=== PATIENT | female | born 1940 | race Caucasian/White ===

== ENCOUNTER → 2023-04-23 07:41 | Outpatient (REF) | payer OTHER, SELFPAY ==
[2023-04-23 08:26] LABS: % Basophils 0.8 % (0-2); % Immature Granulocytes 0.1 % (0-0.5); % Lymphocytes 16.9 % (20.5-51.1); % Monocytes 11.9 % (1.7-9.3); % Neutrophils 68.3 % (42.2-75.2); Absolute Basophils 0.1 10^3/uL (0-0.2); Absolute Eosinophils 0.2 10^3/uL (0-0.7); Absolute Lymphocytes 1.5 10^3/uL (1.2-3.4); Absolute Neutrophils 5.9 10^3/uL (1.4-6.5); Hematocrit 43.6 % (37.0-47.0); Hemoglobin 14.7 g/dL (12.0-16.0); Mean Corp Hgb Conc. 33.7 g/dL (33.0-37.0); Mean Corpuscular Hgb 33.2 pg (27.0-31.0); Mean Corpuscular Volume 98.4 fL (81.0-99.0); Mean Platelet Volume 10.9 fL (7.4-10.4); Nucleated Red Blood Cells % 0 %; Platelet Count 176 10^3/uL (130-400); Red Blood Cell Count 4.43 10^6/uL (4.20-5.40); Red Cell Dist. Width 14.8 % (11.5-14.5); White Blood Cell Count 8.6 10^3/uL (4.8-10.8)
[2023-04-23 08:43] LABS: NT-proBNP 4910 pg/ml; Troponin I 0.032 ng/ml
[2023-04-23 09:36] LABS: Blood Urea Nitrogen 23 mg/dl (7-17); Calcium 9.6 mg/dl (8.4-10.2); Carbon Dioxide 26 mmol/L (22-30); Chloride 99 mmol/L (98-107); Glucose 112 mg/dl (70-99); Potassium 4.4 mmol/L (3.5-5.1); Sodium 135 mmol/L (135-145); eGFR > 60.00
[2023-04-27 06:33] LABS: Albumin 4.15 g/dL (3.75-5.01); Alpha 1 Globulin 0.29 g/dL (0.19-0.46); Free Kappa Light Chains,Quant 17.17 mg/L (3.30-19.40); Free Lambda Light Chains,Quant 48.46 mg/L (5.71-26.30); IgA 89 mg/dL (68-408); IgG 800 mg/dL (768-1632); IgM 30 mg/dL (35-263); Immunofixation Electrophoresis IFE Done; Kappa/Lambda Fr Light Ratio 0.35 (0.26-1.65); Total Protein-Electrophoresis 6.7 g/dL (6.3-8.2)
== END ==
LOC: REG 07:41
PROVIDERS: ATTENDING PHYSICIAN Internal Medicine Hematology & Oncology
DX: E85.4 Organ-limited amyloidosis (principal)
CPT/HCPCS: 36415; 80048; 82784; 83521; 83880; 84155; 84165; 84484; 85025; 86334

== ENCOUNTER → 2023-05-14 16:28 | Outpatient (REF) | payer OTHER, SELFPAY ==
[2023-05-14 11:56] LABS: % Basophils 0.9 % (0-2); % Eosinophils 1.4 % (0-6); % Immature Granulocytes 0.1 % (0-0.5); % Lymphocytes 15.9 % (20.5-51.1); % Monocytes 10.3 % (1.7-9.3); % Neutrophils 71.4 % (42.2-75.2); Absolute Basophils 0.1 10^3/uL (0-0.2); Absolute Eosinophils 0.1 10^3/uL (0-0.7); Absolute Lymphocytes 1.1 10^3/uL (1.2-3.4); Absolute Monocytes 0.7 10^3/uL (0.1-0.6); Hematocrit 43.2 % (37.0-47.0); Hemoglobin 14.5 g/dL (12.0-16.0); Mean Corp Hgb Conc. 33.6 g/dL (33.0-37.0); Mean Corpuscular Hgb 32.6 pg (27.0-31.0); Mean Corpuscular Volume 97.1 fL (81.0-99.0); Mean Platelet Volume 11.1 fL (7.4-10.4); Platelet Count 165 10^3/uL (130-400); Red Blood Cell Count 4.45 10^6/uL (4.20-5.40); Red Cell Dist. Width 14.1 % (11.5-14.5)
== END ==
LOC: OIDL 16:28
PROVIDERS: ATTENDING PHYSICIAN Internal Medicine Hematology & Oncology
DX: E85.4 Organ-limited amyloidosis (principal)
CPT/HCPCS: 85025; 86850; 86900; 86901

== ENCOUNTER → 2023-05-21 11:27 | Outpatient (REF) | payer OTHER, SELFPAY ==
[2023-05-21 11:45] LABS: % Basophils 0.1 % (0-2); % Eosinophils 1.2 % (0-6); % Immature Granulocytes 0.1 % (0-0.5); % Monocytes 10.6 % (1.7-9.3); Absolute Eosinophils 0.1 10^3/uL (0-0.7); Absolute Monocytes 0.8 10^3/uL (0.1-0.6); Absolute Neutrophils 5.4 10^3/uL (1.4-6.5); Hematocrit 44.2 % (37.0-47.0); Mean Corp Hgb Conc. 33.9 g/dL (33.0-37.0); Mean Corpuscular Hgb 32.4 pg (27.0-31.0); Mean Corpuscular Volume 95.5 fL (81.0-99.0); Mean Platelet Volume 10.6 fL (7.4-10.4); Platelet Count 173 10^3/uL (130-400); Red Blood Cell Count 4.63 10^6/uL (4.20-5.40); White Blood Cell Count 7.3 10^3/uL (4.8-10.8)
== END ==
LOC: OIDL 11:27
PROVIDERS: ATTENDING PHYSICIAN Internal Medicine Hematology & Oncology
DX: E85.4 Organ-limited amyloidosis (principal)
CPT/HCPCS: 85025

== ENCOUNTER → 2023-05-26 08:00 | Outpatient (REF) | payer OTHER, SELFPAY | LOC: RCS 08:00 | PROVIDERS: ATTENDING PHYSICIAN Internal Medicine Hematology & Oncology; FAMILY PHYSICIAN Family Medicine; OTHER PHYSICIAN Internal Medicine Cardiovascular Disease; REFERRING PHYSICIAN Internal Medicine Cardiovascular Disease | DX: E85.4 Organ-limited amyloidosis (principal) | CPT/HCPCS: 71046; 93306; 93356 ==

== ENCOUNTER → 2023-05-28 13:11 | Outpatient (REF) | payer OTHER, SELFPAY ==
[2023-05-28 09:02] LABS: % Basophils 0.1 % (0-2); % Eosinophils 0.3 % (0-6); % Immature Granulocytes 0.2 % (0-0.5); % Lymphocytes 10.3 % (20.5-51.1); % Monocytes 7.9 % (1.7-9.3); % Neutrophils 81.2 % (42.2-75.2); Absolute Lymphocytes 0.9 10^3/uL (1.2-3.4); Absolute Monocytes 0.7 10^3/uL (0.1-0.6); Absolute Neutrophils 7.4 10^3/uL (1.4-6.5); Hematocrit 46.1 % (37.0-47.0); Hemoglobin 15.7 g/dL (12.0-16.0); Mean Corp Hgb Conc. 34.1 g/dL (33.0-37.0); Mean Corpuscular Hgb 32.3 pg (27.0-31.0); Mean Corpuscular Volume 94.9 fL (81.0-99.0); Mean Platelet Volume 10.5 fL (7.4-10.4); Platelet Count 145 10^3/uL (130-400); Red Blood Cell Count 4.86 10^6/uL (4.20-5.40); Red Cell Dist. Width 13.8 % (11.5-14.5); White Blood Cell Count 9.1 10^3/uL (4.8-10.8)
== END ==
LOC: OIDL 13:11
PROVIDERS: ATTENDING PHYSICIAN Internal Medicine Hematology & Oncology
DX: E85.4 Organ-limited amyloidosis (principal)
CPT/HCPCS: 85025

== ENCOUNTER → 2023-06-02 08:22 | Outpatient (REF) | payer OTHER, SELFPAY ==
[2023-06-02 09:29] LABS: % Basophils 0.1 % (0-2); % Eosinophils 0.3 % (0-6); % Immature Granulocytes 0.5 % (0-0.5); % Lymphocytes 15.1 % (20.5-51.1); % Monocytes 8.6 % (1.7-9.3); % Neutrophils 75.4 % (42.2-75.2); Absolute Immature Granulocytes 0.1 10^3/uL (0-0.05); Absolute Lymphocytes 1.4 10^3/uL (1.2-3.4); Absolute Monocytes 0.8 10^3/uL (0.1-0.6); Absolute Neutrophils 7.1 10^3/uL (1.4-6.5); Hematocrit 44.2 % (37.0-47.0); Hemoglobin 15.3 g/dL (12.0-16.0); Mean Corp Hgb Conc. 34.6 g/dL (33.0-37.0); Mean Corpuscular Hgb 32.3 pg (27.0-31.0); Mean Corpuscular Volume 93.2 fL (81.0-99.0); Mean Platelet Volume 11.1 fL (7.4-10.4); Nucleated Red Blood Cells % 0 %; Platelet Count 149 10^3/uL (130-400); Red Blood Cell Count 4.74 10^6/uL (4.20-5.40); Red Cell Dist. Width 14.2 % (11.5-14.5); White Blood Cell Count 9.4 10^3/uL (4.8-10.8)
[2023-06-02 10:00] LABS: ALT (SGPT) 71 U/L (0-35); AST (SGOT) 54 U/L (14-36); Albumin 4.4 g/dl (3.5-5.0); Alkaline Phosphatase 152 U/L (38-126); Blood Urea Nitrogen 29 mg/dl (7-17); Calcium 9.2 mg/dl (8.4-10.2); Carbon Dioxide 30 mmol/L (22-30); Chloride 96 mmol/L (98-107); Glucose 162 mg/dl (70-99); Potassium 4.3 mmol/L (3.5-5.1); Sodium 133 mmol/L (135-145); Total Bilirubin 1.6 mg/dl (0.2-1.3); Total Protein 6.8 g/dl (6.3-8.2); eGFR > 60.00
== END ==
LOC: REG 08:22
PROVIDERS: ATTENDING PHYSICIAN Internal Medicine Hematology & Oncology; FAMILY PHYSICIAN Family Medicine
DX: E85.4 Organ-limited amyloidosis (principal); R53.83 Other fatigue
CPT/HCPCS: 36415; 80053; 85025

== ENCOUNTER → 2023-06-04 13:37 | Outpatient (REF) | payer OTHER, SELFPAY ==
[2023-06-06 09:45] LABS: Beta-2-Microglobulin 2.9 mg/L (<=3.0)
[2023-06-07 13:37] LABS: Albumin 3.96 g/dL (3.75-5.01); Alpha 1 Globulin 0.26 g/dL (0.19-0.46); Alpha 2 Globulin 0.81 g/dL (0.48-1.05); Free Kappa Light Chains,Quant 4.97 mg/L (3.30-19.40); Free Lambda Light Chains,Quant 15.65 mg/L (5.71-26.30); IgA 33 mg/dL (68-408); IgG 628 mg/dL (768-1632); IgM 17 mg/dL (35-263); Immunofixation Electrophoresis IFE Done; Kappa/Lambda Fr Light Ratio 0.32 (0.26-1.65); Total Protein-Electrophoresis 6.2 g/dL (6.3-8.2)
== END ==
LOC: OIDL 13:37
PROVIDERS: ATTENDING PHYSICIAN Internal Medicine Hematology & Oncology
DX: E85.4 Organ-limited amyloidosis (principal)
CPT/HCPCS: 82232; 82784; 83521; 84155; 84165; 86334

== ENCOUNTER → 2023-06-09 08:18 | Outpatient (REF) | payer OTHER, SELFPAY ==
[2023-06-09 08:59] LABS: % Basophils 0.2 % (0-2); % Eosinophils 0.8 % (0-6); % Immature Granulocytes 0.8 % (0-0.5); % Lymphocytes 15.6 % (20.5-51.1); % Monocytes 8.7 % (1.7-9.3); % Neutrophils 73.9 % (42.2-75.2); Absolute Eosinophils 0.1 10^3/uL (0-0.7); Absolute Immature Granulocytes 0.1 10^3/uL (0-0.05); Absolute Lymphocytes 1.6 10^3/uL (1.2-3.4); Absolute Monocytes 0.9 10^3/uL (0.1-0.6); Absolute Neutrophils 7.4 10^3/uL (1.4-6.5); Hematocrit 46.3 % (37.0-47.0); Hemoglobin 15.8 g/dL (12.0-16.0); Mean Corp Hgb Conc. 34.1 g/dL (33.0-37.0); Mean Corpuscular Hgb 32.2 pg (27.0-31.0); Mean Corpuscular Volume 94.5 fL (81.0-99.0); Mean Platelet Volume 11.2 fL (7.4-10.4); Nucleated Red Blood Cells % 0 %; Platelet Count 156 10^3/uL (130-400); Red Cell Dist. Width 14.4 % (11.5-14.5)
[2023-06-09 09:32] LABS: ALT (SGPT) 62 U/L (0-35); AST (SGOT) 48 U/L (14-36); Albumin 4.5 g/dl (3.5-5.0); Alkaline Phosphatase 124 U/L (38-126); Blood Urea Nitrogen 32 mg/dl (7-17); Calcium 9.7 mg/dl (8.4-10.2); Carbon Dioxide 32 mmol/L (22-30); Chloride 89 mmol/L (98-107); Glucose 213 mg/dl (70-99); Potassium 4.5 mmol/L (3.5-5.1); Sodium 132 mmol/L (135-145); Total Bilirubin 1.8 mg/dl (0.2-1.3); Total Protein 6.7 g/dl (6.3-8.2); eGFR 55.55
[2023-06-13 08:53] LABS: Albumin 4.45 g/dL (3.75-5.01); Alpha 1 Globulin 0.29 g/dL (0.19-0.46); Alpha 2 Globulin 0.95 g/dL (0.48-1.05); Free Kappa Light Chains,Quant 4.46 mg/L (3.30-19.40); Free Lambda Light Chains,Quant 14.27 mg/L (5.71-26.30); IgA 31 mg/dL (68-408); IgG 705 mg/dL (768-1632); IgM 17 mg/dL (35-263); Immunofixation Electrophoresis IFE Done; Kappa/Lambda Fr Light Ratio 0.31 (0.26-1.65); Monoclonal Protein 0.25 g/dL (<=0.00)
== END ==
LOC: REG 08:18
PROVIDERS: ATTENDING PHYSICIAN Internal Medicine Hematology & Oncology; FAMILY PHYSICIAN Family Medicine
DX: E85.4 Organ-limited amyloidosis (principal); R53.83 Other fatigue
CPT/HCPCS: 36415; 80053; 82784; 83521; 84155; 84165; 85025; 86334

== ENCOUNTER → 2023-06-16 07:36 | Outpatient (REF) | payer OTHER, SELFPAY ==
[2023-06-16 08:57] LABS: % Basophils 0.2 % (0-2); % Eosinophils 0.1 % (0-6); % Immature Granulocytes 0.4 % (0-0.5); % Lymphocytes 10.4 % (20.5-51.1); % Monocytes 6.3 % (1.7-9.3); % Neutrophils 82.6 % (42.2-75.2); Absolute Monocytes 0.6 10^3/uL (0.1-0.6); Absolute Neutrophils 7.7 10^3/uL (1.4-6.5); Hematocrit 42.4 % (37.0-47.0); Hemoglobin 15.1 g/dL (12.0-16.0); Mean Corp Hgb Conc. 35.6 g/dL (33.0-37.0); Mean Corpuscular Hgb 32.5 pg (27.0-31.0); Mean Corpuscular Volume 91.4 fL (81.0-99.0); Nucleated Red Blood Cells % 0 %; Platelet Count 145 10^3/uL (130-400); Red Blood Cell Count 4.64 10^6/uL (4.20-5.40); Red Cell Dist. Width 14.6 % (11.5-14.5); White Blood Cell Count 9.4 10^3/uL (4.8-10.8)
[2023-06-16 09:23] LABS: ALT (SGPT) 58 U/L (0-35); AST (SGOT) 42 U/L (14-36); Albumin 4.1 g/dl (3.5-5.0); Alkaline Phosphatase 138 U/L (38-126); Blood Urea Nitrogen 25 mg/dl (7-17); Calcium 9.2 mg/dl (8.4-10.2); Carbon Dioxide 29 mmol/L (22-30); Chloride 94 mmol/L (98-107); Glucose 223 mg/dl (70-99); Potassium 4.5 mmol/L (3.5-5.1); Sodium 131 mmol/L (135-145); Total Bilirubin 1.9 mg/dl (0.2-1.3); Total Protein 6.4 g/dl (6.3-8.2); eGFR > 60.00
== END ==
LOC: HWRAD 07:36
PROVIDERS: ATTENDING PHYSICIAN Internal Medicine Hematology & Oncology; FAMILY PHYSICIAN Family Medicine; REFERRING PHYSICIAN Nurse Practitioner Family
DX: E85.4 Organ-limited amyloidosis (principal); R53.83 Other fatigue; R06.00 Dyspnea, unspecified; R22.41 Localized swelling, mass and lump, right lower limb
CPT/HCPCS: 36415; 80053; 85025; 93971

== ENCOUNTER → 2023-06-23 10:52 | Outpatient (REF) | payer OTHER, SELFPAY ==
[2023-06-23 12:14] LABS: % Basophils 0.1 % (0-2); % Eosinophils 0.1 % (0-6); % Immature Granulocytes 0.4 % (0-0.5); % Lymphocytes 10.9 % (20.5-51.1); % Monocytes 6.6 % (1.7-9.3); % Neutrophils 81.9 % (42.2-75.2); Absolute Monocytes 0.6 10^3/uL (0.1-0.6); Absolute Neutrophils 7.5 10^3/uL (1.4-6.5); Hemoglobin 14.7 g/dL (12.0-16.0); Mean Corpuscular Hgb 32.5 pg (27.0-31.0); Mean Corpuscular Volume 92.7 fL (81.0-99.0); Mean Platelet Volume 10.8 fL (7.4-10.4); Nucleated Red Blood Cells % 0 %; Platelet Count 150 10^3/uL (130-400); Red Blood Cell Count 4.53 10^6/uL (4.20-5.40); Red Cell Dist. Width 14.6 % (11.5-14.5); White Blood Cell Count 9.2 10^3/uL (4.8-10.8)
[2023-06-23 12:32] LABS: ALT (SGPT) 62 U/L (0-35); AST (SGOT) 37 U/L (14-36); Albumin 4.2 g/dl (3.5-5.0); Alkaline Phosphatase 135 U/L (38-126); Blood Urea Nitrogen 21 mg/dl (7-17); Calcium 9.1 mg/dl (8.4-10.2); Carbon Dioxide 31 mmol/L (22-30); Chloride 92 mmol/L (98-107); Glucose 97 mg/dl (70-99); Potassium 3.8 mmol/L (3.5-5.1); Sodium 130 mmol/L (135-145); Total Bilirubin 1.5 mg/dl (0.2-1.3); Total Protein 6.5 g/dl (6.3-8.2); eGFR > 60.00
[2023-06-25 09:25] LABS: Albumin 3.79 g/dL (3.75-5.01); Alpha 1 Globulin 0.33 g/dL (0.19-0.46); Alpha 2 Globulin 0.98 g/dL (0.48-1.05); Free Kappa Light Chains,Quant 4.37 mg/L (3.30-19.40); Free Lambda Light Chains,Quant 15.18 mg/L (5.71-26.30); IgA 15 mg/dL (68-408); IgG 566 mg/dL (768-1632); IgM 15 mg/dL (35-263); Immunofixation Electrophoresis IFE Done; Kappa/Lambda Fr Light Ratio 0.29 (0.26-1.65); Total Protein-Electrophoresis 6.3 g/dL (6.3-8.2)
== END ==
LOC: REG 10:52
PROVIDERS: ATTENDING PHYSICIAN Internal Medicine Hematology & Oncology; FAMILY PHYSICIAN Family Medicine
DX: E85.4 Organ-limited amyloidosis (principal); R53.83 Other fatigue
CPT/HCPCS: 36415; 80053; 82784; 83521; 84155; 84165; 85025; 86334

== ENCOUNTER → 2023-07-01 11:28 | Outpatient (REF) | payer OTHER, SELFPAY ==
[2023-07-01 12:01] LABS: % Basophils 0.2 % (0-2); % Immature Granulocytes 0.4 % (0-0.5); % Lymphocytes 12.1 % (20.5-51.1); % Neutrophils 77.3 % (42.2-75.2); Absolute Monocytes 0.8 10^3/uL (0.1-0.6); Absolute Neutrophils 6.4 10^3/uL (1.4-6.5); Hematocrit 42.4 % (37.0-47.0); Mean Corp Hgb Conc. 35.4 g/dL (33.0-37.0); Mean Corpuscular Hgb 32.2 pg (27.0-31.0); Mean Platelet Volume 9.5 fL (7.4-10.4); Nucleated Red Blood Cells % 0 %; Platelet Count 192 10^3/uL (130-400); Red Blood Cell Count 4.66 10^6/uL (4.20-5.40); Red Cell Dist. Width 14.6 % (11.5-14.5); White Blood Cell Count 8.2 10^3/uL (4.8-10.8)
[2023-07-01 12:32] LABS: ALT (SGPT) 48 U/L (0-35); AST (SGOT) 41 U/L (14-36); Albumin 3.9 g/dl (3.5-5.0); Alkaline Phosphatase 141 U/L (38-126); Blood Urea Nitrogen 17 mg/dl (7-17); Calcium 9.1 mg/dl (8.4-10.2); Carbon Dioxide 32 mmol/L (22-30); Chloride 92 mmol/L (98-107); Glucose 118 mg/dl (70-99); Potassium 3.9 mmol/L (3.5-5.1); Sodium 131 mmol/L (135-145); Total Bilirubin 1.2 mg/dl (0.2-1.3); Total Protein 6.3 g/dl (6.3-8.2); eGFR > 60.00
[2023-07-01 12:35] LABS: NT-proBNP 12200 pg/ml; Troponin I 0.066 ng/ml
[2023-07-04 05:30] LABS: Albumin 3.56 g/dL (3.75-5.01); Alpha 1 Globulin 0.42 g/dL (0.19-0.46); Alpha 2 Globulin 1.25 g/dL (0.48-1.05); Free Kappa Light Chains,Quant 4.38 mg/L (3.30-19.40); IgA 13 mg/dL (68-408); IgG 570 mg/dL (768-1632); IgM 17 mg/dL (35-263); Immunofixation Electrophoresis IFE Done; Kappa/Lambda Fr Light Ratio 0.32 (0.26-1.65); Monoclonal Protein 0.23 g/dL (<=0.00); Total Protein-Electrophoresis 6.4 g/dL (6.3-8.2)
== END ==
LOC: REG 11:28
PROVIDERS: ATTENDING PHYSICIAN Internal Medicine Hematology & Oncology; FAMILY PHYSICIAN Family Medicine
DX: E85.4 Organ-limited amyloidosis (principal); R53.83 Other fatigue
CPT/HCPCS: 36415; 80053; 82784; 83521; 83880; 84155; 84165; 84484; 85025; 86334

== ENCOUNTER → 2023-07-02 13:35 | Outpatient (REF) | payer OTHER, SELFPAY | LOC: REG 13:35 | PROVIDERS: ATTENDING PHYSICIAN Nurse Practitioner Family; FAMILY PHYSICIAN Family Medicine | DX: E85.4 Organ-limited amyloidosis (principal); R53.83 Other fatigue; R60.0 Localized edema; R06.00 Dyspnea, unspecified | CPT/HCPCS: 71046 ==

== ENCOUNTER 2023-07-05 23:56 | Inpatient (IN) | payer OTHER, SELFPAY ==
[2023-07-05 20:33] VITALS: BP 116/72
[2023-07-05 20:34] VITALS: BMI 20.5
[2023-07-05 20:44] LABS: % Basophils 0.1 % (0-2); % Immature Granulocytes 0.4 % (0-0.5); % Lymphocytes 7.3 % (20.5-51.1); % Monocytes 5.5 % (1.7-9.3); % Neutrophils 86.7 % (42.2-75.2); Absolute Immature Granulocytes 0.1 10^3/uL (0-0.05); Absolute Monocytes 0.8 10^3/uL (0.1-0.6); Absolute Neutrophils 11.9 10^3/uL (1.4-6.5); Hematocrit 41.3 % (37.0-47.0); Hemoglobin 14.9 g/dL (12.0-16.0); Mean Corp Hgb Conc. 36.1 g/dL (33.0-37.0); Mean Corpuscular Hgb 31.8 pg (27.0-31.0); Mean Corpuscular Volume 88.1 fL (81.0-99.0); Mean Platelet Volume 10.2 fL (7.4-10.4); Nucleated Red Blood Cells % 0 %; Platelet Count 229 10^3/uL (130-400); Red Blood Cell Count 4.69 10^6/uL (4.20-5.40); Red Cell Dist. Width 14.4 % (11.5-14.5); White Blood Cell Count 13.7 10^3/uL (4.8-10.8)
[2023-07-05 20:59] LABS: COVID-19 Antigen Negative (Negative)
[2023-07-05 21:00] VITALS: BP 101/54
[2023-07-05 21:18] LABS: ALT (SGPT) 53 U/L (0-35); AST (SGOT) 41 U/L (14-36); Albumin 3.6 g/dl (3.5-5.0); Alkaline Phosphatase 152 U/L (38-126); Blood Urea Nitrogen 24 mg/dl (7-17); Calcium 9.2 mg/dl (8.4-10.2); Carbon Dioxide 29 mmol/L (22-30); Chloride 93 mmol/L (98-107); Estimated Creatinine Clearance 48 ml/min; Glucose 205 mg/dl (70-99); Potassium 4.1 mmol/L (3.5-5.1); Sodium 130 mmol/L (135-145); Total Bilirubin 1.1 mg/dl (0.2-1.3); eGFR > 60.00
[2023-07-05 22:00] VITALS: BP 105/61
[2023-07-05 22:03] LABS: Troponin I 0.086 ng/ml
--- NOTE | 2023-07-05 22:03 | ED.GENMED ---
History of Present Illness
General
Chief Complaint: Breathing Problem
Source: patient
Exam Limitations: none
Time Seen by Provider: 07/05/23 20:55
Travel History
Have you had any contact with someone who has COVID-19?: No
Do you have any symptoms of coronavirus? Fever > 100 degrees, chills, cough, shortness of breath, sore throat, loss of taste or smell, muscle aches, or headache?: No
History of Present Illness
History of Present Illness:
This is a 83 year old female that comes in with c/o SOB. state that she has been getting worse over the week. States that at first they thought this was allergies. States that she is SOB and has a cough. Denies any fever, chills, chest pain, abd
pain, nausea, vomiting, diarrhea, headache, dizziness, urinary burning.
Past History
Past History
ED Past Medical History: HTN and Other (Amyloidosis with pleural effusions)
ED Past Surgical History: Orthopedic (Hip and knee replacement Bilaterally)
Social History
Tobacco: Non-smoker
Alcohol: Occasional
Drug: None
Personal:
Living: with family
Family History
Family History: Other (Noncontributory)
Review of Systems
Review of Systems
All Other Systems: ROS reviewed and negative except as documented in HPI and ROS
Constitutional: Reports no symptoms; Denies fever or chills
EENT: Reports no symptoms
Respiratory: Reports cough and trouble breathing
Cardiac: Denies chest pain
ABD/GI: Reports no symptoms; Denies abdominal pain, nausea, vomiting or diarrhea
: Reports no symptoms; Denies dysuria, frequency or urgency
Musculoskeletal: Reports no symptoms
Skin: Reports no symptoms
Neurological: Reports no symptoms; Denies dizzy or headache
Psychiatric: Reports no symptoms
Phy Exam
General Physical Exam
General Presentation: mild distress
General age: appears stated age
General Skin: warm and dry
General Habitus: elderly
General Mental: alert
General Hydration: appears well hydrated
ENT Exam
ENT Exam: TM's normal, pharynx normal and neck supple
Eye Exam
Eye Exam: EOMI
Cardiovascular Exam
Cardiovascular Exam: no edema, normal peripheral pulses and irregularly irregular
Pulmonary Exam
Pulmonary Exam: chest non tender, no rhonchi, no wheezing and other (rales bases and 1/2 up on left)
Gastrointestinal Exam
Gastrointestinal Exam: normal bowel sounds, non tender, soft, no organomegaly and no pulsatile mass
Musculoskeletal Exam
Musculoskeletal Exam: full ROM and no edema
Skin Exam
Skin Exam: normal color, warm/dry, no rash and no petechia
Psychiatric Exam
Psychiatric Exam: normal mood/affect
Scores
Heart Failure Risk
Heart Failure Risk Score: Yes
History of Stroke or TIA: No
History of intubation for respiratory distress: No
Heart rate on ED arrival >/= 110: Yes
SaO2 <90% on arrival on room air: No
HR >/=110 during 3min walk test (or too ill to perform test): Yes
ECG has acute ischemic changes: Yes
Urea >/=12mmol/L (BUN 33.6mg/dL): No
Serum CO2>/=35mmol/L: No
Troponin I or T elevated to CO Level (0.4mg/dL): Yes
NT-proBNP >/=5,000ng/L (5,000pg/ml): Yes
HF Risk Score: 7
Admission Status: VERY HIGH RISK 69.8% Consider admission to hospital
Course
Orders/Labs/Results
Orders:
Orders
07/05/23 20:36
COVID-19 Antigen Urgent
Source: Nasal Swab
Complete Blood Count/With Diff Urgent
Comprehensive Metabolic Panel Urgent
Influenza A+B Rapid Molecular Urgent
JOEY Source: Nasal Swab
Specimen Description:
07/05/23 21:17
Add On- LAB Urgent
Tests Added?: Pro-Bnp
07/05/23 21:18
Electrocardiogram (*1) Urgent
Reason for Study: Shortness of Breath
EKG- Treatment ONCE
CR Chest - 2 Views Urgent
Comment:
Reason For Exam: SOB
07/05/23 21:23
NT-proBNP Urgent
Comment: ADDON
Troponin I Urgent
07/05/23 22:16
Furosemide [Lasix] 40 mg IV NOW STA
07/05/23 22:18
EKG- Treatment ONCE
07/06/23 00:20
Electrocardiogram (*1) Urgent
Reason for Study: Shortness of Breath
Other Reason for Exam: Repeat with troponin
Troponin I Urgent
Abnormal Lab Results
07/05/23 07/05/23
20:36 21:23
WBC 13.7 H 10^3/uL
(4.8-10.8)
MCH 31.8 H pg
(27.0-31.0)
Abs Immat Gran (auto) 0.1 H 10^3/uL
(0-0.05)
Absolute Neuts (auto) 11.9 H 10^3/uL
(1.4-6.5)
Absolute Lymphs (auto) 1.0 L 10^3/uL
(1.2-3.4)
Absolute Monos (auto) 0.8 H 10^3/uL
(0.1-0.6)
Neutrophils % 86.7 H %
(42.2-75.2)
Lymphocytes % 7.3 L %
(20.5-51.1)
Sodium 130 L mmol/L
(135-145)
Chloride 93 L mmol/L
(98-107)
BUN 24 H mg/dl
(7-17)
Glucose 205 H mg/dl
(70-99)
AST 41 H U/L
(14-36)
ALT 53 H U/L
(0-35)
Alkaline Phosphatase 152 H U/L
(38-126)
Troponin I 0.086 H* ng/ml
Total Protein 6.0 L g/dl
(6.3-8.2)
07/05/23 20:36
07/05/23 20:36
Leukocytosis, Sodium slightly low. chloride low Dehydration. Glucose nonfasting. AST/ALT slightly elevated. Alk phos elevation. Total protein slightly low. COVID Negative, Influenza A positive. Troponin elevated 0.086, Pro-BNP elevated to 11,800
Vital Signs
Initial and Last Documented VS:
Initial Vital Signs
Pulse Ox
93
07/05/23 20:32
Last Documented Vital Signs
Temp Pulse Resp BP Pulse Ox
98.7 F 113 22 116/72 94
07/05/23 20:33 07/05/23 20:33 07/05/23 20:33 07/05/23 20:33 07/05/23 20:33
MDM/Problems Addressed
Differential Diagnosis Includes:
. CHF,
MDM/Problems Addressed:
This is a 83 year old female that comes in with c/o SOB. States that over the week she has been getting worse. State that she has a cough.
will check lab, chest x-ray, COVID and Influenza.
Back into see patient and family. Explained that she has a few things going on. She has Influenza A. Her chest X-ray shows CHF with left pleural effusion. Will admit patient and give IV Lasix. Troponin is also elevated. Hospitalist notified.
Chronic conditions affecting care:
NA
Acute Exacerbation and/or Progression of Chronic Illness:
NA
*Radiology
Radiology exam reviewed: preliminary read by ED provider (Chest- Increased vascular congestion with pleural effusion. )
*Pulse Oximetry
Patient hypoxic: no
*EKG
Interpreted by ED Provider?: Yes
Heart Rate: 111
Rate: tachycardiac
Rhythm: PAC's and sinus tachycardia
[place]: right axis deviation
QRS Pattern: normal QRS
Ischemia: ST depression (with T wave inversion II, III, aVF, V4, V5, V6)
*It Technical Support Specialist Interpretation
Rate: tachycardiac
Heart Rate: 118
Rhythm: a-fib
*Critical Care Note
Total Time (30-74mins, 75-104mins- exclusive of procedures): Not Applicable
ED Attending Note
-
Portions of this chart may have been created with voice recognition software.� Occasional wrong word or��sound alike� substitutions may have occurred due to the inherent limitations of voice recognition software.
Discharge Plan
Departure
Patient Disposition: Admit
Date of Disposition: 07/05/23
Time of Disposition: 22:25
Admit to: Telemetry
Presentation/result/management discussed w/ accepting MD/DO: Hospitalist
Patient with high blood pressure during this ER visit?: No
Condition: Good
Covid-19: Negative COVID-19
Discharge Problem:
Elevated troponin, Influenza A, CHF (congestive heart failure), Pleural effusion on left
Prescriptions:
No Action
furosemide 40 MG tablet
40 mg PO 0900,1200
metoprolol succinate 50 MG tablet extended release 24 hr
25 mg PO DAILY
spironolactone 25 MG tablet
12.5 mg PO DAILY
Referrals:
Jaz Weinstein MD [Family Provider] -
Interventions
Interventions:
*Risk Screen - Suicide Last Done: 07/05/23 20:31
*General Assessment Last Done: 07/05/23 20:31
*Neglect/Abuse Screening Last Done: 07/05/23 20:31
*ED COVID-19 Vaccine History Last Done: 07/05/23 20:31
ED- Cardiac Assessment Last Done: 07/05/23 20:32
ED- Pulmonary Assessment Last Done: 07/05/23 20:32
Discharge Date and Time
Print Language: JAMAICAN
[2023-07-05 22:23] LABS: NT-proBNP 11800 pg/ml
[2023-07-05] MEDS: LASIX 40 MG IV (22:26)
[2023-07-05 22:27] VITALS: BP 106/59
--- NOTE | 2023-07-05 23:06 | HPS.HSE ---
Family Physician
-
Family Physician: Jaz Weinstein
Chief Complaint
-
Cough
History of Present Illness
83 year old woman comes in with c/o SOB. This has been getting worse over the week. At first she thought this was allergies. She is now SOB and still has a cough. She Denies any fever, chills, chest pain, abd pain, nausea, vomiting, diarrhea,
headache, dizziness, urinary burning. She did have a flu vaccine this year. Her had similar symptoms, but is now better.
Medical History
Past Medical History
Past Medical History: Reports Other
Additional Past Medical History:
Essential HTN
Amyloidosis with pleural effusions
Hip and knee replacement Bilaterally
Left heart failure
Proteinuria, unspecified type
Organ-limited amyloidosis
Abnormal ECG
Chronic diastolic heart failure
Metabolic alkalosis
Palpable abdominal aorta
Bence Lomax proteinuria
Restrictive cardiomyopathy
Past Surgical History: Reports Other
Additional Past Surgical History:
See above
Social History
Tobacco: Non-smoker
Alcohol: None
Drug: None
Family History
Family History: Not pertinent
Allergies / Home Medications
Allergies reflects when Allergies were last updated in [employer].
Home Medications with original date entered in [employer]
Allergy/Medication List:
Allergies
Allergy/AdvReac Type Severity Reaction Status Date / Time
lisinopril Allergy Swelling Verified 07/13/21 09:40
Home Medications
furosemide 40 mg tablet 40 mg PO 0900,1200 07/13/21
metoprolol succinate 50 mg tablet,extended release 24 hr 25 mg PO DAILY 07/13/21
spironolactone 25 mg tablet 12.5 mg PO DAILY 07/13/21
Review of Systems
-
History Source: Patient
A 12 point ROS was completed and negative except as noted: Yes
Physical Exam
Vital Signs
Vital Signs
Temp Pulse Resp BP Pulse Ox
98.7 F 114 23 106/59 95
07/05/23 20:33 07/05/23 22:45 07/05/23 22:45 07/05/23 22:27 07/05/23 22:45
Physical Exam
General: Well Developed, Well Nourished and Appears in Distress
HEENT: Moist mucous membranes, Nose Appears Normal, Ears Appear Normal and Hearing Impaired
Respiratory: Rales, Rhonchi and Crackles
Cardiac: S1/S2 and Regular Rhythm
GI: Soft, Non Tender and Non Distended
Musculoskeletal: No Clubbing, No Cyanosis and No Edema
Skin: Warm and Dry; No Rash or Jaundice
Neuro: Awake, Alert and Oriented
Psych: Calm
Laboratory Results
-
07/05/23 20:36
07/05/23 20:36
Laboratory Results
Total Bilirubin 1.1 mg/dl (0.2-1.3) 07/05/23 20:36
AST 41 U/L (14-36) H 07/05/23 20:36
ALT 53 U/L (0-35) H 07/05/23 20:36
Alkaline Phosphatase 152 U/L (38-126) H 07/05/23 20:36
Troponin I 0.086 ng/ml H* 07/05/23 21:23
Data Reviewed
-
Lab Data: Labs Reviewed by me
Impression/Plan
-
IMPRESSION:
83 woman, flu A (+), comes in with cough and SOB. Also appears to have pleural effusion. Significant findings:
WBC 13.7
Na 130
BUN/Creat 24/0.6
Troponin 0.086
BNP 11,800
PLAN:
1. Positive Flu, fluid in lung, high WBC. Concern for flu PNA that has high risk to become bacterial PNA
PNA abx
No longer in window for tamiflu
2. Pleural effusion and >2x baseline BNP
IV lasix
Follow BP and renal function closely
3. Troponin elevated. Likely mix of CHF and increased strain from illness
Telemetry
ASA
CHELSY
4. Now Na, likely from lung irritation and fluid overload
Lasix
Recheck in am
5. BUN/Creat > 20.
Given start of diuresis, follow renal function closely
Code: DNR (double checked with )
VCD for DVTp
[2023-07-05 23:56] VITALS: BMI 20.5
[2023-07-05] MEDS: VANCOCIN 200 IV (23:59)
[2023-07-06] MEDS: ZITHROMAX INFUSION 250 IV
[2023-07-06] MEDS: ROCEPHIN 1000 MG IV (00:01)
[2023-07-06 00:50] LABS: Troponin I 0.095 ng/ml
--- NOTE | 2023-07-06 02:00 | PTCARENOTE ---
Received patient from ED. Patient AAOx3, drowsy, [employer] [place] [place]. Lungs decreased, RUSS, crackles in the bases, POX [address] on the monitor. VSS, Patient requested 4 rails up. Patient verbalized an understanding to ring for transfers and demonstrated how to
use the call mccullough. Call mccullough in reach.
[2023-07-06 02:07] VITALS: BP 99/66; BMI 19.4
[2023-07-06 05:07] VITALS: BMI 19.4
[2023-07-06 05:11] VITALS: BMI 19.4
[2023-07-06 06:16] LABS: Hematocrit 42.9 % (37.0-47.0); Hemoglobin 15.1 g/dL (12.0-16.0); Mean Corp Hgb Conc. 35.2 g/dL (33.0-37.0); Mean Corpuscular Volume 90.9 fL (81.0-99.0); Mean Platelet Volume 10.6 fL (7.4-10.4); Platelet Count 226 10^3/uL (130-400); Red Blood Cell Count 4.72 10^6/uL (4.20-5.40); Red Cell Dist. Width 14.1 % (11.5-14.5); White Blood Cell Count 12.7 10^3/uL (4.8-10.8)
[2023-07-06 06:44] LABS: Blood Urea Nitrogen 21 mg/dl (7-17); Calcium 8.7 mg/dl (8.4-10.2); Carbon Dioxide 34 mmol/L (22-30); Chloride 94 mmol/L (98-107); Estimated Creatinine Clearance 48 ml/min; Glucose 144 mg/dl (70-99); Sodium 131 mmol/L (135-145); Troponin I 0.094 ng/ml; eGFR > 60.00
[2023-07-06 07:20] VITALS: BP 102/62
--- NOTE | 2023-07-06 07:43 | PHA.VAN.IN ---
Assessment
- Assessment
Renal Function: Appears similar to baseline
Renal Function may be Overestimated due to: AGE
Concomitant Antimicrobials: AZITHROMYCIN,CEFTRIAXONE
AUC Dosing Plan
- Dosing Variables
Dosing Weight (kg): 43.545
Dosing CrCl (ml/min): 48
Vd coefficient (L/kg): 0.7
- Empiric Dosing
Initial / Loading Dose: 1000MG
Maintenance Regimen: 750MG Q24H
Estimated AUC (mcg*h/mL): 568
Estimated Peak (mcg*h/mL): 37.6
Estimated Trough (mcg/ml): 13.6
Estimated Half Life (H): 15.7
- Monitoring
No levels ordered at this time: CONSIDER AT STEADY STATE
Pharmacokinetics Vancomycin I
- -
Patient Age: 83
Patient Sex: Female
Vancomycin Day #: 1
Indication: Pulmonary/Respiratory
Requesting Provider: ELVIE
Height / Weight:
Height 4 ft 11 in
Actual Weight 43.545 kg
IBW in k.2
- Vital Signs / Lab Results
Temp Pulse Resp BP Pulse Ox
98.1 F 112 17 99/66 97
07/06/23 02:07 07/06/23 02:07 07/06/23 02:07 07/06/23 02:07 07/06/23 02:07
Lab Results - Hematology
07/05/23 07/06/23
20:36 06:05
WBC 13.7 H 12.7 H
Lab Results - Chemistry
07/05/23 07/06/23
20:36 06:05
BUN 24 H 21 H
Creatinine 0.6 0.6
Estimated Creat Clear 48 48
Albumin 3.6
Microbiology Results
07/05/23 20:36 Influenza Types A & B (DARRELL) - Final
Nasal Swab Influenza A Positive, NAAT
[2023-07-06] MEDS: TAMIFLU 75 MG PO (09:05)
--- NOTE | 2023-07-06 09:38 | W.PN.HOSP.TC ---
Addendum entered and electronically signed by Norma Valadez MD 07/06/23 12:15:
IV Vanco ordered per Dr. Pack
-F/U MRSA swab and cultures, stop if negative
Original Note:
Today's Communication/Plan
-
*awaiting home med rec
diuresis
Tamiflu
Cef/Azithro
Assessment / Plan
Assessment / Plan
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
CXR:
IMPRESSION:
1. Mild pulmonary vascular congestion.
2. Small left pleural effusion.
PLAN:
Influenza A positive
concern for superimposed bacterial infection with progression in sx
-given hospitalization, meets criteria for Tamiflu - will start
-continue abx to cover CAP: Ceftriaxone/Azithro
Heart Failure preserved EF acute exacerbation
Hx restrictive cardiomyopathy
-awaiting home med rec
-IV diuresis - increase to 40
Small left pleural effusion
-repeat CXR in 1-2 days
-diuresis as above
Non-Mi Trop elevation
-troponin peaked at 0.095 in setting of stress from influenza, heart failure
-no chest pain
Hyponatremia in setting of volume overload
-diuresis as above
Code: DNR (double checked with )
VCD for DVTp
Anticipated Discharge: 24 - 48 hours
Subjective/Interval History
-
Date of Service: July 06, 2023
Objective Data
-
Labs:
Laboratory Results
07/06/23
06:05
WBC 12.7 H
Hgb 15.1
Hct 42.9
Plt Count 226
Sodium 131 L
Potassium 4.0
Chloride 94 L
Carbon Dioxide 34 H
BUN 21 H
Creatinine 0.6
Glucose 144 H
Calcium 8.7
Vital Signs:
Vital Signs
Temp Pulse Resp BP Pulse Ox
97.5 F 83 18 102/62 96
07/06/23 07:20 07/06/23 07:20 07/06/23 07:20 07/06/23 07:20 07/06/23 07:20
I&O
07/05/23 07/06/23 07/07/23
06:59 06:59 06:59
Intake Total 200 / 200
Balance 200 / 200
Data Reviewed
-
Diagnostic Radiology: Report Reviewed by me
Labs: Labs Reviewed by me
[2023-07-06] MEDS: LASIX 20 MG IV ×2 (09:58→12:13)
--- NOTE | 2023-07-06 10:04 | CM ---
Reviewed the chart notes and spoke with the patient's spouse via telephone. Attempted to reach the patient via telephone due to Flu +, no answer. The patient resides with her spouse in [place] independent apartments. The patient normally uses no
DME, except when going from parking lot into apartment building her spouse pushes her up the ramp with a wheelchair provided by the apartment complex. The patient has not had VN nor been to a SNF. The patient's pharmacy of choice is the [facility]. The patient is currently on supplemental O2. CM continues to be available to patient/family and is monitoring medical plan for needs at discharge.
Plan: Discharge plans will depend on the patient's progress. Patient currently on supplement O2.
[2023-07-06 11:30] VITALS: BP 107/62
[2023-07-06] MEDS: TOPROL XL 25 MG PO (12:13)
[2023-07-06 15:15] VITALS: BP 108/67
[2023-07-06] MEDS: LASIX 40 MG IV (18:04)
[2023-07-06] MEDS: ROBITUSSIN 100 MG PO (18:59)
[2023-07-06 19:33] VITALS: BP 102/63
[2023-07-06] MEDS: TAMIFLU 30 MG PO (20:57)
[2023-07-06 23:08] VITALS: BP 112/75
[2023-07-07] VITALS (7 sets, daily range): BP systolic 92–113; BP diastolic 48–68; PULSE 94; O2SAT 98; BMI 19.1
[2023-07-07] MEDS: STERILE WATER FOR INJECTION 10 ML IV (00:16)
[2023-07-07] MEDS: ROCEPHIN 1000 MG IV (00:16)
[2023-07-07] MEDS: ZITHROMAX INFUSION 250 IV (00:16)
[2023-07-07] MEDS: VANCOCIN 150 IV (06:18)
[2023-07-07 07:30] LABS: Glucose - Point of Care 108 mg/dl (70-99)
--- NOTE | 2023-07-07 07:49 | W.PN.HOSP.TC ---
Addendum entered and electronically signed by Geovani Garber MD 07/07/23 21:16:
Attending Addendum-
I saw and evaluated the patient. I reviewed the resident�s note and agree with findings and plan as documented in the resident�s note. Feels less SOB. nursing reports 22beats NSVT assymptomatic Full 12 point ROS reviewed and negative except as
documented Exam: GEN NAD heart RRR lungs scattered exp wheeze abd soft LE no edema Plan:
# Acute Hypoxemic Respiratory Failure- multifactorial- viral and CHF wean o2 for sats > 92%
# AE HFpEF- decrease IV lasix, 06/07 echo 50-55% strict I and O's daily weights fluid restrict
# Influenza A- cont Tamiflu due to severity of disease procal neg DC abx monitor closely start IS start albuterol nebs
# NSVT- 22 beats, asymptomatic, replete electrolytes likely due to infectious process monitor on tele repeat BMP and mg in am
# Pleural Effusion- mild cont IV diuresis
# Elevated Trop- non ischemic myocardial injury- cont to monitor trend trops
# Hypervolemia Hypernatremia- cont lasix repeat BMP in am cont fluid restrict
# HTN- stable monitor cont meds
Code-DNR
Time spent coordinating care, review of plan of care with resident, review of records, med rec, consults, notes, labs, rads, d/w nursing � 55 mins
Original Note:
Today's Communication/Plan
-
- Gentle IV diuresis (40mg once daily)
- Discontinue Abx
- Nebulizer treatments
- Monitor I and Os and daily weights
Assessment / Plan
Assessment / Plan
IMPRESSION:
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
CXR 07/05/2023: Mild pulmonary vascular congestion, Small left pleural effusion
PLAN:
Acute heart failure exacerbation
ProBNP at presentation [id number]
Heart failure with preserved EF, last echo revealed Stage III diastolic dysfunction, EF 50-55%.
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
Wheezing and crackles on exam
- Continue IV diuresis, but reduce to 40mg IV daily
- Monitor kidney function
- Continue Metoprolol succinate 25mg daily
- Dry weight uncertain. Continue daily weights: 46.1 --> 42.8 today
- Albuterol nebulizer treatments
Influenza A positive
Concern for superimposed bacterial infection, unlikely: Procalc 0.1, measured on day 2 of abx. WBC trending down 13.7 --> 11.7 today
- Discontinue antibiotic regimen
- Continue Tamiflu, day 2
- Monitor for change in symptoms
Arrhythmia:
22 beat non-sustained supraventricular tachycardia, asymptomatic, on web development manager while patient navigated to bed
- Mg, calcium, potassium levels normal
- Continue to monitor
Non-Mi Trop elevation
Peak troponin 0.095, likely secondary to stress from current illness and HF exacerbation
EKG Sinus tachycardia + PACs, no angina
Hyponatremia
- In setting of hypervolemia 2/2 to acute HF exacerbation
- Continue to diurese
- Continue to monitor
Code: DNR
VCD for DVT prophylaxis
Anticipated Discharge: > 48 hours
Subjective/Interval History
-
Date of Service: July 07, 2023
No acute events overnight. Subjective improvement in patient's symptoms with 2L O2 nasal canula.
Objective Data
-
Labs:
Laboratory Results
07/07/23
07:13
WBC Pending
Hgb Pending
Hct Pending
Plt Count Pending
Sodium Pending
Potassium Pending
Chloride Pending
Carbon Dioxide Pending
BUN Pending
Creatinine Pending
Glucose Pending
Calcium Pending
Vital Signs:
Vital Signs
Temp Pulse Resp BP Pulse Ox
97.6 F 82 19 101/62 98
07/07/23 03:35 07/07/23 03:35 07/07/23 03:35 07/07/23 03:35 07/07/23 03:35
I&O
07/06/23 07/07/23 07/08/23
06:59 06:59 06:59
Intake Total 200 / 200 800 / 800
Output Total 1250 / 1250
Balance 200 / 200 -450 / -450
Review of Systems
-
History Source: Patient
EENT: Reports Hearing Loss
Respiratory: Reports Cough and Trouble Breathing
Cardiac: Reports No Symptoms
Genitourinary: Reports No Symptoms; Denies Dysuria or Difficulty Voiding
Hematologic / Lymphatic: Denies Lymphedema
Physical Exam
-
General: Comfortable and Conversant
HEENT: Normocephalic, Moist Mucous Membranes, Anicteric, Hearing Impaired and Oxygen (2L nasal cannula)
Respiratory: Wheezes and Crackles (bilateral)
Cardiac: Regular Rhythm, S1/S2 and Tachycardic; Negative Murmur
Musculoskeletal: No Clubbing, No Cyanosis and No Edema
Skin: Warm and Dry
Neuro: Awake, Alert and Oriented
Psych: Calm
[2023-07-07 08:16] LABS: % Basophils 0.1 % (0-2); % Eosinophils 0.1 % (0-6); % Immature Granulocytes 0.6 % (0-0.5); % Lymphocytes 8.6 % (20.5-51.1); % Monocytes 5.5 % (1.7-9.3); % Neutrophils 85.1 % (42.2-75.2); Absolute Immature Granulocytes 0.1 10^3/uL (0-0.05); Absolute Monocytes 0.6 10^3/uL (0.1-0.6); Absolute Neutrophils 9.9 10^3/uL (1.4-6.5); Hematocrit 45.7 % (37.0-47.0); Hemoglobin 15.6 g/dL (12.0-16.0); Mean Corp Hgb Conc. 34.1 g/dL (33.0-37.0); Mean Corpuscular Hgb 31.5 pg (27.0-31.0); Mean Corpuscular Volume 92.1 fL (81.0-99.0); Mean Platelet Volume 10.7 fL (7.4-10.4); Nucleated Red Blood Cells % 0 %; Platelet Count 269 10^3/uL (130-400); Red Blood Cell Count 4.96 10^6/uL (4.20-5.40); Red Cell Dist. Width 14.2 % (11.5-14.5); White Blood Cell Count 11.7 10^3/uL (4.8-10.8)
[2023-07-07] MEDS: LASIX 40 MG IV (08:24)
[2023-07-07] MEDS: TOPROL XL 25 MG PO (08:25)
[2023-07-07] MEDS: TAMIFLU 30 MG PO ×2 (08:25→20:42)
[2023-07-07 08:56] LABS: Blood Urea Nitrogen 19 mg/dl (7-17); Calcium 8.9 mg/dl (8.4-10.2); Carbon Dioxide 34 mmol/L (22-30); Chloride 92 mmol/L (98-107); Estimated Creatinine Clearance 47 ml/min; Glucose 100 mg/dl (70-99); Magnesium 1.9 mg/dl (1.6-2.3); Potassium 3.8 mmol/L (3.5-5.1); Sodium 130 mmol/L (135-145); eGFR > 60.00
--- NOTE | 2023-07-07 09:45 | PHA.VAN.FU ---
Vancomycin Assessment / Plan
- Assessment
Renal Function: Stable
WBC's are: Trending Down
In the past 24 hrs, patient has been: Afebrile
Concomitant Antimicrobials: Azithromycin, Ceftriaxone
- Dosing Plan
Continue: 750mg Q24H
- Monitoring Plan
No level(s) ordered at this time: Consider levels at steady state
- Follow Up
Pharmacy will continue to follow.
Vancomycin Follow UP
- -
Patient Age: 83
Patient Sex: Female
Vancomycin Day #: 2
Indication: Pulmonary/Respiratory
Requesting Provider: ELVIE
Height / Weight:
Height 4 ft 11 in
Actual Weight 42.819 kg
IBW in k.2
- Vital Signs / Lab Results
Temp Pulse Resp BP Pulse Ox
97.7 F 102 16 113/68 97
07/07/23 07:59 07/07/23 08:24 07/07/23 07:59 07/07/23 08:24 07/07/23 07:59
Lab Results - Hematology
07/05/23 07/06/23 07/07/23
20:36 06:05 07:13
WBC 13.7 H 12.7 H 11.7 H
Lab Results - Chemistry
07/05/23 07/06/23 07/07/23
20:36 06:05 07:13
BUN 24 H 21 H 19 H
Creatinine 0.6 0.6 0.5 L
Estimated Creat Clear 48 48 47
Albumin 3.6
Microbiology Results
07/05/23 20:36 Influenza Types A & B (DARRELL) - Final
Nasal Swab Influenza A Positive, NAAT
[2023-07-07] MEDS: LASIX IV (16:29)
--- NOTE | 2023-07-07 16:44 | CM ---
Discharge Plan of Care: Therapy recommending HH PT. Will need preference agency. Currently on 2L O2 with PO2 of 94%. Will need walk test on day of discharge.
[2023-07-07] MEDS: VENTOLIN NEBULES 1.25 MG INH (19:58)
[2023-07-08] VITALS (8 sets, daily range): BP systolic 89–110; BP diastolic 57–70; BMI 19.3
[2023-07-08] MEDS: ZITHROMAX INFUSION 250 IV (00:36)
[2023-07-08] MEDS: ROCEPHIN 1000 MG IV (00:37)
[2023-07-08] MEDS: STERILE WATER FOR INJECTION 10 ML IV (00:37)
[2023-07-08] MEDS: VANCOCIN 150 IV (05:48)
[2023-07-08] MEDS: LASIX 40 MG IV (05:49)
[2023-07-08 06:17] LABS: Hematocrit 43.5 % (37.0-47.0); Hemoglobin 15.3 g/dL (12.0-16.0); Mean Corp Hgb Conc. 35.2 g/dL (33.0-37.0); Mean Corpuscular Hgb 31.9 pg (27.0-31.0); Mean Corpuscular Volume 90.8 fL (81.0-99.0); Mean Platelet Volume 10.2 fL (7.4-10.4); Platelet Count 269 10^3/uL (130-400); Red Blood Cell Count 4.79 10^6/uL (4.20-5.40); Red Cell Dist. Width 13.5 % (11.5-14.5); White Blood Cell Count 11.2 10^3/uL (4.8-10.8)
[2023-07-08 06:50] LABS: Blood Urea Nitrogen 20 mg/dl (7-17); Calcium 8.8 mg/dl (8.4-10.2); Carbon Dioxide 35 mmol/L (22-30); Chloride 89 mmol/L (98-107); Estimated Creatinine Clearance 48 ml/min; Glucose 105 mg/dl (70-99); Potassium 3.6 mmol/L (3.5-5.1); Sodium 129 mmol/L (135-145); eGFR > 60.00
[2023-07-08] MEDS: TOPROL XL 25 MG PO (07:47)
[2023-07-08] MEDS: TAMIFLU 30 MG PO ×2 (07:48→20:20)
--- NOTE | 2023-07-08 07:49 | W.PN.HOSP.TC ---
Addendum entered and electronically signed by Geovani Garber MD 07/08/23 22:38:
Attending Addendum-
I saw and evaluated the patient. I reviewed the resident�s note and agree with findings and plan as documented in the resident�s note. called by nursing arrhythmia. Patient continues to feel fatigued and sob. Full 12 point ROS reviewed and negative
except as documented Exam: GEN NAD heart irreg lungs b/l LL rhonchi/fine crackles abd soft LE no edema Plan:
# Acute Hypoxemic Respiratory Failure- multifactorial- viral and CHF wean o2 for sats > 92%
# AE HFpEF- covert to PO lasix on dc, cont IV lasix for now, 06/07 echo 50-55% strict I and O's daily weights-decreasing cont fluid restrict c/s cards likely @ dry weight
# Influenza A- cont Tamiflu due to severity of disease procal neg cont to hold abx monitor closely cont IS change to xopenex
# Atrial Flutter- new- per patient has had before, increase metoprolol c/s cards CHADsVASC2- 5 d/w patient re NOAC, will d/w cards re initiation
# Pleural Effusion- mild cont IV diuresis
# Elevated Trop- non ischemic myocardial injury- cont to monitor trend trops
# Hypervolemia Hypernatremia- cont lasix repeat BMP in am cont fluid restrict
# HTN- stable monitor cont meds
Dispo- DC planning may need SNF PT OT
Code-DNR
Time spent coordinating care, review of plan of care with resident, review of records, med rec, consults, notes, labs, rads, d/w nursing � 57 mins
Original Note:
Today's Communication/Plan
-
Continue diuresis
Stopped abx, continue Tamiflu
Monitor symptoms
Trend leukocytes
Cardiology consult for arrythmia
Assessment / Plan
Assessment / Plan
IMPRESSION:
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
CXR 07/05/2023: Mild pulmonary vascular congestion, Small left pleural effusion
PLAN:
Acute heart failure exacerbation
ProBNP at presentation [address]885
Heart failure with preserved EF, last echo revealed Stage III diastolic dysfunction, EF 50-55%.
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
Wheezing and crackles on exam
- Continue IV diuresis, at 40mg IV daily
- Monitor kidney function
- Metoprolol succinate increased to 50mg daily
- Dry weight uncertain. Continue daily weights. Some weight gain today: 46.1 --> 42.8 --> 43.3kg today
- Nebulizer treatments for wheezing
Arrhythmia
Two runs of asymptomatic NSVT noted on monitor, at rest. EKG showed A-flutter.
- Metoprolol succinate increased to 50mg (home dose)
- Cardiology consulted
- Albuterol nebulizer treatment changed to Levalbuterol
Influenza A positive
Concern for superimposed bacterial infection, unlikely: Procalc 0.1, measured on day 2 of abx. WBC trending down 13.7 --> 11.2
- Discontinue antibiotic regimen
- Continue Tamiflu, day 3
- Monitor for change in symptoms, trend leukocytes
Non-Mi Trop elevation
Peak troponin 0.095, likely secondary to stress from current illness and HF exacerbation
EKG Sinus tachycardia + PACs, no angina
Hyponatremia
- In setting of hypervolemia 2/2 to acute HF exacerbation
- Continue to diurese
- Continue to monitor
Code: DNR
VCD for DVT prophylaxis
Anticipated Discharge: 24 - 48 hours
Subjective/Interval History
-
Date of Service: July 08, 2023
- 2 episodes of NSVT noted in the morning. EKG showed aflutter. Pt states that she has a known arrhythmia and her heart rate has always been fast. Sees a field sampling technician, not on any anticoagulant, reason unknown to patient.
Objective Data
-
Labs:
Laboratory Results
07/08/23
05:27
WBC 11.2 H
Hgb 15.3
Hct 43.5
Plt Count 269
Sodium 129 L
Potassium 3.6
Chloride 89 L
Carbon Dioxide 35 H
BUN 20 H
Creatinine 0.5 L
Glucose 105 H
Calcium 8.8
Vital Signs:
Vital Signs
Temp Pulse Resp BP Pulse Ox
97.5 F 103 18 104/70 97
07/08/23 03:14 07/08/23 03:14 07/08/23 03:14 07/08/23 03:14 07/08/23 03:14
I&O
07/07/23 07/08/23 07/09/23
06:59 06:59 06:59
Intake Total 800 / 800 1090 / 1090
Output Total 1250 / 1250 2200 / 2200
Balance -450 / -450 -1110 / -1110
Review of Systems
-
History Source: Patient
Constitutional: Reports No Symptoms
Respiratory: Reports Trouble Breathing; Denies Cough or Wheezing
Cardiac: Denies Chest Pain, Diaphoresis, Palpitations, Syncope or Orthopnea
Abdomen/GI: Denies Abdominal Pain or Nausea
Genitourinary: Reports No Symptoms; Denies Dysuria
Musculoskeletal: Denies Edema
Neuro: Denies Dizzy, Headache or Lightheadedness
Physical Exam
-
General: Comfortable
HEENT: Normocephalic, Moist Mucous Membranes, Anicteric and Hearing Impaired
Respiratory: Crackles (mild, bilateral lower lobes); Negative Wheezes
Cardiac: Regular Rhythm and S1/S2; Negative Murmur or JVD
Musculoskeletal: No Clubbing, No Cyanosis and No Edema
Skin: Warm and Dry; Negative Rash or Lesions
Neuro: Awake, Alert and Oriented
Psych: Calm
[2023-07-08] MEDS: VENTOLIN NEBULES 1.25 MG INH ×2 (08:21→12:17)
--- NOTE | 2023-07-08 08:39 | PN.CDI ---
CDI
- -
CDI:
Physician Documentation Request
Admit Date: 07/05/23 23:56
Dear Doctor Jcarlos,
Clinical Indicators:
Patient admitted with Influenza A and acute HFpEF.
WBC on admission:
07/05/23
20:36
WBC 13.7 H
HR/RR trend on admission:
07/05/23
20:33 07/05/23
21:00 07/05/23
21:30
Pulse 113 98 116
Resp Rate 22 24 26
07/05/23
22:00 07/05/23
22:30 07/05/23
23:00
Pulse 95 92 120
Resp Rate 23 23 21
Please clarify which of the following most accurately describes the status of the patient's infection:
Sepsis, POA
- Systemic manifestations of infection, with 2 or more SIRS criteria which include:
- Fever >100.4 degrees F or hypothermia < 96.8 degrees F
- Leukocytosis - WBC > 12,000 or leukopenia - WBC < 4,000 or > 10% bands
- Tachycardia > 90 beats per minute
- Tachypnea - RR > 20 breaths per minute or PaCO2 , 32mmHg
Source: Merck Manual 2013
Influenza A Only, Without Systemic Illness
Other, please specify
Use of terms such as suspected, likely, concern for, or probable (associated with a specific diagnosis that is being evaluated, monitored, or treated as if it exists) are acceptable and can be coded in the inpatient setting, when documented at the
time of discharge.
Thank you,
ED Turner RN
CDI Specialist
available via tiger text
Please use your independent medical judgment in providing your response.
--- NOTE | 2023-07-08 08:47 | PN.CDI ---
CDI
- -
CDI:
Physician Documentation Request
Admit Date: 07/05/23 23:56
Dear Doctor Jcarlos,
Clinical Indicators:
Patient admitted with Influenza A and acute HFpEF.
Height: 4 ft 11 in
Weight: 95 lbs 8 oz
BMI: 19.3
07/06 note/assessment: '...BMI 19.1 underweight > 65 yo...'
If possible, please provide an associated diagnosis related to the abnormal BMI (< or = 19.9), such as:
Underweight
BMI is not significant
Other, please specify
Use of terms such as suspected, likely, concern for, or probable (associated with a specific diagnosis that is being evaluated, monitored, or treated as if it exists) are acceptable and can be coded in the inpatient setting, when documented at the
time of discharge.
Thank you,
ED Turner RN
CDI Specialist
available via tiger text
Please use your independent medical judgment in providing your response.
--- NOTE | 2023-07-08 09:08 | PTCARENOTE ---
Pt in NSR on desk monitor at start of shift. Pt with two episodes of tachycardia with HRs up to 150s while sitting on side of bed for breakfast. Asymptomatic. Pt now appears to be in A. flutter with HRs in 80s. A. Flutter confirmed with EKG.
Resident aware. Pt still asymptomatic at this time.
[2023-07-08 09:29] LABS: Magnesium 1.8 mg/dl (1.6-2.3)
--- NOTE | 2023-07-08 17:09 | CON.CAR ---
Addendum entered and electronically signed by Julio Watkins MD 07/08/23 18:06:
I saw and examined the patient.
The OVERHEAD FOREMAN's note was reviewed and I agree with the note.
Comment: She had about 5 hours of typical atrial flutter. No conversion pause seen. Reviewed risks/benefits of half-way oral anticoagulation. She agreed to begin. Suggest a 14 day monitor in perhaps 4-6 weeks from now to allow recovery from
acute medical illness.
Original Note:
Consultation
Consultation Request
Date/Time Consultation Requested: 07/08/2023 16:30
Date/Time Consultation Performed: 07/08/2023 17:00
Requesting Provider: Dr. Raymond
Performing Provider: TIM Vidal for Dr. Watkins
Reason for Consultation: Atrial flutter
Medical History
-
Chief Complaint: Cough
History of Present Illness:
Olive Gamino is an 83-year-old female (known to Dr. Chavira, her primary sales and marketing intern), with chronic HFpEF, AL amyloid (follows with Dr. Meneses and Dr. Lopez), mitral regurgitation, and tricuspid regurgitation, who presented to the emergency
department with a chief complaint of cough. She endorses associated shortness of breath. She reported it was quickly getting worse. Initially she thought it was seasonal allergies. She was found to be positive for influenza A. She was also
diagnosed with acute on chronic heart failure. She was being diuresed and treated by the hospitalist service when she had new onset typical atrial flutter today. She reports being asymptomatic with this arrhythmia. She reports her shortness of
breath is unchanged despite Tamiflu and diuresis. She is currently at her lowest weight. She denies chest pain and dizziness.
Past Medical History
Past Medical History: CHF and Other (AL amyloid)
Past Surgical History: Orthopedic
Social History
Tobacco: Non-Smoker
Alcohol: None
Drug: None
Living: With Family
Employment: Retired
Family History
Family History: Reviewed & Not Pertinent
Allergies / Home Medications
Allergy/AdvReac Type Severity Reaction Status Date / Time
lisinopril Allergy Swelling Verified 07/13/21 09:40
�Medication �Instructions �Recorded �Confirmed �Type
furosemide 40 mg tablet 40 mg PO 0900,1200 Fluid 07/13/21 07/06/23 History
Retention/Swelling
metoprolol succinate 50 mg 25 mg PO DAILY Heart 07/13/21 07/06/23 History
tablet,extended release 24 hr Disease/Condition
spironolactone 25 mg tablet 12.5 mg PO DAILY Heart 07/13/21 07/13/21 History
Disease/Condition
acyclovir 400 mg tablet 400 mg PO BID Infection 07/05/23 History
dexamethasone 4 mg tablet 4 mg Anti-Inflammatory 07/05/23 History
montelukast 10 mg tablet 10 mg Allergies 07/05/23 History
Physical Exam
Vital Signs
Temp Pulse Resp BP Pulse Ox
97.8 F 99 20 89/57 96
07/08/23 11:15 07/08/23 15:17 07/08/23 15:17 07/08/23 16:02 07/08/23 15:17
Lab Results
07/08/23 05:27
07/08/23 05:27
Troponin I Cancelled 07/06/23 19:29
Xbu-M-Oftgelsznov Pept 59591 pg/ml 07/05/23 21:23
Physical Exam
General: Well Developed, Well Nourished, No Apparent Distress and Comfortable
HEENT: Normocephalic and Moist Mucous Membranes
Respiratory: Wheezes and Crackles
Cardiac: S1/S2 and Irregular Rhythm; Negative Peripheral Edema
Breast: Deferred by me
GI: Soft, Non Tender, Non Distended and Normal Bowel Sounds
Rectal: Deferred by Provider
Genito-urinary: No Costovertebral Tender
Musculoskeletal: No Clubbing, No Cyanosis and No Edema
Skin: Warm and Dry
Neuro: AO x 3
Hematologic/Lymphatic: No Lymphadenopathy
Psych: Calm
Impression / Plan
-
Influenza A, in a vaccinated host, per primary
Atrial flutter, typical
-Back in sinus rhythm with PACs
-Metoprolol succinate increased from 25 mg daily to 50 mg daily
-Oral Anticoagulation: None BULL RIVETER, start Apixaban 2.5mg BID (weight < 60kg, age > 80)
-[id number]: score at least 4 (Heart failure, age 75 or more, female gender)
HFpEF (Stage C), acute on chronic
-Pulmonary congestion and small pleural effusion on CXR in addition to elevated proBNP
-Hold diuresis for now and reassess in a.m., she is her lowest documented weight in addition to soft BP
-Resume spironolactone 12.5 mg daily
-Trend daily weight, I/O, and BMP with diuresis
Abnormal troponin, nonischemic myocardial injury in the setting of acute on chronic heart failure
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 Lopez
Mild to moderate mitral regurgitation.
Moderate to severe tricuspid regurgitation.
Data Reviewed
-
EKG: Report Reviewed by me (Atrial flutter, rate 85)
Radiology: Report Reviewed by me (CXR: Mild pulmonary vascular congestion. Small left pleural effusion.)
Labs: Labs Reviewed by me
Old Records: Reviewed
[2023-07-08] MEDS: XOPENEX 0.63 MG INHALANT SOLUTION 0.630000000000000004 MG INH (19:51)
[2023-07-08] MEDS: ELIQUIS 2.5 MG PO (20:20)
[2023-07-09] VITALS (7 sets, daily range): BP systolic 92–113; BP diastolic 55–67; PULSE 85; O2SAT 97; BMI 19.5
[2023-07-09 07:05] LABS: Mean Corp Hgb Conc. 34.9 g/dL (33.0-37.0); Mean Corpuscular Hgb 31.6 pg (27.0-31.0); Mean Corpuscular Volume 90.7 fL (81.0-99.0); Mean Platelet Volume 10.3 fL (7.4-10.4); Platelet Count 274 10^3/uL (130-400); Red Blood Cell Count 4.74 10^6/uL (4.20-5.40); Red Cell Dist. Width 13.5 % (11.5-14.5)
[2023-07-09] MEDS: XOPENEX 0.63 MG INHALANT SOLUTION 0.630000000000000004 MG INH ×3 (07:32→20:21)
[2023-07-09 07:36] LABS: Blood Urea Nitrogen 16 mg/dl (7-17); Calcium 9.1 mg/dl (8.4-10.2); Carbon Dioxide 33 mmol/L (22-30); Chloride 89 mmol/L (98-107); Estimated Creatinine Clearance 48 ml/min; Glucose 106 mg/dl (70-99); Potassium 3.9 mmol/L (3.5-5.1); Sodium 128 mmol/L (135-145); eGFR > 60.00
[2023-07-09] MEDS: ELIQUIS 2.5 MG PO ×2 (08:32→19:49)
[2023-07-09] MEDS: TAMIFLU 30 MG PO ×2 (08:32→19:49)
[2023-07-09] MEDS: TOPROL XL 50 MG PO (08:32)
[2023-07-09] MEDS: ALDACTONE 12.5 MG PO (08:32)
--- NOTE | 2023-07-09 08:53 | W.PN.CD ---
Today's Communication / Plan
-
- going in and out of AF/AFL
- Continue Apixaban
- Outpatient work up for rhythm control once recovered from Flu
Impression / Plan
-
Influenza A, in a vaccinated host, per primary
Atrial fibrillation / Atrial flutter, typical
-Typical AFL noted earlier - now going in and out of AF.
-Back in sinus rhythm with PACs
-Metoprolol succinate increased from 25 mg daily to 50 mg daily - rate controlled on the higher dose.
-Oral Anticoagulation: None R D INTERN, start Apixaban 2.5mg BID (weight < 60kg, age > 80)
-[id number]: score at least 4 (Heart failure, age 75 or more, female gender)
HFpEF (Stage C), acute on chronic
-Pulmonary congestion and small pleural effusion on CXR in addition to elevated proBNP
-Hold diuresis for now and reassess in a.m., she is her lowest documented weight in addition to soft BP
-Resume spironolactone 12.5 mg daily
-Trend daily weight, I/O, and BMP with diuresis
Abnormal troponin, nonischemic myocardial injury in the setting of acute on chronic heart failure
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 Lopez
Mild to moderate mitral regurgitation.
Moderate to severe tricuspid regurgitation.
Physical Exam
Vital Signs/Labs
Vital Signs
Temp Pulse Resp BP Pulse Ox
97.3 F 83 16 102/63 97
07/09/23 07:25 07/09/23 08:32 07/09/23 07:34 07/09/23 08:32 07/09/23 07:34
07/08/23 07/09/23 07/10/23
06:59 06:59 06:59
Actual Weight 43.318 kg 43.772 kg
07/09/23 06:28
07/09/23 06:28
Magnesium 1.8 mg/dl (1.6-2.3) 07/08/23 05:27
07/05/23 07/05/23
20:36 21:23
Kpm-L-[id number] Pept Cancelled 32550
LAB Results
07/06/23 07/06/23
12:11 18:11
Troponin I Cancelled Cancelled
Physical Exam
Constitutional: No acute distress and Comfortable
EENT: Anicteric and Moist mucous membranes
Cardiovascular: Rhythm & rate is regular, Pedal edema is absent and Systolic murmur present
Respiratory: Respiratory effort normal, Lungs clear to auscul. and Wheeze Absent
GI: Soft, Non tender and Normal bowel sounds
Neuro/Psych: Alert, Oriented and AO x 3
Data Reviewed
-
Date of Service: July 09, 2023
Medical Decision Making: Reviewed Test Results, Independent Historian Assessment and Test Interpretation
EKG: Tracing Personally Visualized and interpreted
Echo: Report Reviewed by me
Medical Tests (PFT, Pathology etc): Report Reviewed by me
Labs: Labs Reviewed by me
Old Records: Reviewed
[2023-07-09 14:50] LABS: Urine Uric Acid 42.4 mg/dl
--- NOTE | 2023-07-09 16:46 | CM ---
Discharge Plan of Care: Home with [facility] and PT/OT. Will have O2 walk test in am to determine O2 needs.
[2023-07-09 16:50] LABS: Osmolality Urine 297 mOsm/kg (300-900)
[2023-07-09 17:07] LABS: Urine Sodium < 5 mmol/L (30-90)
--- NOTE | 2023-07-09 20:02 | W.PN.HOSP.TC ---
Addendum entered and electronically signed by Geovani Garber MD 07/09/23 23:52:
Attending Addendum-
I saw and evaluated the patient. I reviewed the resident�s note and agree with findings and plan as documented in the resident�s note. feels fatigued but improved, EYAK Full 12 point ROS reviewed and negative except as documented Exam: GEN NAD heart
irreg lungs b/l LL rhonchi/fine crackles abd soft LE no edema Plan:
# Acute Hypoxemic Respiratory Failure- resolving, multifactorial- viral and CHF wean o2 for sats > 92% may need home 02
# AE HFpEF- resolved, hold lasix, appreciate cards input, 06/07 echo 50-55% strict I and O's daily weights-decreasing cont fluid restrict likely @ dry weight restart spironolactone
# Sepsis secondary to Influenza A- cont Tamiflu x 5 days as hospitalized, procal neg , abx dcd. monitor closely change xopenex to prn, droplet precautions x 7 days 07/04-07/11
# Atrial Flutter- new- cont metoprolol, cards input appreciated CHADsVASC2- 5 Eliquis started
# Pleural Effusion- resolving
# Elevated Trop- non ischemic myocardial injury- cont to monitor trend trops
# Hyponatremia- now euvolemic, mildly decreased, check labs and urine studies, lasix held, repeat BMP, cont fluid restrict likely SIADH
# HTN- now hypotensive cont current meds add hold parameters
Dispo- DC to home with VN/HC in am
Code-DNR
Time spent coordinating care, review of plan of care with resident, review of records, med rec, consults, notes, labs, rads, d/w nursing cm dc planning � 56 mins
Original Note:
Today's Communication/Plan
-
- Gentle diuresis with spironolactone
- Continue Tamiflu
- DC planning in AM
Assessment / Plan
Assessment / Plan
IMPRESSION:
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
CXR 07/05/2023: Mild pulmonary vascular congestion, Small left pleural effusion
PLAN:
Acute heart failure exacerbation
ProBNP at presentation 58615
Heart failure with preserved EF, last echo revealed Stage III diastolic dysfunction, EF 50-55%.
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
- Lasix held, Spironolactone at home dose started
- Monitor kidney function
- Continue metoprolol
- Dry weight uncertain. Continue daily weights. Some weight gain today: 46.1 --> 42.8 --> 43.3kg --> 43.7 today
- Levalbuterol Nebulizer treatments for wheezing
Aflutter/Afib
- Continue Metoprolol 50mg, good rate control
- Cardiology on board
Influenza A positive
- Continue Tamiflu, day 4
- Monitor for change in symptoms, trend leukocytes
Non-Mi Trop elevation
Peak troponin 0.095, likely secondary to stress from current illness and HF exacerbation
Hyponatremia
- Likely hypervolemia 2/2 to acute HF vs SIADH
- Urine Na, urine osmolality, serum osmolality
Code: DNR
VCD for DVT prophylaxis
Anticipated Discharge: Within 24 hours
Subjective/Interval History
-
Date of Service: July 09, 2023
Objective Data
-
Vital Signs:
Vital Signs
Temp Pulse Resp BP Pulse Ox
98.4 F 82 20 101/67 97
07/09/23 19:38 07/09/23 19:38 07/09/23 19:38 07/09/23 19:38 07/09/23 19:38
I&O
07/08/23 07/09/23 07/10/23
06:59 06:59 06:59
Intake Total 1090 / 1090 1380 / 1380 1140 / 1140
Output Total 2200 / 2200 1625 / 1625 725 / 725
Balance -1110 / -1110 -245 / -245 415 / 415
Review of Systems
-
History Source: Patient
Constitutional: Reports Fatigue
Respiratory: Reports Cough (nonproductive)
Cardiac: Denies Chest Pain, Palpitations or Syncope
Abdomen/GI: Denies Diarrhea or Constipated
Genitourinary: Reports No Symptoms; Denies Dysuria or Difficulty Voiding
Neuro: Denies Dizzy or Headache
Physical Exam
-
General: No Apparent Distress and Comfortable
HEENT: Normocephalic, Moist Mucous Membranes and Oxygen (2L nasal cannula)
Respiratory: Crackles (bilateral lower lobes) and Non Labored Respirations (with O2 nasal cannula)
Cardiac: S1/S2 and Irregular Rhythm; Negative Murmur, Rub or Calf Tenderness
Musculoskeletal: No Clubbing, No Cyanosis and No Edema
Skin: Warm and Dry; Negative Rash or Lesions
Neuro: Awake, Alert and Oriented
Psych: Calm
[2023-07-10 03:14] VITALS: BP 91/59
[2023-07-10 05:39] VITALS: BMI 19.7
[2023-07-10 07:00] VITALS: BP 96/69
[2023-07-10 07:46] LABS: Hematocrit 45.7 % (37.0-47.0); Hemoglobin 15.8 g/dL (12.0-16.0); Mean Corp Hgb Conc. 34.6 g/dL (33.0-37.0); Mean Corpuscular Volume 89.8 fL (81.0-99.0); Platelet Count 313 10^3/uL (130-400); Red Blood Cell Count 5.09 10^6/uL (4.20-5.40); Red Cell Dist. Width 13.5 % (11.5-14.5); White Blood Cell Count 10.2 10^3/uL (4.8-10.8)
[2023-07-10 07:54] LABS: Blood Urea Nitrogen 12 mg/dl (7-17); Calcium 9.4 mg/dl (8.4-10.2); Carbon Dioxide 39 mmol/L (22-30); Chloride 85 mmol/L (98-107); Estimated Creatinine Clearance 48 ml/min; Glucose 123 mg/dl (70-99); Potassium 4.4 mmol/L (3.5-5.1); Sodium 127 mmol/L (135-145); eGFR > 60.00
--- NOTE | 2023-07-10 07:57 | W.PN.CD ---
Today's Communication / Plan
-
- Stable for discharge from cardiac stand point
Impression / Plan
-
Influenza A, in a vaccinated host, per primary
Atrial fibrillation / Atrial flutter, typical
-Typical AFL noted earlier - now going in and out of AF.
-Back in sinus rhythm with PACs
-Metoprolol succinate increased from 25 mg daily to 50 mg daily - rate controlled on the higher dose.
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
-[id number]: score at least 4 (Heart failure, age 75 or more, female gender)
HFpEF (Stage C), acute on chronic
-Pulmonary congestion and small pleural effusion on CXR in addition to elevated proBNP - resolved
-Home dose of lasix. 40 mg BID
-Resume spironolactone 12.5 mg daily
-Trend daily weight, I/O, and BMP with diuresis
Abnormal troponin, nonischemic myocardial injury in the setting of acute on chronic heart failure
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 Lopez
Mild to moderate mitral regurgitation.
Moderate to severe tricuspid regurgitation.
Physical Exam
Vital Signs/Labs
Vital Signs
Temp Pulse Resp BP Pulse Ox
96.2 F L 76 18 96/69 93
07/10/23 07:00 07/10/23 07:00 07/10/23 07:00 07/10/23 07:00 07/10/23 07:00
07/09/23 07/10/23 07/11/23
06:59 06:59 06:59
Actual Weight 43.772 kg 44.135 kg
07/10/23 06:36
Magnesium 1.8 mg/dl (1.6-2.3) 07/08/23 05:27
07/05/23 07/05/23
20:36 21:23
Xsw-Y-Kuddcrhunzn Pept Cancelled [id number]
Physical Exam
Constitutional: No acute distress and Comfortable
EENT: Anicteric and Moist mucous membranes
Cardiovascular: Rhythm & rate is regular, Pedal edema is absent and Systolic murmur present
Respiratory: Respiratory effort normal, Wheeze Absent and Crackles Absent
GI: Soft, Flat, Non tender and Normal bowel sounds
Neuro/Psych: Alert, Oriented and AO x 3
Data Reviewed
-
Date of Service: July 10, 2023
Medical Decision Making: Reviewed Test Results, Independent Historian Assessment and Test Interpretation
EKG: Tracing Personally Visualized and interpreted
Echo: Report Reviewed by me
Labs: Labs Reviewed by me
Old Records: Reviewed
--- NOTE | 2023-07-10 08:11 | W.DCSUMMARY ---
Addendum entered and electronically signed by Geovani Garber MD 07/11/23 22:06:
Attending Addendum:
Read reviewed and agree. See same day progress note for additional details. Patient and requesting to go home today. Advised close follow up and repeat BMP as OP with PCP.. All parties expressed understanding
Jerome Garber MD
Original Note:
Documented by User: Lily Raymond MD, Resident 07/11/23 14:17
Discharge Summary
Discharge Data
Date of Admission: 07/05/23
Date of Discharge: 07/11/23
-
Pending Results: No
Hospital Course
Pt is an 83 year old F who was brought in c/o worsening cough and SOB over 1 week. She was found to be Flu A positive, droplet precautions were initiated and she was treated with Tamiflu. Acute hypoxemic respiratory failure at admission requiring O2
nasal cannula only, acute on chronic HFpEF requiring Diuresis. Arrythmia was noted on cardiac monitor technician on day 3 of stay, and she was diagnosed with new onset a-fib. A-fib was rate controlled with Metoprolol Succinate 50mg, and Eliquis was initiated
by [employer] after discussing risks and benefits. Symptoms steadily improved and she was weaned off supplemental O2 on 07/09. Asymptomatic hyponatremia noted on labs. Follow up BMP advised in 1 week with PCP follow-up.
Masking precaution to continue until 07/12/2023
Follow up with cardiology outpatient
Discharge Plan
-
Patient Disposition: Home with Home Care
Discharge Diagnosis/Procedures: Acute hypoxic respiratory failure due to influenza A, acute on chronic HFpEF
Diet: No restrictions
Activity: As tolerated
Driving Restrictions: No driving
Bathing Restrictions: None
Other Services: VN
Specialty Instructions: Weigh Daily- Call MD for wt gain/loss 3 lbs overnight/5 lbs in 1 week
Instructions: *CBC Heart Failure Instructions
Referrals:
Jaz Weinstein MD [Family Provider] -
Additional Discharge Medication Instructions: Follow up with [employer]. Follow up with PCP Dr. Weinstein, [facility] labs in one week
Prescriptions:
New
Eliquis 2.5 mg Tablet
2.5 mg PO BID 30 Days Qty: 60 0RF
metoprolol succinate 50 mg Tablet Extended Release 24 Hr
50 mg PO DAILY 30 Days Qty: 30 0RF
guaifenesin [Expectorant] 200 mg tablet
200 mg PO QID PRN (Reason: Cough) Qty: 30 0RF
Continued
furosemide 40 MG tablet
40 mg PO 0900,1200
spironolactone 25 MG tablet
12.5 mg PO DAILY
acyclovir 400 mg tablet
400 mg PO BID
dexamethasone 4 mg tablet
4 mg
montelukast 10 mg tablet
10 mg
Discontinued
metoprolol succinate 50 MG tablet extended release 24 hr
25 mg PO DAILY
Discharge Orders:
Discharge Patient (As Directed); Ordered 07/11/23
Ordered By: Lily Raymond
Discharge Date and Time
Discharge Date/Time: 07/11/23 14:56
Print Language: NICARAGUAN

Documented by User: Geovani Garber MD 07/11/23 21:54
Discharge Summary
Discharge Data
Date of Admission: 07/05/23
Date of Discharge: 07/11/23
Discharge Plan
-
Patient Disposition: Home with Home Care
Discharge Diagnosis/Procedures: Acute hypoxic respiratory failure due to influenza A, acute on chronic HFpEF
Diet: No restrictions
Activity: As tolerated
Driving Restrictions: No driving
Bathing Restrictions: None
Other Services: VN
Specialty Instructions: Weigh Daily- Call MD for wt gain/loss 3 lbs overnight/5 lbs in 1 week
Instructions: *CBC Heart Failure Instructions
Referrals:
Jaz Weinstein MD [Family Provider] -
Additional Discharge Medication Instructions: Follow up with [employer]. Follow up with PCP Dr. Weinstein, BMP labs in one week
Prescriptions:
New
Eliquis 2.5 mg Tablet
2.5 mg PO BID 30 Days Qty: 60 0RF
metoprolol succinate 50 mg Tablet Extended Release 24 Hr
50 mg PO DAILY 30 Days Qty: 30 0RF
guaifenesin [Expectorant] 200 mg tablet
200 mg PO QID PRN (Reason: Cough) Qty: 30 0RF
Continued
furosemide 40 MG tablet
40 mg PO 0900,1200
spironolactone 25 MG tablet
12.5 mg PO DAILY
acyclovir 400 mg tablet
400 mg PO BID
dexamethasone 4 mg tablet
4 mg
montelukast 10 mg tablet
10 mg
Discontinued
metoprolol succinate 50 MG tablet extended release 24 hr
25 mg PO DAILY
Discharge Orders:
Discharge Patient (As Directed); Ordered 07/11/23
Ordered By: Lily Raymond
Discharge Date and Time
Discharge Date/Time: 07/11/23 14:56
Print Language: NICARAGUAN
[2023-07-10] MEDS: GLYCERIN SUPPOSITORY ADULT 1 SUPP RECTAL (08:16)
[2023-07-10] MEDS: MIRALAX 17 GRAMS PO (08:16)
[2023-07-10] MEDS: TAMIFLU 30 MG PO ×2 (08:16→20:00)
[2023-07-10] MEDS: ELIQUIS 2.5 MG PO ×2 (08:17→20:00)
[2023-07-10 08:38] LABS: Osmolality Serum 273 mOsm/kg (275-300)
[2023-07-10] MEDS: MIRALAX PO (09:06)
[2023-07-10] MEDS: ALDACTONE 12.5 MG PO (09:06)
[2023-07-10] MEDS: TOPROL XL 50 MG PO (09:07)
[2023-07-10 11:00] VITALS: BP 93/60
[2023-07-10 15:00] VITALS: BP 100/61
--- NOTE | 2023-07-10 17:00 | PTCARENOTE ---
Verbal order by Lily Raymond for 1800ml Fluid restriction noted. order verified and in place.
--- NOTE | 2023-07-10 17:29 | CM ---
Discharge Plan of Care: Home to [facility] with [facility] VN and PT/OT services. Needs walk test on day of discharge to determine need for O2 at home.
--- NOTE | 2023-07-10 18:48 | W.PN.HOSP.TC ---
Addendum entered and electronically signed by Geovani Garber MD 07/10/23 22:56:
Attending Addendum-
I saw and evaluated the patient. I reviewed the resident�s note and agree with findings and plan as documented in the resident�s note. 'i like wearing oxygen, makes me feel better' KENAITZE Full 12 point ROS reviewed and negative except as documented
Exam: GEN NAD heart irreg lungs b/l LL rhonchi/fine crackles abd soft LE no edema Plan:
# Acute Hypoxemic Respiratory Failure- resolving, multifactorial- viral and CHF wean o2 for sats > 92% may need home 02
# AE HFpEF- resolved, hold lasix, appreciate cards input, 06/07 echo 50-55% strict I and O's daily weights-decreasing cont fluid restrict likely @ dry weight restarted spironolactone
# Sepsis secondary to Influenza A- complete tamiflu course on 07/09, procal neg, monitor closely, droplet precautions x 7 days 07/04-07/11
# Atrial Flutter- new- cont metoprolol, cards input appreciated CHADsVASC2- 5 cont Eliquis
# Pleural Effusion- resolving
# Elevated Trop- non ischemic myocardial injury- cont to monitor trend trops
# Hyponatremia- hypovolemic, mildly decreased, lasix held, repeat BMP in am
# HTN- stable monitor cont current meds cont hold parameters
Dispo- DC to [facility] [place]/HC in am
Code-DNR
Time spent coordinating care, review of plan of care with resident, review of records, med rec, consults, notes, labs, rads, d/w nursing cm dc planning � 52 mins
Original Note:
Today's Communication/Plan
-
Follow Na
Discharge planning
Assessment / Plan
Assessment / Plan
IMPRESSION:
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
CXR 07/05/2023: Mild pulmonary vascular congestion, Small left pleural effusion
PLAN:
Acute heart failure exacerbation
ProBNP at presentation 31272
Heart failure with preserved EF, last echo revealed Stage III diastolic dysfunction, EF 50-55%.
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
- Lasix discontinued. Lower than known dry weight. Continue daily weights. Some weight gain today: 46.1 --> 44.135
- Monitor kidney function
- Continue metoprolol 50mg
- Levalbuterol Nebulizer treatments for wheezing
- Wean O2
Aflutter/Afib
- Continue Metoprolol 50mg, good rate control
- Cardiology on board
- Eliquis 2.5 PO BID
Influenza A positive
- Last dose of Tamiflu, day 5.
- Good symptom improvement
Non-Mi Trop elevation
- Peak troponin 0.095, likely secondary to stress from current illness and HF exacerbation
Hyponatremia
- Hypotonic hyponatremia, likely hypovolemic, from diuretic therapy
- Follow Na
Code: DNR
VCD for DVT prophylaxis
Anticipated Discharge: Within 24 hours
Subjective/Interval History
-
Date of Service: July 10, 2023
Rectal pain and constipation. Resolved after bowel regimen.
Objective Data
-
Labs:
Laboratory Results
07/10/23
06:36
WBC 10.2
Hgb 15.8
Hct 45.7
Plt Count 313
Sodium 127 L
Potassium 4.4
Chloride 85 L
Carbon Dioxide 39 H
BUN 12
Creatinine 0.5 L
Glucose 123 H
Calcium 9.4
Vital Signs:
Vital Signs
Temp Pulse Resp BP Pulse Ox
97.7 F 80 12 100/61 99
07/10/23 15:00 07/10/23 15:00 07/10/23 15:00 07/10/23 15:00 07/10/23 15:00
I&O
07/09/23 07/10/23 07/11/23
06:59 06:59 06:59
Intake Total 1380 / 1380 1620 / 1620 480 / 480
Output Total 1625 / 1625 1225 / 1225
Balance -245 / -245 395 / 395 480 / 480
Review of Systems
-
History Source: Patient
Constitutional: Reports No Symptoms
Respiratory: Reports Cough and Trouble Breathing
Cardiac: Denies Chest Pain, Diaphoresis, Palpitations or Syncope
Abdomen/GI: Reports No Symptoms; Denies Abdominal Pain or Constipated
Genitourinary: Reports No Symptoms and Dysuria
Musculoskeletal: Reports No Symptoms; Denies Edema
Neuro: Reports No Symptoms; Denies Dizzy or Headache
Physical Exam
-
General: No Apparent Distress and Comfortable; Negative Respiratory Distress
HEENT: Normocephalic, Moist Mucous Membranes and Oxygen (O2 nasal cannula 2L)
Respiratory: Crackles (bilateral lower lobes)
Cardiac: Regular Rhythm and S1/S2; Negative Murmur or Rub
GI: Soft, Nontender and Nondistended
Musculoskeletal: No Clubbing, No Cyanosis and No Edema
Skin: Warm and Dry; Negative Rash or Lesions
Neuro: Awake, Alert and Oriented
Psych: Calm
[2023-07-10 19:39] VITALS: BP 110/59
[2023-07-10 23:14] VITALS: BP 101/59
[2023-07-11 03:12] VITALS: BP 94/56
[2023-07-11 05:53] VITALS: BMI 19.6
[2023-07-11 06:00] VITALS: BMI 19.6
[2023-07-11 06:45] LABS: Hematocrit 40.9 % (37.0-47.0); Hemoglobin 14.6 g/dL (12.0-16.0); Mean Corp Hgb Conc. 35.7 g/dL (33.0-37.0); Mean Corpuscular Hgb 32.2 pg (27.0-31.0); Mean Corpuscular Volume 90.1 fL (81.0-99.0); Mean Platelet Volume 10.3 fL (7.4-10.4); Platelet Count 272 10^3/uL (130-400); Red Blood Cell Count 4.54 10^6/uL (4.20-5.40); Red Cell Dist. Width 13.5 % (11.5-14.5); White Blood Cell Count 9.8 10^3/uL (4.8-10.8)
[2023-07-11 07:00] VITALS: BP 101/58
[2023-07-11 07:16] LABS: Blood Urea Nitrogen 13 mg/dl (7-17); Carbon Dioxide 34 mmol/L (22-30); Chloride 90 mmol/L (98-107); Estimated Creatinine Clearance 48 ml/min; Glucose 100 mg/dl (70-99); Potassium 4.3 mmol/L (3.5-5.1); Sodium 127 mmol/L (135-145); eGFR > 60.00
[2023-07-11] MEDS: MIRALAX PO (09:11)
[2023-07-11] MEDS: TAMIFLU 30 MG PO (09:13)
[2023-07-11] MEDS: TOPROL XL 50 MG PO (09:13)
[2023-07-11] MEDS: ALDACTONE 12.5 MG PO (09:13)
[2023-07-11] MEDS: ELIQUIS 2.5 MG PO (09:13)
[2023-07-11 11:00] VITALS: BP 98/64
--- NOTE | 2023-07-11 14:17 | W.DS.TRANS ---
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
-
Discharge Instructions:
Discharge Diagnosis/Procedures Acute hypoxic respiratory failure due to
influenza A, acute on chronic HFpEF
Diet No restrictions
Activity As tolerated
Driving Restrictions No driving
Bathing Restrictions None
Other Services VN
Specialty Instructions Weigh Daily
Instructions: *[facility] Heart Failure Instructions
Stand-Alone Forms:
Changes to Home Medications: Yes
Discharge Medications:
DC Medications w/original date entered in [facility]
furosemide 40 mg tablet 40 mg PO 0900,1200 Fluid Retention/Swelling 07/13/21
spironolactone 25 mg tablet 12.5 mg PO DAILY Heart Disease/Condition 07/13/21
acyclovir 400 mg tablet 400 mg PO BID Infection 07/05/23
dexamethasone 4 mg tablet 4 mg Anti-Inflammatory 07/05/23
montelukast 10 mg tablet 10 mg Allergies 07/05/23
apixaban 2.5 mg tablet (Eliquis) 2.5 mg PO BID 30 days #60 tabs 07/11/23
guaifenesin 200 mg tablet (Expectorant) 200 mg PO QID PRN Cough #30 tabs 07/11/23
metoprolol succinate 50 mg tablet,extended release 24 hr 50 mg PO DAILY 30 days #30 tabs 07/11/23
Home Medication Changes
metoprolol succinate 50 mg tablet,extended release 24 hr 50 mg PO DAILY 30 days
apixaban 2.5 mg tablet (Eliquis) 2.5 mg PO BID 30 days
Pending Results: No
--- NOTE | 2023-07-11 14:35 | PTCARENOTE ---
pt leaving with to go back to [facility]. IV site in LAC removed and discharge instructions were discussed with pt and her . getting back to [facility] via their transport system.
--- NOTE | 2023-07-11 14:48 | W.HF.CON ---
Heart Failure
- LV Function
Left ventricular function study result: LV Ejection fraction >40%
Ejection Fraction Percentage: 50-55
- ARNI
Patient already on ARNI: No
Heart Failure ARNI Not Indicated: LV Ejection Fraction >/= 40%
- ACEI/ARB
Patient already on ACEI/ARB: No
Heart Failure ACEI/ARB Not Indicated: LV Ejection Fraction > 40%
- Beta Rodger
Patient already on Evidence Based Beta Rodger: Yes
- Mineralocorticord Receptor Antagonist
Patient already on MRA: Yes
- SGLT-2 Inhibitor
Patient already on SGLT-2 Inhibitor: No
Heart Failure SGLT-2 Inhibitor Not Indicated: LV Ejection Fraction >40%
- Afib Anticoagulation
Patient already on Anticoagulation for Afib: Yes
- NYHA CHF Classification
NYHA CHF Classification Level: Class III - Symptoms w/ min exertion, interferes w/ nml daily activity
- ACC/AHA Stage
ACC/AHA Stage: Stage C: Symptomatic Heart Failure
--- NOTE | 2023-07-11 15:04 | CM ---
Patient has been medically cleared for discharge to home in [place] at [facility] with [facility] VN and PT/OT services. Patient has arranged for [facility] transportation to transport home.
--- NOTE | 2023-07-11 18:05 | W.PN.HOSP.TC ---
Addendum entered and electronically signed by Geovani Garber MD 07/11/23 22:03:
Attending Addendum-
I saw and evaluated the patient. I reviewed the resident�s note and agree with findings and plan as documented in the resident�s note. feels much improved. wants to go home. seen with present. Full 12 point ROS reviewed and negative except
as documented Exam: GEN NAD heart irreg lungs b/l LL rhonchi/fine crackles abd soft LE no edema Plan:
# Acute Hypoxemic Respiratory Failure- resolved, multifactorial- viral and CHF wean o2 for sats > 92% f/u as OP
# AE HFpEF- resolved, restart lasix as OP, appreciate cards input, 06/07 echo 50-55% strict I and O's daily weights-cards input appreciated restart lasix BID on DC
# Sepsis secondary to Influenza A- completed tamiflu course on 07/09, procal neg, monitor closely, droplet precautions x 7 days 07/04-07/11
# Atrial Flutter- new- cont metoprolol, cards input appreciated CHADsVASC2- 5 cont Eliquis
# Pleural Effusion- resolving
# Elevated Trop- non ischemic myocardial injury- cont to monitor trend trops
# Acute on Chronic Hyponatremia- stable from 07/09, asymptomatic, lasix held in hospital, restart on DC d/w cards repeat BMP as OP
# HTN- stable monitor cont current meds cont hold parameters
Dispo- DC to [facility] [place]/HC today f/u BMP with PCP
Code-DNR
Time spent coordinating care, review of plan of care with resident patient and at great length, review of records, med rec, consults, notes, labs, rads, dc planning and transition of care d/w nursing cards cm � 39 mins
Original Note:
Today's Communication/Plan
-
Discharge
Assessment / Plan
Assessment / Plan
IMPRESSION:
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
CXR 07/05/2023: Mild pulmonary vascular congestion, Small left pleural effusion
PLAN:
Acute heart failure exacerbation
ProBNP at presentation 04354
Heart failure with preserved EF, last echo revealed Stage III diastolic dysfunction, EF 50-55%.
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
- Lasix discontinued. Lower than known dry weight. Continue daily weights. Some weight gain today: 46.1 --> 44.0kg
- Continue metoprolol 50mg
Aflutter/Afib
- Continue Metoprolol 50mg, good rate control
- Cardiology on board
- Eliquis 2.5 PO BID
Influenza A positive
- Last dose of Tamiflu, day 5.
- Good symptom improvement, leukocytosis resolved
Non-Mi Trop elevation
- Peak troponin 0.095, likely secondary to stress from current illness and HF exacerbation
Hyponatremia
- Hypotonic hyponatremia, likely hypovolemic, from diuretic therapy
- Follow Na
Code: DNR
VCD for DVT prophylaxis
Anticipated Discharge: Today
Subjective/Interval History
-
Date of Service: July 11, 2023
Objective Data
-
Labs:
Laboratory Results
07/11/23
05:19
WBC 9.8
Hgb 14.6
Hct 40.9
Plt Count 272
Sodium 127 L
Potassium 4.3
Chloride 90 L
Carbon Dioxide 34 H
BUN 13
Creatinine 0.5 L
Glucose 100 H
Calcium 9.0
Vital Signs:
Vital Signs
Temp Pulse Resp BP Pulse Ox
97.7 F 94 16 98/64 97
07/11/23 11:00 07/11/23 11:00 07/11/23 11:00 07/11/23 11:00 07/11/23 11:00
I&O
07/10/23 07/11/23 07/12/23
06:59 06:59 06:59
Intake Total 1620 / 1620 1020 / 1020 620 / 620
Output Total 1225 / 1225 600 / 600 800 / 800
Balance 395 / 395 420 / 420 -180 / -180
Review of Systems
-
History Source: Patient
Constitutional: Reports No Symptoms
Respiratory: Reports Cough; Denies Trouble Breathing
Cardiac: Reports No Symptoms; Denies Chest Pain or Diaphoresis
Abdomen/GI: Reports No Symptoms; Denies Diarrhea or Constipated
Genitourinary: Reports No Symptoms; Denies Dysuria, Difficulty Voiding or Bleeding
Physical Exam
-
General: No Apparent Distress and Comfortable; Negative Respiratory Distress
HEENT: Normocephalic, Atraumatic and Moist Mucous Membranes
Respiratory: Clear to Auscultation and Crackles (bilateral lower lobes); Negative Wheezes
Cardiac: S1/S2 and Irregular Rhythm; Negative Murmur, Rub, Calf Tenderness or JVD
Musculoskeletal: No Clubbing, No Cyanosis and No Edema
Skin: Warm, Dry and Rash; Negative Lesions
Neuro: Awake, Alert and Oriented
Psych: Calm
== END 2023-07-11 14:56 | disposition home health service (06) | DRG 871 ==
LOC: 2 NORTH 23:56
PROVIDERS: Clinical Nurse Specialist Family Health; Student in an Organized Health Care Education/Training Program; ADMITTING PHYSICIAN Internal Medicine; ATTENDING PHYSICIAN Family Medicine; CONSULT PHYSICIAN Internal Medicine Cardiovascular Disease; EMERGENCY PHYSICIAN Student in an Organized Health Care Education/Training Program; FAMILY PHYSICIAN Family Medicine
DX: A41.9 Sepsis, unspecified organism (principal); I50.33 Acute on chronic diastolic (congestive) heart failure; J96.01 Acute respiratory failure with hypoxia; E87.1 Hypo-osmolality and hyponatremia; I42.5 Other restrictive cardiomyopathy; I48.3 Typical atrial flutter; I5A Non-ischemic myocardial injury (non-traumatic); E87.0 Hyperosmolality and hypernatremia; J10.1 Influenza due to other identified influenza virus with other respiratory manifestations; Z66 Do not resuscitate; I48.91 Unspecified atrial fibrillation; Z11.52 Encounter for screening for COVID-19
CPT/HCPCS: 71046; 80048; 80053; 82570; 82962; 83735; 83880; 83930; 83935; 84145; 84300; 84484; 84550; 85025; 85027; 87070; 87502; 87811; 93005; 94640; 96365; 96367; 96375; 97116; 97162; 97530; 99285

== ENCOUNTER → 2023-07-22 07:43 | Outpatient (REF) | payer OTHER, SELFPAY ==
[2023-07-22 08:31] LABS: % Basophils 0.8 % (0-2); % Eosinophils 1.6 % (0-6); % Immature Granulocytes 0.5 % (0-0.5); % Lymphocytes 21.1 % (20.5-51.1); % Monocytes 11.7 % (1.7-9.3); % Neutrophils 64.3 % (42.2-75.2); Absolute Basophils 0.1 10^3/uL (0-0.2); Absolute Eosinophils 0.2 10^3/uL (0-0.7); Absolute Immature Granulocytes 0.1 10^3/uL (0-0.05); Absolute Lymphocytes 2.2 10^3/uL (1.2-3.4); Absolute Monocytes 1.2 10^3/uL (0.1-0.6); Absolute Neutrophils 6.7 10^3/uL (1.4-6.5); Hematocrit 42.5 % (37.0-47.0); Hemoglobin 14.6 g/dL (12.0-16.0); Mean Corp Hgb Conc. 34.4 g/dL (33.0-37.0); Mean Corpuscular Hgb 32.1 pg (27.0-31.0); Mean Corpuscular Volume 93.4 fL (81.0-99.0); Mean Platelet Volume 10.4 fL (7.4-10.4); Nucleated Red Blood Cells % 0 %; Platelet Count 278 10^3/uL (130-400); Red Blood Cell Count 4.55 10^6/uL (4.20-5.40); Red Cell Dist. Width 14.9 % (11.5-14.5); White Blood Cell Count 10.4 10^3/uL (4.8-10.8)
[2023-07-22 09:01] LABS: ALT (SGPT) 26 U/L (0-35); AST (SGOT) 35 U/L (14-36); Albumin 3.8 g/dl (3.5-5.0); Alkaline Phosphatase 151 U/L (38-126); Blood Urea Nitrogen 14 mg/dl (7-17); Calcium 9.6 mg/dl (8.4-10.2); Carbon Dioxide 33 mmol/L (22-30); Chloride 91 mmol/L (98-107); Glucose 178 mg/dl (70-99); Potassium 4.5 mmol/L (3.5-5.1); Sodium 129 mmol/L (135-145); Total Bilirubin 0.9 mg/dl (0.2-1.3); Total Protein 6.2 g/dl (6.3-8.2); eGFR > 60.00
== END ==
LOC: REG 07:43
PROVIDERS: ATTENDING PHYSICIAN Internal Medicine Hematology & Oncology; FAMILY PHYSICIAN Family Medicine
DX: E85.4 Organ-limited amyloidosis (principal); R53.83 Other fatigue
CPT/HCPCS: 36415; 80053; 85025

== ENCOUNTER → 2023-08-04 08:26 | Outpatient (REF) | payer OTHER, SELFPAY ==
[2023-08-04 15:19] LABS: ALT (SGPT) 23 U/L (0-35); AST (SGOT) 31 U/L (14-36); Albumin 3.9 g/dl (3.5-5.0); Alkaline Phosphatase 108 U/L (38-126); Blood Urea Nitrogen 15 mg/dl (7-17); Calcium 9.5 mg/dl (8.4-10.2); Carbon Dioxide 30 mmol/L (22-30); Chloride 95 mmol/L (98-107); Glucose 178 mg/dl (70-99); Potassium 3.9 mmol/L (3.5-5.1); Sodium 132 mmol/L (135-145); Total Bilirubin 1.1 mg/dl (0.2-1.3); Total Protein 6.2 g/dl (6.3-8.2); eGFR > 60.00
[2023-08-06 10:38] LABS: Albumin 3.73 g/dL (3.75-5.01); Alpha 1 Globulin 0.32 g/dL (0.19-0.46); Free Kappa Light Chains,Quant 7.09 mg/L (3.30-19.40); Free Lambda Light Chains,Quant 10.54 mg/L (5.71-26.30); IgA 12 mg/dL (68-408); IgG 566 mg/dL (768-1632); IgM 27 mg/dL (35-263); Immunofixation Electrophoresis IFE Done; Kappa/Lambda Fr Light Ratio 0.67 (0.26-1.65); Monoclonal Protein 0.22 g/dL (<=0.00); Total Protein-Electrophoresis 6.2 g/dL (6.3-8.2)
== END ==
LOC: REG 08:26
PROVIDERS: ATTENDING PHYSICIAN Internal Medicine Hematology & Oncology; FAMILY PHYSICIAN Family Medicine; REFERRING PHYSICIAN Internal Medicine Cardiovascular Disease
DX: E85.4 Organ-limited amyloidosis (principal); R53.83 Other fatigue
CPT/HCPCS: 36415; 80053; 82784; 83521; 84155; 84165; 86334

== ENCOUNTER → 2023-08-06 15:02 | Outpatient (REF) | payer OTHER, SELFPAY ==
[2023-08-06 09:50] LABS: % Basophils 0.2 % (0-2); % Eosinophils 1.1 % (0-6); % Immature Granulocytes 0.2 % (0-0.5); % Lymphocytes 19.1 % (20.5-51.1); % Monocytes 9.5 % (1.7-9.3); % Neutrophils 69.9 % (42.2-75.2); Absolute Eosinophils 0.1 10^3/uL (0-0.7); Absolute Lymphocytes 2.3 10^3/uL (1.2-3.4); Absolute Monocytes 1.2 10^3/uL (0.1-0.6); Absolute Neutrophils 8.5 10^3/uL (1.4-6.5); Hematocrit 37.1 % (37.0-47.0); Hemoglobin 12.8 g/dL (12.0-16.0); Mean Corp Hgb Conc. 34.5 g/dL (33.0-37.0); Mean Corpuscular Hgb 32.4 pg (27.0-31.0); Mean Corpuscular Volume 93.9 fL (81.0-99.0); Mean Platelet Volume 10.3 fL (7.4-10.4); Platelet Count 189 10^3/uL (130-400); Red Blood Cell Count 3.95 10^6/uL (4.20-5.40); Red Cell Dist. Width 16.1 % (11.5-14.5); White Blood Cell Count 12.1 10^3/uL (4.8-10.8)
== END ==
LOC: OIDL 15:02
PROVIDERS: ATTENDING PHYSICIAN Internal Medicine Hematology & Oncology
DX: E85.4 Organ-limited amyloidosis (principal)
CPT/HCPCS: 85025

== ENCOUNTER → 2023-08-15 08:14 | Outpatient (REF) | payer OTHER, SELFPAY ==
[2023-08-15 08:45] LABS: % Basophils 0.6 % (0-2); % Eosinophils 2.7 % (0-6); % Immature Granulocytes 0.3 % (0-0.5); % Lymphocytes 22.2 % (20.5-51.1); % Monocytes 10.9 % (1.7-9.3); % Neutrophils 63.3 % (42.2-75.2); Absolute Basophils 0.1 10^3/uL (0-0.2); Absolute Eosinophils 0.2 10^3/uL (0-0.7); Absolute Neutrophils 5.6 10^3/uL (1.4-6.5); Hematocrit 37.4 % (37.0-47.0); Hemoglobin 12.6 g/dL (12.0-16.0); Mean Corp Hgb Conc. 33.7 g/dL (33.0-37.0); Mean Corpuscular Hgb 32.9 pg (27.0-31.0); Mean Corpuscular Volume 97.7 fL (81.0-99.0); Mean Platelet Volume 10.3 fL (7.4-10.4); Nucleated Red Blood Cells % 0 %; Platelet Count 201 10^3/uL (130-400); Red Blood Cell Count 3.83 10^6/uL (4.20-5.40); Red Cell Dist. Width 17.9 % (11.5-14.5); White Blood Cell Count 8.9 10^3/uL (4.8-10.8)
[2023-08-15 09:25] LABS: ALT (SGPT) 21 U/L (0-35); AST (SGOT) 29 U/L (14-36); Albumin 4.1 g/dl (3.5-5.0); Alkaline Phosphatase 96 U/L (38-126); Blood Urea Nitrogen 12 mg/dl (7-17); Calcium 9.8 mg/dl (8.4-10.2); Carbon Dioxide 29 mmol/L (22-30); Chloride 93 mmol/L (98-107); Glucose 223 mg/dl (70-99); Potassium 4.7 mmol/L (3.5-5.1); Sodium 132 mmol/L (135-145); Total Bilirubin 1.5 mg/dl (0.2-1.3); Total Protein 6.3 g/dl (6.3-8.2); eGFR > 60.00
== END ==
LOC: REG 08:14
PROVIDERS: ATTENDING PHYSICIAN Internal Medicine Hematology & Oncology; FAMILY PHYSICIAN Family Medicine
DX: E85.4 Organ-limited amyloidosis (principal); R53.83 Other fatigue; R60.0 Localized edema; R06.00 Dyspnea, unspecified
CPT/HCPCS: 36415; 80053; 82784; 83521; 84155; 84165; 85025; 86334

== ENCOUNTER → 2023-08-27 07:29 | Outpatient (REF) | payer OTHER, SELFPAY ==
[2023-08-27 10:20] LABS: Blood Urea Nitrogen 12 mg/dl (7-17); Calcium 9.7 mg/dl (8.4-10.2); Carbon Dioxide 27 mmol/L (22-30); Chloride 95 mmol/L (98-107); Glucose 116 mg/dl (70-99); Magnesium 1.9 mg/dl (1.6-2.3); Potassium 3.4 mmol/L (3.5-5.1); Sodium 133 mmol/L (135-145); eGFR > 60.00
== END ==
LOC: REG 07:29
PROVIDERS: ATTENDING PHYSICIAN Internal Medicine Cardiovascular Disease; FAMILY PHYSICIAN Family Medicine
DX: I50.32 Chronic diastolic (congestive) heart failure (principal)
CPT/HCPCS: 36415; 80048; 83735

== ENCOUNTER → 2023-09-01 07:45 | Outpatient (REF) | payer OTHER, SELFPAY ==
[2023-09-01 09:02] LABS: % Basophils 0.3 % (0-2); % Eosinophils 1.5 % (0-6); % Immature Granulocytes 0.3 % (0-0.5); % Lymphocytes 18.4 % (20.5-51.1); % Monocytes 10.7 % (1.7-9.3); % Neutrophils 68.8 % (42.2-75.2); Absolute Eosinophils 0.2 10^3/uL (0-0.7); Absolute Lymphocytes 1.8 10^3/uL (1.2-3.4); Absolute Monocytes 1.1 10^3/uL (0.1-0.6); Absolute Neutrophils 6.9 10^3/uL (1.4-6.5); Hematocrit 37.7 % (37.0-47.0); Hemoglobin 12.7 g/dL (12.0-16.0); Mean Corp Hgb Conc. 33.7 g/dL (33.0-37.0); Mean Corpuscular Hgb 33.3 pg (27.0-31.0); Mean Platelet Volume 10.6 fL (7.4-10.4); Nucleated Red Blood Cells % 0 %; Platelet Count 197 10^3/uL (130-400); Red Blood Cell Count 3.81 10^6/uL (4.20-5.40); Red Cell Dist. Width 17.2 % (11.5-14.5)
[2023-09-01 09:55] LABS: ALT (SGPT) 18 U/L (0-35); AST (SGOT) 29 U/L (14-36); Albumin 4.1 g/dl (3.5-5.0); Alkaline Phosphatase 98 U/L (38-126); Blood Urea Nitrogen 14 mg/dl (7-17); Calcium 9.7 mg/dl (8.4-10.2); Carbon Dioxide 30 mmol/L (22-30); Chloride 92 mmol/L (98-107); Glucose 170 mg/dl (70-99); Sodium 133 mmol/L (135-145); Total Bilirubin 1.4 mg/dl (0.2-1.3); Total Protein 6.4 g/dl (6.3-8.2); eGFR > 60.00
== END ==
LOC: REG 07:45
PROVIDERS: ATTENDING PHYSICIAN Internal Medicine Hematology & Oncology; FAMILY PHYSICIAN Family Medicine
DX: E85.4 Organ-limited amyloidosis (principal); R53.83 Other fatigue; R60.0 Localized edema; R06.00 Dyspnea, unspecified
CPT/HCPCS: 36415; 80053; 85025

== ENCOUNTER → 2023-09-15 08:34 | Outpatient (REF) | payer OTHER, SELFPAY ==
[2023-09-15 09:52] LABS: % Basophils 0.4 % (0-2); % Eosinophils 0.9 % (0-6); % Immature Granulocytes 0.4 % (0-0.5); % Lymphocytes 14.1 % (20.5-51.1); % Monocytes 9.9 % (1.7-9.3); % Neutrophils 74.3 % (42.2-75.2); Absolute Eosinophils 0.1 10^3/uL (0-0.7); Absolute Lymphocytes 1.4 10^3/uL (1.2-3.4); Absolute Neutrophils 7.2 10^3/uL (1.4-6.5); Hematocrit 35.7 % (37.0-47.0); Hemoglobin 12.4 g/dL (12.0-16.0); Mean Corp Hgb Conc. 34.7 g/dL (33.0-37.0); Mean Corpuscular Hgb 34.4 pg (27.0-31.0); Mean Corpuscular Volume 99.2 fL (81.0-99.0); Mean Platelet Volume 11.1 fL (7.4-10.4); Nucleated Red Blood Cells % 0 %; Platelet Count 180 10^3/uL (130-400); White Blood Cell Count 9.7 10^3/uL (4.8-10.8)
[2023-09-15 09:56] LABS: ALT (SGPT) 23 U/L (0-35); AST (SGOT) 32 U/L (14-36); Albumin 4.4 g/dl (3.5-5.0); Alkaline Phosphatase 104 U/L (38-126); Blood Urea Nitrogen 15 mg/dl (7-17); Calcium 9.5 mg/dl (8.4-10.2); Carbon Dioxide 29 mmol/L (22-30); Chloride 95 mmol/L (98-107); Glucose 165 mg/dl (70-99); Sodium 132 mmol/L (135-145); Total Bilirubin 1.5 mg/dl (0.2-1.3); Total Protein 6.3 g/dl (6.3-8.2); eGFR > 60.00
[2023-09-17 09:04] LABS: Albumin 4.03 g/dL (3.75-5.01); Alpha 2 Globulin 0.85 g/dL (0.48-1.05); Free Kappa Light Chains,Quant 4.69 mg/L (3.30-19.40); Free Lambda Light Chains,Quant 9.08 mg/L (5.71-26.30); IgA 9 mg/dL (68-408); IgG 416 mg/dL (768-1632); IgM 14 mg/dL (35-263); Immunofixation Electrophoresis IFE Done; Kappa/Lambda Fr Light Ratio 0.52 (0.26-1.65); Monoclonal Protein 0.18 g/dL (<=0.00); Total Protein-Electrophoresis 6.2 g/dL (6.3-8.2)
== END ==
LOC: REG 08:34
PROVIDERS: ATTENDING PHYSICIAN Internal Medicine Hematology & Oncology; FAMILY PHYSICIAN Internal Medicine Cardiovascular Disease
DX: E85.4 Organ-limited amyloidosis (principal); R53.83 Other fatigue; R60.0 Localized edema; R06.00 Dyspnea, unspecified
CPT/HCPCS: 36415; 80053; 82784; 83521; 84155; 84165; 85025; 86334

== ENCOUNTER → 2023-09-16 08:25 | Outpatient (REF) | payer OTHER, SELFPAY | LOC: REG 08:25 | PROVIDERS: ATTENDING PHYSICIAN Internal Medicine Cardiovascular Disease; FAMILY PHYSICIAN Family Medicine | DX: E85.4 Organ-limited amyloidosis (principal); I43 Cardiomyopathy in diseases classified elsewhere; I50.32 Chronic diastolic (congestive) heart failure; I47.10 Supraventricular tachycardia, unspecified | CPT/HCPCS: 36415; 83735 ==

== ENCOUNTER → 2023-09-29 07:52 | Outpatient (REF) | payer OTHER, SELFPAY ==
[2023-09-29 13:19] LABS: % Basophils 0.7 % (0-2); % Eosinophils 1.1 % (0-6); % Immature Granulocytes 0.4 % (0-0.5); % Lymphocytes 13.8 % (20.5-51.1); % Monocytes 10.2 % (1.7-9.3); % Neutrophils 73.8 % (42.2-75.2); Absolute Basophils 0.1 10^3/uL (0-0.2); Absolute Eosinophils 0.1 10^3/uL (0-0.7); Absolute Lymphocytes 1.4 10^3/uL (1.2-3.4); Absolute Neutrophils 7.5 10^3/uL (1.4-6.5); Hematocrit 38.6 % (37.0-47.0); Hemoglobin 13.3 g/dL (12.0-16.0); Mean Corp Hgb Conc. 34.5 g/dL (33.0-37.0); Mean Corpuscular Hgb 34.4 pg (27.0-31.0); Mean Corpuscular Volume 99.7 fL (81.0-99.0); Mean Platelet Volume 11.2 fL (7.4-10.4); Nucleated Red Blood Cells % 0 %; Platelet Count 192 10^3/uL (130-400); Red Blood Cell Count 3.87 10^6/uL (4.20-5.40); White Blood Cell Count 10.2 10^3/uL (4.8-10.8)
== END ==
LOC: REG 07:52
PROVIDERS: ATTENDING PHYSICIAN Internal Medicine Hematology & Oncology; FAMILY PHYSICIAN Internal Medicine Cardiovascular Disease; REFERRING PHYSICIAN Internal Medicine Cardiovascular Disease
DX: E85.4 Organ-limited amyloidosis (principal); R53.83 Other fatigue; R60.0 Localized edema; R06.00 Dyspnea, unspecified
CPT/HCPCS: 36415; 85025

== ENCOUNTER → 2023-10-01 10:28 | Outpatient (REF) | payer OTHER, SELFPAY ==
[2023-10-01 10:48] LABS: % Basophils 0.3 % (0-2); % Eosinophils 0.8 % (0-6); % Immature Granulocytes 0.2 % (0-0.5); % Lymphocytes 11.1 % (20.5-51.1); % Monocytes 7.9 % (1.7-9.3); % Neutrophils 79.7 % (42.2-75.2); Absolute Eosinophils 0.1 10^3/uL (0-0.7); Absolute Lymphocytes 1.1 10^3/uL (1.2-3.4); Absolute Monocytes 0.8 10^3/uL (0.1-0.6); Absolute Neutrophils 7.7 10^3/uL (1.4-6.5); Hematocrit 37.4 % (37.0-47.0); Hemoglobin 12.8 g/dL (12.0-16.0); Mean Corp Hgb Conc. 34.2 g/dL (33.0-37.0); Mean Corpuscular Hgb 34.5 pg (27.0-31.0); Mean Corpuscular Volume 100.8 fL (81.0-99.0); Mean Platelet Volume 10.5 fL (7.4-10.4); Platelet Count 186 10^3/uL (130-400); Red Blood Cell Count 3.71 10^6/uL (4.20-5.40); Red Cell Dist. Width 14.4 % (11.5-14.5); White Blood Cell Count 9.6 10^3/uL (4.8-10.8)
[2023-10-01 11:34] LABS: Blood Urea Nitrogen 17 mg/dl (7-17); Calcium 9.5 mg/dl (8.4-10.2); Carbon Dioxide 27 mmol/L (22-30); Chloride 91 mmol/L (98-107); Glucose 146 mg/dl (70-99); Potassium 3.9 mmol/L (3.5-5.1); Sodium 129 mmol/L (135-145); eGFR > 60.00
== END ==
LOC: OIDL 10:28
PROVIDERS: ATTENDING PHYSICIAN Internal Medicine Hematology & Oncology
DX: E85.4 Organ-limited amyloidosis (principal); R53.83 Other fatigue; R60.0 Localized edema; R06.00 Dyspnea, unspecified
CPT/HCPCS: 80048; 85025

== ENCOUNTER → 2023-10-13 08:09 | Outpatient (REF) | payer OTHER, SELFPAY ==
[2023-10-13 09:16] LABS: % Basophils 0.7 % (0-2); % Eosinophils 1.2 % (0-6); % Immature Granulocytes 0.2 % (0-0.5); % Lymphocytes 16.5 % (20.5-51.1); % Monocytes 10.9 % (1.7-9.3); % Neutrophils 70.5 % (42.2-75.2); Absolute Basophils 0.1 10^3/uL (0-0.2); Absolute Eosinophils 0.1 10^3/uL (0-0.7); Absolute Lymphocytes 1.6 10^3/uL (1.2-3.4); Absolute Neutrophils 6.6 10^3/uL (1.4-6.5); Hemoglobin 13.6 g/dL (12.0-16.0); Mean Corp Hgb Conc. 34.9 g/dL (33.0-37.0); Mean Corpuscular Hgb 34.7 pg (27.0-31.0); Mean Corpuscular Volume 99.5 fL (81.0-99.0); Nucleated Red Blood Cells % 0 %; Platelet Count 177 10^3/uL (130-400); Red Blood Cell Count 3.92 10^6/uL (4.20-5.40); Red Cell Dist. Width 13.9 % (11.5-14.5); White Blood Cell Count 9.4 10^3/uL (4.8-10.8)
[2023-10-13 09:41] LABS: ALT (SGPT) 23 U/L (0-35); AST (SGOT) 35 U/L (14-36); Albumin 4.1 g/dl (3.5-5.0); Alkaline Phosphatase 99 U/L (38-126); Blood Urea Nitrogen 16 mg/dl (7-17); Calcium 9.9 mg/dl (8.4-10.2); Carbon Dioxide 30 mmol/L (22-30); Chloride 95 mmol/L (98-107); Glucose 183 mg/dl (70-99); Potassium 4.1 mmol/L (3.5-5.1); Sodium 131 mmol/L (135-145); Total Bilirubin 1.6 mg/dl (0.2-1.3); eGFR > 60.00
== END ==
LOC: REG 08:09
PROVIDERS: ATTENDING PHYSICIAN Internal Medicine Hematology & Oncology; FAMILY PHYSICIAN Family Medicine; REFERRING PHYSICIAN Internal Medicine Cardiovascular Disease
DX: E85.4 Organ-limited amyloidosis (principal); R53.83 Other fatigue; R60.0 Localized edema; R06.00 Dyspnea, unspecified; M62.81 Muscle weakness (generalized)
CPT/HCPCS: 36415; 80053; 85025

== ENCOUNTER → 2023-10-20 08:10 | Outpatient (REF) | payer OTHER, SELFPAY ==
[2023-10-20 09:48] LABS: Troponin I 0.042 ng/ml
[2023-10-20 10:02] LABS: NT-proBNP 8590 pg/ml
[2023-10-22 22:28] LABS: Albumin 3.82 g/dL (3.75-5.01); Alpha 1 Globulin 0.25 g/dL (0.19-0.46); Alpha 2 Globulin 0.88 g/dL (0.48-1.05); Free Kappa Light Chains,Quant 6.72 mg/L (3.30-19.40); Free Lambda Light Chains,Quant 6.22 mg/L (5.71-26.30); IgA 8 mg/dL (68-408); IgG 359 mg/dL (768-1632); IgM 14 mg/dL (35-263); Immunofixation Electrophoresis IFE Done; Kappa/Lambda Fr Light Ratio 1.08 (0.26-1.65); Monoclonal Protein 0.21 g/dL (<=0.00); Total Protein-Electrophoresis 5.9 g/dL (6.3-8.2)
== END ==
LOC: REG 08:10
PROVIDERS: ATTENDING PHYSICIAN Internal Medicine Hematology & Oncology; FAMILY PHYSICIAN Family Medicine; REFERRING PHYSICIAN Internal Medicine Cardiovascular Disease
DX: E85.4 Organ-limited amyloidosis (principal); R53.83 Other fatigue; R60.0 Localized edema; R06.00 Dyspnea, unspecified; M62.81 Muscle weakness (generalized)
CPT/HCPCS: 36415; 82784; 83521; 83880; 84155; 84165; 84484; 86334

== ENCOUNTER → 2023-10-27 07:47 | Outpatient (REF) | payer OTHER, SELFPAY ==
[2023-10-27 10:32] LABS: % Basophils 0.7 % (0-2); % Eosinophils 1.3 % (0-6); % Immature Granulocytes 0.4 % (0-0.5); % Lymphocytes 15.9 % (20.5-51.1); % Monocytes 11.6 % (1.7-9.3); % Neutrophils 70.1 % (42.2-75.2); Absolute Basophils 0.1 10^3/uL (0-0.2); Absolute Eosinophils 0.1 10^3/uL (0-0.7); Absolute Lymphocytes 1.6 10^3/uL (1.2-3.4); Absolute Monocytes 1.2 10^3/uL (0.1-0.6); Hematocrit 39.4 % (37.0-47.0); Hemoglobin 13.6 g/dL (12.0-16.0); Mean Corp Hgb Conc. 34.5 g/dL (33.0-37.0); Mean Corpuscular Hgb 33.7 pg (27.0-31.0); Mean Corpuscular Volume 97.8 fL (81.0-99.0); Mean Platelet Volume 11.1 fL (7.4-10.4); Nucleated Red Blood Cells % 0 %; Platelet Count 177 10^3/uL (130-400); Red Blood Cell Count 4.03 10^6/uL (4.20-5.40); Red Cell Dist. Width 13.2 % (11.5-14.5); White Blood Cell Count 9.9 10^3/uL (4.8-10.8)
[2023-10-27 11:12] LABS: ALT (SGPT) 21 U/L (0-35); AST (SGOT) 34 U/L (14-36); Albumin 4.3 g/dl (3.5-5.0); Alkaline Phosphatase 105 U/L (38-126); Blood Urea Nitrogen 17 mg/dl (7-17); Calcium 9.7 mg/dl (8.4-10.2); Carbon Dioxide 27 mmol/L (22-30); Chloride 94 mmol/L (98-107); Glucose 144 mg/dl (70-99); Potassium 3.9 mmol/L (3.5-5.1); Sodium 132 mmol/L (135-145); Total Protein 6.1 g/dl (6.3-8.2); eGFR > 60.00
[2023-10-27 12:11] LABS: Total Bilirubin 1.1 mg/dl (0.2-1.3)
== END ==
LOC: REG 07:47
PROVIDERS: ATTENDING PHYSICIAN Internal Medicine Hematology & Oncology; FAMILY PHYSICIAN Family Medicine
DX: E85.4 Organ-limited amyloidosis (principal); R53.83 Other fatigue; R60.0 Localized edema; R06.00 Dyspnea, unspecified; M62.81 Muscle weakness (generalized)
CPT/HCPCS: 36415; 80053; 85025

== ENCOUNTER → 2023-11-03 08:38 | Outpatient (REF) | payer OTHER, SELFPAY ==
[2023-11-03 09:45] LABS: % Basophils 0.9 % (0-2); % Eosinophils 1.1 % (0-6); % Immature Granulocytes 0.3 % (0-0.5); % Lymphocytes 18.3 % (20.5-51.1); % Monocytes 13.1 % (1.7-9.3); % Neutrophils 66.3 % (42.2-75.2); Absolute Basophils 0.1 10^3/uL (0-0.2); Absolute Eosinophils 0.1 10^3/uL (0-0.7); Absolute Lymphocytes 1.5 10^3/uL (1.2-3.4); Absolute Neutrophils 5.3 10^3/uL (1.4-6.5); Hematocrit 38.6 % (37.0-47.0); Hemoglobin 13.3 g/dL (12.0-16.0); Mean Corp Hgb Conc. 34.5 g/dL (33.0-37.0); Mean Corpuscular Hgb 33.7 pg (27.0-31.0); Mean Corpuscular Volume 97.7 fL (81.0-99.0); Mean Platelet Volume 10.9 fL (7.4-10.4); Nucleated Red Blood Cells % 0 %; Platelet Count 165 10^3/uL (130-400); Red Blood Cell Count 3.95 10^6/uL (4.20-5.40); White Blood Cell Count 7.9 10^3/uL (4.8-10.8)
[2023-11-03 10:26] LABS: ALT (SGPT) 18 U/L (0-35); AST (SGOT) 34 U/L (14-36); Albumin 4.2 g/dl (3.5-5.0); Alkaline Phosphatase 102 U/L (38-126); Blood Urea Nitrogen 13 mg/dl (7-17); Calcium 9.6 mg/dl (8.4-10.2); Carbon Dioxide 28 mmol/L (22-30); Chloride 94 mmol/L (98-107); Glucose 169 mg/dl (70-99); Potassium 3.6 mmol/L (3.5-5.1); Sodium 131 mmol/L (135-145); Total Bilirubin 1.4 mg/dl (0.2-1.3); Total Protein 5.9 g/dl (6.3-8.2); eGFR > 60.00
== END ==
LOC: REG 08:38
PROVIDERS: ATTENDING PHYSICIAN Internal Medicine Hematology & Oncology; FAMILY PHYSICIAN Family Medicine; OTHER PHYSICIAN Internal Medicine Cardiovascular Disease; REFERRING PHYSICIAN Internal Medicine Cardiovascular Disease
DX: E85.4 Organ-limited amyloidosis (principal); R53.83 Other fatigue; R60.0 Localized edema; R06.00 Dyspnea, unspecified; M62.81 Muscle weakness (generalized)
CPT/HCPCS: 36415; 80053; 85025

== ENCOUNTER → 2023-11-14 08:27 | Outpatient (REF) | payer OTHER, SELFPAY ==
[2023-11-14 09:01] LABS: % Basophils 0.6 % (0-2); % Immature Granulocytes 0.3 % (0-0.5); % Lymphocytes 15.7 % (20.5-51.1); % Monocytes 11.4 % (1.7-9.3); Absolute Basophils 0.1 10^3/uL (0-0.2); Absolute Eosinophils 0.1 10^3/uL (0-0.7); Absolute Lymphocytes 1.7 10^3/uL (1.2-3.4); Absolute Monocytes 1.2 10^3/uL (0.1-0.6); Absolute Neutrophils 7.7 10^3/uL (1.4-6.5); Hematocrit 39.4 % (37.0-47.0); Hemoglobin 13.6 g/dL (12.0-16.0); Mean Corp Hgb Conc. 34.5 g/dL (33.0-37.0); Mean Corpuscular Hgb 32.9 pg (27.0-31.0); Mean Corpuscular Volume 95.2 fL (81.0-99.0); Mean Platelet Volume 10.5 fL (7.4-10.4); Nucleated Red Blood Cells % 0 %; Platelet Count 190 10^3/uL (130-400); Red Blood Cell Count 4.14 10^6/uL (4.20-5.40); Red Cell Dist. Width 13.5 % (11.5-14.5); White Blood Cell Count 10.8 10^3/uL (4.8-10.8)
[2023-11-14 09:34] LABS: ALT (SGPT) 23 U/L (0-35); AST (SGOT) 39 U/L (14-36); Albumin 4.5 g/dl (3.5-5.0); Alkaline Phosphatase 114 U/L (38-126); Blood Urea Nitrogen 18 mg/dl (7-17); Calcium 9.9 mg/dl (8.4-10.2); Carbon Dioxide 30 mmol/L (22-30); Chloride 92 mmol/L (98-107); Glucose 236 mg/dl (70-99); Potassium 3.7 mmol/L (3.5-5.1); Sodium 134 mmol/L (135-145); Total Bilirubin 2.4 mg/dl (0.2-1.3); Total Protein 6.2 g/dl (6.3-8.2); eGFR > 60.00
[2023-11-17 00:13] LABS: Albumin 4.08 g/dL (3.75-5.01); Alpha 1 Globulin 0.33 g/dL (0.19-0.46); Free Kappa Light Chains,Quant 4.67 mg/L (3.30-19.40); Free Lambda Light Chains,Quant 8.28 mg/L (5.71-26.30); IgA 8 mg/dL (68-408); IgG 608 mg/dL (768-1632); IgM 13 mg/dL (35-263); Immunofixation Electrophoresis IFE Done; Kappa/Lambda Fr Light Ratio 0.56 (0.26-1.65); Monoclonal Protein 0.16 g/dL (<=0.00); Total Protein-Electrophoresis 6.2 g/dL (6.3-8.2)
== END ==
LOC: REG 08:27
PROVIDERS: ATTENDING PHYSICIAN Internal Medicine Hematology & Oncology; FAMILY PHYSICIAN Family Medicine; OTHER PHYSICIAN Internal Medicine Cardiovascular Disease; REFERRING PHYSICIAN Internal Medicine Cardiovascular Disease
DX: E85.4 Organ-limited amyloidosis (principal); R53.83 Other fatigue; R60.0 Localized edema; R06.00 Dyspnea, unspecified; M62.81 Muscle weakness (generalized)
CPT/HCPCS: 36415; 80053; 82784; 83521; 84155; 84165; 85025; 86334

== ENCOUNTER → 2023-11-24 07:35 | Outpatient (REF) | payer OTHER, SELFPAY ==
[2023-11-24 08:57] LABS: Magnesium 2.1 mg/dl (1.6-2.3)
== END ==
LOC: REG 07:35
PROVIDERS: ATTENDING PHYSICIAN Internal Medicine Hematology & Oncology; FAMILY PHYSICIAN Family Medicine; OTHER PHYSICIAN Internal Medicine Cardiovascular Disease; REFERRING PHYSICIAN Internal Medicine Cardiovascular Disease
DX: E85.4 Organ-limited amyloidosis (principal); R53.83 Other fatigue; R60.0 Localized edema; R06.00 Dyspnea, unspecified; M62.81 Muscle weakness (generalized)
CPT/HCPCS: 36415; 83735

== ENCOUNTER → 2023-12-01 08:18 | Outpatient (REF) | payer OTHER, SELFPAY ==
[2023-12-01 09:42] LABS: % Basophils 0.7 % (0-2); % Eosinophils 2.6 % (0-6); % Immature Granulocytes 0.5 % (0-0.5); % Lymphocytes 8.9 % (20.5-51.1); % Monocytes 10.1 % (1.7-9.3); % Neutrophils 77.2 % (42.2-75.2); Absolute Basophils 0.1 10^3/uL (0-0.2); Absolute Eosinophils 0.3 10^3/uL (0-0.7); Absolute Immature Granulocytes 0.1 10^3/uL (0-0.05); Absolute Lymphocytes 0.9 10^3/uL (1.2-3.4); Absolute Neutrophils 7.9 10^3/uL (1.4-6.5); Hematocrit 39.7 % (37.0-47.0); Hemoglobin 13.3 g/dL (12.0-16.0); Mean Corp Hgb Conc. 33.5 g/dL (33.0-37.0); Mean Corpuscular Hgb 31.4 pg (27.0-31.0); Mean Corpuscular Volume 93.6 fL (81.0-99.0); Mean Platelet Volume 10.2 fL (7.4-10.4); Nucleated Red Blood Cells % 0 %; Platelet Count 186 10^3/uL (130-400); Red Blood Cell Count 4.24 10^6/uL (4.20-5.40); Red Cell Dist. Width 13.7 % (11.5-14.5); White Blood Cell Count 10.2 10^3/uL (4.8-10.8)
[2023-12-01 10:11] LABS: ALT (SGPT) 26 U/L (0-35); AST (SGOT) 35 U/L (14-36); Albumin 4.2 g/dl (3.5-5.0); Alkaline Phosphatase 109 U/L (38-126); Blood Urea Nitrogen 14 mg/dl (7-17); Calcium 9.6 mg/dl (8.4-10.2); Carbon Dioxide 28 mmol/L (22-30); Chloride 88 mmol/L (98-107); Glucose 214 mg/dl (70-99); Potassium 3.9 mmol/L (3.5-5.1); Sodium 133 mmol/L (135-145); Total Bilirubin 2.1 mg/dl (0.2-1.3); Total Protein 6.2 g/dl (6.3-8.2); eGFR > 60.00
== END ==
LOC: REG 08:18
PROVIDERS: ATTENDING PHYSICIAN Internal Medicine Hematology & Oncology; FAMILY PHYSICIAN Family Medicine; REFERRING PHYSICIAN Internal Medicine Cardiovascular Disease
DX: E85.4 Organ-limited amyloidosis (principal); R53.83 Other fatigue; R60.0 Localized edema; R06.00 Dyspnea, unspecified; M62.81 Muscle weakness (generalized)
CPT/HCPCS: 36415; 80053; 85025

== ENCOUNTER → 2023-12-15 13:46 | Outpatient (REF) | payer OTHER, SELFPAY ==
[2023-12-15 15:14] LABS: % Basophils 1.3 % (0-2); % Immature Granulocytes 0.4 % (0-0.5); % Lymphocytes 15.4 % (20.5-51.1); % Monocytes 11.5 % (1.7-9.3); % Neutrophils 67.4 % (42.2-75.2); Absolute Basophils 0.1 10^3/uL (0-0.2); Absolute Eosinophils 0.4 10^3/uL (0-0.7); Absolute Lymphocytes 1.5 10^3/uL (1.2-3.4); Absolute Monocytes 1.1 10^3/uL (0.1-0.6); Absolute Neutrophils 6.5 10^3/uL (1.4-6.5); Hematocrit 41.1 % (37.0-47.0); Hemoglobin 13.8 g/dL (12.0-16.0); Mean Corp Hgb Conc. 33.6 g/dL (33.0-37.0); Mean Corpuscular Hgb 31.2 pg (27.0-31.0); Mean Corpuscular Volume 92.8 fL (81.0-99.0); Mean Platelet Volume 10.2 fL (7.4-10.4); Nucleated Red Blood Cells % 0 %; Platelet Count 336 10^3/uL (130-400); Red Blood Cell Count 4.43 10^6/uL (4.20-5.40); Red Cell Dist. Width 14.3 % (11.5-14.5); White Blood Cell Count 9.7 10^3/uL (4.8-10.8)
[2023-12-15 15:40] LABS: NT-proBNP 3770 pg/ml; Troponin I 0.027 ng/ml
[2023-12-15 16:00] LABS: ALT (SGPT) 25 U/L (0-35); AST (SGOT) 35 U/L (14-36); Albumin 4.7 g/dl (3.5-5.0); Alkaline Phosphatase 156 U/L (38-126); Blood Urea Nitrogen 13 mg/dl (7-17); Calcium 10.3 mg/dl (8.4-10.2); Carbon Dioxide 28 mmol/L (22-30); Chloride 93 mmol/L (98-107); Glucose 107 mg/dl (70-99); Potassium 4.5 mmol/L (3.5-5.1); Sodium 138 mmol/L (135-145); Total Bilirubin 1.6 mg/dl (0.2-1.3); eGFR > 60.00
== END ==
LOC: REG 13:46
PROVIDERS: ATTENDING PHYSICIAN Internal Medicine Hematology & Oncology; FAMILY PHYSICIAN Family Medicine; OTHER PHYSICIAN Internal Medicine Cardiovascular Disease; REFERRING PHYSICIAN Internal Medicine Cardiovascular Disease
DX: E85.4 Organ-limited amyloidosis (principal); R53.83 Other fatigue; R60.0 Localized edema; R06.00 Dyspnea, unspecified; M62.81 Muscle weakness (generalized)
CPT/HCPCS: 36415; 80053; 82784; 83521; 83880; 84155; 84165; 84484; 85025; 86334

== ENCOUNTER → 2023-12-29 07:58 | Outpatient (REF) | payer OTHER, SELFPAY ==
[2023-12-29 08:41] LABS: % Basophils 0.9 % (0-2); % Eosinophils 2.5 % (0-6); % Immature Granulocytes 0.3 % (0-0.5); % Lymphocytes 14.7 % (20.5-51.1); % Monocytes 7.9 % (1.7-9.3); % Neutrophils 73.7 % (42.2-75.2); Absolute Basophils 0.1 10^3/uL (0-0.2); Absolute Eosinophils 0.3 10^3/uL (0-0.7); Absolute Lymphocytes 1.5 10^3/uL (1.2-3.4); Absolute Monocytes 0.8 10^3/uL (0.1-0.6); Absolute Neutrophils 7.5 10^3/uL (1.4-6.5); Hematocrit 40.8 % (37.0-47.0); Hemoglobin 14.1 g/dL (12.0-16.0); Mean Corp Hgb Conc. 34.6 g/dL (33.0-37.0); Mean Corpuscular Hgb 31.9 pg (27.0-31.0); Mean Corpuscular Volume 92.3 fL (81.0-99.0); Mean Platelet Volume 11.2 fL (7.4-10.4); Nucleated Red Blood Cells % 0 %; Platelet Count 164 10^3/uL (130-400); Red Blood Cell Count 4.42 10^6/uL (4.20-5.40); Red Cell Dist. Width 14.7 % (11.5-14.5); White Blood Cell Count 10.2 10^3/uL (4.8-10.8)
[2023-12-29 08:53] LABS: NT-proBNP 4690 pg/ml
[2023-12-29 09:08] LABS: ALT (SGPT) 26 U/L (0-35); AST (SGOT) 36 U/L (14-36); Albumin 4.6 g/dl (3.5-5.0); Alkaline Phosphatase 121 U/L (38-126); Blood Urea Nitrogen 22 mg/dl (7-17); Calcium 9.9 mg/dl (8.4-10.2); Carbon Dioxide 27 mmol/L (22-30); Chloride 95 mmol/L (98-107); Glucose 212 mg/dl (70-99); Magnesium 1.8 mg/dl (1.6-2.3); Phosphorus 3.9 mg/dl (2.5-4.5); Potassium 4.3 mmol/L (3.5-5.1); Sodium 136 mmol/L (135-145); Total Bilirubin 1.7 mg/dl (0.2-1.3); Total Protein 6.6 g/dl (6.3-8.2); eGFR > 60.00
[2023-12-29 09:49] LABS: Troponin I 0.046 ng/ml
[2023-12-31 00:46] LABS: Beta-2-Microglobulin 2.9 mg/L (<=3.0)
[2024-01-01 04:11] LABS: Albumin 4.21 g/dL (3.75-5.01); Alpha 1 Globulin 0.28 g/dL (0.19-0.46); Alpha 2 Globulin 0.89 g/dL (0.48-1.05); IgA 9 mg/dL (68-408); IgG 410 mg/dL (768-1632); IgM 13 mg/dL (35-263); Immunofixation Electrophoresis IFE Done; Kappa/Lambda Fr Light Ratio 0.68 (0.26-1.65); Monoclonal Protein 0.21 g/dL (<=0.00); Total Protein-Electrophoresis 6.4 g/dL (6.3-8.2)
== END ==
LOC: REG 07:58
PROVIDERS: ATTENDING PHYSICIAN Internal Medicine Hematology & Oncology; FAMILY PHYSICIAN Family Medicine; OTHER PHYSICIAN Internal Medicine Cardiovascular Disease; REFERRING PHYSICIAN Internal Medicine Cardiovascular Disease
DX: I10 Essential (primary) hypertension (principal); I50.32 Chronic diastolic (congestive) heart failure; R06.02 Shortness of breath; E85.4 Organ-limited amyloidosis; R53.83 Other fatigue; R60.0 Localized edema; R06.00 Dyspnea, unspecified
CPT/HCPCS: 36415; 80053; 80069; 82232; 82784; 83521; 83735; 83880; 84155; 84165; 84484; 85025; 86334

== ENCOUNTER → 2024-01-12 07:45 | Outpatient (REF) | payer OTHER, SELFPAY ==
[2024-01-12 08:13] LABS: % Basophils 0.8 % (0-2); % Eosinophils 2.2 % (0-6); % Immature Granulocytes 0.4 % (0-0.5); % Lymphocytes 13.9 % (20.5-51.1); % Monocytes 12.2 % (1.7-9.3); % Neutrophils 70.5 % (42.2-75.2); Absolute Basophils 0.1 10^3/uL (0-0.2); Absolute Eosinophils 0.2 10^3/uL (0-0.7); Absolute Lymphocytes 1.3 10^3/uL (1.2-3.4); Absolute Monocytes 1.1 10^3/uL (0.1-0.6); Absolute Neutrophils 6.4 10^3/uL (1.4-6.5); Hematocrit 39.2 % (37.0-47.0); Hemoglobin 13.1 g/dL (12.0-16.0); Mean Corp Hgb Conc. 33.4 g/dL (33.0-37.0); Mean Corpuscular Volume 92.7 fL (81.0-99.0); Mean Platelet Volume 10.5 fL (7.4-10.4); Nucleated Red Blood Cells % 0 %; Platelet Count 205 10^3/uL (130-400); Red Blood Cell Count 4.23 10^6/uL (4.20-5.40); Red Cell Dist. Width 16.1 % (11.5-14.5); White Blood Cell Count 9.1 10^3/uL (4.8-10.8)
[2024-01-12 08:53] LABS: ALT (SGPT) 20 U/L (0-35); AST (SGOT) 30 U/L (14-36); Albumin 4.5 g/dl (3.5-5.0); Alkaline Phosphatase 115 U/L (38-126); Blood Urea Nitrogen 15 mg/dl (7-17); Calcium 9.7 mg/dl (8.4-10.2); Carbon Dioxide 29 mmol/L (22-30); Chloride 95 mmol/L (98-107); Glucose 221 mg/dl (70-99); Potassium 4.1 mmol/L (3.5-5.1); Sodium 136 mmol/L (135-145); Total Bilirubin 1.9 mg/dl (0.2-1.3); Total Protein 6.3 g/dl (6.3-8.2); eGFR > 60.00
== END ==
LOC: REG 07:45
PROVIDERS: ATTENDING PHYSICIAN Internal Medicine Hematology & Oncology; FAMILY PHYSICIAN Family Medicine; OTHER PHYSICIAN Internal Medicine Cardiovascular Disease
DX: E85.4 Organ-limited amyloidosis (principal); R53.83 Other fatigue; R60.0 Localized edema; R06.00 Dyspnea, unspecified; M62.81 Muscle weakness (generalized)
CPT/HCPCS: 36415; 80053; 85025

== ENCOUNTER → 2024-01-26 08:33 | Outpatient (REF) | payer OTHER, SELFPAY ==
[2024-01-26 10:03] LABS: % Basophils 0.7 % (0-2); % Eosinophils 1.3 % (0-6); % Immature Granulocytes 0.5 % (0-0.5); % Lymphocytes 13.7 % (20.5-51.1); % Monocytes 11.2 % (1.7-9.3); % Neutrophils 72.6 % (42.2-75.2); Absolute Basophils 0.1 10^3/uL (0-0.2); Absolute Eosinophils 0.2 10^3/uL (0-0.7); Absolute Immature Granulocytes 0.1 10^3/uL (0-0.05); Absolute Lymphocytes 1.7 10^3/uL (1.2-3.4); Absolute Monocytes 1.4 10^3/uL (0.1-0.6); Absolute Neutrophils 8.9 10^3/uL (1.4-6.5); Hematocrit 39.5 % (37.0-47.0); Hemoglobin 13.3 g/dL (12.0-16.0); Mean Corp Hgb Conc. 33.7 g/dL (33.0-37.0); Mean Corpuscular Hgb 31.4 pg (27.0-31.0); Mean Corpuscular Volume 93.4 fL (81.0-99.0); Mean Platelet Volume 11.7 fL (7.4-10.4); Nucleated Red Blood Cells % 0 %; Platelet Count 163 10^3/uL (130-400); Red Blood Cell Count 4.23 10^6/uL (4.20-5.40); Red Cell Dist. Width 15.9 % (11.5-14.5); White Blood Cell Count 12.2 10^3/uL (4.8-10.8)
[2024-01-26 10:36] LABS: ALT (SGPT) 27 U/L (0-35); AST (SGOT) 37 U/L (14-36); Albumin 4.2 g/dl (3.5-5.0); Alkaline Phosphatase 110 U/L (38-126); Blood Urea Nitrogen 21 mg/dl (7-17); Calcium 9.6 mg/dl (8.4-10.2); Carbon Dioxide 27 mmol/L (22-30); Chloride 90 mmol/L (98-107); Glucose 176 mg/dl (70-99); Sodium 133 mmol/L (135-145); Total Bilirubin 1.7 mg/dl (0.2-1.3); Total Protein 6.3 g/dl (6.3-8.2); eGFR > 60.00
[2024-01-26 10:47] LABS: Potassium 4.9 mmol/L (3.5-5.1)
== END ==
LOC: REG 08:33
PROVIDERS: ATTENDING PHYSICIAN Internal Medicine Hematology & Oncology; FAMILY PHYSICIAN Family Medicine; OTHER PHYSICIAN Internal Medicine Cardiovascular Disease; REFERRING PHYSICIAN Internal Medicine Cardiovascular Disease
DX: E85.4 Organ-limited amyloidosis (principal); R53.83 Other fatigue; R60.0 Localized edema; M62.81 Muscle weakness (generalized)
CPT/HCPCS: 36415; 80053; 85025

== ENCOUNTER → 2024-02-09 08:07 | Outpatient (REF) | payer OTHER, SELFPAY ==
[2024-02-09 08:47] LABS: % Eosinophils 2.5 % (0-6); % Immature Granulocytes 0.2 % (0-0.5); % Lymphocytes 17.9 % (20.5-51.1); % Monocytes 11.9 % (1.7-9.3); % Neutrophils 66.5 % (42.2-75.2); Absolute Basophils 0.1 10^3/uL (0-0.2); Absolute Eosinophils 0.2 10^3/uL (0-0.7); Absolute Lymphocytes 1.5 10^3/uL (1.2-3.4); Absolute Neutrophils 5.5 10^3/uL (1.4-6.5); Hematocrit 39.4 % (37.0-47.0); Hemoglobin 12.8 g/dL (12.0-16.0); Mean Corp Hgb Conc. 32.5 g/dL (33.0-37.0); Mean Corpuscular Hgb 30.5 pg (27.0-31.0); Mean Platelet Volume 10.2 fL (7.4-10.4); Nucleated Red Blood Cells % 0 %; Platelet Count 221 10^3/uL (130-400); Red Blood Cell Count 4.19 10^6/uL (4.20-5.40); Red Cell Dist. Width 15.9 % (11.5-14.5); White Blood Cell Count 8.3 10^3/uL (4.8-10.8)
[2024-02-09 09:05] LABS: ALT (SGPT) 23 U/L (0-35); AST (SGOT) 35 U/L (14-36); Albumin 4.5 g/dl (3.5-5.0); Alkaline Phosphatase 118 U/L (38-126); Blood Urea Nitrogen 19 mg/dl (7-17); Calcium 9.9 mg/dl (8.4-10.2); Carbon Dioxide 29 mmol/L (22-30); Chloride 92 mmol/L (98-107); Glucose 203 mg/dl (70-99); Potassium 4.5 mmol/L (3.5-5.1); Sodium 136 mmol/L (135-145); Total Bilirubin 1.5 mg/dl (0.2-1.3); Total Protein 6.5 g/dl (6.3-8.2); eGFR > 60.00
[2024-02-12 00:17] LABS: Albumin 3.96 g/dL (3.75-5.01); Alpha 1 Globulin 0.29 g/dL (0.19-0.46); Alpha 2 Globulin 0.84 g/dL (0.48-1.05); Free Kappa Light Chains,Quant 5.37 mg/L (3.30-19.40); Free Lambda Light Chains,Quant 8.55 mg/L (5.71-26.30); IgA 16 mg/dL (68-408); IgG 384 mg/dL (768-1632); IgM 14 mg/dL (35-263); Immunofixation Electrophoresis IFE Done; Kappa/Lambda Fr Light Ratio 0.63 (0.26-1.65); Total Protein-Electrophoresis 6.1 g/dL (6.3-8.2)
== END ==
LOC: REG 08:07
PROVIDERS: ATTENDING PHYSICIAN Internal Medicine Hematology & Oncology
DX: E85.4 Organ-limited amyloidosis (principal); R53.83 Other fatigue; R60.0 Localized edema; R06.00 Dyspnea, unspecified; M62.81 Muscle weakness (generalized)
CPT/HCPCS: 36415; 80053; 82784; 83521; 84155; 84165; 85025; 86334

== ENCOUNTER → 2024-02-24 08:36 | Outpatient (REF) | payer OTHER, SELFPAY ==
[2024-02-24 09:13] LABS: % Basophils 0.3 % (0-2); % Immature Granulocytes 0.4 % (0-0.5); % Lymphocytes 8.1 % (20.5-51.1); % Monocytes 6.2 % (1.7-9.3); Absolute Eosinophils 0.1 10^3/uL (0-0.7); Absolute Immature Granulocytes 0.1 10^3/uL (0-0.05); Absolute Lymphocytes 1.1 10^3/uL (1.2-3.4); Absolute Monocytes 0.9 10^3/uL (0.1-0.6); Absolute Neutrophils 11.5 10^3/uL (1.4-6.5); Hematocrit 41.3 % (37.0-47.0); Hemoglobin 13.9 g/dL (12.0-16.0); Mean Corp Hgb Conc. 33.7 g/dL (33.0-37.0); Mean Corpuscular Hgb 31.2 pg (27.0-31.0); Mean Corpuscular Volume 92.8 fL (81.0-99.0); Mean Platelet Volume 10.5 fL (7.4-10.4); Nucleated Red Blood Cells % 0 %; Platelet Count 141 10^3/uL (130-400); Red Blood Cell Count 4.45 10^6/uL (4.20-5.40); Red Cell Dist. Width 16.2 % (11.5-14.5); White Blood Cell Count 13.7 10^3/uL (4.8-10.8)
[2024-02-24 10:01] LABS: ALT (SGPT) 22 U/L (0-35); AST (SGOT) 33 U/L (14-36); Albumin 4.4 g/dl (3.5-5.0); Alkaline Phosphatase 124 U/L (38-126); Blood Urea Nitrogen 20 mg/dl (7-17); Calcium 9.4 mg/dl (8.4-10.2); Carbon Dioxide 30 mmol/L (22-30); Chloride 95 mmol/L (98-107); Glucose 225 mg/dl (70-99); Sodium 135 mmol/L (135-145); Total Bilirubin 1.4 mg/dl (0.2-1.3); Total Protein 6.3 g/dl (6.3-8.2); eGFR > 60.00
== END ==
LOC: REG 08:36
PROVIDERS: ATTENDING PHYSICIAN Internal Medicine Hematology & Oncology
DX: E85.4 Organ-limited amyloidosis (principal); R53.83 Other fatigue; R60.0 Localized edema; R06.00 Dyspnea, unspecified; M62.81 Muscle weakness (generalized)
CPT/HCPCS: 36415; 80053; 85025

== ENCOUNTER 2024-03-05 12:48 | Observation (INO) | payer OTHER, SELFPAY ==
[2024-03-05] VITALS (9 sets, daily range): BP systolic 100–115; BP diastolic 62–78; BMI 20.8; BMI 20.5
[2024-03-05 09:16] LABS: % Basophils 0.3 % (0-2); % Eosinophils 0.4 % (0-6); % Immature Granulocytes 0.4 % (0-0.5); % Lymphocytes 4.2 % (20.5-51.1); % Monocytes 3.4 % (1.7-9.3); % Neutrophils 91.3 % (42.2-75.2); Absolute Lymphocytes 0.5 10^3/uL (1.2-3.4); Absolute Monocytes 0.4 10^3/uL (0.1-0.6); Absolute Neutrophils 10.3 10^3/uL (1.4-6.5); Hematocrit 39.2 % (37.0-47.0); Hemoglobin 13.4 g/dL (12.0-16.0); Mean Corp Hgb Conc. 34.2 g/dL (33.0-37.0); Mean Corpuscular Hgb 31.5 pg (27.0-31.0); Mean Corpuscular Volume 92.2 fL (81.0-99.0); Mean Platelet Volume 10.9 fL (7.4-10.4); Nucleated Red Blood Cells % 0 %; Platelet Count 167 10^3/uL (130-400); Red Blood Cell Count 4.25 10^6/uL (4.20-5.40); Red Cell Dist. Width 16.3 % (11.5-14.5); White Blood Cell Count 11.3 10^3/uL (4.8-10.8)
[2024-03-05 09:28] LABS: ALT (SGPT) 21 U/L (0-35); AST (SGOT) 34 U/L (14-36); Albumin 4.4 g/dl (3.5-5.0); Alkaline Phosphatase 112 U/L (38-126); Blood Urea Nitrogen 20 mg/dl (7-17); Calcium 9.7 mg/dl (8.4-10.2); Carbon Dioxide 29 mmol/L (22-30); Chloride 94 mmol/L (98-107); Estimated Creatinine Clearance 40 ml/min; Glucose 145 mg/dl (70-99); Potassium 4.5 mmol/L (3.5-5.1); Sodium 133 mmol/L (135-145); Total Bilirubin 2.4 mg/dl (0.2-1.3); Total Protein 6.2 g/dl (6.3-8.2); eGFR > 60.00
--- NOTE | 2024-03-05 09:29 | ED.GENMED ---
History of Present Illness
General
Chief Complaint: Abdominal Symptoms
Time Seen by Provider: 03/05/24 09:23
History of Present Illness
History of Present Illness:
84-year-old female with history of atrial flutter and hypertension presents the emergency department for evaluation of acute onset of nausea vomiting and diarrhea beginning this morning. Resides at [facility] and there has been a spread
of norovirus there recently. Denies any fevers or chills.
Past History
Past History
ED Past Medical History: HTN and Other (Amyloidosis with pleural effusions)
ED Past Surgical History: Orthopedic (Hip and knee replacement Bilaterally)
Social History
Tobacco: Non-smoker
Alcohol: Occasional
Drug: None
Personal:
Living: with family
Family History
Family History: Other (Noncontributory)
Review of Systems
Review of Systems
Allergies reviewed?: Yes
All Other Systems: ROS reviewed and negative except as documented in HPI and ROS
Phy Exam
Physical Exam
Physical Exam:
GEN: Well appearing, NAD, WDWN
HEENT: Oral mucosa moist, no scleral icterus
Cardiac: Regular rate
Lung: No respiratory distress, no tachypnea
Abdomen: Soft, nontender
MSK: No gross deformity or injuries
Skin: Good color, no pallor or jaundice, no rashes
Neuro: AO x3, moves all extremities freely
Psych: Calm, cooperative
Course
Orders/Labs/Results
Orders:
Orders
03/05/24 08:57
CMP [Comprehensive Metabolic Panel] Urgent
Complete Blood Count/With Diff Urgent
03/05/24 09:28
0.9% Sodium Chloride 1000 ml [Nss] 1,000 ml IV BOLUS
Ondansetron Injectable [Zofran] 4 mg IV NOW STA
03/05/24 Lunch
Clear Liquid
At Your Request: Full Participation
03/05/24 11:28
Norovirus by PCR Urgent
JOEY Source: Feces/Stool
Specimen Description:
03/05/24 12:12
CDIFF [C difficile Antigen & Toxins] Routine
JOEY Source: Feces/Stool
Specimen Description:
Stool Culture Routine
JOEY Source: Feces/Stool
Specimen Description:
03/05/24 12:25
Admit/Transfer Patient As Directed
Co-Sign Provider:
Level of Care: Observation services
Assign to:: Telemetry
Physician / Group: hospitalist
Diagnosis: gastroenteritis
Reason for Telemetry: Medication for Arrhythmia
Date to Stop Telemetry: 03/07/24
Time to Stop Telemetry: 11:00
Reason for Hospitalization: gastroenteritis
03/05/24 20:00
Apixaban [Eliquis] 2.5 mg PO BID
Furosemide [Lasix] 40 mg PO BID
03/06/24 08:00
Metoprolol Xl [Toprol Xl] 12.5 mg PO DAILY
Spironolactone [Aldactone] 25 mg PO DAILY
acyclovir 400 mg PO DAILY
03/07/24 11:00
DC Protocol for Telemetry ONCE
03/10/24 08:00
Acetaminophen [Tylenol] 1,000 mg PO WE
Dexamethasone [Decadron] 40 mg PO WE
Diphenhydramine [Benadryl] 50 mg PO WE
Famotidine [Pepcid] 20 mg PO WE
Abnormal Lab Results
03/05/24
08:57
WBC 11.3 H 10^3/uL
(4.8-10.8)
MCH 31.5 H pg
(27.0-31.0)
RDW 16.3 H %
(11.5-14.5)
MPV 10.9 H fL
(7.4-10.4)
Absolute Neuts (auto) 10.3 H 10^3/uL
(1.4-6.5)
Absolute Lymphs (auto) 0.5 L 10^3/uL
(1.2-3.4)
Neutrophils % 91.3 H %
(42.2-75.2)
Lymphocytes % 4.2 L %
(20.5-51.1)
Sodium 133 L mmol/L
(135-145)
Chloride 94 L mmol/L
(98-107)
BUN 20 H mg/dl
(7-17)
Glucose 145 H mg/dl
(70-99)
Total Bilirubin 2.4 H mg/dl
(0.2-1.3)
Total Protein 6.2 L g/dl
(6.3-8.2)
03/05/24 08:57
03/05/24 08:57
Vital Signs
Initial and Last Documented VS:
Initial Vital Signs
Temp Pulse Resp Pulse Ox
98.3 F 120 18 96
03/05/24 08:43 03/05/24 08:43 03/05/24 08:43 03/05/24 08:43
Last Documented Vital Signs
Temp Pulse Resp BP Pulse Ox
98.3 F 123 20 111/74 96
03/05/24 13:45 03/05/24 13:45 03/05/24 13:45 03/05/24 13:45 03/05/24 14:21
MDM/Problems Addressed
MDM/Problems Addressed:
Patient with profound weakness secondary to likely norovirus, will admit due to advanced age
*Critical Care Note
Total Time (30-74mins, 75-104mins- exclusive of procedures): Not Applicable
ED Attending Note
-
Portions of this chart may have been created with voice recognition software.� Occasional wrong word or��sound alike� substitutions may have occurred due to the inherent limitations of voice recognition software.
Discharge Plan
Departure
Patient Disposition: Admit
Date of Disposition: 03/05/24
Time of Disposition: 11:28
Presentation/result/management discussed w/ accepting MD/DO: Hospitalist
Discharge Problem:
Gastroenteritis
Interventions
Interventions:
*Risk Screen - Suicide Last Done: 03/05/24 13:55
*General Assessment Last Done: 03/05/24 08:43
*Neglect/Abuse Screening Last Done: 03/05/24 08:43
ED- Fall Risk Assessment Last Done: 03/05/24 08:43
*ED COVID-19 Vaccine History Last Done: 03/05/24 13:55
*Nursing Disposition Last Done: 03/05/24 13:34
BV-Imjqqm-Dduurcrctb Assessment Last Done: 03/05/24 08:43
Discharge Date and Time
Discharge Date/Time: 03/05/24 13:34
[2024-03-05] MEDS: NSS 1000 IV ×2 (09:35→16:02)
[2024-03-05] MEDS: ZOFRAN 4 MG IV (09:36)
--- NOTE | 2024-03-05 12:10 | HPS.HSE ---
Addendum entered and electronically signed by Geovani Garber MD 03/05/24 23:42:
Attending Addendum-I performed a history and physical exam of the patient and discussed his management with the resident. I reviewed the resident's note and agree with the documented findings and plan of care CC/HPI- Patient presents from [facility]
to ED with diarrhea and vomiting. Apparently norovirus outbreak in facility Chronically SOB. Full 12 point ROS reviewed and negative except as documented Exam: GEN NAD heart tachy lungs b/l LL fine crackles abd soft NT ND pos BS no rebound guarding
LE no edema
Plan:
# Acute Gastroenteritis
- norovirus outbreak at [facility]
- stool studies ordered including norovirus and c diff
- start IVF
- CLD
# HFpEF/Cardiac amyloid-
- not in AE
- hold lasix and spironolactone
- 06/07 echo 50-55%
- strict I and O's daily weights
- cont chronic prednisone
- cont acyclovir for proph
- monthly chemo
# Leukocytosis- trend repeat CBC in am
# Paroxysmal Atrial Fib/Flutter- cont metoprolol and Eliquis
# Hyponatremia- hypovolemic, lasix held, cont IVF, repeat BMP in am
# GERD- cont famotidine
Dispo- DC to [facility] with VN/HC when able
Code-DNR
Patient consented to discuss, was alone, time spent explanation of advance directives, changes in health status, patient�s health care wishes if the patient becomes unable to make health decisions, goals of care, code status, and prognosis 'I dont
want any of that stuff!' - 16 minutes
Time spent coordinating care, review of plan of care with resident, personally reviewed previous records in EMR, med rec, labs, radiology, d/w nursing, family total time documented is exclusive of any additional time listed that was spent in advance
care planning discussion -�79 minutes
Original Note:
Family Physician
-
Family Physician: Jaz Weinstein
Chief Complaint
-
Vomiting and diarrhea
History of Present Illness
Mrs. Mendez is an 83-year-old female with HFpEF, hypertension, cardiac amyloidosis, paroxysmal atrial fibrillation on Eliquis, presented to the ED with diarrhea and vomiting. Patient states that she has had 4 episodes of vomiting and more than 10
episodes of diarrhea overnight. The symptoms started after 10 PM. She had brown beans and rice for dinner last night. She denies any fever, chills, hematuria, hematochezia. She denies any fever, chills, hematuria, hematochezia, abdominal pain.
Her last hospitalization was in June 2023 for heart failure exacerbation. She denies recent antibiotic use
Medical History
Past Medical History
Past Medical History: Reports Arrhythmia, CHF, HTN and Other (Cardiac amyloidosis)
Past Surgical History: Reports Orthopedic ((Hip and knee replacement Bilaterally)) and Other
Social History
Tobacco: Non-smoker
Alcohol: None
Drug: None
Personal:
Living: With Family
Employment: Retired
Family History
Family History: Not pertinent
Allergies / Home Medications
Allergies reflects when Allergies were last updated in [facility].
Home Medications with original date entered in [facility]
Allergy/Medication List:
Allergies
Allergy/AdvReac Type Severity Reaction Status Date / Time
lisinopril Allergy Swelling Verified 07/13/21 09:40
Home Medications
furosemide 40 mg tablet 40 mg PO BID Fluid Retention/Swelling 07/13/21
spironolactone 25 mg tablet 25 mg PO DAILY Heart Disease/Condition 07/13/21
acyclovir 400 mg tablet 400 mg PO DAILY Infection 07/05/23
dexamethasone 4 mg tablet 40 mg PO WE chemo days 07/05/23
apixaban 2.5 mg tablet (Eliquis) 2.5 mg PO BID 30 days #60 tabs 07/11/23
acetaminophen 500 mg tablet (Tylenol Extra Strength) 1,000 mg PO WE chemo days 03/05/24
diphenhydramine HCl 50 mg capsule 50 mg PO WE chemo days only 03/05/24
famotidine 20 mg tablet (Pepcid) 20 mg PO WE chemo days 03/05/24
metoprolol succinate 50 mg tablet,extended release 24 hr 12.5 mg PO DAILY 03/05/24
Review of Systems
-
History Source: Patient
Constitutional: Reports Fatigue and Chills
Respiratory: Reports Other (SOB chronic)
Abdomen/GI: Reports Nausea, Vomiting and Diarrhea
Physical Exam
Vital Signs
Vital Signs
Temp Pulse Resp BP Pulse Ox
98.3 F 119 21 110/78 97
03/05/24 08:43 03/05/24 09:36 03/05/24 09:36 03/05/24 11:00 03/05/24 11:30
Physical Exam
General: No Apparent Distress and Conversant
HEENT: NormoCephalic, Anicteric and Other (Dry mucous membrane)
Respiratory: Clear and Other
Cardiac: S1/S2, Regular Rhythm, Tachycardia (HR 112) and Other
GI: Soft, Non Tender, Non Distended and Normal Bowel Sounds
Skin: Other (Decreased skin turgor, no pallor no icterus)
Neuro: AO x 3
Psych: Calm
Laboratory Results
-
03/05/24 08:57
03/05/24 08:57
Laboratory Results
Total Bilirubin 2.4 mg/dl (0.2-1.3) H 03/05/24 08:57
AST 34 U/L (14-36) 03/05/24 08:57
ALT 21 U/L (0-35) 03/05/24 08:57
Alkaline Phosphatase 112 U/L (38-126) 03/05/24 08:57
Data Reviewed
-
Lab Data: Labs Reviewed by me and Discussed with Physician
Impression/Plan
-
IMPRESSION:
Acute gastroenteritis
Hyponatremia
Paroxysmal atrial fibrillation
Essential hypertension
HFpEF
cardiac amyloidosis
PLAN:
Acute gastroenteritis
Suspect viral cause - norovirus/rotavirus
Patient is >65, immunocompromised - Admit for observation overnight
Check C. difficile, stool culture, MRSA
Clear liquid diet
IV fluids
Repeat BMP in a.m.
Loperamide 2 mg
Zofran IV every 6 as needed
Dietery consult
Hyponatremia
Continue IV fluids
Repeat BMP in am
Paroxysmal atrial fibrillation
Continue metoprolol succinate 12.5 mg
Continue Eliquis
She has an appointment with the court monitor at [place] for possible ablation
Essential hypertension
Stable. Continue metoprolol
HFpEF
Hold furosemide and spironolactone
Cardiac amyloidosis
Ongoing chemotherapy monthly
Continue dexamethasone
DVT prophylaxis - Eliquis
--- NOTE | 2024-03-05 13:30 | PTCARENOTE ---
pt admitted to orth from ed, Vs documented, Hr: 123-130 noted on tele, denies pain at this times. notified. Ordered dose of Toprol xl 12.5mg and given as ordered. plan of care ongoing.
[2024-03-05] MEDS: LASIX 40 MG PO (15:49)
[2024-03-05] MEDS: TOPROL XL 12.5 MG PO (15:49)
[2024-03-05] MEDS: ELIQUIS 2.5 MG PO (21:58)
[2024-03-06] MEDS: NSS 1000 IV ×3 (02:39→23:06)
[2024-03-06 03:12] VITALS: BP 108/73
[2024-03-06 06:00] VITALS: BMI 21.1
[2024-03-06 06:08] LABS: % Basophils 0.3 % (0-2); % Eosinophils 0.4 % (0-6); % Immature Granulocytes 0.4 % (0-0.5); % Lymphocytes 8.4 % (20.5-51.1); % Monocytes 8.1 % (1.7-9.3); % Neutrophils 82.4 % (42.2-75.2); Absolute Lymphocytes 0.6 10^3/uL (1.2-3.4); Absolute Monocytes 0.6 10^3/uL (0.1-0.6); Absolute Neutrophils 5.6 10^3/uL (1.4-6.5); Hemoglobin 12.6 g/dL (12.0-16.0); Mean Corp Hgb Conc. 34.1 g/dL (33.0-37.0); Mean Corpuscular Hgb 31.6 pg (27.0-31.0); Mean Corpuscular Volume 92.7 fL (81.0-99.0); Mean Platelet Volume 10.5 fL (7.4-10.4); Nucleated Red Blood Cells % 0 %; Platelet Count 155 10^3/uL (130-400); Red Blood Cell Count 3.99 10^6/uL (4.20-5.40); Red Cell Dist. Width 16.7 % (11.5-14.5); White Blood Cell Count 6.8 10^3/uL (4.8-10.8)
[2024-03-06 06:24] LABS: Blood Urea Nitrogen 15 mg/dl (7-17); Calcium 8.5 mg/dl (8.4-10.2); Carbon Dioxide 24 mmol/L (22-30); Chloride 96 mmol/L (98-107); Estimated Creatinine Clearance 35 ml/min; Glucose 118 mg/dl (70-99); Sodium 129 mmol/L (135-145); eGFR > 60.00
[2024-03-06 08:00] VITALS: BP 89/56
[2024-03-06] MEDS: ELIQUIS 2.5 MG PO ×2 (08:36→21:03)
[2024-03-06] MEDS: TOPROL XL 12.5 MG PO (08:36)
[2024-03-06] MEDS: ZOVIRAX 400 MG PO (08:36)
[2024-03-06 11:00] VITALS: BP 98/68
--- NOTE | 2024-03-06 13:23 | W.PN.HOSP.TC ---
Today's Communication/Plan
-
supportive care
IVF, monitor Na
Assessment / Plan
Assessment / Plan
Physical Exam
General: No Apparent Distress and Conversant
HEENT: NormoCephalic, Anicteric and Other (Dry mucous membrane)
Respiratory: Clear and Other
Cardiac: S1/S2, Regular Rhythm,
GI: Soft, Non Tender, Non Distended and Normal Bowel Sounds
Skin: Other (Decreased skin turgor, no pallor no icterus)
Neuro: AO x 3
Psych: Calm
Acute gastroenteritis
Norovirus
-supportive care
-IVF
-monitor bmp
-imodium prn
-Cont CLD for now
Hyponatremia
Most likely secondary to diarrhea, hypovolemia, not volume overloaded
Continue IV fluids
Repeat BMP in am
Paroxysmal atrial fibrillation
Continue metoprolol succinate 12.5 mg
Continue Eliquis
She has an appointment with the stained glass painter at [place] for possible ablation
Essential hypertension
Stable. Continue metoprolol
HFpEF
Hold furosemide and spironolactone
Cardiac amyloidosis
Ongoing chemotherapy monthly
Continue dexamethasone
DVT prophylaxis - Eliquis
Anticipated Discharge: 24 - 48 hours
Subjective/Interval History
-
Date of Service: March 06, 2024
Diarrhea seems to have been coming down
Objective Data
-
Labs:
Laboratory Results
03/06/24
05:54
WBC 6.8
Hgb 12.6
Hct 37.0
Plt Count 155
Sodium 129 L
Potassium 4.0
Chloride 96 L
Carbon Dioxide 24
BUN 15
Creatinine 0.8
Glucose 118 H
Calcium 8.5
Vital Signs:
Vital Signs
Temp Pulse Resp BP Pulse Ox
97.5 F 99 16 98/68 100
03/06/24 11:00 03/06/24 11:00 03/06/24 11:00 03/06/24 11:00 03/06/24 11:00
I&O
03/05/24 03/06/24 03/07/24
06:59 06:59 06:59
Intake Total 700 / 700
Balance 700 / 700
Review of Systems
-
History Source: Patient
Constitutional: Reports No Symptoms
Respiratory: Reports Cough; Denies Trouble Breathing
Cardiac: Reports No Symptoms; Denies Chest Pain or Diaphoresis
Abdomen/GI: Reports No Symptoms; Denies Diarrhea or Constipated
Genitourinary: Reports No Symptoms; Denies Dysuria, Difficulty Voiding or Bleeding
Physical Exam
-
General: No Apparent Distress and Comfortable; Negative Respiratory Distress
HEENT: Normocephalic, Atraumatic and Moist Mucous Membranes
Respiratory: Clear to Auscultation; Negative Wheezes
Cardiac: S1/S2 and Irregular Rhythm; Negative Murmur, Rub, Calf Tenderness or JVD
Musculoskeletal: No Clubbing, No Cyanosis and No Edema
Skin: Warm, Dry and Rash; Negative Lesions
Neuro: Awake, Alert and Oriented
Psych: Calm
Data Reviewed
-
Diagnostic Radiology: Report Reviewed by me
Labs: Labs Reviewed by me
--- NOTE | 2024-03-06 13:50 | CM ---
Patient seen at bedside. Patient states that they live in a [place] apartment (independent) and patient lives there as well Patient given OBS form to review, patient stated she was very sleepy and unable to stay awake long enough to complete
form. Patient PCP is Dr. Mcgraw and they use the [facility] on pharmacy in [place]. Patient plan is for home with no needs. CM will continue to follow for discharge planning needs.
Plan; home with no needs anticipated.
[2024-03-06 16:39] VITALS: BP 106/75
[2024-03-06 19:14] VITALS: BP 102/69
[2024-03-06] MEDS: IMODIUM 2 MG PO (21:04)
[2024-03-06 23:29] VITALS: BP 110/77
[2024-03-07] VITALS (8 sets, daily range): BP systolic 100–124; BP diastolic 65–84; PULSE 100; BMI 22.4
--- NOTE | 2024-03-07 00:29 | PTCARENOTE ---
Pt c/o loose stool x5. Imodium PRN given. Pt continued on IV fluids.
[2024-03-07 05:46] LABS: Hematocrit 39.2 % (37.0-47.0); Hemoglobin 12.8 g/dL (12.0-16.0); Mean Corp Hgb Conc. 32.7 g/dL (33.0-37.0); Mean Corpuscular Hgb 30.9 pg (27.0-31.0); Mean Corpuscular Volume 94.7 fL (81.0-99.0); Mean Platelet Volume 10.5 fL (7.4-10.4); Platelet Count 162 10^3/uL (130-400); Red Blood Cell Count 4.14 10^6/uL (4.20-5.40); Red Cell Dist. Width 16.9 % (11.5-14.5); White Blood Cell Count 9.7 10^3/uL (4.8-10.8)
[2024-03-07 06:15] LABS: ALT (SGPT) 18 U/L (0-35); AST (SGOT) 30 U/L (14-36); Albumin 3.7 g/dl (3.5-5.0); Alkaline Phosphatase 78 U/L (38-126); Blood Urea Nitrogen 15 mg/dl (7-17); Calcium 8.7 mg/dl (8.4-10.2); Carbon Dioxide 20 mmol/L (22-30); Chloride 101 mmol/L (98-107); Estimated Creatinine Clearance 35 ml/min; Glucose 73 mg/dl (70-99); Magnesium 1.8 mg/dl (1.6-2.3); Potassium 4.2 mmol/L (3.5-5.1); Sodium 131 mmol/L (135-145); Total Bilirubin 1.3 mg/dl (0.2-1.3); Total Protein 5.6 g/dl (6.3-8.2); eGFR > 60.00
[2024-03-07] MEDS: NSS 1000 IV (08:52)
[2024-03-07] MEDS: ELIQUIS 2.5 MG PO ×2 (08:53→20:20)
[2024-03-07] MEDS: TOPROL XL 12.5 MG PO (08:53)
[2024-03-07] MEDS: ZOVIRAX 400 MG PO (08:53)
--- NOTE | 2024-03-07 10:49 | CM ---
Patient seen at bedside with also present. OBS/HERNANDEZ form completed and signed form placed in chart. Patient plan is for discharge back to independent apartment. CM will continue to follow for discharge planning needs.
Plan; home with to independent apartment
--- NOTE | 2024-03-07 12:09 | PTOTSP ---
Pt is able to get OOB and ambulate in room without an assistive device unassisted. She stated she feels weak but denies dizziness or lightheadedness and stated she has been walking to the bathroom. PT will sign off.
--- NOTE | 2024-03-07 12:17 | W.PN.HOSP.TC ---
Today's Communication/Plan
-
advance diet to LRD
monitor Na levels
Supportive care
Assessment / Plan
Assessment / Plan
Physical Exam
General: No Apparent Distress and Conversant
HEENT: NormoCephalic, Anicteric and Other (Dry mucous membrane)
Respiratory: Clear and Other
Cardiac: S1/S2, Regular Rhythm,
GI: Soft, Non Tender, Non Distended and Normal Bowel Sounds
Skin: Other (Decreased skin turgor, no pallor no icterus)
Neuro: AO x 3
Psych: Calm
#Acute gastroenteritis
#Norovirus
-supportive care
-s/p IVF
-monitor bmp
-imodium prn
Adv to LRD
#Hyponatremia
Most likely secondary to diarrhea, hypovolemia, not volume overloaded
s/p ivf
advance diet
Repeat BMP in am
#Paroxysmal atrial fibrillation
Continue metoprolol succinate 12.5 mg
Continue Eliquis
She has an appointment with the bailer tenders supervisor at [place] for possible ablation
#Essential hypertension
Stable. Continue metoprolol
#HFpEF
Hold furosemide and spironolactone
#Cardiac amyloidosis
Ongoing chemotherapy monthly
Continue dexamethasone
DVT prophylaxis - Eliquis
Anticipated Discharge: 24 - 48 hours
Subjective/Interval History
-
Date of Service: March 07, 2024
Diarrhea has slowed down
Objective Data
-
Labs:
Laboratory Results
03/07/24
04:39
WBC 9.7
Hgb 12.8
Hct 39.2
Plt Count 162
Sodium 131 L
Potassium 4.2
Chloride 101
Carbon Dioxide 20 L
BUN 15
Creatinine 0.8
Glucose 73
Calcium 8.7
Total Bilirubin 1.3 D
AST 30
ALT 18
Alkaline Phosphatase 78
Vital Signs:
Vital Signs
Temp Pulse Resp BP Pulse Ox
97.5 F 105 18 124/78 97
03/07/24 11:30 03/07/24 11:30 03/07/24 11:30 03/07/24 11:30 03/07/24 11:30
I&O
03/06/24 03/07/24 03/08/24
06:59 06:59 06:59
Intake Total 700 / 700 2990 / 2990
Output Total
Balance 700 / 700 2989 / 2989
Review of Systems
-
History Source: Patient
All other systems: Not reviewed unless documented
Data Reviewed
-
Diagnostic Radiology: Report Reviewed by me
Labs: Labs Reviewed by me
[2024-03-08 03:28] VITALS: BP 128/86
[2024-03-08 05:45] VITALS: BMI 23.4
[2024-03-08 07:02] VITALS: BP 103/71
[2024-03-08 08:41] LABS: Hematocrit 39.2 % (37.0-47.0); Hemoglobin 13.1 g/dL (12.0-16.0); Mean Corp Hgb Conc. 33.4 g/dL (33.0-37.0); Mean Corpuscular Hgb 31.6 pg (27.0-31.0); Mean Corpuscular Volume 94.5 fL (81.0-99.0); Mean Platelet Volume 10.3 fL (7.4-10.4); Platelet Count 174 10^3/uL (130-400); Red Blood Cell Count 4.15 10^6/uL (4.20-5.40); Red Cell Dist. Width 16.7 % (11.5-14.5); White Blood Cell Count 8.1 10^3/uL (4.8-10.8)
[2024-03-08] MEDS: ZOVIRAX 400 MG PO (09:03)
[2024-03-08] MEDS: LASIX 40 MG PO ×2 (09:03→15:37)
[2024-03-08] MEDS: TOPROL XL 12.5 MG PO (09:03)
[2024-03-08] MEDS: ELIQUIS 2.5 MG PO ×2 (09:03→20:10)
--- NOTE | 2024-03-08 09:40 | W.PN.HOSP.TC ---
Today's Communication/Plan
-
Resume Lasix today
encourage oral intake
Likely dc in am
Assessment / Plan
Assessment / Plan
Physical Exam
General: No Apparent Distress and Conversant
HEENT: NormoCephalic, Anicteric and Other (Dry mucous membrane)
Respiratory: Clear and Other
Cardiac: S1/S2, Regular Rhythm,
GI: Soft, Non Tender, Non Distended and Normal Bowel Sounds
Skin: Other (Decreased skin turgor, no pallor no icterus)
MSK: + leg edema
Neuro: AO x 3
Psych: Calm
#Acute gastroenteritis
#Norovirus
C diff negative
WBC normalized
No fevers
Still feels nausea at times
-supportive care
Doing better
-s/p IVF
-monitor bmp
-Imodium prn
Adv to LRD
#Hyponatremia
Most likely secondary to diarrhea, hypovolemia, not volume overloaded
s/p ivf
advance diet
Repeat BMP in am
#Paroxysmal atrial fibrillation
Continue metoprolol succinate 12.5 mg
Continue Eliquis
She has an appointment with the certified real estate appraiser at [place] for possible ablation
#Essential hypertension
Resume diuretic and monitor BP
Continue metoprolol
#HFpEF
Resume furosemide and spironolactone
#Cardiac amyloidosis
Ongoing chemotherapy monthly
Continue dexamethasone
DVT prophylaxis - Eliquis
Total time spent to see the patient, examine the patient, review data and lab results, discuss the treatment plan with patient, nursing staff around 57 minutes
Anticipated Discharge: Within 24 hours
Subjective/Interval History
-
Date of Service: March 08, 2024
Feels better
wants back on diuretics, feels bloated
Objective Data
-
Labs:
Laboratory Results
03/08/24
07:16
WBC 8.1
Hgb 13.1
Hct 39.2
Plt Count 174
Sodium Pending
Potassium Pending
Chloride Pending
Carbon Dioxide Pending
BUN Pending
Creatinine Pending
Glucose Pending
Calcium Pending
Total Bilirubin Pending
AST Pending
ALT Pending
Alkaline Phosphatase Pending
Vital Signs:
Vital Signs
Temp Pulse Resp BP Pulse Ox
97.8 F 98 16 103/71 97
03/08/24 07:02 03/08/24 09:03 03/08/24 07:02 03/08/24 09:03 03/08/24 08:35
I&O
03/07/24 03/08/24 03/09/24
06:59 06:59 06:59
Intake Total 2990 / 2990 1020 / 1020
Output Total
Balance 2989 / 2989 1020 / 1020
[2024-03-08 09:56] LABS: ALT (SGPT) 18 U/L (0-35); AST (SGOT) 32 U/L (14-36); Albumin 3.6 g/dl (3.5-5.0); Alkaline Phosphatase 78 U/L (38-126); Blood Urea Nitrogen 15 mg/dl (7-17); Calcium 8.8 mg/dl (8.4-10.2); Carbon Dioxide 20 mmol/L (22-30); Chloride 99 mmol/L (98-107); Estimated Creatinine Clearance 40 ml/min; Glucose 85 mg/dl (70-99); Potassium 4.4 mmol/L (3.5-5.1); Sodium 129 mmol/L (135-145); Total Bilirubin 1.3 mg/dl (0.2-1.3); Total Protein 5.5 g/dl (6.3-8.2); eGFR > 60.00
[2024-03-08 11:21] VITALS: BP 131/62
[2024-03-08 15:00] VITALS: BP 105/73
--- NOTE | 2024-03-08 15:53 | CM ---
Patient seen at bedside.
Obs status-HERNANDEZ was signed
Patient resident of [facility]
PT eval - no needs.
PLAN: Discharge when stable to [facility]
to transport
[2024-03-08 19:16] VITALS: BP 126/87
[2024-03-08 23:07] VITALS: BP 109/79
[2024-03-09 03:33] VITALS: BP 107/70
[2024-03-09 05:44] VITALS: BMI 22.4
[2024-03-09 07:00] VITALS: BP 111/72
[2024-03-09] MEDS: TOPROL XL 12.5 MG PO (08:39)
[2024-03-09] MEDS: LASIX 40 MG PO (08:40)
[2024-03-09] MEDS: ZOVIRAX 400 MG PO (08:40)
[2024-03-09] MEDS: ELIQUIS 2.5 MG PO (08:40)
[2024-03-09 09:03] LABS: % Basophils 0.6 % (0-2); % Eosinophils 2.3 % (0-6); % Immature Granulocytes 0.3 % (0-0.5); % Lymphocytes 19.7 % (20.5-51.1); % Monocytes 14.2 % (1.7-9.3); % Neutrophils 62.9 % (42.2-75.2); Absolute Eosinophils 0.2 10^3/uL (0-0.7); Absolute Lymphocytes 1.4 10^3/uL (1.2-3.4); Absolute Neutrophils 4.4 10^3/uL (1.4-6.5); Hematocrit 39.8 % (37.0-47.0); Hemoglobin 13.4 g/dL (12.0-16.0); Mean Corp Hgb Conc. 33.7 g/dL (33.0-37.0); Mean Corpuscular Volume 92.1 fL (81.0-99.0); Mean Platelet Volume 10.8 fL (7.4-10.4); Nucleated Red Blood Cells % 0 %; Platelet Count 181 10^3/uL (130-400); Red Blood Cell Count 4.32 10^6/uL (4.20-5.40); Red Cell Dist. Width 16.2 % (11.5-14.5)
[2024-03-09 09:09] LABS: Blood Urea Nitrogen 10 mg/dl (7-17); Calcium 8.4 mg/dl (8.4-10.2); Carbon Dioxide 26 mmol/L (22-30); Chloride 94 mmol/L (98-107); Estimated Creatinine Clearance 47 ml/min; Glucose 90 mg/dl (70-99); Magnesium 1.6 mg/dl (1.6-2.3); Potassium 3.5 mmol/L (3.5-5.1); Sodium 130 mmol/L (135-145); eGFR > 60.00
--- NOTE | 2024-03-09 11:31 | CM ---
Patient seen at bedside.
here to transport home to [facility]
HERNANDEZ form in chart
PLAN: [facility] [place]
to transport
[2024-03-09 11:35] VITALS: BP 118/76
--- NOTE | 2024-03-09 12:11 | W.PN.HOSP.TC ---
Today's Communication/Plan
-
dc
Assessment / Plan
Assessment / Plan
Physical Exam
General: No Apparent Distress and Conversant
HEENT: NormoCephalic, Anicteric and Other (Dry mucous membrane)
Respiratory: Clear and Other
Cardiac: S1/S2, Regular Rhythm,
GI: Soft, Non Tender, Non Distended and Normal Bowel Sounds
Skin: Other (Decreased skin turgor, no pallor no icterus)
MSK: + leg edema
Neuro: AO x 3
Psych: Calm
#Acute gastroenteritis
#Norovirus
C diff negative
WBC normalized
No fevers
no more nausea
-s/p supportive care
-s/p IVF
- afebrile
-Imodium prn
Tolerated diet
#chronic Hyponatremia
mild , improved.
#Paroxysmal atrial fibrillation
Continue metoprolol succinate 12.5 mg
Continue Eliquis
She has an appointment with the animal laboratory technician at [place] for possible ablation
#Essential hypertension
Resume diuretic and monitor BP
Continue metoprolol
#Chronic HFpEF, not in acute phase
Resumed furosemide and spironolactone
#Cardiac amyloidosis
Ongoing chemotherapy monthly
Continue dexamethasone
DVT prophylaxis - Eliquis
Total discharge time spent to see the patient, examine the patient, review data and lab results, discuss the discharge plan with patient, nursing staff around 67 minutes
Anticipated Discharge: Today
Subjective/Interval History
-
Date of Service: March 09, 2024
No chest pain
No sob
No abdominal pain
Objective Data
-
Labs:
Laboratory Results
03/09/24
07:38
WBC 7.0
Hgb 13.4
Hct 39.8
Plt Count 181
Sodium 130 L
Potassium 3.5
Chloride 94 L
Carbon Dioxide 26
BUN 10
Creatinine 0.6
Glucose 90
Calcium 8.4
Vital Signs:
Vital Signs
Temp Pulse Resp BP Pulse Ox
97.8 F 102 18 118/76 99
03/09/24 07:00 03/09/24 11:35 03/09/24 11:35 03/09/24 11:35 03/09/24 11:35
I&O
03/08/24 03/09/24 03/10/24
06:59 06:59 06:59
Intake Total 1020 / 1020 1380 / 1380
Balance 1020 / 1020 1380 / 1380
--- NOTE | 2024-03-09 12:33 | PTCARENOTE ---
Patient discharged home, transported by spouse. This RN removed patient's tele pack and IV, vitals taken by this RN and tech. Unable to obtain oral or axillary temp on patient; patient warm to touch, dressed in home clothes, states no concerns.
made aware, stated okay for discharge. Patient taken down to spouse's car at [facility] via staff escort and wheelchair.
--- NOTE | 2024-03-09 13:01 | W.DCSUMMARY ---
Discharge Summary
Discharge Data
Date of Admission: 03/05/24
Date of Discharge: 03/09/24
-
Pending Results: No
Hospital Course
83 years old female presented to the ED with diarrhea and vomiting. Patient stated her symptoms started overnight. She denied any fever, chills, hematuria, hematochezia. She denied recent antibiotic use. Stool test was positive for Norovirus.
Patient received supportive care. Diet was advanced slowly as her nausea subsided. Lasix was held and later was started. Patinet started to feel better. Leukocytosis resolved. She did not have further nausea. She remained hemodynamically stable and
was discharged in a stable condition.
Discharge Plan
-
Patient Disposition: Home (Routine Discharge)
Discharge Diagnosis/Procedures: Norovirus gastroenteritis
Diet: As tolerated
Referrals:
Jaz Weinstein MD [Family Provider] - in one to two weeks
Prescriptions:
Continued
furosemide 40 MG tablet
40 mg PO BID
spironolactone 25 MG tablet
25 mg PO DAILY
acyclovir 400 mg tablet
400 mg PO DAILY
dexamethasone 4 mg tablet
40 mg PO WE
Rx Instructions:
take 10 tablet on chemo days
Eliquis 2.5 mg Tablet
2.5 mg PO BID 30 Days Qty: 60 0RF
diphenhydramine HCl 50 mg Capsule
50 mg PO WE
acetaminophen [Tylenol Extra Strength] 500 mg Tablet
1,000 mg PO WE
famotidine [Pepcid] 20 mg Tablet
20 mg PO WE
metoprolol succinate 50 mg tablet extended release 24 hr
12.5 mg PO DAILY
Discharge Orders:
Discharge Patient (As Directed); Ordered 03/09/24
Ordered By: Cheryle Yeh
Discharge Date and Time
Print Language: ESTONIAN
== END 2024-03-09 13:40 | disposition home or self-care (01) ==
LOC: 2 NORTH 12:48
PROVIDERS: Internal Medicine; Nurse Practitioner Family; Physician Assistant Medical; Student in an Organized Health Care Education/Training Program; ADMITTING PHYSICIAN Family Medicine; ATTENDING PHYSICIAN Internal Medicine; EMERGENCY PHYSICIAN Emergency Medicine; FAMILY PHYSICIAN Family Medicine
DX: A08.11 Acute gastroenteropathy due to Norwalk agent (principal); R10.9 Unspecified abdominal pain; I11.0 Hypertensive heart disease with heart failure; I50.32 Chronic diastolic (congestive) heart failure; K52.9 Noninfective gastroenteritis and colitis, unspecified; D84.821 Immunodeficiency due to drugs; E87.1 Hypo-osmolality and hyponatremia; I48.0 Paroxysmal atrial fibrillation; I48.92 Unspecified atrial flutter; K21.9 Gastro-esophageal reflux disease without esophagitis; E85.4 Organ-limited amyloidosis; Z66 Do not resuscitate; Z79.52 Long term (current) use of systemic steroids; Z96.653 Presence of artificial knee joint, bilateral; Z79.01 Long term (current) use of anticoagulants; Z88.8 Allergy status to other drugs, medicaments and biological substances; Z79.624 Long term (current) use of inhibitors of nucleotide synthesis; Z92.21 Personal history of antineoplastic chemotherapy
CPT/HCPCS: 80048; 80053; 83735; 85025; 85027; 87045; 87046; 87070; 87077; 87324; 87427; 87449; 87798; 96361; 96374; 97162; 97166; 99284; G0378

== ENCOUNTER → 2024-03-15 07:55 | Outpatient (REF) | payer OTHER, SELFPAY ==
[2024-03-15 09:22] LABS: % Basophils 0.9 % (0-2); % Eosinophils 1.2 % (0-6); % Immature Granulocytes 0.3 % (0-0.5); % Lymphocytes 24.2 % (20.5-51.1); % Monocytes 16.5 % (1.7-9.3); % Neutrophils 56.9 % (42.2-75.2); Absolute Basophils 0.1 10^3/uL (0-0.2); Absolute Eosinophils 0.1 10^3/uL (0-0.7); Absolute Lymphocytes 2.4 10^3/uL (1.2-3.4); Absolute Monocytes 1.6 10^3/uL (0.1-0.6); Absolute Neutrophils 5.6 10^3/uL (1.4-6.5); Hematocrit 38.2 % (37.0-47.0); Hemoglobin 13.1 g/dL (12.0-16.0); Mean Corp Hgb Conc. 34.3 g/dL (33.0-37.0); Mean Corpuscular Hgb 31.4 pg (27.0-31.0); Mean Corpuscular Volume 91.6 fL (81.0-99.0); Mean Platelet Volume 10.6 fL (7.4-10.4); Nucleated Red Blood Cells % 0 %; Platelet Count 211 10^3/uL (130-400); Red Blood Cell Count 4.17 10^6/uL (4.20-5.40); Red Cell Dist. Width 15.7 % (11.5-14.5); White Blood Cell Count 9.9 10^3/uL (4.8-10.8)
[2024-03-15 09:47] LABS: ALT (SGPT) 25 U/L (0-35); AST (SGOT) 39 U/L (14-36); Alkaline Phosphatase 135 U/L (38-126); Blood Urea Nitrogen 13 mg/dl (7-17); Calcium 9.5 mg/dl (8.4-10.2); Carbon Dioxide 33 mmol/L (22-30); Chloride 89 mmol/L (98-107); Glucose 154 mg/dl (70-99); Potassium 3.9 mmol/L (3.5-5.1); Sodium 132 mmol/L (135-145); Total Bilirubin 1.8 mg/dl (0.2-1.3); Total Protein 5.9 g/dl (6.3-8.2); eGFR > 60.00
== END ==
LOC: REG 07:55
PROVIDERS: ATTENDING PHYSICIAN Internal Medicine Hematology & Oncology
DX: E85.4 Organ-limited amyloidosis (principal); R53.83 Other fatigue; R60.0 Localized edema; R06.00 Dyspnea, unspecified; M62.81 Muscle weakness (generalized)
CPT/HCPCS: 36415; 80053; 85025

== ENCOUNTER → 2024-03-29 07:46 | Outpatient (REF) | payer OTHER, SELFPAY ==
[2024-03-29 08:31] LABS: % Basophils 0.5 % (0-2); % Eosinophils 1.1 % (0-6); % Immature Granulocytes 0.3 % (0-0.5); % Lymphocytes 16.4 % (20.5-51.1); % Monocytes 11.3 % (1.7-9.3); % Neutrophils 70.4 % (42.2-75.2); Absolute Basophils 0.1 10^3/uL (0-0.2); Absolute Eosinophils 0.1 10^3/uL (0-0.7); Absolute Lymphocytes 1.6 10^3/uL (1.2-3.4); Absolute Monocytes 1.1 10^3/uL (0.1-0.6); Hematocrit 43.1 % (37.0-47.0); Hemoglobin 14.4 g/dL (12.0-16.0); Mean Corp Hgb Conc. 33.4 g/dL (33.0-37.0); Mean Corpuscular Hgb 30.7 pg (27.0-31.0); Mean Corpuscular Volume 91.9 fL (81.0-99.0); Mean Platelet Volume 10.4 fL (7.4-10.4); Nucleated Red Blood Cells % 0 %; Platelet Count 186 10^3/uL (130-400); Red Blood Cell Count 4.69 10^6/uL (4.20-5.40); Red Cell Dist. Width 15.8 % (11.5-14.5); White Blood Cell Count 9.9 10^3/uL (4.8-10.8)
[2024-03-29 08:45] LABS: ALT (SGPT) 27 U/L (0-35); AST (SGOT) 35 U/L (14-36); Albumin 4.5 g/dl (3.5-5.0); Alkaline Phosphatase 165 U/L (38-126); Blood Urea Nitrogen 20 mg/dl (7-17); Calcium 9.3 mg/dl (8.4-10.2); Carbon Dioxide 31 mmol/L (22-30); Glucose 211 mg/dl (70-99); Potassium 4.9 mmol/L (3.5-5.1); Sodium 134 mmol/L (135-145); Total Bilirubin 2.1 mg/dl (0.2-1.3); Total Protein 6.5 g/dl (6.3-8.2); eGFR > 60.00
[2024-03-29 09:05] LABS: Chloride 92 mmol/L (98-107)
[2024-03-29 09:06] LABS: NT-proBNP 3700 pg/ml; Troponin I 0.053 ng/ml
[2024-03-31 14:46] LABS: Albumin 4.08 g/dL (3.75-5.01); Alpha 1 Globulin 0.32 g/dL (0.19-0.46); Alpha 2 Globulin 0.93 g/dL (0.48-1.05); Free Kappa Light Chains,Quant 5.27 mg/L (3.30-19.40); Free Lambda Light Chains,Quant 9.58 mg/L (5.71-26.30); IgA 21 mg/dL (68-408); IgG 392 mg/dL (768-1632); IgM 21 mg/dL (35-263); Immunofixation Electrophoresis IFE Done; Kappa/Lambda Fr Light Ratio 0.55 (0.26-1.65); Total Protein-Electrophoresis 6.4 g/dL (6.3-8.2)
== END ==
LOC: REG 07:46
PROVIDERS: ATTENDING PHYSICIAN Internal Medicine Hematology & Oncology; FAMILY PHYSICIAN Family Medicine
DX: E85.4 Organ-limited amyloidosis (principal); R53.83 Other fatigue; R60.0 Localized edema; R06.00 Dyspnea, unspecified; M62.81 Muscle weakness (generalized)
CPT/HCPCS: 36415; 80053; 82784; 83521; 83880; 84155; 84165; 84484; 85025; 86334

== ENCOUNTER 2024-04-12 10:40 | Day surgery (SDC) | payer OTHER, SELFPAY ==
[2024-04-12] VITALS (20 sets, daily range): BP systolic 85–116; BP diastolic 52–72; BMI 20.7
[2024-04-12 14:03] LABS: ACT-LR - POC 347 Seconds (116-155)
[2024-04-12 14:25] LABS: ACT-LR - POC 305 Seconds (116-155)
--- NOTE | 2024-04-12 17:49 | W.PN.UPDATE ---
Update Note
Progress Note Update
Pt seen post PFA. Right groin site without ht/bleeding, non tender. Post EKG NSR w/1st deg AVB, no acute changes. Resume eliquis tonight at usual time. Elevated RH pressures during procedure with low BP during case. Lasix 40mg IV x1 ordered but BP
remains soft 80-90s post procedure. She is stable and asymptomatic. Will hold IV lasix for SBP<100 and she will increase home dose to 60mg po BID, starting tomorrow morning. BMP in 1 week with results to Dr. Chavira- lab slip given to pt.
Followup at [facility] as scheduled. Home later today if groin site/tele remain stable.
--- NOTE | 2024-04-12 18:58 | ITS.CL.ABL ---
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
Ablation
Procedure Report:
AFIB / A flutter ablation:
Ms. Mendez is a very pleasant 84 yr old woman with medical history significant for symptomatic paroxysmal atrial fibrillation and atrial flutter is here in the EP lab for atrial fibrillation / flutter ablation
Date of Procedure:
04/12/2024
Indications:
Symptomatic persistent atrial fibrillation / atrial flutter
Pre-Operative Diagnosis:
Persistent atrial fibrillation / atrial flutter
Post-Operative Diagnosis:
Persistent atrial fibrillation / atrial flutter
Procedure Performed:
Atrial fibrillation ablation with wide area circumferential ablation (WACA) approach for pulmonary vein isolation
Atrial flutter ablation with cavo-tricuspid isthmus line block formation
Performing Physician:
Eugene Thornton MD
Assistants:
EP staff
Anesthesia:
See anesthesia records
Detailed Description of the Procedure:
Written informed consent was obtained from the patient after a full explanation of the risks and benefits of the procedure including the risks of sedation and anesthesia.
The patient was brought to the electrophysiology laboratory in stable condition in fasting state. Continuous electrocardiographic and hemodynamic monitoring was initiated.
The initial rhythm was atrial flutter.
The procedure site was meticulously prepared with surgical scrub and allowed to dry with no pooling. Sterile draping was applied to cover the procedure site. The image intensifier was draped with sterile bag and positioned over the patient. After
infusion of local anesthetic, vascular access was obtained under ultrasound guidance and sheaths were placed over guide wire as detailed below.
The images of the ultrasound of the femoral vessels were stored in patient chart.
Sheath and Catheter Placement:
In the right femoral vein, an 8-Belizean sheath was placed under ultrasound guidance for use during the ablation procedure. And mapping catheter was intermittently placed in the high right atrium, right ventricle, left atrium and left ventricle. In
the left femoral vein, a 9-Fr long sheath was placed for use during intracardiac echo procedure.
The sheaths were upgraded as needed during the case. Intracardiac catheters were positioned using direct fluoroscopic guidance.� ICE catheter was placed in RA. The following catheters / sheaths were placed
Sheaths:
��������� Agilis sheath in right femoral vein upgraded from 8Fr in right femoral vein
��������� 9Fr in left femoral vein
��������� 7Fr in right femoral vein
Catheters:
��������� The Affera Sphere 9 catheter -bidirectional D/F� - at locations of HRA, RV, LA and LV.
��������� ICE catheter -AccuNav -� at locations of RA, SVC, and RV.
��������� Bard decapolar catheter � RA and CS
Heparin was initiated after the access was obtained.
Intracardiac ECHO:
An 8-Belizean AcuNav intracardiac ECHO (ICE) probe was advanced through the 9-Belizean sheath in the left femoral vein into the right atrium under fluoroscopic and ICE ultrasound image guidance and a baseline ECHO study was performed. The left atrial
size was dilated. There was trace tricuspid regurgitation. The aortic valve was grossly normal. There was normal left ventricular size and function. There is a trace pericardial effusion. The MARÍA has baseline normal velocities. The pulmonary had
good flow identified.
During the procedure, ICE was used for monitoring of complications, guidance of trans-septal puncture, monitor the catheter position and tracking ablation lesions. No change in the pericardial space noted throughout the procedure.
Electroanatomic mapping of the right atrium:
A J-tipped guidewire was advanced through the 8-Belizean sheath in the right femoral vein into the superior vena cava under fluoroscopic and ICE guidance. The 8-Belizean sheath was exchanged for an Agilis sheath which was advanced into the superior vena
cava.
Using the Sphere 9 Affera catheter advanced through Agilis sheath into the right atrium, an electroanatomic map (EAM) of the right atrium was created using the [employer]� mapping system with [employer] software mapping system.
There was borderline long HV conduction noted at baseline at 45 ms.
Ablation # 1: Typical Atrial Flutter Ablation:
The flutter was mapped and was noted concentric in the CS. The RA was mapped in atrial flutter that showed typical counter clock mueller CTI dependent atrial flutter.
The CTI ablation was done using radiofrequency with Affera sphere -9 ablation, open irrigation, force-sensing bidirectional ablation catheter in the cavotricuspid isthmus from the tricuspid annulus to the IVC ridge. �
The flutter terminated into sinus rhythm with ablation.
Once the ablation catheter reach near the IVC, the ablation energy was changed to pulsefield.
��������������� -Bidirectional block was confirmed across the CTI line with differential pacing.
��������������� -Double potentials were spaced greater than 98 msec apart.
��������������� -The conduction time across the CTI line from proximal CS pacing was 158 msec.
��������������� -EAM of the right atrium was obtained with coronary sinus pacing and showed a line of block at the CTI.
��������������� -The time interval just lateral to the ablation lesions was 158 msec and the lateral wall was 112 msec
��������������� - All these maneuvers confirmed the block at the CTI line.
- Post ablation HV interval was unchanged at 45msec
Then attention was given to atrial fibrillation ablation.
Trans-septal Puncture:
Heparin was initiated and infused to maintain appropriate ACT. A J-tipped guidewire was advanced through into the superior vena cava under fluoroscopic and ICE guidance. The Agilis sheath was advanced into the superior vena cava. An [employer]
transseptal access system was utilized to perform the trans-septal puncture. The apparatus was withdrawn until it was in contact with the fossa ovalis. The position was adjusted based on fluoroscopy and ultrasound images from ICE. Under
fluoroscopic, hemodynamic and ICE ultrasound guidance, left atrium was cannulated by advancing the needle. Once atrial septum was cannulated, the needle was pulled back and the guide wire was advanced through the needle into the left atrium. The
guide wire was advanced into the left superior pulmonary vein. Both the sheath and the dilator was advanced into the left atrium. The dilator with the needle was withdrawn. Blood was aspirated from the Agilis sheath and arterial blood confirmed. The
sheath was flushed. Saline injection noted into the left atrium on ICE. The waveform of the LA pressure was recorded. The mapping catheter was advanced in the Agilis sheath into the left pulmonary vein.
3D Electroanatomic Mapping:
Using the Sphere 9 Affera catheter advanced through Agilis sheath into the left atrium, an electroanatomic map (EAM) of the left atrium was created using [employer]� mapping system with Prism-1 software. The map was used for localization of catheter
position and tacking of ablation lesions. The EAM of the left atrium showed a total of 4 PVs with two left and the two right sided pulmonary veins with all electrically connected to the body the LA. It showed no significant scar on the posterior
wall of the LA. The LA was dilated in size.
Following the EAM, preparation were made for ablation.
Ablation:
Ablation # 2: Pulmonary vein Isolation:
Pulsed field ablation was performed using an open irrigation, bidirectional, contact sensing, dual energy ablation catheter (Safaricrossa sphere -9) by completing the circumferential lesions around the left and right pulmonary veins achieving pulmonary
vein isolation.
Confirmation of the PVI and bidirectional block:
Following achievement of entrance block at the pulmonary veins, pacing from the Sphere 9 affera catheter in each of the four veins at 20 milliamps for 4 milliseconds showed entrance and exit block.
The LA was mapped with The [employer]� mapping system with Prism-1 software in sinus rhythm confirming the line of block at the ablation lesions lines.
�
EP study:
Sinus Node Function: The sinus node functions are within acceptable normal range.
Atrioventricular Radha Function: �Post ablation HV interval was unchanged at 45 msec
Procedure End
ICE study was done again that showed no epicardial accumulation. No complications noted.
Following the completion of the EP study, catheters were removed. Protamine 30 mg was given at the end of the procedure and ACT was checked repeatedly. The sheaths were removed and hemostasis achieved with Figure of 8 suture and manual compression
after acceptable ACT is achieved.
Left atrial Pressure:
Pre-Procedure: Mean LA pressure was 23mmHg
Post-Procedure: Mean RA pressure was 27mmHg with severe tricuspid regurgitation and V waves.
Estimated Blood loss:
<10 cc
Specimens Removed:
None.
Implants / Devices:
None
Urine output:
None
Packs / Drains/ Tubes:
None
Instrument / Sponge Count Correct:
Yes
Complications of the Procedure:
None
Condition of Patient at Time of Transfer:
Hemodynamically stable with no neurological or vascular compromise.
Summary:
��������� Successful atrial fibrillation ablation with circumferential bidirectional line of block at pulmonary venin antra (Pulmonary vein isolation), atrial flutter ablation with cavo-tricuspid isthmus line block formation.
Figures from the Procedure:
Figure 1: The electroanatomic mapping (EAM) of the left atrium with bipolar voltage (purple indicates normal electrical activity with red as no myocardial muscle electric activity indicating a line of block or scar.
== END 2024-04-12 19:29 | disposition home or self-care (01) ==
LOC: CATH 10:40
PROVIDERS: ATTENDING PHYSICIAN Internal Medicine Cardiovascular Disease; FAMILY PHYSICIAN Family Medicine; OTHER PHYSICIAN Internal Medicine Cardiovascular Disease
DX: I48.0 Paroxysmal atrial fibrillation (principal); I48.92 Unspecified atrial flutter; Z79.01 Long term (current) use of anticoagulants; Z79.899 Other long term (current) drug therapy
CPT/HCPCS: C1894; C1730; C1766; C1892; C1759; C1733; 76937; 85347; 86850; 86900; 86901; 93005; 93655; 93656; 93657; C1760

== ENCOUNTER → 2024-04-19 07:48 | Outpatient (REF) | payer OTHER, SELFPAY ==
[2024-04-19 09:10] LABS: % Basophils 0.9 % (0-2); % Eosinophils 1.4 % (0-6); % Immature Granulocytes 0.2 % (0-0.5); % Lymphocytes 21.8 % (20.5-51.1); % Monocytes 12.9 % (1.7-9.3); % Neutrophils 62.8 % (42.2-75.2); Absolute Basophils 0.1 10^3/uL (0-0.2); Absolute Eosinophils 0.1 10^3/uL (0-0.7); Absolute Monocytes 1.2 10^3/uL (0.1-0.6); Absolute Neutrophils 5.8 10^3/uL (1.4-6.5); Hemoglobin 14.8 g/dL (12.0-16.0); Mean Corp Hgb Conc. 32.9 g/dL (33.0-37.0); Mean Corpuscular Hgb 30.1 pg (27.0-31.0); Mean Corpuscular Volume 91.5 fL (81.0-99.0); Mean Platelet Volume 10.8 fL (7.4-10.4); Nucleated Red Blood Cells % 0 %; Platelet Count 256 10^3/uL (130-400); Red Blood Cell Count 4.92 10^6/uL (4.20-5.40); Red Cell Dist. Width 15.9 % (11.5-14.5); White Blood Cell Count 9.2 10^3/uL (4.8-10.8)
[2024-04-19 10:04] LABS: ALT (SGPT) 25 U/L (0-35); AST (SGOT) 38 U/L (14-36); Albumin 4.9 g/dl (3.5-5.0); Alkaline Phosphatase 137 U/L (38-126); Blood Urea Nitrogen 24 mg/dl (7-17); Calcium 9.4 mg/dl (8.4-10.2); Carbon Dioxide 32 mmol/L (22-30); Chloride 89 mmol/L (98-107); Glucose 161 mg/dl (70-99); Sodium 132 mmol/L (135-145); Total Bilirubin 1.8 mg/dl (0.2-1.3); Total Protein 7.1 g/dl (6.3-8.2); eGFR > 60.00
[2024-04-22 00:57] LABS: Albumin 4.08 g/dL (3.75-5.01); Alpha 1 Globulin 0.29 g/dL (0.19-0.46); Alpha 2 Globulin 0.78 g/dL (0.48-1.05); Free Lambda Light Chains,Quant 10.69 mg/L (5.71-26.30); IgA 17 mg/dL (68-408); IgG 372 mg/dL (768-1632); IgM 16 mg/dL (35-263); Immunofixation Electrophoresis IFE Done; Kappa/Lambda Fr Light Ratio 0.65 (0.26-1.65); Total Protein-Electrophoresis 6.1 g/dL (6.3-8.2)
== END ==
LOC: REG 07:48
PROVIDERS: ATTENDING PHYSICIAN Internal Medicine Hematology & Oncology; FAMILY PHYSICIAN Nurse Practitioner
DX: E85.4 Organ-limited amyloidosis (principal); R53.83 Other fatigue; R60.0 Localized edema; R06.00 Dyspnea, unspecified; M62.81 Muscle weakness (generalized)
CPT/HCPCS: 36415; 80053; 82784; 83521; 84155; 84165; 85025; 86334

== ENCOUNTER → 2024-05-03 07:57 | Outpatient (REF) | payer OTHER, SELFPAY ==
[2024-05-03 08:37] LABS: % Basophils 0.3 % (0-2); % Eosinophils 1.2 % (0-6); % Immature Granulocytes 0.4 % (0-0.5); % Lymphocytes 16.5 % (20.5-51.1); % Monocytes 9.7 % (1.7-9.3); % Neutrophils 71.9 % (42.2-75.2); Absolute Eosinophils 0.1 10^3/uL (0-0.7); Absolute Lymphocytes 1.7 10^3/uL (1.2-3.4); Absolute Neutrophils 7.3 10^3/uL (1.4-6.5); Hematocrit 40.3 % (37.0-47.0); Hemoglobin 13.3 g/dL (12.0-16.0); Mean Corpuscular Hgb 30.1 pg (27.0-31.0); Mean Corpuscular Volume 91.2 fL (81.0-99.0); Mean Platelet Volume 11.6 fL (7.4-10.4); Nucleated Red Blood Cells % 0 %; Platelet Count 148 10^3/uL (130-400); Red Blood Cell Count 4.42 10^6/uL (4.20-5.40); Red Cell Dist. Width 15.9 % (11.5-14.5); White Blood Cell Count 10.2 10^3/uL (4.8-10.8)
[2024-05-03 09:20] LABS: ALT (SGPT) 27 U/L (0-35); AST (SGOT) 33 U/L (14-36); Albumin 4.6 g/dl (3.5-5.0); Alkaline Phosphatase 129 U/L (38-126); Blood Urea Nitrogen 25 mg/dl (7-17); Calcium 9.5 mg/dl (8.4-10.2); Carbon Dioxide 28 mmol/L (22-30); Chloride 90 mmol/L (98-107); Glucose 220 mg/dl (70-99); Sodium 127 mmol/L (135-145); Total Bilirubin 1.7 mg/dl (0.2-1.3); Total Protein 6.3 g/dl (6.3-8.2); eGFR > 60.00
== END ==
LOC: REG 07:57
PROVIDERS: ATTENDING PHYSICIAN Internal Medicine Hematology & Oncology; FAMILY PHYSICIAN Family Medicine; REFERRING PHYSICIAN Internal Medicine Cardiovascular Disease
DX: R53.83 Other fatigue (principal); R60.0 Localized edema; R06.00 Dyspnea, unspecified; M62.81 Muscle weakness (generalized); E85.4 Organ-limited amyloidosis
CPT/HCPCS: 36415; 80053; 85025

== ENCOUNTER → 2024-05-06 08:10 | Outpatient (REF) | payer OTHER, SELFPAY ==
[2024-05-06 09:55] LABS: Blood Urea Nitrogen 27 mg/dl (7-17); Calcium 9.4 mg/dl (8.4-10.2); Carbon Dioxide 30 mmol/L (22-30); Chloride 93 mmol/L (98-107); Glucose 216 mg/dl (70-99); Sodium 130 mmol/L (135-145); eGFR > 60.00
== END ==
LOC: REG 08:10
PROVIDERS: ATTENDING PHYSICIAN Internal Medicine Cardiovascular Disease; FAMILY PHYSICIAN Internal Medicine Hematology & Oncology
DX: I50.32 Chronic diastolic (congestive) heart failure (principal); E87.1 Hypo-osmolality and hyponatremia
CPT/HCPCS: 36415; 80048

== ENCOUNTER → 2024-05-17 08:19 | Outpatient (REF) | payer OTHER, SELFPAY ==
[2024-05-17 09:18] LABS: % Basophils 0.6 % (0-2); % Eosinophils 1.5 % (0-6); % Immature Granulocytes 0.3 % (0-0.5); % Lymphocytes 13.9 % (20.5-51.1); % Monocytes 10.4 % (1.7-9.3); % Neutrophils 73.3 % (42.2-75.2); Absolute Basophils 0.1 10^3/uL (0-0.2); Absolute Eosinophils 0.1 10^3/uL (0-0.7); Absolute Lymphocytes 1.1 10^3/uL (1.2-3.4); Absolute Monocytes 0.8 10^3/uL (0.1-0.6); Absolute Neutrophils 5.8 10^3/uL (1.4-6.5); Hematocrit 41.5 % (37.0-47.0); Hemoglobin 13.6 g/dL (12.0-16.0); Mean Corp Hgb Conc. 32.8 g/dL (33.0-37.0); Mean Corpuscular Hgb 31.1 pg (27.0-31.0); Mean Corpuscular Volume 94.7 fL (81.0-99.0); Nucleated Red Blood Cells % 0 %; Platelet Count 184 10^3/uL (130-400); Red Blood Cell Count 4.38 10^6/uL (4.20-5.40); Red Cell Dist. Width 17.3 % (11.5-14.5); White Blood Cell Count 7.9 10^3/uL (4.8-10.8)
[2024-05-17 09:59] LABS: ALT (SGPT) 20 U/L (0-35); AST (SGOT) 33 U/L (14-36); Albumin 4.7 g/dl (3.5-5.0); Alkaline Phosphatase 115 U/L (38-126); Blood Urea Nitrogen 25 mg/dl (7-17); Carbon Dioxide 29 mmol/L (22-30); Chloride 93 mmol/L (98-107); Glucose 206 mg/dl (70-99); Potassium 4.8 mmol/L (3.5-5.1); Sodium 134 mmol/L (135-145); Total Bilirubin 1.8 mg/dl (0.2-1.3); Total Protein 6.3 g/dl (6.3-8.2); eGFR > 60.00
[2024-05-17 10:00] LABS: Glycohemoglobin (HgbA1c) 6.9 % (4.0-5.6)
[2024-05-20 00:41] LABS: Albumin 4.04 g/dL (3.75-5.01); Alpha 1 Globulin 0.32 g/dL (0.19-0.46); Alpha 2 Globulin 0.86 g/dL (0.48-1.05); Free Kappa Light Chains,Quant 4.36 mg/L (3.30-19.40); Free Lambda Light Chains,Quant 5.69 mg/L (5.71-26.30); IgA 8 mg/dL (68-408); IgG 212 mg/dL (768-1632); IgM 12 mg/dL (35-263); Immunofixation Electrophoresis IFE Done; Kappa/Lambda Fr Light Ratio 0.77 (0.26-1.65); Total Protein-Electrophoresis 6.2 g/dL (6.3-8.2)
== END ==
LOC: REG 08:19
PROVIDERS: ATTENDING PHYSICIAN Internal Medicine Hematology & Oncology; FAMILY PHYSICIAN Family Medicine
DX: E85.4 Organ-limited amyloidosis (principal); R53.83 Other fatigue; R60.0 Localized edema; R06.00 Dyspnea, unspecified; M62.81 Muscle weakness (generalized)
CPT/HCPCS: 36415; 80053; 82784; 83036; 83521; 84155; 84165; 85025; 86334

== ENCOUNTER → 2024-05-31 07:32 | Outpatient (REF) | payer OTHER, SELFPAY ==
[2024-05-31 08:03] LABS: % Basophils 0.5 % (0-2); % Eosinophils 0.6 % (0-6); % Immature Granulocytes 0.4 % (0-0.5); % Lymphocytes 15.7 % (20.5-51.1); % Monocytes 10.4 % (1.7-9.3); % Neutrophils 72.4 % (42.2-75.2); Absolute Basophils 0.1 10^3/uL (0-0.2); Absolute Eosinophils 0.1 10^3/uL (0-0.7); Absolute Lymphocytes 1.8 10^3/uL (1.2-3.4); Absolute Monocytes 1.2 10^3/uL (0.1-0.6); Absolute Neutrophils 8.1 10^3/uL (1.4-6.5); Hematocrit 39.7 % (37.0-47.0); Hemoglobin 13.5 g/dL (12.0-16.0); Mean Corpuscular Hgb 31.4 pg (27.0-31.0); Mean Corpuscular Volume 92.3 fL (81.0-99.0); Nucleated Red Blood Cells % 0 %; Platelet Count 170 10^3/uL (130-400); Red Cell Dist. Width 17.2 % (11.5-14.5); White Blood Cell Count 11.2 10^3/uL (4.8-10.8)
[2024-05-31 08:50] LABS: ALT (SGPT) 22 U/L (0-35); AST (SGOT) 31 U/L (14-36); Albumin 4.2 g/dl (3.5-5.0); Alkaline Phosphatase 113 U/L (38-126); Blood Urea Nitrogen 22 mg/dl (7-17); Calcium 9.7 mg/dl (8.4-10.2); Carbon Dioxide 28 mmol/L (22-30); Chloride 94 mmol/L (98-107); Glucose 161 mg/dl (70-99); Potassium 4.3 mmol/L (3.5-5.1); Sodium 131 mmol/L (135-145); Total Bilirubin 2.5 mg/dl (0.2-1.3); Total Protein 6.1 g/dl (6.3-8.2); eGFR > 60.00
== END ==
LOC: REG 07:32
PROVIDERS: ATTENDING PHYSICIAN Internal Medicine Cardiovascular Disease; FAMILY PHYSICIAN Internal Medicine Hematology & Oncology
DX: R06.02 Shortness of breath (principal); I50.1 Left ventricular failure, unspecified; E85.4 Organ-limited amyloidosis; R53.83 Other fatigue; R60.0 Localized edema; R06.00 Dyspnea, unspecified; M62.81 Muscle weakness (generalized)
CPT/HCPCS: 36415; 80053; 85025

== ENCOUNTER → 2024-06-15 08:28 | Outpatient (REF) | payer OTHER, SELFPAY ==
[2024-06-15 09:31] LABS: % Basophils 1.1 % (0-2); % Eosinophils 1.5 % (0-6); % Immature Granulocytes 0.2 % (0-0.5); % Lymphocytes 17.2 % (20.5-51.1); Absolute Basophils 0.1 10^3/uL (0-0.2); Absolute Eosinophils 0.1 10^3/uL (0-0.7); Absolute Lymphocytes 1.4 10^3/uL (1.2-3.4); Absolute Monocytes 1.1 10^3/uL (0.1-0.6); Absolute Neutrophils 5.4 10^3/uL (1.4-6.5); Hematocrit 40.5 % (37.0-47.0); Hemoglobin 13.5 g/dL (12.0-16.0); Mean Corp Hgb Conc. 33.3 g/dL (33.0-37.0); Mean Corpuscular Hgb 30.8 pg (27.0-31.0); Mean Corpuscular Volume 92.5 fL (81.0-99.0); Mean Platelet Volume 11.3 fL (7.4-10.4); Nucleated Red Blood Cells % 0 %; Platelet Count 212 10^3/uL (130-400); Red Blood Cell Count 4.38 10^6/uL (4.20-5.40); Red Cell Dist. Width 17.4 % (11.5-14.5); White Blood Cell Count 8.1 10^3/uL (4.8-10.8)
[2024-06-15 09:52] LABS: ALT (SGPT) 17 U/L (0-35); AST (SGOT) 32 U/L (14-36); Albumin 4.3 g/dl (3.5-5.0); Alkaline Phosphatase 109 U/L (38-126); Blood Urea Nitrogen 23 mg/dl (7-17); Calcium 9.8 mg/dl (8.4-10.2); Carbon Dioxide 28 mmol/L (22-30); Chloride 93 mmol/L (98-107); Glucose 202 mg/dl (70-99); Potassium 4.3 mmol/L (3.5-5.1); Sodium 134 mmol/L (135-145); Total Protein 6.2 g/dl (6.3-8.2); eGFR > 60.00
== END ==
LOC: REG 08:28
PROVIDERS: ATTENDING PHYSICIAN Internal Medicine Hematology & Oncology; FAMILY PHYSICIAN Family Medicine; OTHER PHYSICIAN Internal Medicine Cardiovascular Disease
DX: E85.4 Organ-limited amyloidosis (principal); R53.83 Other fatigue; R60.0 Localized edema; R06.00 Dyspnea, unspecified; M62.81 Muscle weakness (generalized)
CPT/HCPCS: 36415; 80053; 85025

== ENCOUNTER → 2024-06-21 16:39 | Outpatient (REF) | payer OTHER, SELFPAY | LOC: RAD 16:39 | PROVIDERS: ATTENDING PHYSICIAN Internal Medicine Cardiovascular Disease; FAMILY PHYSICIAN Family Medicine; REFERRING PHYSICIAN Internal Medicine Hematology & Oncology | DX: I50.32 Chronic diastolic (congestive) heart failure (principal); E85.4 Organ-limited amyloidosis; I43 Cardiomyopathy in diseases classified elsewhere; R94.31 Abnormal electrocardiogram [ECG] [EKG]; Z79.899 Other long term (current) drug therapy; R14.0 Abdominal distension (gaseous); R60.9 Edema, unspecified; I07.1 Rheumatic tricuspid insufficiency; R18.8 Other ascites | CPT/HCPCS: 76700 ==

== ENCOUNTER → 2024-06-23 08:21 | Outpatient (REF) | payer OTHER, SELFPAY ==
[2024-06-23 09:36] LABS: Blood Urea Nitrogen 21 mg/dl (7-17); Calcium 9.9 mg/dl (8.4-10.2); Carbon Dioxide 29 mmol/L (22-30); Chloride 95 mmol/L (98-107); Glucose 202 mg/dl (70-99); Potassium 4.8 mmol/L (3.5-5.1); Sodium 135 mmol/L (135-145); eGFR > 60.00
[2024-06-23 09:47] LABS: NT-proBNP 8740 pg/ml
== END ==
LOC: REG 08:21
PROVIDERS: ATTENDING PHYSICIAN Internal Medicine Cardiovascular Disease; FAMILY PHYSICIAN Family Medicine; OTHER PHYSICIAN Internal Medicine Cardiovascular Disease; REFERRING PHYSICIAN Internal Medicine Hematology & Oncology
DX: E85.4 Organ-limited amyloidosis (principal); I50.32 Chronic diastolic (congestive) heart failure; R94.31 Abnormal electrocardiogram [ECG] [EKG]; Z79.899 Other long term (current) drug therapy
CPT/HCPCS: 36415; 80048; 83735; 83880

== ENCOUNTER → 2024-06-28 08:40 | Outpatient (REF) | payer OTHER, SELFPAY ==
[2024-06-28 09:32] LABS: % Basophils 0.6 % (0-2); % Immature Granulocytes 0.4 % (0-0.5); % Lymphocytes 12.5 % (20.5-51.1); % Monocytes 10.4 % (1.7-9.3); % Neutrophils 75.1 % (42.2-75.2); Absolute Basophils 0.1 10^3/uL (0-0.2); Absolute Eosinophils 0.1 10^3/uL (0-0.7); Absolute Lymphocytes 1.3 10^3/uL (1.2-3.4); Absolute Monocytes 1.1 10^3/uL (0.1-0.6); Absolute Neutrophils 7.9 10^3/uL (1.4-6.5); Hematocrit 39.5 % (37.0-47.0); Hemoglobin 13.3 g/dL (12.0-16.0); Mean Corp Hgb Conc. 33.7 g/dL (33.0-37.0); Mean Corpuscular Hgb 31.2 pg (27.0-31.0); Mean Corpuscular Volume 92.7 fL (81.0-99.0); Mean Platelet Volume 11.2 fL (7.4-10.4); Nucleated Red Blood Cells % 0 %; Platelet Count 168 10^3/uL (130-400); Red Blood Cell Count 4.26 10^6/uL (4.20-5.40); Red Cell Dist. Width 16.9 % (11.5-14.5); White Blood Cell Count 10.4 10^3/uL (4.8-10.8)
[2024-06-28 11:00] LABS: ALT (SGPT) 21 U/L (0-35); AST (SGOT) 32 U/L (14-36); Albumin 4.7 g/dl (3.5-5.0); Alkaline Phosphatase 105 U/L (38-126); Blood Urea Nitrogen 22 mg/dl (7-17); Calcium 9.6 mg/dl (8.4-10.2); Carbon Dioxide 24 mmol/L (22-30); Chloride 91 mmol/L (98-107); Glucose 202 mg/dl (70-99); Potassium 4.4 mmol/L (3.5-5.1); Sodium 132 mmol/L (135-145); Total Bilirubin 2.1 mg/dl (0.2-1.3); Total Protein 6.5 g/dl (6.3-8.2); eGFR > 60.00
== END ==
LOC: REG 08:40
PROVIDERS: ATTENDING PHYSICIAN Internal Medicine Hematology & Oncology; FAMILY PHYSICIAN Family Medicine; REFERRING PHYSICIAN Internal Medicine Cardiovascular Disease
DX: E85.4 Organ-limited amyloidosis (principal); R53.83 Other fatigue; R60.0 Localized edema; R06.00 Dyspnea, unspecified; M62.81 Muscle weakness (generalized)
CPT/HCPCS: 36415; 80053; 85025

== ENCOUNTER → 2024-07-12 08:12 | Outpatient (REF) | payer OTHER, SELFPAY ==
[2024-07-12 09:06] LABS: % Basophils 0.7 % (0-2); % Eosinophils 1.4 % (0-6); % Immature Granulocytes 0.2 % (0-0.5); % Lymphocytes 13.7 % (20.5-51.1); % Monocytes 11.2 % (1.7-9.3); % Neutrophils 72.8 % (42.2-75.2); Absolute Basophils 0.1 10^3/uL (0-0.2); Absolute Eosinophils 0.1 10^3/uL (0-0.7); Absolute Lymphocytes 1.1 10^3/uL (1.2-3.4); Absolute Monocytes 0.9 10^3/uL (0.1-0.6); Absolute Neutrophils 5.8 10^3/uL (1.4-6.5); Hematocrit 34.3 % (37.0-47.0); Hemoglobin 11.6 g/dL (12.0-16.0); Mean Corp Hgb Conc. 33.8 g/dL (33.0-37.0); Mean Corpuscular Hgb 30.6 pg (27.0-31.0); Mean Corpuscular Volume 90.5 fL (81.0-99.0); Nucleated Red Blood Cells % 0 %; Platelet Count 224 10^3/uL (130-400); Red Blood Cell Count 3.79 10^6/uL (4.20-5.40); Red Cell Dist. Width 16.9 % (11.5-14.5)
[2024-07-12 09:37] LABS: NT-proBNP 7970 pg/ml; Troponin I 0.037 ng/ml
[2024-07-12 09:46] LABS: ALT (SGPT) 20 U/L (0-35); AST (SGOT) 31 U/L (14-36); Albumin 3.9 g/dl (3.5-5.0); Alkaline Phosphatase 88 U/L (38-126); Blood Urea Nitrogen 18 mg/dl (7-17); Calcium 9.6 mg/dl (8.4-10.2); Carbon Dioxide 29 mmol/L (22-30); Chloride 93 mmol/L (98-107); Glucose 169 mg/dl (70-99); Potassium 4.6 mmol/L (3.5-5.1); Sodium 131 mmol/L (135-145); Total Bilirubin 2.9 mg/dl (0.2-1.3); Total Protein 5.8 g/dl (6.3-8.2); eGFR > 60.00
[2024-07-15 01:54] LABS: Albumin 3.96 g/dL (3.75-5.01); Alpha 1 Globulin 0.38 g/dL (0.19-0.46); Alpha 2 Globulin 0.76 g/dL (0.48-1.05); Free Kappa Light Chains,Quant 5.21 mg/L (3.30-19.40); IgA 7 mg/dL (68-408); IgG 292 mg/dL (768-1632); IgM 12 mg/dL (35-263); Immunofixation Electrophoresis IFE Done; Kappa/Lambda Fr Light Ratio 0.71 (0.26-1.65)
== END ==
LOC: REG 08:12
PROVIDERS: ATTENDING PHYSICIAN Internal Medicine Hematology & Oncology; FAMILY PHYSICIAN Family Medicine
DX: E85.4 Organ-limited amyloidosis (principal); R53.83 Other fatigue; R60.0 Localized edema; R06.00 Dyspnea, unspecified; M62.81 Muscle weakness (generalized)
CPT/HCPCS: 36415; 80053; 82784; 83521; 83880; 84155; 84165; 84484; 85025; 86334

== ENCOUNTER → 2024-07-14 12:15 | Outpatient (REF) | payer OTHER, SELFPAY ==
[2024-07-14 12:47] LABS: % Basophils 0.7 % (0-2); % Eosinophils 0.9 % (0-6); % Immature Granulocytes 0.3 % (0-0.5); % Lymphocytes 15.3 % (20.5-51.1); % Monocytes 12.5 % (1.7-9.3); % Neutrophils 70.3 % (42.2-75.2); Absolute Basophils 0.1 10^3/uL (0-0.2); Absolute Eosinophils 0.1 10^3/uL (0-0.7); Absolute Lymphocytes 1.2 10^3/uL (1.2-3.4); Absolute Monocytes 0.9 10^3/uL (0.1-0.6); Absolute Neutrophils 5.3 10^3/uL (1.4-6.5); Hematocrit 33.8 % (37.0-47.0); Hemoglobin 11.3 g/dL (12.0-16.0); Mean Corp Hgb Conc. 33.4 g/dL (33.0-37.0); Mean Corpuscular Hgb 30.9 pg (27.0-31.0); Mean Corpuscular Volume 92.3 fL (81.0-99.0); Mean Platelet Volume 9.9 fL (7.4-10.4); Platelet Count 220 10^3/uL (130-400); Red Blood Cell Count 3.66 10^6/uL (4.20-5.40); Red Cell Dist. Width 17.2 % (11.5-14.5); White Blood Cell Count 7.5 10^3/uL (4.8-10.8)
[2024-07-14 14:12] LABS: Direct Bilirubin 1.2 mg/dl (0.0-0.4)
[2024-07-14 14:12] LABS: Nucleated Red Blood Cells % 0 %; Reticulocyte Count 3.3 % (0.4-2.8)
[2024-07-14 14:21] LABS: Total Iron Binding Capacity 529 ug/dl (265-497)
[2024-07-14 14:34] LABS: Erythrocyte Sed Rate 4 mm/hour (0-20)
[2024-07-14 15:13] LABS: Folate 11.1 ng/ml (2.76-20); Vitamin B12 695 pg/ml (239-931)
[2024-07-14 15:53] LABS: LDH 151 U/L (120-246)
[2024-07-16 21:23] LABS: Haptoglobin 111 mg/dL (30-200)
== END ==
LOC: OIDL 12:15
PROVIDERS: ATTENDING PHYSICIAN Internal Medicine Hematology & Oncology
DX: E85.4 Organ-limited amyloidosis (principal); R53.83 Other fatigue; R60.0 Localized edema; R06.00 Dyspnea, unspecified; M62.81 Muscle weakness (generalized)
CPT/HCPCS: 82248; 82607; 82728; 82746; 83010; 83550; 83615; 85025; 85045; 85652

== ENCOUNTER → 2024-08-10 09:14 | Outpatient (REF) | payer OTHER, SELFPAY ==
[2024-08-10 09:54] LABS: % Basophils 1.1 % (0-2); % Eosinophils 1.6 % (0-6); % Immature Granulocytes 0.3 % (0-0.5); % Monocytes 13.6 % (1.7-9.3); % Neutrophils 69.4 % (42.2-75.2); Absolute Basophils 0.1 10^3/uL (0-0.2); Absolute Eosinophils 0.1 10^3/uL (0-0.7); Absolute Lymphocytes 1.1 10^3/uL (1.2-3.4); Absolute Neutrophils 5.3 10^3/uL (1.4-6.5); Hemoglobin 12.8 g/dL (12.0-16.0); Mean Corp Hgb Conc. 32.8 g/dL (33.0-37.0); Mean Corpuscular Hgb 30.3 pg (27.0-31.0); Mean Corpuscular Volume 92.4 fL (81.0-99.0); Mean Platelet Volume 10.5 fL (7.4-10.4); Nucleated Red Blood Cells % 0 %; Platelet Count 226 10^3/uL (130-400); Red Blood Cell Count 4.22 10^6/uL (4.20-5.40); Red Cell Dist. Width 16.7 % (11.5-14.5); White Blood Cell Count 7.6 10^3/uL (4.8-10.8)
[2024-08-10 11:19] LABS: ALT (SGPT) 17 U/L (0-35); AST (SGOT) 28 U/L (14-36); Albumin 4.4 g/dl (3.5-5.0); Alkaline Phosphatase 135 U/L (38-126); Blood Urea Nitrogen 19 mg/dl (7-17); Calcium 9.8 mg/dl (8.4-10.2); Carbon Dioxide 27 mmol/L (22-30); Chloride 99 mmol/L (98-107); Glucose 162 mg/dl (70-99); Potassium 4.9 mmol/L (3.5-5.1); Sodium 136 mmol/L (135-145); Total Bilirubin 1.6 mg/dl (0.2-1.3); Total Protein 6.3 g/dl (6.3-8.2); eGFR > 60.00
== END ==
LOC: REG 09:14
PROVIDERS: ATTENDING PHYSICIAN Internal Medicine Hematology & Oncology; FAMILY PHYSICIAN Family Medicine
DX: E85.4 Organ-limited amyloidosis (principal); R53.83 Other fatigue; R60.0 Localized edema; R06.00 Dyspnea, unspecified; M62.81 Muscle weakness (generalized)
CPT/HCPCS: 36415; 80053; 82784; 83521; 84155; 84165; 85025; 86334

== ENCOUNTER → 2024-09-06 11:48 | Outpatient (REF) | payer OTHER, SELFPAY ==
[2024-09-06 12:37] LABS: % Basophils 0.7 % (0-2); % Immature Granulocytes 0.3 % (0-0.5); % Lymphocytes 13.7 % (20.5-51.1); % Monocytes 14.1 % (1.7-9.3); % Neutrophils 70.2 % (42.2-75.2); Absolute Basophils 0.1 10^3/uL (0-0.2); Absolute Eosinophils 0.1 10^3/uL (0-0.7); Absolute Lymphocytes 1.3 10^3/uL (1.2-3.4); Absolute Monocytes 1.3 10^3/uL (0.1-0.6); Absolute Neutrophils 6.4 10^3/uL (1.4-6.5); Hematocrit 38.1 % (37.0-47.0); Hemoglobin 12.6 g/dL (12.0-16.0); Mean Corp Hgb Conc. 33.1 g/dL (33.0-37.0); Mean Corpuscular Hgb 29.6 pg (27.0-31.0); Mean Corpuscular Volume 89.4 fL (81.0-99.0); Mean Platelet Volume 11.3 fL (7.4-10.4); Nucleated Red Blood Cells % 0 %; Platelet Count 192 10^3/uL (130-400); Red Blood Cell Count 4.26 10^6/uL (4.20-5.40); Red Cell Dist. Width 16.2 % (11.5-14.5); White Blood Cell Count 9.1 10^3/uL (4.8-10.8)
[2024-09-06 12:57] LABS: NT-proBNP 7260 pg/ml; Troponin I 0.027 ng/ml
[2024-09-06 15:36] LABS: ALT (SGPT) 17 U/L (0-35); AST (SGOT) 33 U/L (14-36); Albumin 4.4 g/dl (3.5-5.0); Alkaline Phosphatase 114 U/L (38-126); Blood Urea Nitrogen 22 mg/dl (7-17); Calcium 9.3 mg/dl (8.4-10.2); Carbon Dioxide 27 mmol/L (22-30); Chloride 97 mmol/L (98-107); Glucose 87 mg/dl (70-99); Potassium 4.6 mmol/L (3.5-5.1); Sodium 135 mmol/L (135-145); Total Bilirubin 1.8 mg/dl (0.2-1.3); Total Protein 6.3 g/dl (6.3-8.2); eGFR > 60.00
== END ==
LOC: REG 11:48
PROVIDERS: ATTENDING PHYSICIAN Internal Medicine Hematology & Oncology; FAMILY PHYSICIAN Family Medicine
DX: E85.4 Organ-limited amyloidosis (principal); R53.83 Other fatigue; R60.0 Localized edema; R06.00 Dyspnea, unspecified; M62.81 Muscle weakness (generalized)
CPT/HCPCS: 36415; 80053; 82784; 83521; 83880; 84155; 84165; 84484; 85025; 86334

== ENCOUNTER 2024-09-29 13:05 | Inpatient (IN) | payer OTHER, SELFPAY ==
[2024-09-29] VITALS (7 sets, daily range): BP systolic 101–120; BP diastolic 53–72; BMI 23.3; BMI 23.4
--- NOTE | 2024-09-29 10:53 | ED.GENMED ---
History of Present Illness
General
Chief Complaint: Breathing Problem
Source: patient
Exam Limitations: none
Time Seen by Provider: 09/29/24 10:35
History of Present Illness
History of Present Illness:
84yoF with a history of CHF, atrial flutter on Eliquis, hypertension, and amyloidosis presenting for evaluation of shortness of breath. Patient reports a weight gain of 8 to 10 pounds over the past week. She also is experiencing shortness of
breath, leg swelling, orthopnea, and abdominal distention. Patient reports compliance with her Lasix and takes 40 mg twice daily. She was seen by her oncologist today and was sent to the ED for concern for an acute CHF exacerbation. Her last
echocardiogram in May 2023 showed severe left ventricular hypertrophy with an EF of 50-55% and stage III diastolic dysfunction.
Past History
Past History
ED Past Medical History: HTN and Other (Amyloidosis with pleural effusions)
ED Past Surgical History: Orthopedic (Hip and knee replacement Bilaterally)
Social History
Tobacco: Non-smoker
Alcohol: Occasional
Drug: None
Personal:
Living: with family
Family History
Family History: Other (Noncontributory)
Phy Exam
General Physical Exam
General Presentation: mild distress
General Skin: warm and dry
General Habitus: normal and elderly
General Mental: alert
ENT Exam
ENT Exam: normocephalic
Cardiovascular Exam
Cardiovascular Exam: systolic murmur and other (3+ pitting edema in bilateral lower extremities)
Pulmonary Exam
Pulmonary Exam: other (Bibasilar rales with mild tachypnea)
Neurological Exam
Neurological Exam: alert
[place] Coma Scale
Eye Opening: Spontaneous
Verbal Response: Oriented
Motor Response: Obeys Commands
GCS Total Score: 15
Skin Exam
Skin Exam: normal color and warm/dry
Psychiatric Exam
Psychiatric Exam: normal mood/affect
Scores
Heart Failure Risk
Heart Failure Risk Score: Not Applicable
Course
Orders/Labs/Results
Orders:
Orders
09/29/24 Breakfast
Cholesterol Lowering
At Your Request: Full Participation
Fluid Restriction: 1200 mL/day (40 oz)
Cholesterol Lowering: Sodium, 2 Gram
09/29/24 10:30
Electrocardiogram (*1) Urgent
Reason for Study: Shortness of Breath
EKG- Treatment ONCE
09/29/24 10:52
Cardiac Monitoring- Treatment ONCE
09/29/24 10:53
CR Chest - 2 Views Urgent
Comment:
Reason For Exam: SOB
09/29/24 11:01
Comprehensive Metabolic Panel Urgent
09/29/24 11:02
Complete Blood Count/With Diff Urgent
NT-proBNP Urgent
Troponin I Urgent
09/29/24 11:57
Furosemide [Lasix] 60 mg IV NOW STA
09/29/24 12:38
Admit/Transfer Patient As Directed
Co-Sign Provider:
Level of Care: Inpatient admission
Assign to:: Telemetry
Physician / Group: sarah oneill
Diagnosis: CHf exacerbation
Reason for Telemetry: Acute Heart Failure
Date to Stop Telemetry: 10/02/24
Time to Stop Telemetry: 11:00
Reason for Hospitalization: CHF exacerbation
Expected length of stay greater than two midnights?: Yes
ELOS- Estimated Length of Stay in days: 3
I certify the patient meets the requirements for IP care: Yes
09/29/24 12:39
PRN Pain Medication Management As Directed
May give lesser potent ordered pain med per pt: Yes
preference::
Protocol:: Medication orders for pain may be administered in a
manner that supports deferring to patient preference
when the pt is:
- Requesting an ordered lesser potent pain medication.
Least to most potent pain medications are defined
as: acetaminophen < NSAID < tramadol < opioids
(morphine, oxycodone, hydromorphone).
- Requesting a lesser dose of the same medication IF
ORDERED.
- Requesting a less intrusive route of administration
if both routes are prescribed by the provider (PO <
IV).
09/29/24 12:40
Code Status As Directed
Resuscitation Status: Full Code
09/29/24 14:28
Echo 2D MMode Color/Doppler Routine
Reason for Study: heart failure
CARDIOLOGY CONSULT Routine
Consulting Provider: Kwan Childs
Was physician already notified: Yes
HF DIETARY CONSULT Routine
HF EDUCATOR CONSULT Routine
Comment:
Activity As Directed
Activity Level: As Tolerated
Intake/ Output As Directed
Frequency: Per unit guidelines
Patient Education As Directed
Type: CHF folder
Comment: give on admission. Document in Interdisciplinary Education record
Sleep Apnea Assessment by RN As Directed
Comment:
Physician Instructions:
Vital Signs As Directed
Frequency: Other
Additional Instructions:: Q12 or per unit guidelines if more frequent.
Weight As Directed
Frequency: Daily
Type of Scale: Standing Scale
Comment: Daily morning weight. If unable to stand, use balanced bed scale.
Weight As Directed
Frequency: Once
Type of Scale: Standing Scale
Comment: Upon Admission. If unable to stand, use balanced bed scale.
Pulse Ox/cont/shift [RESP] Routine
Quantity: 1
Special Instructions: Daily pulse oximetry at rest. If greater than 92% at rest also obtain pulse oximetry
while ambulating as tolerated.
09/29/24 16:00
Furosemide [Lasix] 40 mg IV BID AT 0800,1600
09/29/24 20:00
Apixaban [Eliquis] 2.5 mg PO BID
09/30/24 06:00
Basic Metabolic Panel IN AM
Cardiovascular Evaluation IN AM
Complete Blood Count/No Diff IN AM
Magnesium IN AM
TSH Reflex To Free T4 IN AM
09/30/24 08:00
Magnesium l-Lactate [Mag-Tab Sr] 84 mg PO DAILY
Metoprolol Xl [Toprol Xl] 25 mg PO DAILY
09/30/24 12:43
US Abdomen Complete/Upper Stat
Comment: PT TO BE NPO FROM MIDNIGHT
Reason For Exam: distention
10/01/24 06:00
Basic Metabolic Panel IN AM
Complete Blood Count/No Diff IN AM
10/02/24 06:00
Basic Metabolic Panel IN AM
Complete Blood Count/No Diff IN AM
10/02/24 11:00
DC Protocol for Telemetry ONCE
Abnormal Lab Results
09/29/24 09/29/24
11:01 11:02
RBC 3.95 L 10^6/uL
(4.20-5.40)
Hgb 11.7 L g/dL
(12.0-16.0)
Hct 34.7 L %
(37.0-47.0)
RDW 17.3 H %
(11.5-14.5)
MPV 11.0 H fL
(7.4-10.4)
Absolute Lymphs (auto) 1.0 L 10^3/uL
(1.2-3.4)
Absolute Monos (auto) 1.2 H 10^3/uL
(0.1-0.6)
Lymphocytes % 11.0 L %
(20.5-51.1)
Monocytes % 13.3 H %
(1.7-9.3)
Sodium 131 L mmol/L
(135-145)
Chloride 96 L mmol/L
(98-107)
Carbon Dioxide 33 H mmol/L
(22-30)
BUN 19 H mg/dl
(7-17)
Glucose 140 H mg/dl
(70-99)
Total Bilirubin 1.7 H mg/dl
(0.2-1.3)
Total Protein 6.0 L g/dl
(6.3-8.2)
09/29/24 11:02
09/29/24 11:01
Vital Signs
Initial and Last Documented VS:
Initial Vital Signs
Temp Pulse Resp BP Pulse Ox
98.4 F 81 16 112/59 98
09/29/24 10:26 09/29/24 10:26 09/29/24 10:26 09/29/24 10:26 09/29/24 10:26
Last Documented Vital Signs
Temp Pulse Resp BP Pulse Ox
97.6 F 82 18 109/69 96
09/29/24 14:38 09/29/24 16:26 09/29/24 14:38 09/29/24 16:26 09/29/24 14:38
MDM/Problems Addressed
Differential Diagnosis Includes:
84yoF here with SOB, weight gain, leg swelling x 1 week. Hx of CHF. VSS and oxygen saturation 98% on room air. She is volume overloaded on exam. Differential diagnosis includes but is not limited to: CHF exacerbation, cardiorenal syndrome
Initial ED plan: Check cardiac labs, EKG, and CXR.
*Pulse Oximetry
SaO2: 97
Oxygen Mode of Delivery: Room air
Patient hypoxic: no (98%)
*EKG
Interpreted by ED Provider?: Yes
EKG Intrepretation Date: 09/29/24
Heart Rate: 77
Rate: normal
Rhythm: sinus
[place]: normal axis
QRS Pattern: normal QRS
Ischemia: T-wave inversion (inferolateral leads, appears improved from prior EKG in March 2024)
*Critical Care Note
Total Time (30-74mins, 75-104mins- exclusive of procedures): Not Applicable
Update Note
Update Note:
BNP 7990. Creatinine WNL. CXR without significant pulmonary edema. 60mg IV Lasix ordered and patient admitted for further management.
ED Attending Note
-
Portions of this chart may have been created with voice recognition software.� Occasional wrong word or��sound alike� substitutions may have occurred due to the inherent limitations of voice recognition software.
Discharge Plan
Departure
Patient Disposition: Admit
Date of Disposition: 09/29/24
Time of Disposition: 12:17
Presentation/result/management discussed w/ accepting MD/DO: Hospitalist
Discharge Problem:
Acute exacerbation of CHF (congestive heart failure)
Interventions
Interventions:
*Risk Screen - Suicide Last Done: 09/29/24 10:26
*Neglect/Abuse Screening Last Done: 09/29/24 10:26
*ED- Fall Risk Assessment Last Done: 09/29/24 14:25
*ED COVID-19 Vaccine History Last Done: 09/29/24 13:32
*Nursing Disposition Last Done: 09/29/24 14:25
ED- Cardiac Assessment Last Done: 09/29/24 10:49
ED- Pulmonary Assessment Last Done: 09/29/24 10:49
Discharge Date and Time
Discharge Date/Time: 09/29/24 14:25
[2024-09-29 11:11] LABS: Hematocrit 34.7 % (37.0-47.0); Hemoglobin 11.7 g/dL (12.0-16.0); Mean Corp Hgb Conc. 33.7 g/dL (33.0-37.0); Mean Corpuscular Volume 87.8 fL (81.0-99.0); Nucleated Red Blood Cells % 0 %; Platelet Count 192 10^3/uL (130-400); Red Cell Dist. Width 17.3 % (11.5-14.5)
[2024-09-29 11:45] LABS: ALT (SGPT) 17 U/L (0-35); AST (SGOT) 27 U/L (14-36); Albumin 4.1 g/dl (3.5-5.0); Alkaline Phosphatase 121 U/L (38-126); Blood Urea Nitrogen 19 mg/dl (7-17); Calcium 9.5 mg/dl (8.4-10.2); Carbon Dioxide 33 mmol/L (22-30); Chloride 96 mmol/L (98-107); Estimated Creatinine Clearance 40 ml/min; Glucose 140 mg/dl (70-99); Potassium 3.8 mmol/L (3.5-5.1); Sodium 131 mmol/L (135-145); Total Protein 6.0 g/dl (6.3-8.2); eGFR > 60.00
[2024-09-29 11:53] LABS: Troponin I 0.033 ng/ml
--- NOTE | 2024-09-29 12:20 | HPS.HSE ---
Family Physician
-
Family Physician: Jaz Weinstein
Chief Complaint
-
Short of breath, weight gain, abdomen distention, lower extremities edema
History of Present Illness
84yoF with a history of CHF, atrial flutter on Eliquis, hypertension, and amyloidosis presenting for evaluation of shortness of breath. Patient reports a weight gain of 8 to 10 pounds over the past week. She also is experiencing shortness of
breath, leg swelling abdominal distention. Patient denies any chest pain. Patient denies any headache, dizzy or syncope. Patient denied any fever, chills, cough, congestion. Patient denied dysuria hematuria.
Upon arrival she was noted in CHF exacerbation. Patient received a dose of Lasix in ER. Admitting for further management
Medical History
Past Medical History
Past Medical History: Reports Other
Additional Past Medical History:
Left heart failure
amyloidosis
Paroxysmal A-fib
Hypertension
Cardiomyopathy
Past Surgical History: Reports Other
Additional Past Surgical History:
Left knee replacement
Right hip replacement
Tube ligation
Cardiac ablation
Social History
Tobacco: Non-smoker
Alcohol: None
Drug: None
Personal:
Living: With Family
Family History
Family History: Not pertinent
Allergies / Home Medications
Allergies reflects when Allergies were last updated in [employer].
Home Medications with original date entered in [employer]
Allergy/Medication List:
Allergies
Allergy/AdvReac Type Severity Reaction Status Date / Time
lisinopril Allergy Swelling Verified 09/29/24 10:28
Home Medications
dexamethasone 4 mg tablet 40 mg PO DIRECTED chemo days 07/05/23
apixaban 2.5 mg tablet (Eliquis) 2.5 mg PO BID 30 days #60 tabs 07/11/23
diphenhydramine HCl 50 mg capsule 50 mg PO DIRECTED chemo days only 03/05/24
furosemide 40 mg tablet 80 mg PO DAILY Fluid Retention/Swelling 09/29/24
magnesium oxide 400 mg PO DAILY 09/29/24
metoprolol succinate 25 mg tablet,extended release 24 hr (Toprol XL) 25 mg PO DAILY 09/29/24
Review of Systems
-
Constitutional: Reports Weight Gain
EENT: Reports No Symptoms
Respiratory: Reports Trouble Breathing
Cardiac: Reports No Symptoms
Abdomen/GI: Reports No Symptoms
: Reports No Symptoms
Musculoskeletal: Reports No Symptoms
Skin: Reports No Symptoms
Neurological: Reports No Symptoms
Endocrine: Reports No Symptoms
Hematologic/Lymphatic: Reports No Symptoms
Psych: Reports No Symptoms
Physical Exam
Vital Signs
Vital Signs
Temp Pulse Resp BP Pulse Ox
98.4 F 77 15 112/59 96
09/29/24 10:26 09/29/24 11:00 09/29/24 11:00 09/29/24 10:26 09/29/24 11:00
Physical Exam
General: Well Developed, Well Nourished and No Apparent Distress
HEENT: NormoCephalic, Moist mucous membranes and Atraumatic
Respiratory: Crackles
Cardiac: S1/S2 and Regular Rhythm; No Murmur or Rub
GI: Soft, Non Tender, Non Distended and Normal Bowel Sounds; No Organomegaly
Rectal: Deferred by Provider
Musculoskeletal: No Clubbing, No Cyanosis and Other (Bilateral lower extremities)
Skin: No Rash
Neuro: AO x 3 and Nonfocal/grossly intact
Psych: Calm
Laboratory Results
-
09/29/24 11:02
09/29/24 11:01
Laboratory Results
Total Bilirubin 1.7 mg/dl (0.2-1.3) H 09/29/24 11:01
AST 27 U/L (14-36) 09/29/24 11:01
ALT 17 U/L (0-35) 09/29/24 11:01
Alkaline Phosphatase 121 U/L (38-126) 09/29/24 11:01
Troponin I 0.033 ng/ml 09/29/24 11:02
Data Reviewed
-
Diagnostic Radiology: Report Reviewed by me
Lab Data: Labs Reviewed by me
Impression/Plan
-
#Short of breath/orthopnea/edema/Short of breath/orthopnea/edema secondry to CHF exacerbation
-IV lasix continued
-Obtain echocardiogram
-strict I &O, daily weight
-fluid restriction
-cardiology consulted
-Chest x-ray with impression of no acute radiographic abnormalities, cardiomegaly
-Echo 06/07 with a EF of 50 to 55%
#Anemia likely dilutional
- Hemoglobin stable at 11.7
- Continue to monitor
#Hyponatremia likely from fluid overload
- Sodium 131
- Continue to monitor
#Paroxysmal atrial fibrillation
-Continue metoprolol succinate
-Continue Eliquis
#Essential hypertension
- continue to monitor blood pressure while she is on diuretic
Continue metoprolol
#Cardiac amyloidosis
-Ongoing chemotherapy monthly
-Continue dexamethasone
#DVT prophylaxis - Eliquis
#CODE STATUS
- Full
[2024-09-29] MEDS: LASIX 60 MG IV (12:27)
--- NOTE | 2024-09-29 13:01 | W.PN.UPDATE ---
Addendum entered and electronically signed by Bob Turcios MD 09/29/24 14:08:
Selected Entries
09/29/24
12:27
Blood pressure 101/53
09/29/24
11:02
Wha-Q-Mpjrsxkblil Pept 7990
05/26/23 TTE
- Left ventricle is small in size. Severe concentric left ventricular hypertrophy.
- No regional wall motion abnormalities are seen.
- Low normal systolic function. LV ejection fraction is 50-55% by visual assessment.
- Stage III diastolic dysfunction suggestive of restrictive filling pattern and increased filling pressures.
- Genny EPIQ left ventricular global longitudinal strain is -5.1% (previous -6.9%).
- Normal right ventricular size and function.
- Mild to moderate mitral regurgitation.
- Moderate to severe tricuspid regurgitation.
- Estimated pulmonary artery pressure of 28 mmHg assuming a right atrial pressure of 15 mmHg.
Compared to prior from August 03, 2021, overall LV function appears low normal 50 to 55% from 60 to 65% with now severe concentric LVH.
Global longitudinal strain is reduced and estimated PASP is lower 28 mmHg from 45-50 mmHg.
Elevated proBNP appropriate to acute on chr HFpEF
See the plan below for acute HF
Original Note:
Update Note
Progress Note Update
This note serves as an addendum to the H&P by it trainer DENG Therese CASTILLO
HPI
84F HX chr HFpEF, A flutter on Eliquis, hypertension, and cardiac amyloidosis seen at ER:
- She was seen by her oncologist for cardiac amyloidosis today and was sent to the ED for concern for an acute CHF - for evaluation of shortness of breath.
- reports a weight gain of 8 to 10 pounds over the past week.
- experiencing worsening shortness of breath, leg swelling, orthopnea, and abdominal distention.
- reports compliance with her Lasix and takes 40 mg twice daily. Her last echocardiogram in May 2023 showed severe left ventricular hypertrophy with an EF of 50-55% and stage III diastolic dysfunction.
Relevant VS:
Vital Signs
Temp Pulse Resp BP Pulse Ox
98.4 F 79 15 101/53 96
09/29/24 10:26 09/29/24 12:27 09/29/24 11:00 09/29/24 12:27 09/29/24 12:15
PE
Gen: sog with speech
HEENT:
Neck: distened EJD
Lungs: diffuse crackles all over
Cor: RRR S1 S2
Abdomen: distended, soft but no guarding NT abdone
COMPOSITE TECHNICIAN: NFND
MS: both Janis pitting 1-2 plus edema
Psych: appropriate mood and affect
Abnormal Lab
09/29/24 09/29/24
11:01 11:02
RBC 3.95 L
Hgb 11.7 L
Hct 34.7 L
RDW 17.3 H
MPV 11.0 H
Absolute Lymphs (auto) 1.0 L
Absolute Monos (auto) 1.2 H
Lymphocytes % 11.0 L
Monocytes % 13.3 H
Sodium 131 L
Chloride 96 L
Carbon Dioxide 33 H
BUN 19 H
Glucose 140 H
Total Bilirubin 1.7 H
Total Protein 6.0 L
CXR:
- No acute radiographic abnormalities.
- Cardiomegaly.
EKG
NORMAL SINUS RHYTHM
POSSIBLE RIGHT VENTRICULAR HYPERTROPHY
SEPTAL INFARCT (CITED ON OR BEFORE 27-JUN-2018)
LATERAL INFARCT (CITED ON OR BEFORE 27-JUN-2018)
T WAVE ABNORMALITY, CONSIDER INFERIOR ISCHEMIA
ABNORMAL ECG
WHEN COMPARED WITH ECG OF 12-APR-2024 15:06,
MN INTERVAL HAS DECREASED
NONSPECIFIC T WAVE ABNORMALITY NOW EVIDENT IN ANTERIOR LEADS
T WAVE INVERSION LESS EVIDENT IN LATERAL LEADS
Confirmed by GENESIS MATA MD ([id number]) on 09/29/2024 11:19:16 AM
Last hospitalist admission:03/05/24 -03/09/24
ASSESSMENT & PLAN
Acute on Chronic HFpEF: s/p IOV lasix 60 x 1,
Associated volume overload with wt gained 10 lbs
- on Dexamethasone for Amyloidosis
- at home PO lasix 40 BID
- IV Lasix 40 BID
- Daily wt, IOs
- daily BMP
- Tele
- CBC card consult
Distended abdomen
- US r/o free fluid - if significant amount , IR consult for abdominal paracentesis
Cardiac amyloidosis HX
- f/u by Ongoing chemotherapy monthly
- Continue dexamethasone
In NSR
S/p AF ablation in Mar [address] Thornton ( CBC EP )
Paroxysmal AF
- Continue metoprolol succinate 12.5 mg with hold index SBP at 100
- Continue chronic Eliquis
HX chronic hypotension with SBP 80s to low 100s
Essential hypertension
- Continue metoprolol with hold parameters
Chronic Hyponatremia at 131 - at baseline
- f/u Na with IV diuresis
DVT Px: on chr Eliquis
Full code
IP TLM
--- NOTE | 2024-09-29 13:57 | CON.CAR ---
Addendum entered and electronically signed by Kwan Childs MD 09/29/24 17:40:
I saw and examined the patient.
Dr Garcias's note was reviewed and I agree with the note.
Comment: IV diuresis for 10-15 lb weight gain
Original Note:
Consultation
Consultation Request
Date/Time Consultation Requested: 09/29/2024 12:40
Date/Time Consultation Performed: 09/29/2024 13:10
Requesting Provider: Varghese Saleh
Performing Provider: Dr. Kwan Childs
Reason for Consultation: CHF exacerbation
Medical History
-
Chief Complaint: CHF excerbation
History of Present Illness:
84-year-old female with past medical history of cardiac amyloidosis HFpEF (11/2023 EF 49%), paroxysmal A-fib status post ablation 03/2024, hypertension, osteoarthritis and pulmonary hypertension presents to the ER with increasing shortness of breath
and abdominal swelling. Today, she went to go see Dr. Lpoez for routine oncology visit for cardiac amyloidosis. Dr. Lopez noted significant shortness of breath and abdominal swelling. Patients weight has increased 8 to 10 pounds over the past few
days. Dry weight around 100 pounds. When she noticed she was increasing in weight she did take 3 lasix pills (120mg lasix), but didn't want to take [address] Lopez recommended her to come to the ER for further evaluation. She denies
any heart palpitations, chest pain, recent upper respiratory tract infection, dysuria, nausea vomiting diarrhea.
In the ED, blood pressure 112/59, heart rate 81, RR 16, afebrile satting 98% on room air. 52.3 kg baseline 45kg. Hemoglobin 11.7, sodium 131, creatinine 0.7, blood glucose 140, troponin 0.033, BNP 7990. Chest x-ray revealed no acute
cardiopulmonary process. EKG is in sinus rhythm. Last echo at [facility] 12/15/2023 revealed global hypokinesis, severe LVH, EF 49%, grade 3 systolic dysfunction, severe TR, pulmonary artery pressure 39 mmHg. She was given 60 mg of
IV Lasix and admitted for further evaluation.
Past Medical History
Past Medical History: Other (HFpEF, cardiac amyloidosis, hypertension, paroxysmal A-fib/flutter status post ablation 03/2024, osteoarthritis, pulmonary hypertension)
Past Surgical History: Other (Left total knee replacement 2015, right hip replacement 2012, bone marrow biopsy 2019, tubal medication, ablation 04/10)
Social History
Tobacco: Non-Smoker
Alcohol: None
Drug: None
Personal:
Living: With Family
Family History
Family History: Other (Son: Aortic dissection Dad: Throat cancer)
Allergies / Home Medications
Allergy/AdvReac Type Severity Reaction Status Date / Time
lisinopril Allergy Swelling Verified 09/29/24 10:28
�Medication �Instructions �Recorded �Confirmed �Type
dexamethasone 4 mg tablet 40 mg PO DIRECTED chemo days 07/05/23 09/29/24 History
apixaban 2.5 mg tablet (Eliquis) 2.5 mg PO BID 30 days #60 tabs 07/11/23 09/29/24 Rx
diphenhydramine HCl 50 mg capsule 50 mg PO DIRECTED chemo days 03/05/24 09/29/24 History
only
furosemide 40 mg tablet 80 mg PO DAILY Fluid 09/29/24 09/29/24 History
Retention/Swelling
magnesium oxide 400 mg PO DAILY 09/29/24 09/29/24 History
metoprolol succinate 25 mg 25 mg PO DAILY 09/29/24 09/29/24 History
tablet,extended release 24 hr
(Toprol XL)
Review of Systems
-
History Source: Patient
Constitutional: Weight Gain
EENT: No Symptoms
Respiratory: Trouble Breathing
Cardiac: No Symptoms
Abdomen/GI: No Symptoms
Musculoskeletal: No Symptoms
Neurological: No Symptoms
Physical Exam
Vital Signs
Temp Pulse Resp BP Pulse Ox
98.4 F 87 22 116/72 97
09/29/24 10:26 09/29/24 13:30 09/29/24 13:30 09/29/24 13:00 09/29/24 13:30
Lab Results
09/29/24 11:02
09/29/24 11:01
Troponin I 0.033 ng/ml 09/29/24 11:02
Gwi-W-Bflqkoxkiir Pept 7990 pg/ml 09/29/24 11:02
Physical Exam
General: No Apparent Distress and Comfortable
Respiratory: Crackles (Bilateral lower lung swenson)
Cardiac: S1/S2, Regular Rhythm (Many PVCs), JVD and Other (No significant peripheral edema)
GI: Soft, Non Tender, Normal Bowel Sounds and Distended
Musculoskeletal: No Cyanosis and No Edema
Skin: Warm and Dry
Neuro: AO x 3
Psych: Calm
Impression / Plan
-
84-year-old female with past medical history of cardiac amyloidosis with HFpEF, hypertension, paroxysmal atrial fibrillation status post ablation in 04/10, pulmonary hypertension presents with acute on chronic HFpEF exacerbation. Also appears to be
back in atrial fibrillation.
Primary moveman:Dr. Chavira
Acute on chronic HFmrEF exacerbation
-- Dry weight 45kg, today 52.3, BNP 7990, significant abdominal swelling, JVD
-- EF 12/15/2023 49%, global hypokinesis, severe LVH, grade 3 diastolic dysfunction, severe TR, pulmonary artery pressure 39 mmhg
-- Repeat echo pending
-- lasix 40mg IV BID
-- Continue home spironolactone 25mg daily, metoprolol 25 daily
-- Follow I&Os, daily weights, low Na diet
Cardiac AL amyloidosis
-- Receives chemotherapy once monthly with Dr. Lopez her oncologist
-- Previously saw Dr. Brown at [facility], but commute too far so has not seen her in a long time
-- Dexamethasone prior to chemo treatments only
Hx paroxysmal atrial fibrillation status post ablation 04/12/2024
-- Currently in sinus rhythm
-- [id number] 4 - continue Eliquis 2.5 twice daily
Hypertension
-- Continue metoprolol 25 once daily
Abdominal swelling
-- Reports distention, however no nausea, vomiting, diarrhea, constipation, recent illness
-- Considering very little little peripheral edema, fluid likely accumulated in abdomen
-- Ab US pending
-- IV Lasix - consider IR consult for paracentesis
Hyponatremia - likely dilutional in setting of volume overload
Osteoarthritis
Pulmonary hypertension
Full code
DVT Eliquis
[2024-09-29] MEDS: LASIX 40 MG IV (16:26)
--- NOTE | 2024-09-29 16:34 | PTCARENOTE ---
Received pt as admit from ED. AAOx3. MESA GRANDE. Able to ambulate with assist x1. Pt does become slightly dyspneic with exertion. NSR with PACs on tele, HRs 80s. VSS. Crackles noted bilaterally. IV Lasix 40mg given per order. Abdomen distended & firm. Abd
US ordered for tomorrow. Sacrum with blanchable redness. Pt resting in bed at this time, call mccullough in reach. Bed alarm in place. Assessment documented.
[2024-09-29] MEDS: ELIQUIS 2.5 MG PO (19:52)
[2024-09-30] VITALS (7 sets, daily range): BP systolic 75–110; BP diastolic 48–76; BMI 22.8
[2024-09-30 05:54] LABS: Hematocrit 32.5 % (37.0-47.0); Hemoglobin 10.9 g/dL (12.0-16.0); Mean Corp Hgb Conc. 33.5 g/dL (33.0-37.0); Mean Corpuscular Volume 87.4 fL (81.0-99.0); Platelet Count 188 10^3/uL (130-400); Red Cell Dist. Width 17.2 % (11.5-14.5)
[2024-09-30 06:21] LABS: Blood Urea Nitrogen 17 mg/dl (7-17); Calcium 9.0 mg/dl (8.4-10.2); Carbon Dioxide 34 mmol/L (22-30); Chloride 97 mmol/L (98-107); Estimated Creatinine Clearance 44 ml/min; Glucose 107 mg/dl (70-99); HDL Cholesterol 26 mg/dl; LDL Cholesterol, Calculated 80 mg/dl; Magnesium 1.9 mg/dl (1.6-2.3); Potassium 3.9 mmol/L (3.5-5.1); Sodium 132 mmol/L (135-145); Very Low Density Lipoprotein 10 mg/dl (0-30); eGFR > 60.00
[2024-09-30] MEDS: LASIX 40 MG IV ×2 (07:41→16:25)
[2024-09-30] MEDS: ALDACTONE 25 MG PO (07:42)
[2024-09-30] MEDS: MAG-TAB SR 84 MG PO (07:42)
[2024-09-30] MEDS: TOPROL XL 25 MG PO (07:42)
[2024-09-30] MEDS: ELIQUIS 2.5 MG PO (07:42)
--- NOTE | 2024-09-30 11:57 | W.PN.CD ---
Today's Communication / Plan
-
Continue diuresis. Monitor weights, I's and O's and renal function.
Ultrasound of the abdomen shows large amount of ascites. Paracentesis being coordinated by primary team. Okay to hold Eliquis for paracentesis
Impression / Plan
-
84-year-old female with past medical history of cardiac amyloidosis with HFpEF, hypertension, paroxysmal atrial fibrillation status post ablation in 04/10, pulmonary hypertension presents with acute on chronic HFpEF exacerbation. Also appears to be
back in atrial fibrillation.
Primary bottom cementer:Dr. Chavira
Acute on chronic HFmrEF exacerbation
-- Dry weight 45kg, today 52.3, BNP 7990, significant abdominal swelling, JVD
-- EF 12/15/2023 49%, global hypokinesis, severe LVH, grade 3 diastolic dysfunction, severe TR, pulmonary artery pressure 39 mmhg
-- lasix 40mg IV BID
-- Continue home spironolactone 25mg daily, metoprolol 25 daily
-- Weights trending down. Continue to monitor weights. Reviewed with nurse. Accurate I's and O's requested.
- Patient with large amount of ascites on recent ultrasound. Significant increase compared to prior ultrasound 06/2024. Await paracentesis
.
Ascites. Large amount of ascites documented on ultrasound sound from 09/30/2024. Paracentesis being coordinated by primary team. Can hold Eliquis prior to paracentesis
Cardiac AL amyloidosis
-- Receives chemotherapy once monthly with Dr. Lopez her oncologist
-- Previously saw Dr. Brown at [facility], but commute too far so has not seen her in a long time
-- Dexamethasone prior to chemo treatments only
Hx paroxysmal atrial fibrillation status post ablation 04/12/2024
-- Currently in sinus rhythm
-- [id number] 4 - continue Eliquis 2.5 twice daily
Hypertension
-- Continue metoprolol 25 once daily
Hyponatremia -monitor with diuresis
Osteoarthritis
Pulmonary hypertension
Full code
DVT Eliquis
Physical Exam
Vital Signs/Labs
Vital Signs
Temp Pulse Resp BP Pulse Ox
96.2 F L 90 16 110/71 97
09/30/24 07:25 09/30/24 07:41 09/30/24 07:25 09/30/24 07:41 09/30/24 07:25
09/29/24 09/30/24 10/01/24
06:59 06:59 06:59
Actual Weight 49.396 kg
09/30/24 05:34
09/30/24 05:34
Magnesium 1.9 mg/dl (1.6-2.3) 09/30/24 05:34
Triglycerides 54 mg/dl (10-149) 09/30/24 05:34
LDL Cholesterol, Calc 80 mg/dl 09/30/24 05:34
VLDL Cholesterol, Calc 10 mg/dl (0-30) 09/30/24 05:34
HDL Cholesterol 26 mg/dl 09/30/24 05:34
Free T4 1.70 ng/dl (0.78-2.19) 09/30/24 05:34
09/29/24
11:02
Buf-O-Jpiczzizuml Pept 7990
LAB Results
09/29/24
11:02
Troponin I 0.033
Physical Exam
Constitutional: No acute distress
Cardiovascular: Rhythm/rate is irregular
Respiratory: Wheeze Absent and Rhonchi Absent
GI: Soft
Neuro/Psych: Alert
Data Reviewed
-
Date of Service: September 30, 2024
Medical Decision Making: Reviewed Test Results
Echo: Report Reviewed by me
Medical Tests (PFT, Pathology etc): Report Reviewed by me
Labs: Labs Reviewed by me
--- NOTE | 2024-09-30 12:59 | W.PN.HOSP.TC ---
Today's Communication/Plan
-
Assessment / Plan
Assessment / Plan
General: No Apparent Distress, Comfortable and Conversant
HEENT: NormoCephalic, Moist mucous membranes, Atraumatic
Respiratory: Rales bilaterally, Non Labored Respirations
Cardiac: S1/S2 and Regular Rhythm; No Rub or Gallop
GI: Soft, Non Tender, distended abdomen, normal Bowel Sounds
Musculoskeletal: No Edema, no deformity
Skin: Warm and dry
: NO Parker
Neuro: Awake, Alert, Nonfocal/grossly intact
Psych: Calm and Intact Judgment/Insight
Ms. Mendez is an 84-year-old female with a medical history of cardiac amyloidosis with HFpEF, paroxysmal A-fib (on low-dose Eliquis, ablation 03/2024), hypertension, and pulmonary hypertension who presented with shortness of breath and edema. She
gained approximately 10 pounds abruptly over the past week prior to arrival and developed leg and abdominal swelling. She was started on IV Lasix and admitted for further evaluation and management of acute on chronic HFpEF.
Acute on chronic HFpEF:
- History of HFpEF due to cardiac amyloidosis
- Continue diuresis with Lasix 40 mg IV twice daily, continue home spironolactone 25 mg daily and metoprolol succinate 25 mg daily
- Monitor I's and O's and daily weights, dry weight appears to be approximately 45 kg
- Clinically she appears to be improving today with resolution of her lower extremity edema although still has significant ascites, IR evaluation for paracentesis, holding Eliquis prior to procedure
- Monitor electrolytes with diuresis
Ascites:
- Suspect secondary to volume overload in the setting of acute on chronic HFpEF
- Abdominal ultrasound also shows fatty infiltration of liver, will need follow-up
Normocytic anemia:
- Likely dilutional in the setting of volume overload, monitor
Hyponatremia:
- Mild, suspect secondary to volume overload
- Monitor with diuresis
A-fib:
- Currently rate controlled, continue home metoprolol succinate 25 mg daily
- Holding low-dose Eliquis pending paracentesis
Cardiac AL amyloidosis:
- Receives monthly chemotherapy with Dr. Lopez, gets dexamethasone prior to treatments
Gallbladder lesion:
- Ultrasound shows 7 mm polypoid lesion arising from the posterior gallbladder wall, recommend ultrasound follow-up in 6 to 12 months
DVT prophylaxis: Eliquis
CODE STATUS: Full code
Total time spent on today's encounter was 45 minutes
Anticipated Discharge: 24 - 48 hours
Subjective/Interval History
-
Date of Service: September 30, 2024
Patient was seen and examined at bedside this morning. Diuresing appropriately. Family also present in room.
Objective Data
-
Labs:
Laboratory Results
09/30/24
05:34
WBC 10.0
Hgb 10.9 L
Hct 32.5 L
Plt Count 188
Sodium 132 L
Potassium 3.9
Chloride 97 L
Carbon Dioxide 34 H
BUN 17
Creatinine 0.6
Glucose 107 H
Calcium 9.0
Vital Signs:
Vital Signs
Temp Pulse Resp BP Pulse Ox
97.5 F 78 12 108/66 94
09/30/24 11:00 09/30/24 11:00 09/30/24 11:00 09/30/24 11:00 09/30/24 11:00
I&O
09/29/24 09/30/24 10/01/24
06:59 06:59 06:59
Intake Total 420 / 420
Output Total 300 / 300
Balance 120 / 120
Review of Systems
-
History Source: Patient
All other systems: Reviewed and negative
Abdomen/GI: Reports Other (Abdominal distention)
Physical Exam
-
General: No Apparent Distress
[2024-09-30 16:04] LABS: Body Fluid Second Tech BGK
[2024-10-01] VITALS (7 sets, daily range): BP systolic 88–119; BP diastolic 53–70; BMI 21.8
[2024-10-01 06:29] LABS: Hematocrit 33.8 % (37.0-47.0); Hemoglobin 11.2 g/dL (12.0-16.0); Mean Corp Hgb Conc. 33.1 g/dL (33.0-37.0); Mean Corpuscular Volume 88.0 fL (81.0-99.0); Platelet Count 200 10^3/uL (130-400); Red Cell Dist. Width 17.3 % (11.5-14.5)
[2024-10-01 06:53] LABS: Blood Urea Nitrogen 17 mg/dl (7-17); Calcium 9.2 mg/dl (8.4-10.2); Carbon Dioxide 33 mmol/L (22-30); Chloride 96 mmol/L (98-107); Estimated Creatinine Clearance 38 ml/min; Glucose 102 mg/dl (70-99); Potassium 4.0 mmol/L (3.5-5.1); Sodium 131 mmol/L (135-145); eGFR > 60.00
[2024-10-01] MEDS: TOPROL XL PO (08:29)
[2024-10-01] MEDS: MAG-TAB SR 84 MG PO (08:44)
--- NOTE | 2024-10-01 08:54 | PTCARENOTE ---
patient's b/p this am 88/53, asymptomatic. Toprol held per parameters. Lasix and Aldactone ordered. Dr. Chavira notified and agreed to hold this am. patient made aware, will continue to monitor.
[2024-10-01] MEDS: LASIX IV (08:55)
[2024-10-01] MEDS: ALDACTONE PO (08:55)
--- NOTE | 2024-10-01 11:56 | W.PN.CD ---
Addendum entered and electronically signed by Adria Chavira MD 10/01/24 12:52:
I saw and examined the patient.
The INSIDE ACCOUNT REPRESENTATIVE's note was reviewed and I agree with the note.
Continue plan as outlined
Original Note:
Today's Communication / Plan
-
give IV Lasix 40mg now and monitor daily weights.
likely switch to PO Lasix tomorrow.
Impression / Plan
-
84-year-old female with past medical history of cardiac amyloidosis with HFpEF, hypertension, paroxysmal atrial fibrillation status post ablation in 04/10, pulmonary hypertension presents with acute on chronic HFpEF exacerbation. Also appears to be
back in atrial fibrillation.
Primary air and hydronic balancing technician: Dr. Chavira
Acute on chronic HFmrEF exacerbation - improved with diuresis and s/p paracentesis.
- feels much better today.
- Dry weight 99 lbs, admit weight 115 lbs, BNP 7990, significant abdominal swelling, JVD.
- Weight today 104 lbs.
- Echo 12/15/2023 EF 49%, global hypokinesis, severe LVH, grade 3 diastolic dysfunction, severe TR, pulmonary artery pressure 39 mmHg.
- Continue Lasix 40mg IV BID.
- Continue home spironolactone 25mg daily, metoprolol 25 daily. Mildly low bp today.
- Continue to monitor weights daily.
Ascites - acute.
- Large amount of ascites documented on ultrasound 09/30/2024.
- s/p paracentesis 09/30/24 with 1600ml of fluid removed.
Cardiac AL amyloidosis - receives chemotherapy once monthly with Dr. Lopez, her oncologist.
- Previously saw Dr. Brown at [facility], but commute is too far so has not seen her in a long time.
- Dexamethasone prior to chemo treatments only.
Atrial fibrillation - paroxysmal/
- s/p ablation 04/12/2024.
- Currently in sinus rhythm.
- [id number] 4 - continue Eliquis 2.5 twice daily.
Hypertension - chronically low/normal BP.
- Stable on Lasix, Aldactone and Toprol at home with SBP in the 90s.
- Continue metoprolol 25 once daily.
Hyponatremia - stable, monitor with diuresis.
Osteoarthritis
Pulmonary hypertension
Full code
DVT Eliquis
Physical Exam
Vital Signs/Labs
Vital Signs
Temp Pulse Resp BP Pulse Ox
97.3 F 78 16 119/70 95
10/01/24 11:00 10/01/24 11:00 10/01/24 11:00 10/01/24 11:00 10/01/24 08:55
09/30/24 10/01/24 10/02/24
06:59 06:59 06:59
Actual Weight 108 lb 14.4 oz 104 lb 4.8 oz
10/01/24 05:54
10/01/24 05:54
Magnesium 1.9 mg/dl (1.6-2.3) 09/30/24 05:34
Triglycerides 54 mg/dl (10-149) 09/30/24 05:34
LDL Cholesterol, Calc 80 mg/dl 09/30/24 05:34
VLDL Cholesterol, Calc 10 mg/dl (0-30) 09/30/24 05:34
HDL Cholesterol 26 mg/dl 09/30/24 05:34
Free T4 1.70 ng/dl (0.78-2.19) 09/30/24 05:34
09/29/24
11:02
Euy-J-Hrrxwqppnah Pept 7990
LAB Results
09/29/24
11:02
Troponin I 0.033
Physical Exam
Constitutional: No acute distress
EENT: Anicteric and Moist mucous membranes
Cardiovascular: Rhythm & rate is regular
Respiratory: Respiratory effort normal and Crackles Present (bibasilar rales)
GI: Soft, Non tender and Normal bowel sounds
Neuro/Psych: AO x 3
Other: Skin (warm, dry)
Data Reviewed
-
Date of Service: October 01, 2024
Medical Decision Making: Reviewed Test Results
EKG: Tracing Personally Visualized and interpreted
Labs: Labs Reviewed by me
[2024-10-01] MEDS: LASIX 40 MG IV (12:42)
--- NOTE | 2024-10-01 15:08 | W.PN.HOSP.TC ---
Today's Communication/Plan
-
Assessment / Plan
Assessment / Plan
General: No Apparent Distress, Comfortable and Conversant
HEENT: NormoCephalic, Moist mucous membranes, Atraumatic
Respiratory: Basilar Rales bilaterally, Non Labored Respirations
Cardiac: S1/S2 and Regular Rhythm; No Rub or Gallop
GI: Soft, Non Tender, distended abdomen, normal Bowel Sounds
Musculoskeletal: No Edema, no deformity
Skin: Warm and dry
: NO Parker
Neuro: Awake, Alert, Nonfocal/grossly intact
Psych: Calm and Intact Judgment/Insight
Ms. Mendez is an 84-year-old female with a medical history of cardiac amyloidosis with HFpEF, paroxysmal A-fib (on low-dose Eliquis, ablation 03/2024), hypertension, and pulmonary hypertension who presented with shortness of breath and edema. She
gained approximately 10 pounds abruptly over the past week prior to arrival and developed leg and abdominal swelling. She was started on IV Lasix and admitted for further evaluation and management of acute on chronic HFpEF.
Acute on chronic HFpEF:
- History of HFpEF due to cardiac amyloidosis
- Received 1 dose of IV Lasix 40 mg this morning, will likely transition to oral Lasix tomorrow 10/02
- Continue home spironolactone 25 mg daily and metoprolol succinate 25 mg daily
- Monitor I's and O's and daily weights, dry weight appears to be approximately 45 kg, currently approaching dry weight
- Clinically she appears to be improving today with resolution of her lower extremity edema although still has significant ascites, IR evaluation for paracentesis, holding Eliquis prior to procedure
- Monitor electrolytes with diuresis
Ascites:
- Suspect secondary to volume overload in the setting of acute on chronic HFpEF
- Status post paracentesis with 1.6 L taken off
- SAG score 2.4 consistent with portal hypertension
- Abdominal ultrasound also shows fatty infiltration of liver, will need follow-up
Normocytic anemia:
- Likely dilutional in the setting of volume overload, monitor
Hyponatremia:
- Mild, suspect secondary to volume overload
- Monitor with diuresis
A-fib:
- Currently rate controlled, continue home metoprolol succinate 25 mg daily
- Holding low-dose Eliquis pending paracentesis
Cardiac AL amyloidosis:
- Receives monthly chemotherapy with Dr. Lopez, gets dexamethasone prior to treatments
Gallbladder lesion:
- Ultrasound shows 7 mm polypoid lesion arising from the posterior gallbladder wall, recommend ultrasound follow-up in 6 to 12 months
DVT prophylaxis: Eliquis
CODE STATUS: Full code
Total time spent on today's encounter was 45 minutes
Anticipated Discharge: 24 - 48 hours
Subjective/Interval History
-
Date of Service: October 01, 2024
Patient was seen and examined at bedside this morning. Status post paracentesis with 1.6 L taken off. She continues to diurese well. Likely transitioning to oral Lasix tomorrow.
Objective Data
-
Labs:
Laboratory Results
10/01/24
05:54
WBC 8.5
Hgb 11.2 L
Hct 33.8 L
Plt Count 200
Sodium 131 L
Potassium 4.0
Chloride 96 L
Carbon Dioxide 33 H
BUN 17
Creatinine 0.7
Glucose 102 H
Calcium 9.2
Vital Signs:
Vital Signs
Temp Pulse Resp BP Pulse Ox
97.3 F 78 16 119/70 95
10/01/24 11:00 10/01/24 11:00 10/01/24 11:00 10/01/24 11:00 10/01/24 08:55
I&O
09/30/24 10/01/24 10/02/24
06:59 06:59 06:59
Intake Total 420 / 420 1020 / 1020
Output Total 300 / 300 150 / 150
Balance 120 / 120 870 / 870
Review of Systems
-
History Source: Patient
All other systems: Reviewed and negative
Physical Exam
-
General: No Apparent Distress
--- NOTE | 2024-10-01 16:48 | CM ---
Patient seen at bedside. She lives with her at [facility].
PLAN: Return to [facility] when medically cleared; pending newly identified discharge planning needs.
[2024-10-01] MEDS: ELIQUIS 2.5 MG PO (21:05)
[2024-10-02 06:00] VITALS: BMI 22.0
[2024-10-02 08:23] LABS: Hematocrit 32.6 % (37.0-47.0); Hemoglobin 11.1 g/dL (12.0-16.0); Mean Corp Hgb Conc. 34.0 g/dL (33.0-37.0); Mean Corpuscular Volume 85.6 fL (81.0-99.0); Platelet Count 203 10^3/uL (130-400); Red Cell Dist. Width 16.9 % (11.5-14.5)
[2024-10-02 08:34] VITALS: BP 109/65
[2024-10-02] MEDS: MAG-TAB SR 84 MG PO (08:58)
[2024-10-02] MEDS: TOPROL XL 25 MG PO (08:58)
[2024-10-02] MEDS: ALDACTONE 25 MG PO (08:59)
[2024-10-02] MEDS: ELIQUIS 2.5 MG PO (08:59)
[2024-10-02 09:05] LABS: Blood Urea Nitrogen 15 mg/dl (7-17); Calcium 8.9 mg/dl (8.4-10.2); Carbon Dioxide 31 mmol/L (22-30); Chloride 96 mmol/L (98-107); Estimated Creatinine Clearance 44 ml/min; Glucose 87 mg/dl (70-99); Potassium 4.0 mmol/L (3.5-5.1); Sodium 130 mmol/L (135-145); eGFR > 60.00
[2024-10-02 11:00] VITALS: BP 118/61
--- NOTE | 2024-10-02 11:39 | W.PN.HOSP.TC ---
Today's Communication/Plan
-
Assessment / Plan
Assessment / Plan
General: No Apparent Distress, Comfortable and Conversant
HEENT: NormoCephalic, Moist mucous membranes, Atraumatic
Respiratory: Basilar Rales bilaterally, Non Labored Respirations
Cardiac: S1/S2 and Regular Rhythm; No Rub or Gallop
GI: Soft, Non Tender, soft distended abdomen, normal Bowel Sounds
Musculoskeletal: No Edema, no deformity
Skin: Warm and dry
: NO Parker
Neuro: Awake, Alert, Nonfocal/grossly intact
Psych: Calm and Intact Judgment/Insight
Ms. Mendez is an 84-year-old female with a medical history of cardiac amyloidosis with HFpEF, paroxysmal A-fib (on low-dose Eliquis, ablation 03/2024), hypertension, and pulmonary hypertension who presented with shortness of breath and edema. She
gained approximately 10 pounds abruptly over the past week prior to arrival and developed leg and abdominal swelling. She was started on IV Lasix and admitted for further evaluation and management of acute on chronic HFpEF.
Acute on chronic HFpEF:
- History of HFpEF due to cardiac amyloidosis
- Received 1 dose of IV Lasix 40 mg yesterday morning, will likely transition to oral Lasix today 10/02
- Continue home spironolactone 25 mg daily and metoprolol succinate 25 mg daily
- Currently close to dry weight reportedly of approximately 45 kg
- Likely discharge home today, will discuss with cardiology
Ascites:
- Suspect secondary to volume overload in the setting of acute on chronic HFpEF
- Status post paracentesis 09/30 with 1.6 L taken off
- SAAG score 2.4 consistent with portal hypertension
- Abdominal ultrasound also shows fatty infiltration of liver, will need follow-up with road roller operator hot mix, discussed with patient
Normocytic anemia:
- Likely dilutional in the setting of volume overload, monitor
Hyponatremia:
- Mild, suspect secondary to volume overload
- Monitor with diuresis
A-fib:
- Currently rate controlled, continue home metoprolol succinate 25 mg daily
- Restarted Eliquis after paracentesis
Cardiac AL amyloidosis:
- Receives monthly chemotherapy with Dr. Lopez, gets dexamethasone prior to treatments
Gallbladder lesion:
- Ultrasound shows 7 mm polypoid lesion arising from the posterior gallbladder wall, recommend ultrasound follow-up in 6 to 12 months
DVT prophylaxis: Eliquis
CODE STATUS: Full code
Total time spent on today's encounter was 40 minutes
Anticipated Discharge: Within 24 hours
Subjective/Interval History
-
Date of Service: October 02, 2024
Patient was seen and examined at bedside this morning. Significant clinical improvement during his hospitalization. She is feeling well this morning. Will likely transition to oral Lasix and discharged home.
Objective Data
-
Labs:
Laboratory Results
10/02/24
07:38
WBC 9.3
Hgb 11.1 L
Hct 32.6 L
Plt Count 203
Sodium 130 L
Potassium 4.0
Chloride 96 L
Carbon Dioxide 31 H
BUN 15
Creatinine 0.6
Glucose 87
Calcium 8.9
Vital Signs:
Vital Signs
Temp Pulse Resp BP Pulse Ox
97.6 F 91 16 109/65 99
10/02/24 08:34 10/02/24 08:34 10/02/24 08:34 10/02/24 08:34 10/01/24 23:40
I&O
10/01/24 10/02/24 10/03/24
06:59 06:59 06:59
Intake Total 1020 / 1020 960 / 960
Output Total 150 / 150 1050 / 1050
Balance 870 / 870 -90 / -90
Review of Systems
-
History Source: Patient
All other systems: Reviewed and negative
Physical Exam
-
General: No Apparent Distress
--- NOTE | 2024-10-02 13:31 | W.PN.CD ---
Today's Communication / Plan
-
Overall patient is feeling well. Stable on telemetry blood pressure and labs appear stable. Sodium remains low at 130 and will need to be monitored as an outpatient.
- Resume oral diuretic Lasix 80 mg twice daily
- Farxiga 10 mg a day was added. She will double check pricing when she goes to her pharmacy
- Would recommend follow-up renal profile in a week
- Continued monitoring of weights
- Patient will need additional follow-up with Dr. Lopez and PCP as well as follow-up in our office
Impression / Plan
-
84-year-old female with past medical history of cardiac amyloidosis with HFpEF, hypertension, paroxysmal atrial fibrillation status post ablation in 04/10, pulmonary hypertension presents with acute on chronic HFpEF exacerbation. Also appears to be
back in atrial fibrillation.
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
Acute on chronic HFmrEF exacerbation - improved with diuresis and s/p paracentesis.
- feels much better today.
- Dry weight 99 lbs, admit weight 115 lbs, BNP 7990, significant abdominal swelling, JVD.
- Weight today 104 lbs.
- Echo 12/15/2023 EF 49%, global hypokinesis, severe LVH, grade 3 diastolic dysfunction, severe TR, pulmonary artery pressure 39 mmHg.
- Weight is down from admission. Some lower blood pressures yesterday which have improved. Resume oral diuretic at Lasix 80 mg twice daily in addition Farxiga 10 mg a day was added.
Ascites - acute.
- Large amount of ascites documented on ultrasound 09/30/2024.
- s/p paracentesis 09/30/24 with 1600ml of fluid removed.
Cardiac AL amyloidosis - receives chemotherapy once monthly with Dr. Lopez, her oncologist.
- Previously saw Dr. Brown at [facility], but commute is too far so has not seen her in a long time.
- Dexamethasone prior to chemo treatments only.
Atrial fibrillation - paroxysmal/
- s/p ablation 04/12/2024.
- Currently in sinus rhythm.
- [id number] 4 - continue Eliquis 2.5 twice daily.
Hypertension - chronically low/normal BP.
- Stable on Lasix, Aldactone and Toprol at home with SBP in the 90s.
- Continue metoprolol 25 once daily.
Hyponatremia - stable, monitor with diuresis.
Osteoarthritis
Pulmonary hypertension
Full code
DVT Eliquis
Physical Exam
Vital Signs/Labs
Vital Signs
Temp Pulse Resp BP Pulse Ox
96.2 F L 75 12 118/61 100
10/02/24 11:00 10/02/24 11:00 10/02/24 11:00 10/02/24 11:00 10/02/24 11:00
10/01/24 10/02/24 10/03/24
06:59 06:59 06:59
Actual Weight 47.31 kg 47.741 kg
10/02/24 07:38
10/02/24 07:38
Magnesium 1.9 mg/dl (1.6-2.3) 09/30/24 05:34
Triglycerides 54 mg/dl (10-149) 09/30/24 05:34
LDL Cholesterol, Calc 80 mg/dl 09/30/24 05:34
VLDL Cholesterol, Calc 10 mg/dl (0-30) 09/30/24 05:34
HDL Cholesterol 26 mg/dl 09/30/24 05:34
Free T4 1.70 ng/dl (0.78-2.19) 09/30/24 05:34
09/29/24
11:02
Oqn-D-Rduymiyfuix Pept 7990
Physical Exam
Constitutional: No acute distress
Cardiovascular: Rhythm & rate is regular
Respiratory: Crackles Absent and Rhonchi Absent
GI: Soft and Other (Distended. Nontender soft)
Neuro/Psych: Alert
Data Reviewed
-
Date of Service: October 02, 2024
Medical Decision Making: Reviewed Test Results
Medical Tests (PFT, Pathology etc): Report Reviewed by me
Labs: Labs Reviewed by me
[2024-10-02] MEDS: LASIX 80 MG PO (14:17)
[2024-10-02] MEDS: FARXIGA 10 MG PO (14:17)
--- NOTE | 2024-10-02 14:32 | W.DCSUMMARY ---
Discharge Summary
Discharge Data
Date of Admission: 09/29/24
Date of Discharge: 10/02/24
Total time spent discharging patient (in min): 40
-
Pending Results: No
Hospital Course
Ms. Mendez is an 84-year-old female with a medical history of cardiac amyloidosis with HFpEF, paroxysmal A-fib (on low-dose Eliquis, ablation 03/2024), hypertension, and pulmonary hypertension who presented with shortness of breath and edema. She
gained approximately 10 pounds abruptly over the past week prior to arrival and developed leg and abdominal swelling. She was started on IV Lasix and admitted for further evaluation and management of acute on chronic HFpEF.
She diuresed well with IV Lasix and rapidly returned to close to her dry weight of approximately 45 kg. Spironolactone and Farxiga were added to her regimen. She underwent paracentesis on 09/30 with 1.6 L off. Fluid studies were consistent with
portal hypertension. Abdominal ultrasound showed and infiltrative fatty liver disease and a 7 mm polypoid lesion arising from the posterior gallbladder wall. She was instructed to follow-up closely with a agriculture internship for further evaluation
and management. She was able be transitioned to oral Lasix. She was medically stable for discharge to home with instructions to continue Lasix, spironolactone, and Farxiga. She will need close follow-up with cardiology and repeat labs in 1 week
to monitor her electrolytes. She is also to follow-up closely with her primary care physician.
General: No Apparent Distress, Comfortable and Conversant
HEENT: NormoCephalic, Moist mucous membranes, Atraumatic
Respiratory: Clear breath sounds bilaterally, Non Labored Respirations
Cardiac: S1/S2 and Regular Rhythm; No Rub or Gallop
GI: Soft, Non Tender, soft distended abdomen, normal Bowel Sounds
Musculoskeletal: No Edema, no deformity
Skin: Warm and dry
: NO Parker
Neuro: Awake, Alert, Nonfocal/grossly intact
Psych: Calm and Intact Judgment/Insight
Discharge Plan
-
Patient Disposition: Home (Routine Discharge)
Discharge Diagnosis/Procedures: Acute on chronic HFpEF, ascites
Others Tests: Follow-up with agriculture internship regarding fatty liver disease, repeat abdominal ultrasound in 6 to 12 months for reevaluation of 7 mm gallbladder polyp
Activity Restrictions/Additional Instructions:
Ms. Mendez is an 84-year-old female with a medical history of cardiac amyloidosis with HFpEF, paroxysmal A-fib (on low-dose Eliquis, ablation 03/2024), hypertension, and pulmonary hypertension who presented with shortness of breath and edema. She
gained approximately 10 pounds abruptly over the past week prior to arrival and developed leg and abdominal swelling. She was started on IV Lasix and admitted for further evaluation and management of acute on chronic HFpEF.
She diuresed well with IV Lasix and rapidly returned to close to her dry weight of approximately 45 kg. Spironolactone and Farxiga were added to her regimen. She underwent paracentesis on 09/30 with 1.6 L off. Fluid studies were consistent with
portal hypertension. Abdominal ultrasound showed and infiltrative fatty liver disease and a 7 mm polypoid lesion arising from the posterior gallbladder wall. She was instructed to follow-up closely with a agriculture internship for further evaluation
and management. She was able be transitioned to oral Lasix. She was medically stable for discharge to home with instructions to continue Lasix, spironolactone, and Farxiga. She will need close follow-up with cardiology and repeat labs in 1 week
to monitor her electrolytes. She is also to follow-up closely with her primary care physician.
Referrals:
Jairo Newsome MD [Active, Gastroenterology]
Referral Note: Fatty liver disease noted on US, hx of amyloidosis, recent hospitalization for HFpEF w ascites requiring paracentesis, also w US finding of 7mm GB polyp
Jaz Weinstein MD [Family Provider, [facility]]
Prescriptions:
New
spironolactone 25 mg Tablet
25 mg PO DAILY 30 Days Qty: 30 0RF
furosemide 80 mg Tablet
80 mg PO BID@0800,1600 30 Days Qty: 60 0RF
dapagliflozin propanediol [Farxiga] 5 mg tablet
5 mg PO DAILY 30 Days Qty: 30 0RF
Continued
dexamethasone 4 mg tablet
40 mg PO DIRECTED
Rx Instructions:
take 10 tablet on chemo days
Eliquis 2.5 mg Tablet
2.5 mg PO BID 30 Days Qty: 60 0RF
diphenhydramine HCl 50 mg Capsule
50 mg PO DIRECTED
metoprolol succinate [Toprol XL] 25 mg Tablet Extended Release 24 Hr
25 mg PO DAILY
magnesium oxide 400 mg magnesium Tablet
400 mg PO DAILY
Discontinued
furosemide 40 MG tablet
80 mg PO DAILY
Discharge Orders:
Discharge Patient (As Directed); Ordered 10/02/24
Ordered By: Van Lopez
Discharge Date and Time
Print Language: KINYARWANDA
== END 2024-10-02 15:56 | disposition home or self-care (01) | DRG 291 ==
LOC: 3 WEST ACU 13:05
PROVIDERS: Physician Assistant; Radiology Vascular & Interventional Radiology; Registered Nurse; ADMITTING PHYSICIAN Internal Medicine; ATTENDING PHYSICIAN Internal Medicine; CONSULT PHYSICIAN Internal Medicine Cardiovascular Disease; EMERGENCY PHYSICIAN Emergency Medicine; FAMILY PHYSICIAN Family Medicine
PROC: 0W9G3ZZ Drainage of Peritoneal Cavity, Percutaneous Approach (ICD-10-PCS; 2024-09-30)
DX: I11.0 Hypertensive heart disease with heart failure (principal); I50.33 Acute on chronic diastolic (congestive) heart failure; E85.4 Organ-limited amyloidosis; R18.8 Other ascites; I48.92 Unspecified atrial flutter; E87.1 Hypo-osmolality and hyponatremia; K76.6 Portal hypertension; I43 Cardiomyopathy in diseases classified elsewhere; K76.0 Fatty (change of) liver, not elsewhere classified; Z79.899 Other long term (current) drug therapy; Z79.01 Long term (current) use of anticoagulants; I48.0 Paroxysmal atrial fibrillation; Z96.641 Presence of right artificial hip joint; Z96.653 Presence of artificial knee joint, bilateral; Z88.8 Allergy status to other drugs, medicaments and biological substances; D64.9 Anemia, unspecified; I27.20 Pulmonary hypertension, unspecified
CPT/HCPCS: 49083; 71046; 76700; 80048; 80053; 80061; 82042; 83735; 83880; 84157; 84439; 84443; 84484; 85025; 85027; 87015; 87070; 87205; 89051; 93005; 93306; 96374; 99285

== ENCOUNTER → 2024-10-11 08:33 | Outpatient (REF) | payer OTHER, SELFPAY ==
[2024-10-11 09:32] LABS: Hematocrit 36.5 % (37.0-47.0); Hemoglobin 11.8 g/dL (12.0-16.0); Mean Corp Hgb Conc. 32.3 g/dL (33.0-37.0); Mean Corpuscular Volume 88.0 fL (81.0-99.0); Nucleated Red Blood Cells % 0 %; Platelet Count 234 10^3/uL (130-400); Red Cell Dist. Width 16.8 % (11.5-14.5)
[2024-10-11 09:52] LABS: Troponin I 0.034 ng/ml
[2024-10-11 10:25] LABS: ALT (SGPT) 17 U/L (0-35); AST (SGOT) 32 U/L (14-36); Albumin 4.1 g/dl (3.5-5.0); Alkaline Phosphatase 104 U/L (38-126); Blood Urea Nitrogen 21 mg/dl (7-17); Calcium 8.9 mg/dl (8.4-10.2); Carbon Dioxide 30 mmol/L (22-30); Chloride 92 mmol/L (98-107); Glucose 178 mg/dl (70-99); Potassium 3.9 mmol/L (3.5-5.1); Sodium 131 mmol/L (135-145); Total Protein 6.0 g/dl (6.3-8.2); eGFR > 60.00
[2024-10-13 23:56] LABS: Albumin 3.67 g/dL (3.75-5.01); Free Kappa Light Chains,Quant 6.85 mg/L (3.30-19.40); Free Lambda Light Chains,Quant 8.02 mg/L (5.71-26.30); Immunofixation Electrophoresis IFE Done; Kappa/Lambda Fr Light Ratio 0.85 (0.26-1.65); Total Protein-Electrophoresis 5.8 g/dL (6.3-8.2)
== END ==
LOC: REG 08:33
PROVIDERS: ATTENDING PHYSICIAN Internal Medicine Hematology & Oncology; FAMILY PHYSICIAN Family Medicine
DX: E85.4 Organ-limited amyloidosis (principal); R53.83 Other fatigue; R60.0 Localized edema; R06.00 Dyspnea, unspecified; M62.81 Muscle weakness (generalized); I50.33 Acute on chronic diastolic (congestive) heart failure
CPT/HCPCS: 36415; 80053; 82784; 83521; 83880; 84155; 84165; 84484; 85025; 86334

== ENCOUNTER → 2024-11-01 08:28 | Outpatient (REF) | payer OTHER, SELFPAY ==
[2024-11-01 09:03] LABS: Hematocrit 34.2 % (37.0-47.0); Hemoglobin 10.9 g/dL (12.0-16.0); Mean Corp Hgb Conc. 31.9 g/dL (33.0-37.0); Mean Corpuscular Volume 87.0 fL (81.0-99.0); Nucleated Red Blood Cells % 0 %; Platelet Count 191 10^3/uL (130-400); Red Cell Dist. Width 17.1 % (11.5-14.5)
[2024-11-01 09:47] LABS: ALT (SGPT) 16 U/L (0-35); AST (SGOT) 31 U/L (14-36); Albumin 4.2 g/dl (3.5-5.0); Alkaline Phosphatase 131 U/L (38-126); Blood Urea Nitrogen 24 mg/dl (7-17); Calcium 9.3 mg/dl (8.4-10.2); Carbon Dioxide 27 mmol/L (22-30); Chloride 92 mmol/L (98-107); Glucose 205 mg/dl (70-99); Potassium 5.2 mmol/L (3.5-5.1); Sodium 128 mmol/L (135-145); Total Protein 5.9 g/dl (6.3-8.2); eGFR > 60.00
[2024-11-04 02:05] LABS: Albumin 3.66 g/dL (3.75-5.01); Free Kappa Light Chains,Quant 7.08 mg/L (3.30-19.40); Free Lambda Light Chains,Quant 10.34 mg/L (5.71-26.30); Immunofixation Electrophoresis IFE Done; Kappa/Lambda Fr Light Ratio 0.68 (0.26-1.65); Total Protein-Electrophoresis 5.6 g/dL (6.3-8.2)
== END ==
LOC: REG 08:28
PROVIDERS: ATTENDING PHYSICIAN Internal Medicine Hematology & Oncology; FAMILY PHYSICIAN Family Medicine
DX: E85.4 Organ-limited amyloidosis (principal); R53.83 Other fatigue; R60.0 Localized edema; R06.00 Dyspnea, unspecified; M62.81 Muscle weakness (generalized)
CPT/HCPCS: 36415; 80053; 82784; 83521; 84155; 84165; 85025; 86334

== ENCOUNTER → 2024-11-08 08:34 | Outpatient (REF) | payer OTHER, SELFPAY ==
[2024-11-08 09:36] LABS: Hematocrit 31.6 % (37.0-47.0); Hemoglobin 10.6 g/dL (12.0-16.0); Mean Corp Hgb Conc. 33.5 g/dL (33.0-37.0); Mean Corpuscular Volume 85.6 fL (81.0-99.0); Nucleated Red Blood Cells % 0 %; Platelet Count 227 10^3/uL (130-400); Red Cell Dist. Width 17.3 % (11.5-14.5)
[2024-11-08 10:20] LABS: ALT (SGPT) 18 U/L (0-35); AST (SGOT) 33 U/L (14-36); Albumin 4.2 g/dl (3.5-5.0); Alkaline Phosphatase 124 U/L (38-126); Blood Urea Nitrogen 23 mg/dl (7-17); Calcium 9.1 mg/dl (8.4-10.2); Carbon Dioxide 27 mmol/L (22-30); Chloride 91 mmol/L (98-107); Glucose 126 mg/dl (70-99); Potassium 4.8 mmol/L (3.5-5.1); Sodium 127 mmol/L (135-145); Total Protein 6.0 g/dl (6.3-8.2); eGFR 55.21
== END ==
LOC: REG 08:34
PROVIDERS: ATTENDING PHYSICIAN Internal Medicine Hematology & Oncology; FAMILY PHYSICIAN Family Medicine
DX: E85.4 Organ-limited amyloidosis (principal); R53.83 Other fatigue; R60.0 Localized edema; R06.00 Dyspnea, unspecified; M62.81 Muscle weakness (generalized)
CPT/HCPCS: 36415; 80053; 85025

== ENCOUNTER → 2024-11-10 16:21 | Outpatient (REF) | payer OTHER, SELFPAY ==
[2024-11-10 13:29] LABS: Magnesium 2.3 mg/dl (1.6-2.3)
== END ==
LOC: OIDL 16:21
PROVIDERS: ATTENDING PHYSICIAN Internal Medicine Hematology & Oncology
DX: E85.4 Organ-limited amyloidosis (principal); R53.83 Other fatigue; R60.0 Localized edema; R06.00 Dyspnea, unspecified; M62.81 Muscle weakness (generalized)
CPT/HCPCS: 83735; 84443

== ENCOUNTER → 2024-11-29 09:00 | Outpatient (REF) | payer OTHER, SELFPAY ==
[2024-11-29 09:51] LABS: Hematocrit 33.0 % (37.0-47.0); Hemoglobin 10.7 g/dL (12.0-16.0); Mean Corp Hgb Conc. 32.4 g/dL (33.0-37.0); Mean Corpuscular Volume 87.8 fL (81.0-99.0); Nucleated Red Blood Cells % 0 %; Platelet Count 158 10^3/uL (130-400); Red Cell Dist. Width 19.4 % (11.5-14.5)
[2024-11-29 10:10] LABS: ALT (SGPT) 17 U/L (0-35); AST (SGOT) 26 U/L (14-36); Albumin 4.0 g/dl (3.5-5.0); Alkaline Phosphatase 133 U/L (38-126); Blood Urea Nitrogen 22 mg/dl (7-17); Calcium 9.4 mg/dl (8.4-10.2); Carbon Dioxide 32 mmol/L (22-30); Chloride 92 mmol/L (98-107); Glucose 193 mg/dl (70-99); Potassium 4.5 mmol/L (3.5-5.1); Sodium 131 mmol/L (135-145); Total Protein 6.0 g/dl (6.3-8.2); eGFR > 60.00
[2024-11-29 10:12] LABS: Troponin I 0.031 ng/ml
[2024-12-02 02:12] LABS: Albumin 3.68 g/dL (3.75-5.01); Free Kappa Light Chains,Quant 5.44 mg/L (3.30-19.40); Free Lambda Light Chains,Quant 8.69 mg/L (5.71-26.30); Immunofixation Electrophoresis IFE Done; Kappa/Lambda Fr Light Ratio 0.63 (0.26-1.65); Total Protein-Electrophoresis 5.7 g/dL (6.3-8.2)
== END ==
LOC: REG 09:00
PROVIDERS: ATTENDING PHYSICIAN Internal Medicine Hematology & Oncology; FAMILY PHYSICIAN Family Medicine; OTHER PHYSICIAN Internal Medicine Cardiovascular Disease
DX: E85.4 Organ-limited amyloidosis (principal); R53.83 Other fatigue; R60.0 Localized edema; M62.81 Muscle weakness (generalized); I50.32 Chronic diastolic (congestive) heart failure
CPT/HCPCS: 36415; 80053; 82784; 83521; 83880; 84100; 84155; 84165; 84484; 85025; 86334

== ENCOUNTER → 2024-12-14 10:31 | Outpatient (REF) | payer OTHER, SELFPAY ==
[2024-12-14 10:40] VITALS: BP 106/69; BP_SYST 67
[2024-12-14 11:20] VITALS: BP 102/62; BP_SYST 62
[2024-12-14 11:41] VITALS: BP 102/62
[2024-12-14 12:32] LABS: Body Fluid Second Tech ASW
== END ==
LOC: RADI 10:31
PROVIDERS: ATTENDING PHYSICIAN Internal Medicine Hematology & Oncology; FAMILY PHYSICIAN Family Medicine
DX: R18.8 Other ascites (principal)
CPT/HCPCS: 49083; 89051

== ENCOUNTER → 2025-01-03 10:10 | Outpatient (REF) | payer OTHER, SELFPAY ==
[2025-01-03 11:18] LABS: Hematocrit 35.7 % (37.0-47.0); Hemoglobin 11.8 g/dL (12.0-16.0); Mean Corp Hgb Conc. 33.1 g/dL (33.0-37.0); Mean Corpuscular Volume 87.5 fL (81.0-99.0); Nucleated Red Blood Cells % 0 %; Platelet Count 241 10^3/uL (130-400); Red Cell Dist. Width 19.3 % (11.5-14.5)
[2025-01-03 11:32] LABS: Troponin I 0.031 ng/ml
[2025-01-03 11:44] LABS: ALT (SGPT) 16 U/L (0-35); AST (SGOT) 28 U/L (14-36); Albumin 3.7 g/dl (3.5-5.0); Alkaline Phosphatase 123 U/L (38-126); Blood Urea Nitrogen 21 mg/dl (7-17); Calcium 9.1 mg/dl (8.4-10.2); Carbon Dioxide 33 mmol/L (22-30); Chloride 92 mmol/L (98-107); Glucose 129 mg/dl (70-99); Potassium 4.6 mmol/L (3.5-5.1); Sodium 128 mmol/L (135-145); Total Protein 5.8 g/dl (6.3-8.2); eGFR > 60.00
[2025-01-06 00:05] LABS: Albumin 3.38 g/dL (3.75-5.01); Free Kappa Light Chains,Quant 5.95 mg/L (3.30-19.40); Free Lambda Light Chains,Quant 8.02 mg/L (5.71-26.30); Immunofixation Electrophoresis IFE Done; Kappa/Lambda Fr Light Ratio 0.74 (0.26-1.65); Total Protein-Electrophoresis 5.4 g/dL (6.3-8.2)
== END ==
LOC: REG 10:10
PROVIDERS: ATTENDING PHYSICIAN Internal Medicine Hematology & Oncology; FAMILY PHYSICIAN Family Medicine
DX: E85.4 Organ-limited amyloidosis (principal); R53.83 Other fatigue; R60.0 Localized edema; R06.00 Dyspnea, unspecified; M62.81 Muscle weakness (generalized)
CPT/HCPCS: 36415; 80053; 82784; 83521; 83880; 84155; 84165; 84484; 85025; 86334

== ENCOUNTER 2025-01-14 14:11 | Emergency (ER) | payer OTHER, SELFPAY ==
[2025-01-14] VITALS (7 sets, daily range): BP systolic 105–116; BP diastolic 65–74; BMI 23.6
--- NOTE | 2025-01-14 15:54 | ED.GENMED ---
History of Present Illness
<Christiana Garcias MD, Resident - Last Filed: 01/15/25 14:57>
General
Chief Complaint: Fall
Source: patient
Time Seen by Provider: 01/14/25 15:14
History of Present Illness
History of Present Illness:
84-year-old female with past medical history of paroxysmal atrial fibrillation on Eliquis, cardiac amyloidosis with regular paracentesis presents to the ED with a fall. This afternoon, she fell in the kitchen hitting her head. She believes she
felt tripped over her walker however is unsure. She denies any dizziness, heart palpitations, chest pain, lightheadedness, nausea prior to the fall. Her and her live at [facility] and the staff there recommended her to come to the ER for
further evaluation. The back of her head was bleeding. She endorses pain at the back of her head, she denies any neck pain, blurry vision, numbness or tingling, weakness of her extremities.
Past History
<Christiana Garcias MD, Resident - Last Filed: 01/15/25 14:57>
Past History
ED Past Medical History: HTN, Other (Amyloidosis with pleural effusions) and Other (Cardiac amyloidosis, paroxysmal atrial fibrillation, osteoarthritis, pulmonary hypertension)
ED Past Surgical History: Orthopedic (Hip and knee replacement Bilaterally, Bone marrow biopsy,)
Social History
Tobacco: Non-smoker
Alcohol: Occasional
Drug: None
Personal:
Living: with family
Family History
Family History: Other (Noncontributory)
Review of Systems
<Christiana Garcias MD, Resident - Last Filed: 01/15/25 14:57>
Review of Systems
Allergies reviewed?: Yes
Constitutional: Reports no symptoms
EENT: Reports no symptoms
Respiratory: Reports no symptoms
Cardiac: Reports no symptoms
ABD/GI: Reports no symptoms
: Reports no symptoms
Musculoskeletal: Reports no symptoms
Skin: Reports no symptoms
Neurological: Reports headache
Endocrine: Reports no symptoms
Hematologic/Lymphatic: Reports bleeding
Psychiatric: Reports no symptoms
Phy Exam
<Christiana Garcias MD, Resident - Last Filed: 01/15/25 14:57>
Physical Exam
Physical Exam:
General: Quiet, withdrawn, but non-toxic
Eye: PERRLA
ENT: No vazquez signs, raccoon sign, no hemotympanum
Head: Large parietal scalp hematoma with central abrasion. Bleeding has stopped. PERRLA
Neck: No cervical or thoracic midline tenderness, Full ROM
Cardiac: Regular S1, S2, end diastolic murmur heard at left sternal boader
Respiratory: Diffuse crackles bilaterally
Abdomen: Distended, fluid shift present, nontender, normal bowel sounds in all 4 quadrants
Neurological: CN II-XII, Bilateral upper and lower extremity strength 5/5, sensation intact, NIH 0
Extremities: Peripheral edema 3+
Psych: Calm
Course
<Christiana Garcias MD, Resident - Last Filed: 01/15/25 14:57>
Orders/Labs/Results
Orders:
Orders
01/14/25 14:12
CT Head W/o Iv Contrast Urgent
Comment:
Reason For Exam: fall, on eliquis
01/14/25 15:53
CT Cervical Spine W/o Iv Contr Urgent
Comment:
Reason For Exam: Fall, on anti-coagulation
01/14/25 16:55
Complete Blood Count/No Diff Urgent
Comprehensive Metabolic Panel Urgent
Abnormal Lab Results
01/14/25
16:55
WBC 11.6 H 10^3/uL
(4.8-10.8)
RBC 4.16 L 10^6/uL
(4.20-5.40)
Hgb 11.6 L g/dL
(12.0-16.0)
Hct 36.3 L %
(37.0-47.0)
MCHC 32.0 L g/dL
(33.0-37.0)
RDW 18.9 H %
(11.5-14.5)
Sodium 130 L mmol/L
(135-145)
Chloride 90 L mmol/L
(98-107)
Carbon Dioxide 32 H mmol/L
(22-30)
BUN 20 H mg/dl
(7-17)
Glucose 112 H mg/dl
(70-99)
Total Bilirubin 1.7 H mg/dl
(0.2-1.3)
Total Protein 5.8 L g/dl
(6.3-8.2)
01/14/25 16:55
01/14/25 16:55
Vital Signs
Initial and Last Documented VS:
Initial Vital Signs
Temp Pulse Resp BP Pulse Ox
98.2 F 76 16 109/67 98
01/14/25 14:14 01/14/25 14:14 01/14/25 14:14 01/14/25 14:14 01/14/25 14:14
Last Documented Vital Signs
Temp Pulse Resp BP Pulse Ox
98.2 F 82 15 110/65 93
01/14/25 14:14 01/14/25 20:00 01/14/25 20:00 01/14/25 20:00 01/14/25 19:00
<Buster Navarrete DO - Last Filed: 01/14/25 16:39>
Orders/Labs/Results
Orders:
Orders
01/14/25 14:12
CT Head W/o Iv Contrast Urgent
Comment:
Reason For Exam: fall, on eliquis
01/14/25 15:53
CT Cervical Spine W/o Iv Contr Urgent
Comment:
Reason For Exam: Fall, on anti-coagulation
01/14/25 16:55
Complete Blood Count/No Diff Urgent
Comprehensive Metabolic Panel Urgent
Abnormal Lab Results
01/14/25
16:55
WBC 11.6 H 10^3/uL
(4.8-10.8)
RBC 4.16 L 10^6/uL
(4.20-5.40)
Hgb 11.6 L g/dL
(12.0-16.0)
Hct 36.3 L %
(37.0-47.0)
MCHC 32.0 L g/dL
(33.0-37.0)
RDW 18.9 H %
(11.5-14.5)
Sodium 130 L mmol/L
(135-145)
Chloride 90 L mmol/L
(98-107)
Carbon Dioxide 32 H mmol/L
(22-30)
BUN 20 H mg/dl
(7-17)
Glucose 112 H mg/dl
(70-99)
Total Bilirubin 1.7 H mg/dl
(0.2-1.3)
Total Protein 5.8 L g/dl
(6.3-8.2)
01/14/25 16:55
01/14/25 16:55
Vital Signs
Initial and Last Documented VS:
Initial Vital Signs
Temp Pulse Resp BP Pulse Ox
98.2 F 76 16 109/67 98
01/14/25 14:14 01/14/25 14:14 01/14/25 14:14 01/14/25 14:14 01/14/25 14:14
Last Documented Vital Signs
Temp Pulse Resp BP Pulse Ox
98.2 F 82 15 110/65 93
01/14/25 14:14 01/14/25 20:00 01/14/25 20:00 01/14/25 20:00 01/14/25 19:00
<Christiana Garcias MD, Resident - Last Filed: 01/15/25 14:57>
MDM/Problems Addressed
Differential Diagnosis Includes:
Scalp hematoma, fracture, abrasion, intracranial bleed, cervical neck fracture,
MDM/Problems Addressed:
Non-con head CT revealed nondisplaced right occipital fracture without any acute intracranial abnormality identified. Large right partial scalp hematoma. Cervical spine CT revealed slight reversal of the normal cervical lordotic curvature,
degenerative changes however no findings to suggest recent cervical spine fracture. Discussed with Dr. Mancuso neurosurgery and kikaay to transferred to [facility] for further observation of occipital fracture due to co-morbidities and being on
eliquis. Admitting doctor is Dr. Erazo. WBC 11.6 likely reactive. Son at bedside and okay with the plan. She has been stable the duration of her time in the ER.
Chronic conditions affecting care: Cardiomyopathy and Arrhythmia
Acute Exacerbation and/or Progression of Chronic Illness: Cardiomyopathy and Arrhythmia
<Christiana Garcias MD, Resident - Last Filed: 01/15/25 14:57>
*Pulse Oximetry
SaO2: 95
Oxygen Mode of Delivery: Room air
Patient hypoxic: no
*Critical Care Note
Total Time (30-74mins, 75-104mins- exclusive of procedures): Not Applicable
Data Reviewed
Review of Other/Old Records Reveals: Labs (Sodium 128 on 01/03/2025, T. bili 1.6 on 01/03/2025) and Radiology Studies (09/29/2024 echocardiogram EF 50-55%, severe concentric LVH, grade 2 diastolic dysfunction)
Source: patient, records and family
ED Attending Note
<Christiana Garcias MD, Resident - Last Filed: 01/15/25 14:57>
-
Portions of this chart may have been created with voice recognition software.� Occasional wrong word or��sound alike� substitutions may have occurred due to the inherent limitations of voice recognition software.
<Buster Navarrete DO - Last Filed: 01/14/25 16:39>
ED Attending Note
Patient seen and examined by attending physician: Yes
I performed a history and physical exam of patient and discussed management with resident, I reviewed resident's note and agree with documented findings and plan of care.: Yes
Discharge Plan
Departure
Patient Disposition: Acute Care Hospital
Date of Disposition: 01/14/25
Time of Disposition: 16:39
Discharge Problem:
Closed skull fracture, Head injury, Hematoma
Prescriptions:
No Action
dexamethasone 4 mg tablet
40 mg PO DIRECTED
Rx Instructions:
take 10 tablet on chemo days
Eliquis 2.5 mg Tablet
2.5 mg PO BID 30 Days Qty: 60 0RF
diphenhydramine HCl 50 mg Capsule
50 mg PO DIRECTED
metoprolol succinate [Toprol XL] 25 mg Tablet Extended Release 24 Hr
25 mg PO DAILY
magnesium oxide 400 mg magnesium Tablet
400 mg PO DAILY
spironolactone 25 mg Tablet
25 mg PO DAILY 30 Days Qty: 30 0RF
furosemide 80 mg Tablet
80 mg PO BID@0800,1600 30 Days Qty: 60 0RF
dapagliflozin propanediol [Farxiga] 5 mg tablet
5 mg PO DAILY 30 Days Qty: 30 0RF
Referrals:
Jaz Weinstein MD [Family Provider, Family Practice]
Hospital Transfer
Other hospital: [facility]
I certify that the patient requires transfer: Yes
Discussed case with accepting physician: Dr. Erazo
Reason for transfer: higher level of care
Interventions
Interventions:
*Risk Screen - Suicide Last Done: 01/14/25 14:14
*General Assessment Last Done: 01/14/25 14:14
*Neglect/Abuse Screening Last Done: 01/14/25 14:14
*ED- Fall Risk Assessment Last Done: 01/14/25 20:15
*ED COVID-19 Vaccine History Last Done: 01/14/25 20:15
*ED Influenza Vaccine History Last Done: 01/14/25 20:15
*Nursing Disposition Last Done: 01/14/25 20:15
ED-Musculoskeletal Assessment Last Done: 01/14/25 15:18
ED- Neurological Assessment Last Done: 01/14/25 15:18
ED-Skin Assessment Last Done: 01/14/25 15:18
Discharge Date and Time
Discharge Date/Time: 01/14/25 20:16
Print Language: SETSWANA
[2025-01-14 17:04] LABS: Hematocrit 36.3 % (37.0-47.0); Hemoglobin 11.6 g/dL (12.0-16.0); Mean Corp Hgb Conc. 32.0 g/dL (33.0-37.0); Mean Corpuscular Volume 87.3 fL (81.0-99.0); Platelet Count 226 10^3/uL (130-400); Red Cell Dist. Width 18.9 % (11.5-14.5)
[2025-01-14 17:39] LABS: ALT (SGPT) 14 U/L (0-35); AST (SGOT) 27 U/L (14-36); Albumin 3.9 g/dl (3.5-5.0); Alkaline Phosphatase 124 U/L (38-126); Blood Urea Nitrogen 20 mg/dl (7-17); Calcium 9.2 mg/dl (8.4-10.2); Carbon Dioxide 32 mmol/L (22-30); Chloride 90 mmol/L (98-107); Estimated Creatinine Clearance 35 ml/min; Glucose 112 mg/dl (70-99); Potassium 4.3 mmol/L (3.5-5.1); Sodium 130 mmol/L (135-145); Total Protein 5.8 g/dl (6.3-8.2); eGFR > 60.00
== END 2025-01-14 20:16 | disposition short-term general hospital (02) ==
LOC: EMR 14:11
PROVIDERS: EMERGENCY PHYSICIAN Emergency Medicine; FAMILY PHYSICIAN Family Medicine
DX: S02.91XA Unspecified fracture of skull, initial encounter for closed fracture (principal); S09.90XA Unspecified injury of head, initial encounter; S00.03XA Contusion of scalp, initial encounter; W19.XXXA Unspecified fall, initial encounter; Y92.000 Kitchen of unspecified non-institutional (private) residence as the place of occurrence of the external cause; I48.0 Paroxysmal atrial fibrillation; I10 Essential (primary) hypertension; I27.20 Pulmonary hypertension, unspecified; I42.9 Cardiomyopathy, unspecified; M16.0 Bilateral primary osteoarthritis of hip; M47.812 Spondylosis without myelopathy or radiculopathy, cervical region; Z79.01 Long term (current) use of anticoagulants; Z96.653 Presence of artificial knee joint, bilateral
CPT/HCPCS: 99285; 70450; 72125; 80053; 85027

== ENCOUNTER → 2025-01-20 12:34 | Outpatient (REF) | payer OTHER, SELFPAY ==
[2025-01-20 12:48] VITALS: BP 90/57; BP_SYST 72
[2025-01-20 13:32] VITALS: BP 88/56; BP_SYST 72
[2025-01-20 16:50] LABS: Body Fluid Second Tech EYM
== END ==
LOC: RADI 12:34
PROVIDERS: ATTENDING PHYSICIAN Internal Medicine Hematology & Oncology; FAMILY PHYSICIAN Family Medicine
DX: R18.8 Other ascites (principal); E85.4 Organ-limited amyloidosis; I43 Cardiomyopathy in diseases classified elsewhere
CPT/HCPCS: 49083; 89051

== ENCOUNTER → 2025-01-21 11:33 | Outpatient (REF) | payer OTHER, SELFPAY ==
[2025-01-21 12:15] LABS: Hematocrit 30.6 % (37.0-47.0); Hemoglobin 9.8 g/dL (12.0-16.0); Mean Corp Hgb Conc. 32.0 g/dL (33.0-37.0); Mean Corpuscular Volume 87.9 fL (81.0-99.0); Nucleated Red Blood Cells % 0 %; Platelet Count 185 10^3/uL (130-400); Red Cell Dist. Width 18.8 % (11.5-14.5)
[2025-01-21 12:21] LABS: ALT (SGPT) 18 U/L (0-35); AST (SGOT) 33 U/L (14-36); Albumin 3.0 g/dl (3.5-5.0); Alkaline Phosphatase 111 U/L (38-126); Blood Urea Nitrogen 18 mg/dl (7-17); Calcium 8.7 mg/dl (8.4-10.2); Carbon Dioxide 35 mmol/L (22-30); Chloride 91 mmol/L (98-107); Glucose 111 mg/dl (70-99); Magnesium 2.2 mg/dl (1.6-2.3); Potassium 3.9 mmol/L (3.5-5.1); Sodium 127 mmol/L (135-145); Total Protein 4.9 g/dl (6.3-8.2); eGFR > 60.00
== END ==
LOC: OLABWHC 11:33
PROVIDERS: ATTENDING PHYSICIAN Family Medicine
DX: S02.119D Unspecified fracture of occiput, subsequent encounter for fracture with routine healing (principal); E85.4 Organ-limited amyloidosis
CPT/HCPCS: 36415; 80053; 83735; 85025

== ENCOUNTER → 2025-01-24 12:52 | Outpatient (REF) | payer OTHER, SELFPAY ==
[2025-01-24 13:24] LABS: Hematocrit 31.1 % (37.0-47.0); Hemoglobin 10.5 g/dL (12.0-16.0); Mean Corp Hgb Conc. 33.8 g/dL (33.0-37.0); Mean Corpuscular Volume 85.2 fL (81.0-99.0); Nucleated Red Blood Cells % 0 %; Platelet Count 246 10^3/uL (130-400); Red Cell Dist. Width 18.7 % (11.5-14.5)
[2025-01-24 13:29] LABS: ALT (SGPT) 20 U/L (0-35); AST (SGOT) 32 U/L (14-36); Albumin 3.4 g/dl (3.5-5.0); Alkaline Phosphatase 140 U/L (38-126); Blood Urea Nitrogen 13 mg/dl (7-17); Calcium 8.6 mg/dl (8.4-10.2); Carbon Dioxide 31 mmol/L (22-30); Chloride 93 mmol/L (98-107); Glucose 107 mg/dl (70-99); Magnesium 2.3 mg/dl (1.6-2.3); Potassium 3.4 mmol/L (3.5-5.1); Sodium 128 mmol/L (135-145); Total Protein 5.4 g/dl (6.3-8.2); eGFR > 60.00
[2025-01-24 13:52] LABS: Troponin I 0.067 ng/ml
== END ==
LOC: OLABWHC 12:52
PROVIDERS: ATTENDING PHYSICIAN Family Medicine
DX: S02.119D Unspecified fracture of occiput, subsequent encounter for fracture with routine healing (principal); I27.20 Pulmonary hypertension, unspecified; I48.0 Paroxysmal atrial fibrillation
CPT/HCPCS: 36415; 80053; 83735; 83880; 84484; 85025

== ENCOUNTER → 2025-02-04 13:11 | Outpatient (REF) | payer OTHER, SELFPAY ==
[2025-02-04 13:27] VITALS: BP 104/65; BP_SYST 74
[2025-02-04 13:54] VITALS: BP 104/65; BP_SYST 74
[2025-02-04 13:58] VITALS: BP 96/61
[2025-02-04 15:30] LABS: Body Fluid Second Tech BGK
== END ==
LOC: RADI 13:11
PROVIDERS: ATTENDING PHYSICIAN Internal Medicine Hematology & Oncology; FAMILY PHYSICIAN Family Medicine
DX: R18.8 Other ascites (principal); E85.4 Organ-limited amyloidosis; I43 Cardiomyopathy in diseases classified elsewhere
CPT/HCPCS: 49083; 89051

== ENCOUNTER 2025-02-14 22:25 | Inpatient (IN) | payer OTHER, SELFPAY ==
[2025-02-14 17:22] VITALS: BMI 19.5
[2025-02-14 17:24] VITALS: BP 94/60
[2025-02-14 17:29] VITALS: BP 94/60
[2025-02-14 17:44] LABS: Hematocrit 37.5 % (37.0-47.0); Hemoglobin 12.1 g/dL (12.0-16.0); Mean Corp Hgb Conc. 32.3 g/dL (33.0-37.0); Mean Corpuscular Volume 84.8 fL (81.0-99.0); Nucleated Red Blood Cells % 0 %; Platelet Count 214 10^3/uL (130-400); Red Cell Dist. Width 17.8 % (11.5-14.5)
--- NOTE | 2025-02-14 17:56 | EDRN ---
Pt has a frequent congested moist/dry non productive cough. COVID and Influenza testing done.
[2025-02-14 18:00] VITALS: BP 101/57
[2025-02-14 18:03] LABS: ALT (SGPT) 22 U/L (0-35); AST (SGOT) 38 U/L (14-36); Albumin 3.5 g/dl (3.5-5.0); Alkaline Phosphatase 116 U/L (38-126); Blood Urea Nitrogen 15 mg/dl (7-17); Calcium 9.3 mg/dl (8.4-10.2); Carbon Dioxide 33 mmol/L (22-30); Estimated Creatinine Clearance 47 ml/min; Glucose 108 mg/dl (70-99); Total Protein 5.8 g/dl (6.3-8.2); eGFR > 60.00
[2025-02-14 18:06] LABS: COVID-19 Antigen Negative (Negative)
--- NOTE | 2025-02-14 18:08 | EDRN ---
Dr. Parker in to see pt.
[2025-02-14 18:45] LABS: Chloride 86 mmol/L (98-107); Potassium 3.2 mmol/L (3.5-5.1); Sodium 125 mmol/L (135-145)
--- NOTE | 2025-02-14 19:58 | ED.GENMED ---
History of Present Illness
<Julienne Mason PA-C - Last Filed: 02/14/25 20:18>
General
Chief Complaint: Fall
Time Seen by Provider: 02/14/25 18:17
History of Present Illness
History of Present Illness:
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 Denies loss of
consciousness but did strike her head on kitchen counter. Denies any nausea, vomiting, headache, blurry vision, or any pain. Has had multiple falls recently and son is in the process of getting her moved to an increased level of care at her
facility.
Past History
<Julienne Mason PA-C - Last Filed: 02/14/25 20:18>
Past History
ED Past Medical History: HTN, Other (Amyloidosis with pleural effusions) and Other (Cardiac amyloidosis, paroxysmal atrial fibrillation, osteoarthritis, pulmonary hypertension)
ED Past Surgical History: Orthopedic (Hip and knee replacement Bilaterally, Bone marrow biopsy,)
Social History
Tobacco: Non-smoker
Alcohol: Occasional
Drug: None
Personal:
Living: with family
Family History
Family History: Other (Noncontributory)
Phy Exam
<Julienne Mason PA-C - Last Filed: 02/14/25 20:18>
General Physical Exam
General Presentation: well appearing and no apparent distress
General Skin: warm and dry
General Habitus: normal
General Mental: alert
General Hydration: appears well hydrated
ENT Exam
ENT Exam: EOMI, pharynx normal, neck supple and normocephalic
Additional ENT: Periorbital ecchymosis -yellow to purple
Eye Exam
Eye Exam: PERRL, cornea clear and conjunctiva normal
Cardiovascular Exam
Cardiovascular Exam: regular rate/rhythm, no edema, no murmur and normal peripheral pulses
Pulmonary Exam
Pulmonary Exam: lungs clear, no respiratory distress, no rales, no crackles, no rhonchi, no stridor, no wheezing and no cough
Gastrointestinal Exam
Gastrointestinal Exam: normal bowel sounds, non tender, soft, no organomegaly, no pulsatile mass and non distended
Neurological Exam
Neurological Exam: alert, oriented x3, no motor deficits and speech normal
Musculoskeletal Exam
Musculoskeletal Exam: full ROM and no edema
Skin Exam
Skin Exam: normal color, warm/dry, no rash, no petechia and laceration (Complex laceration to the posterior scalp)
Psychiatric Exam
Psychiatric Exam: normal mood/affect
Course
<Julienne Mason PA-C - Last Filed: 02/14/25 20:18>
Orders/Labs/Results
Orders:
Orders
02/14/25 17:21
Electrocardiogram (*1) Urgent
Reason for Study: Chest Pain
Cardiac Monitoring- Treatment ONCE
EKG- Treatment ONCE
02/14/25 17:37
Complete Blood Count/With Diff Urgent
Comprehensive Metabolic Panel Urgent
02/14/25 17:42
COVID-19 Antigen Urgent
Source: Nasal Swab
Influenza A+B Rapid Molecular Urgent
JOEY Source: Nasal Swab
Specimen Description:
02/14/25 18:31
CT Head W/o Iv Contrast Urgent
Comment:
Reason For Exam: fall on eliquis, recent occipital fx
02/14/25 18:32
CT Cervical Spine W/o Iv Contr Urgent
Comment:
Reason For Exam: fall
02/14/25 18:33
CR Chest - 2 Views Urgent
Comment:
Reason For Exam: wheeze
02/14/25 19:22
Urinalysis Reflex To Culture Urgent
02/14/25 22:00
CefTRIAXone [Rocephin] 1,000 mg IV Q24H
Abnormal Lab Results
02/14/25
17:37
WBC 16.8 H 10^3/uL
(4.8-10.8)
MCHC 32.3 L g/dL
(33.0-37.0)
RDW 17.8 H %
(11.5-14.5)
Abs Immat Gran (auto) 0.1 H 10^3/uL
(0-0.05)
Absolute Neuts (auto) 14.6 H 10^3/uL
(1.4-6.5)
Absolute Lymphs (auto) 0.5 L 10^3/uL
(1.2-3.4)
Absolute Monos (auto) 1.6 H 10^3/uL
(0.1-0.6)
Immature Gran % 0.6 H %
(0-0.5)
Neutrophils % 86.8 H %
(42.2-75.2)
Lymphocytes % 2.7 L %
(20.5-51.1)
Monocytes % 9.4 H %
(1.7-9.3)
Sodium 125 L mmol/L
(135-145)
Potassium 3.2 L mmol/L
(3.5-5.1)
Chloride 86 L mmol/L
(98-107)
Carbon Dioxide 33 H mmol/L
(22-30)
Glucose 108 H mg/dl
(70-99)
Total Bilirubin 2.2 H mg/dl
(0.2-1.3)
AST 38 H U/L
(14-36)
Total Protein 5.8 L g/dl
(6.3-8.2)
02/14/25 17:37
02/14/25 17:37
Vital Signs
Initial and Last Documented VS:
Initial Vital Signs
Pulse Resp Pulse Ox
110 19 95
02/14/25 17:21 02/14/25 17:21 02/14/25 17:21
Last Documented Vital Signs
Temp Pulse Resp BP Pulse Ox
98.2 F 95 18 94/60 94
02/14/25 17:24 02/14/25 17:30 02/14/25 19:09 02/14/25 17:29 02/14/25 19:59
<Maricruz Parker MD - Last Filed: 02/14/25 20:47>
Orders/Labs/Results
Orders:
Orders
02/14/25 17:21
Electrocardiogram (*1) Urgent
Reason for Study: Chest Pain
Cardiac Monitoring- Treatment ONCE
EKG- Treatment ONCE
02/14/25 17:37
Complete Blood Count/With Diff Urgent
Comprehensive Metabolic Panel Urgent
02/14/25 17:42
COVID-19 Antigen Urgent
Source: Nasal Swab
Influenza A+B Rapid Molecular Urgent
JOEY Source: Nasal Swab
Specimen Description:
02/14/25 18:31
CT Head W/o Iv Contrast Urgent
Comment:
Reason For Exam: fall on eliquis, recent occipital fx
02/14/25 18:32
CT Cervical Spine W/o Iv Contr Urgent
Comment:
Reason For Exam: fall
02/14/25 18:33
CR Chest - 2 Views Urgent
Comment:
Reason For Exam: wheeze
02/14/25 19:22
Urinalysis Reflex To Culture Urgent
02/14/25 22:00
CefTRIAXone [Rocephin] 1,000 mg IV Q24H
Abnormal Lab Results
02/14/25
17:37
WBC 16.8 H 10^3/uL
(4.8-10.8)
MCHC 32.3 L g/dL
(33.0-37.0)
RDW 17.8 H %
(11.5-14.5)
Abs Immat Gran (auto) 0.1 H 10^3/uL
(0-0.05)
Absolute Neuts (auto) 14.6 H 10^3/uL
(1.4-6.5)
Absolute Lymphs (auto) 0.5 L 10^3/uL
(1.2-3.4)
Absolute Monos (auto) 1.6 H 10^3/uL
(0.1-0.6)
Immature Gran % 0.6 H %
(0-0.5)
Neutrophils % 86.8 H %
(42.2-75.2)
Lymphocytes % 2.7 L %
(20.5-51.1)
Monocytes % 9.4 H %
(1.7-9.3)
Sodium 125 L mmol/L
(135-145)
Potassium 3.2 L mmol/L
(3.5-5.1)
Chloride 86 L mmol/L
(98-107)
Carbon Dioxide 33 H mmol/L
(22-30)
Glucose 108 H mg/dl
(70-99)
Total Bilirubin 2.2 H mg/dl
(0.2-1.3)
AST 38 H U/L
(14-36)
Total Protein 5.8 L g/dl
(6.3-8.2)
02/14/25 17:37
02/14/25 17:37
Vital Signs
Initial and Last Documented VS:
Initial Vital Signs
Pulse Resp Pulse Ox
110 19 95
02/14/25 17:21 02/14/25 17:21 02/14/25 17:21
Last Documented Vital Signs
Temp Pulse Resp BP Pulse Ox
98.2 F 95 18 94/60 94
02/14/25 17:24 02/14/25 17:30 02/14/25 19:09 02/14/25 17:29 02/14/25 19:59
Procedures
<Julienne Mason PA-C - Last Filed: 02/14/25 20:18>
Laceration Closure
Right Posterior Scalp:
Status of Wound: clean
Size of Wound in cm: 4
Description of Wound Edges: ragged
Preparation: cleaned with saline
Anesthesia: 1% Lidocaine with epi
Type of Closure: layered closure and interrupted sutures
Skin Closure Material: skin janki
Number of sutures: 2
Additional information:
2 prolene sutures and 3 janki
<Julienne Mason PA-C - Last Filed: 02/14/25 20:18>
MDM/Problems Addressed
Differential Diagnosis Includes:
CT head and cervical spine obtained and negative for any acute traumatic injuries. Occipital skull fracture visualized and is improved in appearance. Wound on head was thoroughly irrigated and a 4 cm laceration was found deep to the galea. No
galea violation. Laceration repaired as above. Tetanus up-to-date. EKG reviewed and unchanged from prior.
CBC showed leukocytosis of 16 with left shift. Chest x-ray revealed right lower lobe pneumonia. Discussed these findings with patient and her son who did not feel comfortable with discharge home on oral antibiotics as she does not have any
supervision at her SNF. They are concerned that she will fall again. Son had been in the process of getting her level of care upgraded but this is not set up at this time.
Discussed with hospitalist. They will admit patient to their service.
<Julienne Mason PA-C - Last Filed: 02/14/25 20:18>
*Pulse Oximetry
SaO2: 94
Oxygen Mode of Delivery: Room air
Patient hypoxic: no
*Critical Care Note
Total Time (30-74mins, 75-104mins- exclusive of procedures): Not Applicable
ED Attending Note
<Julienne Mason PA-C - Last Filed: 02/14/25 20:18>
-
Portions of this chart may have been created with voice recognition software.� Occasional wrong word or��sound alike� substitutions may have occurred due to the inherent limitations of voice recognition software.
<Maricruz Parker MD - Last Filed: 02/14/25 20:47>
ED Attending Note
Patient seen and examined by attending physician: Yes
I performed the substantive portion of visit, reviewed & personally made and approve the management plan that is documented in note by myself or DENG.: Yes
ED Attending Note:
84-year-old female presents emergency department after trip and fall. Patient is status post recent occipital fracture. No LOC. Patient is on a DOAC. Patient noted to have a posterior occipital hematoma and abrasion at left eyebrow area. Also
notes recent dyspnea, cough. On exam here, patient has an occasional wet cough noted. Chest x-ray suspicious for right sided pneumonia. COVID-negative. No acute intracranial injury or cervical fracture. Blood pressure most recently with a MAP
of 70, heart rate within normal limits. Patient will be admitted, antibiotics, close monitoring.
Discharge Plan
Departure
Patient Disposition: Admit
Date of Disposition: 02/14/25
Time of Disposition: 20:19
Presentation/result/management discussed w/ accepting MD/DO: Hospitalist
Discharge Problem:
Fall, Chronic anticoagulation, Complex laceration of scalp, Pneumonia
Prescriptions:
No Action
metoprolol succinate [Toprol XL] 25 mg Tablet Extended Release 24 Hr
25 mg PO DAILY
furosemide [Lasix] 40 mg Tablet
40 mg PO Q48H
furosemide [Lasix] 20 mg Tablet
20 mg PO Q48H
spironolactone 25 mg tablet
25 mg PO DAILY
Eliquis 2.5 mg tablet
2.5 mg PO BID
Referrals:
Jaz Weinstein MD [Family Provider, Family Practice]
Interventions
Interventions:
*Risk Screen - Suicide Last Done: 02/14/25 17:24
*General Assessment Last Done: 02/14/25 17:24
*Neglect/Abuse Screening Last Done: 02/14/25 17:24
*ED COVID-19 Vaccine History Last Done: 02/14/25 17:35
*ED Influenza Vaccine History Last Done: 02/14/25 17:35
[facility] Fall Risk Assessment Tool Last Done: 02/14/25 17:35
ED-Musculoskeletal Assessment Last Done: 02/14/25 17:54
ED- Neurological Assessment Last Done: 02/14/25 17:54
ED-Skin Assessment Last Done: 02/14/25 17:54
Discharge Date and Time
Print Language: AFGHAN
--- NOTE | 2025-02-14 22:06 | HPS.HSE ---
Family Physician
-
Family Physician: Jaz Weinstein
Chief Complaint
-
Fall
History of Present Illness
Patient is an 84y F with PMH significant for AL amyloid, CHF and A-Fib who presents to ED after fall at home. Patient states that she was cleaning out her refrigerator when she lost her balance and fell - striking the back of her head on the
tile floor. She denies any LOC. She denies any prodrome of lightheadedness, dizziness, chest pain, etc - however, she cannot adequately describe how / why she fell. Patient was brought to the ED for further evaluation and treatment.
She was noted to have significant scalp laceration to the R occipital region. This was closed with sutures / janki. CT showed no acute intracranial abnormality / bleeding. She is on Eliquis for A-Fib / stroke prevention.
Patient states that she has had a harsh, productive cough for about 3 weeks. No fevers / chills. No chest pain. 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
No recent travel. No known sick contacts.
Medical History
Past Medical History
Past Medical History: Reports Other
Additional Past Medical History:
AL Amyloid
HFpEF
Atrial Fibrillation
Hypertension
Past Surgical History: Reports Other
Additional Past Surgical History:
Left TKA
Right KERRY
Tubal Ligation
PVI Ablation
Social History
Tobacco: Non-smoker
Alcohol: Occasional
Drug: None
Family History
Family History: Not pertinent
Allergies / Home Medications
Allergies reflects when Allergies were last updated in [facility].
Home Medications with original date entered in [facility]
Allergy/Medication List:
Allergies
Allergy/AdvReac Type Severity Reaction Status Date / Time
lisinopril Allergy Swelling Verified 02/14/25 17:23
sorbitol Allergy makes me Verified 02/14/25 17:23
sick
Home Medications
metoprolol succinate 25 mg tablet,extended release 24 hr (Toprol XL) 25 mg PO DAILY Heart Disease/Condition 09/29/24
apixaban 2.5 mg tablet (Eliquis) 2.5 mg PO BID Heart Disease/Condition 02/14/25
furosemide 20 mg tablet (Lasix) 60 mg PO BID Fluid Retention/Swelling 02/14/25
spironolactone 25 mg tablet 25 mg PO DAILY Fluid Retention/Swelling 02/14/25
Review of Systems
-
History Source: Patient
A 12 point ROS was completed and negative except as noted: Yes
Constitutional: Denies Fever or Chills
Respiratory: Reports Cough and Trouble Breathing
Cardiac: Denies Chest Pain or Palpitations
Abdomen/GI: Denies Abdominal Pain, Nausea, Vomiting or Diarrhea
: Denies Dysuria or Frequency
Musculoskeletal: Denies Joint Pain or Edema
Neurological: Reports Headache; Denies Dizzy
Psych: Denies Depression or Anxiety
Physical Exam
Vital Signs
Vital Signs
Temp Pulse Resp BP Pulse Ox
98.2 F 95 18 94/60 94
02/14/25 17:24 02/14/25 17:30 02/14/25 19:09 02/14/25 17:29 02/14/25 19:59
Physical Exam
General: Other (84y F in no acute distress.)
HEENT: Moist mucous membranes and Other (Healing ecchymosis around L eye. Laceration over the R occipital region with overlying janki. No active bleeding appreciated.)
Respiratory: Other (Coarse breath sounds over the R base. Diffuse wheezing bilaterally.)
Cardiac: S1/S2 and Irregular Rhythm; No Murmur
GI: Soft, Non Tender, Non Distended, Normal Bowel Sounds and Other (Not markedly distended / firm.)
Musculoskeletal: No Clubbing, No Cyanosis and No Edema
Neuro: AO x 3 and Nonfocal/grossly intact
Laboratory Results
-
02/14/25 17:37
02/14/25 17:37
Laboratory Results
Total Bilirubin 2.2 mg/dl (0.2-1.3) H 02/14/25 17:37
AST 38 U/L (14-36) H 02/14/25 17:37
ALT 22 U/L (0-35) 02/14/25 17:37
Alkaline Phosphatase 116 U/L (38-126) 02/14/25 17:37
Impression/Plan
-
A/P: Patient is an 84y F with PMH significant for AL amyloid, CHF and A-Fib who presents to ED for evaluation after fall and head injury today.
RLL Pneumonia
Sepsis secondary to the above
- Admit for further evaluation and treatment.
- Cough x 3 weeks, CXR showing RUL / RLL opacities. COVID / Flu negative in the ED.
- Evidence of organ impairment in the form of hyperbilirubinemia (2.2).
- Antibiotic coverage for CAP.
- Supportive care including mucolytics, nebs, etc.
- BP is stable and with h/o CHF / ascites / etc will hold on fluid resuscitation at present.
- Follow for clinical improvement.
Fall at Home
Scalp Laceration
- Details of fall are unclear. Patient denies LOC.
- Monitor on tele overnight for any arrhythmia.
- Laceration closed in the ED (2 sutures / 3 janki).
- Wound care eval for local care.
- Monitor for any new neurologic deficits / worsening headache / etc.
- Repeat CT 6-8 hours to rule out interval development of bleeding as patient is on Eliquis.
- PT evaluation.
AL Amyloidosis
Chronic HFpEF
Chronic / Recurrent Ascites
Chronic Hyponatremia secondary to the above
- Patient reports she is scheduled for repeat paracentesis on Friday. No marked ascites accumulation by exam at present.
- Continue usual diuretic regimen for now and follow I/Os, daily weights, exam, etc.
- IR eval for paracentesis if needed.
- Na level is at / near known baseline. Follow for changes with diuresis.
- Patient on weekly daramatumumab for amyloid - last dose was yesterday (02/13).
Hypokalemia
- Likely secondary to diuretic use. Dose of PO K x 1 now.
- Follow repeat labs and add additional replacement if needed.
- Also on spironolactone.
Permanent Atrial Fibrillation
- Stable. Continue metoprolol for rate control.
- Continue Eliquis for now. Monitor for any evidence of uncontrolled bleeding.
DVT Prophylaxis: On Eliquis
Code Status: DNR
[2025-02-14 22:16] VITALS: BP 103/65
[2025-02-14] MEDS: ROCEPHIN 1000 MG IV (22:17)
[2025-02-14] MEDS: VIBRAMYCIN 100 MG PO (22:30)
[2025-02-14] MEDS: KCL ELIXIR 40 MEQ PO (22:30)
[2025-02-14 22:31] LABS: Urine Character Clear (Clear)
[2025-02-14 22:40] LABS: Urine Squamous Cell 26-30 /LPF (Few)
[2025-02-15] VITALS (10 sets, daily range): BP systolic 91–107; BP diastolic 51–69; PULSE 92–120; O2SAT 94; BMI 19.3
[2025-02-15] MEDS: VENTOLIN NEBULES 2.5 MG INH (02:00)
--- NOTE | 2025-02-15 02:07 | PTCARENOTE ---
Addendum entered by Lia Ferguson RN 02/15/25 03:33:
Pt's HR 120s. PERIANESTHESIA RN made aware. PERIANESTHESIA RN came to bedside. distended abd and SOB observed. Bladder scan completed. straight cath preformed.
Original Note:
Head CT Verbal report from Dr. Nicholas Richards. No sign of intracranial hemorrhage or mass effect.
[facility] informed.
--- NOTE | 2025-02-15 03:12 | W.PN.UPDATE ---
Update Note
Progress Note Update
~ 3 am Asked to evaluate patient for increased tachypnea and increased HR. On evaluation, patient resting in bed, she states that this is her baseline respiratory status and does not feel that her breathing is faster than normal or that she is
working to breath more than normal. Pt w/moist cough, scattered rhonchi t/o bilaterally. Resp 18, pulsox 93% on 3L NC, BP 102/66, HR 124. Pt just received breathing treatment. Ordered Robitussin for cough.
Pt abdomen distended, orders placed for bladder scan and straight cath per algorithm. Pt bladder scanned for >653 mls, RN to straight cath patient
[2025-02-15] MEDS: ROBITUSSIN 100 MG PO (03:36)
[2025-02-15 07:01] LABS: Hematocrit 32.6 % (37.0-47.0); Hemoglobin 10.9 g/dL (12.0-16.0); Mean Corp Hgb Conc. 33.4 g/dL (33.0-37.0); Mean Corpuscular Volume 83.4 fL (81.0-99.0); Platelet Count 176 10^3/uL (130-400); Red Cell Dist. Width 17.9 % (11.5-14.5)
[2025-02-15 07:17] LABS: Blood Urea Nitrogen 14 mg/dl (7-17); Calcium 8.9 mg/dl (8.4-10.2); Carbon Dioxide 32 mmol/L (22-30); Chloride 91 mmol/L (98-107); Estimated Creatinine Clearance 47 ml/min; Glucose 105 mg/dl (70-99); Potassium 3.9 mmol/L (3.5-5.1); Sodium 127 mmol/L (135-145); eGFR > 60.00
[2025-02-15 07:38] LABS: LDH 105 U/L (120-246)
[2025-02-15 07:43] LABS: Reticulocyte Count 1.7 % (0.4-2.8)
[2025-02-15] MEDS: MUCINEX 600 MG PO ×2 (08:53→20:13)
[2025-02-15] MEDS: ELIQUIS 2.5 MG PO ×2 (08:54→20:13)
[2025-02-15] MEDS: VIBRAMYCIN 100 MG PO ×2 (08:54→20:13)
[2025-02-15] MEDS: ALDACTONE 25 MG PO (08:54)
[2025-02-15] MEDS: TOPROL XL 25 MG PO (08:54)
[2025-02-15] MEDS: LASIX 60 MG IV (08:56)
--- NOTE | 2025-02-15 10:24 | W.PN.HOSP.TC ---
Today's Communication/Plan
-
feeling much better - cont Abx
Assessment / Plan
Assessment / Plan
84yo F with amyloidosis, HFmrEF, HTN, recurrent ascites with paracenthesis [id number], paroxysmal Afib, HTN, recurrent hyponatremia, on occasional home O2 (patient and were not sure of flow rate) came with weakness after recurrent fall, found
RUL and RML pneumonia
A/P:
#Acute on chronic hypoxic respiratory failre 2/2 RUL and RML CAP with unspecified organism
Legionella and S.pneumonia urinary Ag
Sputum Cx if possible
COVID-19 and influenza PCR neg
Ceftriaxone/DOxy
Wean off O2 as able
Mucinex
#Chronic HFmrEF
No pleural effusions, no LE swelling, dry weight 45kg now 43kg however pro-BNP elevated - no concern for overt exacerbation
gave one dose IV Lasix on 12/16/24
cotn home lasix and follow electrolytes
#AL amyloidosis
#Recurrent ascites
#Chronci bilirubinemia
#Paroxysmal Afib
might need repeated paracenthesis in few days - folow clinically
#Acute on Chronic hyponaremia
cont Lasix and FR and follow BMP
#recent fall w/o LOC
most liekly 2/[address] head showed no bleed, but nondisplaced right occipital bone fracture similar to the one on 01/14/25
DVT ppx cont ELiquis
DNR/DNI
I have spent at least 56min reviewing chart, test results, communication with [facility] over the phone and providing direct patient care
Anticipated Discharge: 24 - 48 hours
Subjective/Interval History
-
Date of Service: February 15, 2025
Objective Data
-
Labs:
Laboratory Results
02/15/25
06:34
WBC 19.0 H
Hgb 10.9 L
Hct 32.6 L
Plt Count 176
Sodium 127 L
Potassium 3.9
Chloride 91 L
Carbon Dioxide 32 H
BUN 14
Creatinine 0.5 L
Glucose 105 H
Calcium 8.9
Vital Signs:
Vital Signs
Temp Pulse Resp BP Pulse Ox
98.0 F 110 18 110/64 90
02/15/25 07:25 02/15/25 08:54 02/15/25 07:25 02/15/25 08:54 02/15/25 07:25
I&O
02/14/25 02/15/25 02/16/25
06:59 06:59 06:59
Intake Total 0 / 0
Output Total 300 / 300
Balance -300 / -300
Review of Systems
-
History Source: Patient
All other systems: Reviewed and negative
Physical Exam
-
General: No Apparent Distress
HEENT: Other (L eyebrow bruise, hoarse voice )
Respiratory: Decreased Breath Sounds (B/l)
Cardiac: Regular Rhythm
GI: Soft, Nontender and Distended
Genito-urinary: No Costovertebral Tender
Musculoskeletal: No Clubbing, No Cyanosis and No Edema
Neuro: Awake, Alert, Oriented and AO x 3
Psych: Calm and Apparent Dementia
--- NOTE | 2025-02-15 11:18 | WOUNDNOTE ---
OCCIPITAL SCALP WITH INTACT STITCHES
--- NOTE | 2025-02-15 11:20 | WOUNDNOTE ---
USMAN RN NOTE: Patient admitted with laceration to scalp s/p fall and pneumonia. Reviewed PMH in chart. Occipital scalp with intact sutures, stitched up in ED. No further drainage, dry crusted blood residual on scalp. Recommend wash with soap and
water and leave open to air. Follow up with primary MD for suture removal. Will sign off.
[2025-02-15] MEDS: LASIX 60 MG PO (16:35)
--- NOTE | 2025-02-15 17:23 | CM ---
Alert awake who lives with at [facility].Pt uses walker. Will need PT OT for dc planning. Anthony Cordero in room [phone].
Walker
[facility] hx [facility].
[facility]
PCP DR Del Cid
PLAN Need PT OT for dc planning
[2025-02-15] MEDS: STERILE WATER FOR INJECTION 10 ML IV (21:04)
[2025-02-15] MEDS: ROCEPHIN 1000 MG IV (21:05)
[2025-02-16] VITALS (7 sets, daily range): BP systolic 104–118; BP diastolic 60–71; PULSE 101–122; BMI 18.7
[2025-02-16 07:48] LABS: Hematocrit 34.1 % (37.0-47.0); Hemoglobin 11.5 g/dL (12.0-16.0); Mean Corp Hgb Conc. 33.7 g/dL (33.0-37.0); Mean Corpuscular Volume 82.0 fL (81.0-99.0); Nucleated Red Blood Cells % 0 %; Platelet Count 200 10^3/uL (130-400); Red Cell Dist. Width 17.6 % (11.5-14.5)
[2025-02-16] MEDS: ALDACTONE 25 MG PO (08:23)
[2025-02-16] MEDS: ELIQUIS 2.5 MG PO ×2 (08:23→21:42)
[2025-02-16] MEDS: VIBRAMYCIN 100 MG PO (08:24)
[2025-02-16] MEDS: LASIX 60 MG PO ×2 (08:24→16:49)
[2025-02-16] MEDS: TOPROL XL 25 MG PO (08:25)
[2025-02-16] MEDS: FLUSH (NSS) 1 FLUSH IV ×2 (08:25→13:02)
[2025-02-16] MEDS: MUCINEX 600 MG PO (08:25)
[2025-02-16 08:39] LABS: ALT (SGPT) 17 U/L (0-35); AST (SGOT) 21 U/L (14-36); Albumin 2.8 g/dl (3.5-5.0); Alkaline Phosphatase 98 U/L (38-126); Blood Urea Nitrogen 12 mg/dl (7-17); Calcium 8.8 mg/dl (8.4-10.2); Carbon Dioxide 34 mmol/L (22-30); Chloride 90 mmol/L (98-107); Estimated Creatinine Clearance 45 ml/min; Glucose 94 mg/dl (70-99); Potassium 3.2 mmol/L (3.5-5.1); Sodium 129 mmol/L (135-145); Total Protein 4.9 g/dl (6.3-8.2); eGFR > 60.00
--- NOTE | 2025-02-16 09:02 | PN.CDI ---
CDI
- -
CDI:
Physician Documentation Request
Admit Date: 02/14/25 22:25
Dear Doctor,
Patient admitted for pneumonia.
Please review the following and provide your response in the progress notes.
Clinical Indicators:
Height: 4' 11'
Weight: 92 lbs
BMI: 18.7
If possible, please provide an associated diagnosis related to the abnormal BMI, such as:
Cachectic
BMI is not significant
Other
BMI < or = to 19.9
Underweight
Weight Loss
Cachectic
Anorexia
Use of terms such as suspected, likely, concern for, or probable (associated with a specific diagnosis that is being evaluated, monitored, or treated as if it exists) are acceptable and can be coded in the inpatient setting, when documented at the
time of discharge.
Thank you,
Tasneem Mccormick RN, BSN
CDI Specialist
Available via [place] text
Please use your independent medical judgment in providing your response.
--- NOTE | 2025-02-16 09:15 | PN.CDI ---
CDI
- -
CDI:
Physician Documentation Request
Admit Date: 02/14/25 22:25
Dear Doctor,
[facility] is using an adapted version of the 2016 Third International Consensus Definitions for Sepsis and Septic Shock (Sepsis-3) where sepsis is defined as life threatening organ dysfunction caused by a deregulated host response to infection.
Please reference the official [facility] Sepsis Recognition Tool for further information, which can be found on the Intranet under Infection Prevention.
Clinical Indicators Include:
H&P: 'RLL Pneumonia, Sepsis secondary to the above...Ceftriaxone/DOxy, Wean off O2 as able'
02/15 Hospitalist PN: 'Acute on chronic hypoxic respiratory failre 2/2 RUL and RML CAP with unspecified organism'
HR: 110
BP: 94/60
WBC: 16.8
Based on your medical judgment, can you further clarify the diagnosis being monitored/treated this admission?
� Sepsis due to pneumonia with organ dysfunction of acute hypoxic respiratory failure
� Pneumonia only
� Other
� Clinically unable to determine
Use of terms such as suspected, likely, concern for, or probable (associated with a specific diagnosis that is being evaluated, monitored, or treated as if it exists) are acceptable and can be coded in the inpatient setting when documented at the
time of discharge.
Please use your independent medical judgement in providing your response.
Thank you,
Tasneem Mccormick RN, BSN
CDI Specialist
Available via [employer] text
[2025-02-16] MEDS: KCL 40 MEQ PO (09:45)
--- NOTE | 2025-02-16 12:03 | W.PN.HOSP.TC ---
Addendum entered and electronically signed by Trina Srivastava MD 02/16/25 12:09:
Dictation error:
Please delete the following statement
<del>History�of�diabetes�mellitus</del>
<del>Continue�home�medication</del>
<del>Insulin�sliding�scale</del>
<del>Diabetic�diet</del>
<del>Hemoglobin</del> <del>A1c</del>
<del>History�of�hypertension</del>
<del>Continue</del> <del>home</del> <del>meds</del>
<del>History</del> <del>of</del> <del>hyperlipidemia</del>
<del>Continue�statin</del>
<del>History</del> <del>of</del> <del>hypothyroidism</del>
<del>Continue�levothyroxine</del>
<del>Abnormal</del> <del>labs</del>
<del>�</del>
<del>CODE</del> <del>STATUS:�Full�code</del>
<del>DVT�prophylaxis:�Lovenox</del>
<del>Diet:�Regular�diet</del>
<del>Family�communication:</del>
<del>Disposition:</del>
Original Note:
Today's Communication/Plan
-
Discharge home today after Rocephin given
Assessment / Plan
Assessment / Plan
Impression :
84yo F with amyloidosis, HFmrEF, HTN, recurrent ascites with paracenthesis [id number], paroxysmal Afib, HTN, recurrent hyponatremia, on occasional home O2 (patient and were not sure of flow rate) came with weakness after recurrent fall, found
RUL and RML pneumonia
Patient was started on Rocephin and doxycycline.
Patient was seen by physical therapy recommended either rehab versus home PT, patient wants to go home with home physical therapy.
Discussed with on the phone and son on the phone and they are all agreeable.
Will be discharged home on oral doxycycline and cefdinir for additional 5-days
A/P:
#Acute on chronic hypoxic respiratory failre 2/2 RUL and RML CAP with unspecified organism
Legionella and S.pneumonia urinary Ag
Sputum Cx if possible
COVID-19 and influenza PCR neg
Ceftriaxone/DOxy
Wean off O2 as able
Mucinex
02/16
Will be discharged home on oral doxycycline and cefdinir for additional 5-days
#Chronic HFmrEF
No pleural effusions, no LE swelling, dry weight 45kg now 43kg however pro-BNP elevated - no concern for overt exacerbation
gave one dose IV Lasix on 12/16/24
cotn home lasix and follow electrolytes
#AL amyloidosis
#Recurrent ascites
#Chronci bilirubinemia
#Paroxysmal Afib
might need repeated paracenthesis in few days - folow clinically
#Acute on Chronic hyponaremia
cont Lasix and FR and follow BMP
#recent fall w/o LOC
most liekly 2/[address] head showed no bleed, but nondisplaced right occipital bone fracture similar to the one on 01/14/25
DVT ppx cont ELiquis
DNR/DNI
History�of�diabetes�mellitus
Continue�home�medication
Insulin�sliding�scale
Diabetic�diet
Hemoglobin A1c
History�of�hypertension
Continue home meds
History of hyperlipidemia
Continue�statin
History of hypothyroidism
Continue�levothyroxine
Abnormal labs
�
CODE STATUS:�Full�code
DVT�prophylaxis:�Lovenox
Diet:�Regular�diet
Family�communication:
Disposition:
Total�time�spent�on�today�s�encounter�was
55�minutes�which�included�time�spent�in�counseling�the�patient/family�regarding�diagnosis�and�treatment�plan�as�listed�above,�goals�of�care,�and�symptom�management.�Case�was�discussed�with�nursing�staff,�specialists,�and�care�coordinators/case�manage
ment.�All�labs�and�imaging�personally�reviewed�by�me.�Remainder�the�time�spent�in�detailed�review�of�previous�records,�lab�data,�imaging,�and�other�medical�provider�documentation.
�
Anticipated Discharge: Today
Subjective/Interval History
-
Date of Service: February 16, 2025
Patient seen and examined at bedside, denies any chest pain , shortness of breath Improved, coughing improved, no abdominal pain, no nausea, no vomiting, no diarrhea or constipation.
Patient asks if she can go home, discussed with her and her and her son on the phone and will be discharged home today.
Objective Data
-
Labs:
Laboratory Results
02/16/25
06:46
WBC 17.6 H
Hgb 11.5 L
Hct 34.1 L
Plt Count 200
Sodium 129 L
Potassium 3.2 L
Chloride 90 L
Carbon Dioxide 34 H
BUN 12
Creatinine 0.5 L
Glucose 94
Calcium 8.8
Total Bilirubin 1.5 H
AST 21
ALT 17
Alkaline Phosphatase 98
Vital Signs:
Vital Signs
Temp Pulse Resp BP Pulse Ox
97.3 F 110 18 107/63 92
02/16/25 11:13 02/16/25 11:13 02/16/25 11:13 02/16/25 11:13 02/16/25 11:13
I&O
02/15/25 02/16/25 02/17/25
06:59 06:59 06:59
Intake Total 0 / 0 60 / 60
Output Total 300 / 300 1999 / 1999
Balance -300 / -300 -1940 / -194
Physical Exam
-
General: Well Developed, Well Nourished, No Apparent Distress and Comfortable
HEENT: Normocephalic, Moist Mucous Membranes, No Ptosis, PERRLA, Nose Appears Normal and Other (Left eye ecchymosis)
Respiratory: Rales, Rhonchi and Non Labored Respirations
Cardiac: Regular Rhythm and S1/S2
Breast: Deferred by me
GI: Soft, Nontender, Nondistended and Normal Bowel Sounds
Genito-urinary: No Costovertebral Tender
Musculoskeletal: No Clubbing, No Cyanosis and No Edema
Skin: Warm
Neuro: Awake, Alert, Oriented, AO x 3 and No Motor Deficits
Psych: Calm
Data Reviewed
-
Diagnostic Radiology: Image personally visualized and interpreted and Report Reviewed by me
CT Scan: Image personally visualized and interpreted and Report Reviewed by me
Ultrasound: Image personally visualized and interpreted and Report Reviewed by me
MRI: Image personally visualized and interpreted and Report Reviewed by me
Medical Tests (Nuc Med, Echo etc): Image personally visualized and interpreted and Report Reviewed by me
Labs: Labs Reviewed by me
Old Records: Reviewed
--- NOTE | 2025-02-16 12:08 | W.DCSUMMARY ---
Addendum entered and electronically signed by Trina Srivastava MD 02/17/25 10:04:
Patient did not leave on February 16.
Agreed for SNF.
Date of Admission: 02/14/25
Date of Discharge: 02/17/25
Original Note:
Discharge Summary
Discharge Data
Date of Admission: 02/14/25
Date of Discharge: 02/16/25
Total time spent discharging patient (in min): 40
-
Pending Results: No
Hospital Course
Hospital course
84yo F with amyloidosis, HFmrEF, HTN, recurrent ascites with paracenthesis [id number], paroxysmal Afib, HTN, recurrent hyponatremia, on occasional home O2 (patient and were not sure of flow rate) came with weakness after recurrent fall, found
RUL and RML pneumonia
Patient was started on Rocephin and doxycycline.
Patient was seen by physical therapy recommended either rehab versus home PT, patient wants to go home with home physical therapy.
Discussed with on the phone and son on the phone and they are all agreeable.
Will be discharged home on oral doxycycline and cefdinir for additional 5-days
During hospitalization patient was treated from the following
#Acute on chronic hypoxic respiratory failre 2/2 RUL and RML CAP with unspecified organism
Legionella and S.pneumonia urinary Ag
Sputum Cx if possible
COVID-19 and influenza PCR neg
Ceftriaxone/DOxy
Wean off O2 as able
Mucinex
02/16
Will be discharged home on oral doxycycline and cefdinir for additional 5-days
#Chronic HFmrEF
No pleural effusions, no LE swelling, dry weight 45kg now 43kg however pro-BNP elevated - no concern for overt exacerbation
gave one dose IV Lasix on 12/16/24
cotn home lasix and follow electrolytes
#AL amyloidosis
#Recurrent ascites
#Chronci bilirubinemia
#Paroxysmal Afib
might need repeated paracenthesis in few days - folow clinically
#Acute on Chronic hyponaremia
cont Lasix and FR and follow BMP
#recent fall w/o LOC
most liekly 2/[address] head showed no bleed, but nondisplaced right occipital bone fracture similar to the one on 01/14/25
DVT ppx cont ELiquis
DNR/DNI
Total time spent on today's encounter was 40 minutes which included time spent in counseling the patient/family regarding diagnosis and treatment plan as listed above, goals of care, and symptom management. Case was discussed with nursing staff,
specialists, and care coordinators/case management. All labs and imaging personally reviewed by me. Remainder the time spent in detailed review of previous records, lab data, imaging, and other medical provider documentation.
Anticipated Discharge: Today
Discharge Plan
-
Patient Disposition: Home with Home Care
Discharge Diagnosis/Procedures: Acute on chronic hypoxic respiratory failure secondary to pneumonia
Chronic CHF.
AL amyloidosis.
Paroxysmal A-fib
Diet: As tolerated
Activity: With assistance and As tolerated
Additional Activity: Needs supervision
Activity Restrictions/Additional Instructions:
Wound Care Instructions
scalp:wash with soap and water and leave open to air.
Follow up with primary MD for removal of stitches.
Referrals:
Jaz Weinstein MD [Family Provider, Family Practice]
Prescriptions:
New
guaifenesin 600 mg Tablet Extended Release 12hr
600 mg PO Q12 10 Days Qty: 20 0RF
guaifenesin 100 mg/5 mL Liquid
100 mg PO Q4HPRN PRN (Reason: cough) 7 Days Qty: 118 0RF
doxycycline hyclate 100 mg Capsule
100 mg PO Q12 5 Days Qty: 10 0RF
cefdinir 300 mg capsule
300 mg PO BID Qty: 10 0RF
Continued
metoprolol succinate [Toprol XL] 25 mg Tablet Extended Release 24 Hr
25 mg PO DAILY
furosemide [Lasix] 20 mg Tablet
60 mg PO BID
spironolactone 25 mg tablet
25 mg PO DAILY
Eliquis 2.5 mg tablet
2.5 mg PO BID
Discharge Orders:
Discharge Patient (As Directed); Ordered 02/16/25
Ordered By: Trina Srivastava
Discharge Date and Time
Print Language: TURKISH
[2025-02-16] MEDS: ROCEPHIN 1000 MG IV (13:02)
[2025-02-16] MEDS: STERILE WATER FOR INJECTION 10 ML IV (13:02)
--- NOTE | 2025-02-16 16:22 | PTCARENOTE ---
Pt awake and alert, oriented x 3 but forgetful. BARRETO' OOB to chair/BSC with assist x1/walker, pt weak/unsteady w/OOB activity. VSS. Telemetry:Afib. On nc 2 lpm- pulseox 93%, pt with (+) RUSS but denies SOB. Abd soft, sl rounded, reynaldo PO,appetite
fair. Voids on BSC clear lilia urine. Resting in bed at present. Will continue to monitor.
--- NOTE | 2025-02-16 16:36 | CM ---
Met with pt bedside. Pt is very sleepy. Refused PT twice today.
Pt rec HH or SNF. Family selected SNF and provided the following choices for referrals: [facility]. Referrals placed
Plan: DC to SNF when stable and bed available
--- NOTE | 2025-02-16 17:01 | RESPNOTE ---
Addendum entered by Jim Mitchell, RT 02/16/25 17:43:
sa02=94% on 2 liters at rest
Original Note:
patient cannot currently walk
[2025-02-16] MEDS: MUCINEX PO ×2 (21:42→21:56)
[2025-02-16] MEDS: VIBRAMYCIN PO ×2 (21:42→21:55)
[2025-02-17] VITALS (11 sets, daily range): BP systolic 94–108; BP diastolic 50–74; PULSE 99–127; O2SAT 95; BMI 18.7
[2025-02-17 08:18] LABS: Hematocrit 35.2 % (37.0-47.0); Hemoglobin 12.2 g/dL (12.0-16.0); Mean Corp Hgb Conc. 34.7 g/dL (33.0-37.0); Mean Corpuscular Volume 80.9 fL (81.0-99.0); Platelet Count 200 10^3/uL (130-400); Red Cell Dist. Width 17.2 % (11.5-14.5)
[2025-02-17] MEDS: MUCINEX 600 MG PO ×2 (09:24→21:28)
[2025-02-17] MEDS: ELIQUIS 2.5 MG PO ×2 (09:24→21:28)
[2025-02-17] MEDS: ALDACTONE PO (09:29)
[2025-02-17] MEDS: LASIX PO (09:29)
[2025-02-17] MEDS: TOPROL XL PO (09:29)
--- NOTE | 2025-02-17 09:29 | CM ---
Pt needs updated PT OT for SNF auth ,
LM with SNF location to check on bed.
Will need [employer] auth after SNF located .
PLAN To SNF after located and auth obtained
[2025-02-17] MEDS: VIBRAMYCIN PO ×3 (09:31→21:41)
--- NOTE | 2025-02-17 10:01 | W.PN.HOSP.TC ---
Today's Communication/Plan
-
Discharge to SNF
Assessment / Plan
Assessment / Plan
Impression :
84yo F with amyloidosis, HFmrEF, HTN, recurrent ascites with paracenthesis [id number], paroxysmal Afib, HTN, recurrent hyponatremia, on occasional home O2 (patient and were not sure of flow rate) came with weakness after recurrent fall, found
RUL and RML pneumonia
Patient was started on Rocephin and doxycycline.
Patient was seen by physical therapy recommended either rehab versus home PT, patient wants to go home with home physical therapy.
Discussed with on the phone and son on the phone and they are all agreeable.
Will be discharged home on oral doxycycline and cefdinir for additional 5-days
A/P:
Sepsis due to pneumonia with organ dysfunction of acute hypoxic respiratory failure
Acute on chronic hypoxic respiratory failre 2/2 RUL and RML CAP .
Legionella and S.pneumonia urinary Ag
Sputum Cx if possible
COVID-19 and influenza PCR neg
Ceftriaxone/DOxy
Wean off O2 as able
Mucinex
02/16
Will be discharged home on oral doxycycline and cefdinir for additional 5-days
#Chronic HFmrEF
No pleural effusions, no LE swelling, dry weight 45kg now 43kg however pro-BNP elevated - no concern for overt exacerbation
gave one dose IV Lasix on 12/16/24
cotn home lasix and follow electrolytes
#AL amyloidosis
#Recurrent ascites
#Chronci bilirubinemia
#Paroxysmal Afib
might need repeated paracenthesis in few days - folow clinically
#Acute on Chronic hyponaremia
cont Lasix and FR and follow BMP
#recent fall w/o LOC
most liekly 2/[address] head showed no bleed, but nondisplaced right occipital bone fracture similar to the one on 01/14/25
BMI: 18.7
Cachectic
DVT ppx cont ELiquis
DNR/DNI
Total�time�spent�on�today�s�encounter�was
55�minutes�which�included�time�spent�in�counseling�the�patient/family�regarding�diagnosis�and�treatment�plan�as�listed�above,�goals�of�care,�and�symptom�management.�Case�was�discussed�with�nursing�staff,�specialists,�and�care�coordinators/case�manage
ment.�All�labs�and�imaging�personally�reviewed�by�me.�Remainder�the�time�spent�in�detailed�review�of�previous�records,�lab�data,�imaging,�and�other�medical�provider�documentation.
�
Anticipated Discharge: Today
Subjective/Interval History
-
Date of Service: February 17, 2025
Patient seen and examined at bedside, denies any chest pain , shortness of breath Improved, no abdominal pain, no nausea, no vomiting, no diarrhea or constipation.
Plan for discharge to SNF today
Objective Data
-
Labs:
Laboratory Results
02/17/25 02/17/25
07:07 09:57
WBC 16.3 H
Hgb 12.2
Hct 35.2 L
Plt Count 200
Sodium Cancelled Pending
Potassium Cancelled Pending
Chloride Cancelled Pending
Carbon Dioxide Cancelled Pending
BUN Cancelled Pending
Creatinine Cancelled Pending
Glucose Cancelled Pending
Calcium Cancelled Pending
Vital Signs:
Vital Signs
Temp Pulse Resp BP Pulse Ox
97.5 F 118 20 79/65 93
02/17/25 08:26 02/17/25 08:26 02/17/25 08:26 02/17/25 09:29 02/17/25 08:26
I&O
02/16/25 02/17/25 02/18/25
06:59 06:59 06:59
Intake Total 60 / 60 1260 / 1260
Output Total 1999 750 / 750
Balance -1940 / -1939 510 / 510
Physical Exam
-
General: Well Developed, Well Nourished, No Apparent Distress and Comfortable
HEENT: Normocephalic, Moist Mucous Membranes, No Ptosis, PERRLA, Nose Appears Normal and Other (Left eye ecchymosis)
Respiratory: Rales, Rhonchi and Non Labored Respirations
Cardiac: Regular Rhythm and S1/S2
Breast: Deferred by me
GI: Soft, Nontender, Nondistended and Normal Bowel Sounds
Genito-urinary: No Costovertebral Tender
Musculoskeletal: No Clubbing, No Cyanosis and No Edema
Skin: Warm
Neuro: Awake, Alert, Oriented, AO x 3 and No Motor Deficits
Psych: Calm
[2025-02-17 11:03] LABS: Blood Urea Nitrogen 12 mg/dl (7-17); Calcium 8.4 mg/dl (8.4-10.2); Chloride 88 mmol/L (98-107); Estimated Creatinine Clearance 45 ml/min; Glucose 116 mg/dl (70-99); Potassium 3.3 mmol/L (3.5-5.1); Sodium 126 mmol/L (135-145); eGFR > 60.00
[2025-02-17 11:12] LABS: Carbon Dioxide 34 mmol/L (22-30)
[2025-02-17 12:35] LABS: Body Fluid Second Tech HB
[2025-02-17] MEDS: KLOR-CON 40 MEQ PO (13:34)
[2025-02-17] MEDS: ROCEPHIN 1000 MG IV (13:34)
[2025-02-17] MEDS: STERILE WATER FOR INJECTION 10 ML IV (13:34)
--- NOTE | 2025-02-17 16:11 | CM ---
Request for skilled rehab faxed to [phone].
--- NOTE | 2025-02-17 16:29 | CM ---
Pt needs updated PT OT for SNF auth ,Pt refused PT today.
Stephanie from [facility] said no bed today or tomorrow.
Spoke with pt and son Gil in room informed [facility] has no bed . Both agreed with [facility] was 2 nd pick .[facility] confirmed bed for tomorrow after auth obtained.
Clinical faxed for [employer] auth [phone].
PLAN To [facility] after auth
[2025-02-17] MEDS: LASIX 60 MG PO (16:40)
[2025-02-18 03:27] VITALS: BP 96/60
[2025-02-18 06:00] VITALS: BMI 16.4
[2025-02-18 08:00] VITALS: BP 98/55
[2025-02-18] MEDS: ELIQUIS 2.5 MG PO (08:08)
[2025-02-18] MEDS: ALDACTONE PO (08:08)
[2025-02-18] MEDS: TOPROL XL 25 MG PO (08:09)
[2025-02-18] MEDS: MUCINEX 600 MG PO (08:09)
[2025-02-18] MEDS: FLUSH (NSS) 1 FLUSH IV ×2 (08:09→13:58)
[2025-02-18] MEDS: VIBRAMYCIN 100 MG PO (08:09)
[2025-02-18] MEDS: LASIX 60 MG PO ×2 (08:09→16:15)
[2025-02-18 09:29] LABS: Hematocrit 37.9 % (37.0-47.0); Hemoglobin 12.9 g/dL (12.0-16.0); Mean Corp Hgb Conc. 34.0 g/dL (33.0-37.0); Mean Corpuscular Volume 81.5 fL (81.0-99.0); Platelet Count 223 10^3/uL (130-400); Red Cell Dist. Width 17.6 % (11.5-14.5)
[2025-02-18 10:01] LABS: Blood Urea Nitrogen 12 mg/dl (7-17); Calcium 8.5 mg/dl (8.4-10.2); Chloride 86 mmol/L (98-107); Estimated Creatinine Clearance 40 ml/min; Glucose 86 mg/dl (70-99); Potassium 3.9 mmol/L (3.5-5.1); Sodium 126 mmol/L (135-145); eGFR > 60.00
[2025-02-18 11:07] LABS: Carbon Dioxide 36 mmol/L (22-30)
[2025-02-18 11:21] VITALS: BP 93/61; BP 95/46; BP 98/56; PULSE 92; PULSE 94; PULSE 95
--- NOTE | 2025-02-18 12:18 | CM ---
Addendum entered by Марина Adkins RN 02/18/25 15:49:
Received fax from [facility] auth # [id number] approved 02/18/25 to 03/03/25 NRD 03/02/25 fax to Emilia Momin [phone]. [facility] aware.
Anthony Cordero notified and agrees with dc to SNF today . He [facility] form completed Pt with oxygen. Orthostatic hypotension , fall hx , Amb dys.
[facility]
report [phone]
fax [phone]
PLAN To [facility]
Original Note:
[facility] can accept after auth obtained .
Yesterday Clinical faxed for [employer] auth [phone].As per Claudio determination will be faxed to [phone].
Called [phone] spoke with Claudio he said clinical was not received but fax Number correct.Refaxed clinical to [phone] Ref # [id number].
Pt found on [employer] under [facility] [place] Ref # [id number] auth scanned and attached.
Awaiting auth for [facility]
report [phone]
fax [phone]
PLAN To [facility] after auth
[2025-02-18] MEDS: STERILE WATER FOR INJECTION 10 ML IV (13:58)
[2025-02-18] MEDS: ROCEPHIN 1000 MG IV (13:58)
--- NOTE | 2025-02-18 14:44 | W.PN.HOSP.TC ---
Addendum entered and electronically signed by Wallace Swanson MD 02/18/25 16:46:
[id number]
Original Note:
Today's Communication/Plan
-
monitor bmp closely outpt
abx
FR
Na monitoring
Paracentesis as scheduled
Assessment / Plan
Assessment / Plan
Impression :
84yo F with amyloidosis, HFmrEF, HTN, recurrent ascites with paracenthesis [id number], paroxysmal Afib, HTN, recurrent hyponatremia, on occasional home O2 (patient and were not sure of flow rate) came with weakness after recurrent fall, found
RUL and RML pneumonia
Patient was started on Rocephin and doxycycline.
Patient was seen by physical therapy recommended either rehab versus home PT, patient wants to go home with home physical therapy.
Discussed with on the phone and son on the phone and they are all agreeable.
Will be discharged home on oral doxycycline and cefdinir for additional 5-days
A/P:
Sepsis due to pneumonia with organ dysfunction of acute hypoxic respiratory failure
Acute on chronic hypoxic respiratory failure 2/2 RUL and RML CAP .
-occasional home O2 (patient and were not sure of flow rate - now on 2L
Legionella and S.pneumonia urinary Ag
Sputum Cx if possible
COVID-19 and influenza PCR neg
Ceftriaxone/DOxy
Wean off O2 as able; O2 goal >92%; Cont to wean outpatient
Mucinex
-doxycycline and cefdinir for total 7 -days
F/u pulmonary outpt
#Acute on Chronic HFmrEF, improved
No pleural effusions, no LE swelling, dry weight 45kg now 43kg however pro-BNP elevated -
gave one dose IV Lasix on 12/16/24
cont home lasix and follow electrolytes
#AL amyloidosis
#Recurrent ascites
#Chronic bilirubinemia
#Paroxysmal Afib
receives Paracentesis every 2 weeks
#Chronic hyponatremia
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
-F/u bmp outpt
-FR, lasix
#recent fall w/o LOC
most likely 2/[address] head showed no bleed, but nondisplaced right occipital bone fracture similar to the one on 01/14/25
BMI: 18.7
Cachectic
DVT ppx cont Eliquis
DNR/DNI
More than 30 minutes spent in discharge including
Final examination of the patient
Summarizing hospital stay
Instructions for continuing care to all relevant caregivers
Preparation of discharge records, prescriptions, and referral forms
Total time spent (in minutes): 36
Anticipated Discharge: Today
Subjective/Interval History
-
Date of Service: February 18, 2025
No acute events overnight
Objective Data
-
Labs:
Laboratory Results
02/18/25
08:33
WBC 14.8 H
Hgb 12.9
Hct 37.9
Plt Count 223
Sodium 126 L
Potassium 3.9
Chloride 86 L
Carbon Dioxide 36 H
BUN 12
Creatinine 0.5 L
Glucose 86
Calcium 8.5
Vital Signs:
Vital Signs
Temp Pulse Resp BP Pulse Ox
97.6 F 112 18 98/55 96
02/18/25 11:21 02/18/25 08:09 02/18/25 11:21 02/18/25 08:09 02/18/25 11:21
I&O
02/17/25 02/18/25 02/19/25
06:59 06:59 06:59
Intake Total 1260 / 1260 600 / 600
Output Total 750 / 750 1000 / 1000
Balance 510 / 510 -400 / -400
Review of Systems
-
History Source: Patient
All other systems: Reviewed and negative
Data Reviewed
-
Diagnostic Radiology: Image personally visualized and interpreted and Report Reviewed by me
CT Scan: Image personally visualized and interpreted and Report Reviewed by me
Ultrasound: Image personally visualized and interpreted and Report Reviewed by me
MRI: Image personally visualized and interpreted and Report Reviewed by me
Medical Tests (Nuc Med, Echo etc): Image personally visualized and interpreted and Report Reviewed by me
Labs: Labs Reviewed by me
Old Records: Reviewed
--- NOTE | 2025-02-18 14:53 | W.DS.TRANS ---
DC Summary - [employer]
-
Discharge Instructions:
Sleep Apnea Risk Low
Discharge Diagnosis/Procedures Acute on chronic hypoxic respiratory failure
secondary to pneumonia
Chronic CHF.
AL amyloidosis.
Paroxysmal A-fib
Diet As tolerated
Activity As tolerated,With assistance
Additional Activity Needs supervision
Blood Work cbc and cmp in 1 week
Others Tests as per hepatology, GI outpt
Instructions:
Stand-Alone Forms:
Changes to Home Medications: Yes
Discharge Medications:
DC Medications w/original date entered in [employer]
metoprolol succinate 25 mg tablet,extended release 24 hr (Toprol XL) 25 mg PO DAILY Heart Disease/Condition 09/29/24
apixaban 2.5 mg tablet (Eliquis) 2.5 mg PO BID Heart Disease/Condition 02/14/25
furosemide 20 mg tablet (Lasix) 60 mg PO BID Fluid Retention/Swelling 02/14/25
spironolactone 25 mg tablet 25 mg PO DAILY Fluid Retention/Swelling 02/14/25
cefdinir 300 mg capsule 300 mg PO BID #10 caps 02/16/25
doxycycline hyclate 100 mg capsule 100 mg PO Q12 5 days #10 caps 02/16/25
guaifenesin 100 mg/5 mL oral liquid 100 mg (5 mL) PO Q4HPRN PRN cough 7 days #118 mL 02/16/25
guaifenesin 600 mg tablet, extended release 12 hr 600 mg PO Q12 10 days #20 tabs 02/16/25
Home Medication Changes
cefdinir 300 mg capsule 300 mg PO BID #10 caps 02/16/25
doxycycline hyclate 100 mg capsule 100 mg PO Q12 5 days #10 caps 02/16/25
guaifenesin 100 mg/5 mL oral liquid 100 mg (5 mL) PO Q4HPRN PRN cough 7 days #118 mL 02/16/25
guaifenesin 600 mg tablet, extended release 12 hr 600 mg PO Q12 10 days #20 tabs 02/16/25
Pending Results: No
[2025-02-18 15:33] VITALS: BP 94/54
--- NOTE | 2025-02-18 16:13 | PTCARENOTE ---
Pt awkae and alert, oriented x3;forgetful. BARRETO well tires easily . OOB to chair/BSC with assist x1. VSS. Currently on room air- pulseox 97%,pt with (+) slight RUSS; denies SOB. Abd soft, sl rounded, reynaldo PO. Voids clear lilia urine on BSC; occ
incont. Rt occipital laceration with sutures AWILDA, no drainage noted. Resting comfortably at present. Will continue to monitor.
[2025-02-18 19:00] VITALS: BP 88/64
[2025-02-18 19:06] VITALS: BP 98/56
== END 2025-02-18 19:46 | DRG 871 ==
LOC: 4 EAST ACU 22:25
PROVIDERS: General Practice; Internal Medicine; Radiology Diagnostic Radiology; Surgery Trauma Surgery; ADMITTING PHYSICIAN Hospitalist; ATTENDING PHYSICIAN Internal Medicine; EMERGENCY PHYSICIAN Emergency Medicine; FAMILY PHYSICIAN Family Medicine
PROC: 0W9G3ZZ Drainage of Peritoneal Cavity, Percutaneous Approach (ICD-10-PCS; 2025-02-17)
DX: A41.9 Sepsis, unspecified organism (principal); J18.9 Pneumonia, unspecified organism; J96.21 Acute and chronic respiratory failure with hypoxia; E85.81 Light chain (AL) amyloidosis; I50.22 Chronic systolic (congestive) heart failure; I48.21 Permanent atrial fibrillation; R18.8 Other ascites; E87.1 Hypo-osmolality and hyponatremia; R17 Unspecified jaundice; E85.4 Organ-limited amyloidosis; R65.20 Severe sepsis without septic shock; T50.2X5A Adverse effect of carbonic-anhydrase inhibitors, benzothiadiazides and other diuretics, initial encounter; S01.01XA Laceration without foreign body of scalp, initial encounter; W01.0XXA Fall on same level from slipping, tripping and stumbling without subsequent striking against object, initial encounter; I11.0 Hypertensive heart disease with heart failure; E87.6 Hypokalemia; Z11.52 Encounter for screening for COVID-19; Z66 Do not resuscitate; Z79.899 Other long term (current) drug therapy; Z79.01 Long term (current) use of anticoagulants; Z99.81 Dependence on supplemental oxygen
CPT/HCPCS: 12002; 49083; 70450; 71045; 71046; 72125; 80048; 80053; 81003; 81015; 82248; 83615; 83880; 83935; 84300; 85025; 85027; 85045; 87086; 87449; 87502; 87811; 87899; 89051; 93005; 94640; 97162; 97167; 97530; 99285

== ENCOUNTER → 2025-02-21 10:14 | Outpatient (REF) | payer OTHER, SELFPAY ==
[2025-02-21 11:38] LABS: Hematocrit 38.6 % (37.0-47.0); Hemoglobin 12.6 g/dL (12.0-16.0); Mean Corp Hgb Conc. 32.6 g/dL (33.0-37.0); Mean Corpuscular Volume 85.0 fL (81.0-99.0); Nucleated Red Blood Cells % 0 %; Platelet Count 256 10^3/uL (130-400); Red Cell Dist. Width 17.9 % (11.5-14.5)
[2025-02-21 11:45] LABS: Blood Urea Nitrogen 13 mg/dl (7-17); Calcium 8.2 mg/dl (8.4-10.2); Chloride 87 mmol/L (98-107); Glucose 88 mg/dl (70-99); Potassium 3.3 mmol/L (3.5-5.1); Sodium 127 mmol/L (135-145); eGFR > 60.00
[2025-02-21 11:56] LABS: Carbon Dioxide 37 mmol/L (22-30)
== END ==
LOC: OLABP 10:14
PROVIDERS: ATTENDING PHYSICIAN Family Medicine
DX: J96.20 Acute and chronic respiratory failure, unspecified whether with hypoxia or hypercapnia (principal); Z79.01 Long term (current) use of anticoagulants; J18.9 Pneumonia, unspecified organism; I50.20 Unspecified systolic (congestive) heart failure; S01.01XD Laceration without foreign body of scalp, subsequent encounter; W19.XXXD Unspecified fall, subsequent encounter; E85.9 Amyloidosis, unspecified; I48.0 Paroxysmal atrial fibrillation; A41.9 Sepsis, unspecified organism; E87.1 Hypo-osmolality and hyponatremia; R18.8 Other ascites
CPT/HCPCS: 36415; 80048; 85025

== ENCOUNTER → 2025-02-23 10:11 | Outpatient (REF) | payer OTHER, SELFPAY ==
[2025-02-23 10:57] LABS: Blood Urea Nitrogen 13 mg/dl (7-17); Calcium 8.3 mg/dl (8.4-10.2); Chloride 87 mmol/L (98-107); Glucose 94 mg/dl (70-99); Potassium 4.6 mmol/L (3.5-5.1); Sodium 125 mmol/L (135-145); eGFR > 60.00
[2025-02-23 11:08] LABS: Carbon Dioxide 34 mmol/L (22-30)
== END ==
LOC: OLABP 10:11
PROVIDERS: ATTENDING PHYSICIAN Family Medicine
DX: E87.1 Hypo-osmolality and hyponatremia (principal); R18.8 Other ascites; J96.20 Acute and chronic respiratory failure, unspecified whether with hypoxia or hypercapnia; J18.9 Pneumonia, unspecified organism; I50.20 Unspecified systolic (congestive) heart failure; Z79.01 Long term (current) use of anticoagulants
CPT/HCPCS: 36415; 80048

== ENCOUNTER → 2025-02-25 11:04 | Outpatient (REF) | payer OTHER, SELFPAY ==
[2025-02-25 12:10] LABS: Blood Urea Nitrogen 13 mg/dl (7-17); Calcium 8.5 mg/dl (8.4-10.2); Carbon Dioxide 33 mmol/L (22-30); Chloride 91 mmol/L (98-107); Glucose 88 mg/dl (70-99); Potassium 4.3 mmol/L (3.5-5.1); Sodium 127 mmol/L (135-145); eGFR > 60.00
== END ==
LOC: OLABP 11:04
PROVIDERS: ATTENDING PHYSICIAN Family Medicine
DX: S01.01XD Laceration without foreign body of scalp, subsequent encounter (principal); J96.20 Acute and chronic respiratory failure, unspecified whether with hypoxia or hypercapnia; J18.9 Pneumonia, unspecified organism; I50.20 Unspecified systolic (congestive) heart failure; Z79.01 Long term (current) use of anticoagulants; W19.XXXD Unspecified fall, subsequent encounter; E85.9 Amyloidosis, unspecified; I48.0 Paroxysmal atrial fibrillation; A41.9 Sepsis, unspecified organism; E87.1 Hypo-osmolality and hyponatremia; R18.8 Other ascites
CPT/HCPCS: 36415; 80048

== ENCOUNTER → 2025-02-28 12:16 | Outpatient (REF) | payer OTHER, SELFPAY ==
[2025-02-28 14:34] LABS: Blood Urea Nitrogen 13 mg/dl (7-17); Calcium 9.1 mg/dl (8.4-10.2); Carbon Dioxide 35 mmol/L (22-30); Chloride 85 mmol/L (98-107); Glucose 112 mg/dl (70-99); Potassium 5.1 mmol/L (3.5-5.1); Sodium 124 mmol/L (135-145); eGFR > 60.00
== END ==
LOC: OLABP 12:16
PROVIDERS: ATTENDING PHYSICIAN Family Medicine
DX: J18.9 Pneumonia, unspecified organism (principal); I50.20 Unspecified systolic (congestive) heart failure; Z79.01 Long term (current) use of anticoagulants; E85.9 Amyloidosis, unspecified; I48.0 Paroxysmal atrial fibrillation; A41.9 Sepsis, unspecified organism; E87.1 Hypo-osmolality and hyponatremia; R18.8 Other ascites
CPT/HCPCS: 36415; 80048

== ENCOUNTER → 2025-03-04 11:19 | Outpatient (REF) | payer OTHER, SELFPAY ==
[2025-03-04 12:23] LABS: Hematocrit 31.5 % (37.0-47.0); Hemoglobin 9.5 g/dL (12.0-16.0); Mean Corp Hgb Conc. 30.2 g/dL (33.0-37.0); Mean Corpuscular Volume 90.0 fL (81.0-99.0); Nucleated Red Blood Cells % 0 %; Platelet Count 288 10^3/uL (130-400); Red Cell Dist. Width 19.4 % (11.5-14.5)
[2025-03-04 16:21] LABS: Blood Urea Nitrogen 12 mg/dl (7-17); Calcium 8.7 mg/dl (8.4-10.2); Carbon Dioxide 34 mmol/L (22-30); Chloride 86 mmol/L (98-107); Glucose 184 mg/dl (70-99); Potassium 3.7 mmol/L (3.5-5.1); Sodium 129 mmol/L (135-145); eGFR > 60.00
== END ==
LOC: OLABP 11:19
PROVIDERS: ATTENDING PHYSICIAN Family Medicine
DX: R18.8 Other ascites (principal); E87.1 Hypo-osmolality and hyponatremia; A41.9 Sepsis, unspecified organism; I48.0 Paroxysmal atrial fibrillation; J96.20 Acute and chronic respiratory failure, unspecified whether with hypoxia or hypercapnia; J18.9 Pneumonia, unspecified organism; I50.20 Unspecified systolic (congestive) heart failure; Z79.01 Long term (current) use of anticoagulants; W19.XXXD Unspecified fall, subsequent encounter
CPT/HCPCS: 36415; 80048; 85025

== ENCOUNTER → 2025-03-07 11:36 | Outpatient (REF) | payer OTHER, SELFPAY ==
[2025-03-07 12:24] LABS: Hematocrit 29.4 % (37.0-47.0); Hemoglobin 9.4 g/dL (12.0-16.0); Mean Corp Hgb Conc. 32.0 g/dL (33.0-37.0); Mean Corpuscular Volume 87.0 fL (81.0-99.0); Nucleated Red Blood Cells % 0 %; Platelet Count 266 10^3/uL (130-400); Red Cell Dist. Width 19.5 % (11.5-14.5)
== END ==
LOC: OLABP 11:36
PROVIDERS: ATTENDING PHYSICIAN Family Medicine
DX: J96.20 Acute and chronic respiratory failure, unspecified whether with hypoxia or hypercapnia (principal); J18.9 Pneumonia, unspecified organism; I50.20 Unspecified systolic (congestive) heart failure; Z79.01 Long term (current) use of anticoagulants; S01.01XD Laceration without foreign body of scalp, subsequent encounter; W19.XXXD Unspecified fall, subsequent encounter; E85.9 Amyloidosis, unspecified; I48.0 Paroxysmal atrial fibrillation; A41.9 Sepsis, unspecified organism; E87.1 Hypo-osmolality and hyponatremia; R18.8 Other ascites
CPT/HCPCS: 36415; 85025

== ENCOUNTER → 2025-03-08 12:49 | Outpatient (REF) | payer OTHER, SELFPAY ==
[2025-03-08 13:06] LABS: Hematocrit 30.8 % (37.0-47.0); Hemoglobin 9.8 g/dL (12.0-16.0); Mean Corp Hgb Conc. 31.8 g/dL (33.0-37.0); Mean Corpuscular Volume 87.5 fL (81.0-99.0); Nucleated Red Blood Cells % 0 %; Platelet Count 253 10^3/uL (130-400); Red Cell Dist. Width 19.8 % (11.5-14.5)
[2025-03-08 13:34] LABS: Blood Urea Nitrogen 15 mg/dl (7-17); Calcium 8.9 mg/dl (8.4-10.2); Carbon Dioxide 35 mmol/L (22-30); Chloride 91 mmol/L (98-107); Glucose 99 mg/dl (70-99); Potassium 4.2 mmol/L (3.5-5.1); Sodium 131 mmol/L (135-145); eGFR > 60.00
== END ==
LOC: OLABP 12:49
PROVIDERS: ATTENDING PHYSICIAN Family Medicine
DX: J96.20 Acute and chronic respiratory failure, unspecified whether with hypoxia or hypercapnia (principal); J18.9 Pneumonia, unspecified organism; I50.20 Unspecified systolic (congestive) heart failure; Z79.01 Long term (current) use of anticoagulants; E85.9 Amyloidosis, unspecified; I48.0 Paroxysmal atrial fibrillation; A41.9 Sepsis, unspecified organism; E87.1 Hypo-osmolality and hyponatremia; R18.8 Other ascites
CPT/HCPCS: 36415; 80048; 85025

== ENCOUNTER → 2025-03-11 10:00 | Outpatient (REF) | payer OTHER, SELFPAY ==
[2025-03-11 11:20] LABS: Hematocrit 29.7 % (37.0-47.0); Hemoglobin 9.4 g/dL (12.0-16.0); Mean Corp Hgb Conc. 31.6 g/dL (33.0-37.0); Mean Corpuscular Volume 88.9 fL (81.0-99.0); Nucleated Red Blood Cells % 0 %; Platelet Count 279 10^3/uL (130-400); Red Cell Dist. Width 19.9 % (11.5-14.5)
== END ==
LOC: OLABP 10:00
PROVIDERS: ATTENDING PHYSICIAN Family Medicine
DX: J96.20 Acute and chronic respiratory failure, unspecified whether with hypoxia or hypercapnia (principal); J18.9 Pneumonia, unspecified organism; I50.20 Unspecified systolic (congestive) heart failure; Z79.01 Long term (current) use of anticoagulants; S01.01XD Laceration without foreign body of scalp, subsequent encounter; W19.XXXD Unspecified fall, subsequent encounter; E85.9 Amyloidosis, unspecified; I48.0 Paroxysmal atrial fibrillation; A41.9 Sepsis, unspecified organism; E87.1 Hypo-osmolality and hyponatremia; R18.8 Other ascites
CPT/HCPCS: 36415; 85025

== ENCOUNTER → 2025-03-14 10:18 | Outpatient (REF) | payer OTHER, SELFPAY ==
[2025-03-14 11:14] LABS: Hematocrit 31.2 % (37.0-47.0); Hemoglobin 9.9 g/dL (12.0-16.0); Mean Corp Hgb Conc. 31.7 g/dL (33.0-37.0); Mean Corpuscular Volume 87.2 fL (81.0-99.0); Nucleated Red Blood Cells % 0 %; Platelet Count 275 10^3/uL (130-400); Red Cell Dist. Width 20.0 % (11.5-14.5)
[2025-03-14 11:26] LABS: Blood Urea Nitrogen 20 mg/dl (7-17); Calcium 8.8 mg/dl (8.4-10.2); Carbon Dioxide 35 mmol/L (22-30); Chloride 92 mmol/L (98-107); Glucose 98 mg/dl (70-99); Potassium 3.5 mmol/L (3.5-5.1); Sodium 132 mmol/L (135-145); eGFR > 60.00
== END ==
LOC: OLABP 10:18
PROVIDERS: ATTENDING PHYSICIAN Family Medicine
DX: J96.20 Acute and chronic respiratory failure, unspecified whether with hypoxia or hypercapnia (principal); J18.9 Pneumonia, unspecified organism; I50.20 Unspecified systolic (congestive) heart failure; Z79.01 Long term (current) use of anticoagulants; S01.01XD Laceration without foreign body of scalp, subsequent encounter; W19.XXXD Unspecified fall, subsequent encounter; E85.9 Amyloidosis, unspecified; I48.0 Paroxysmal atrial fibrillation; A41.9 Sepsis, unspecified organism; E87.1 Hypo-osmolality and hyponatremia; R18.8 Other ascites
CPT/HCPCS: 36415; 80048; 85025